=== PATIENT | female | born 1935 | race Caucasian/White ===

== ENCOUNTER 2025-01-17 19:38 | Inpatient (IN) | payer MEDICARE, OTHER ==
[~2025-01-17] VITALS: Ht 165.1 cm; Wt 69.3 kg
--- NOTE | 2025-01-17 20:04 | ERN ---
ED Note History of Present Illness Stated Complaint: C/O ABD PAIN WITH N X V Chief Complaint: Abdominal Pain Time Seen by MD: 19:45 Dictation: 89-year-old female was brought to the ER due to abdominal pain, stated that the pain started earlier this morning and has been getting worse, patient was unable to tolerate a diet today due to abdominal pain. He denies nausea or vomiting. Patient reports history of constipation, stated that she had a bowel movement this ED but was very little stool came out. Allergies: Coded Allergies: No Known Allergies (Unverified Allergy, Unknown, 01/17/25) Past Medical History Past Medical History: Unknown Surgical History: Unknown Review of System Dictation NEGATIVE EXCEPT PER HPI Constitutional: Negative for fever,chills, and weight loss Eyes: Negative for injury, pain,redness, and discharge ENT: Negative for injury,pain or swelling Cardiovascular: denies chest pain, palpitations, and edema Respiratory: Negative for shortness of breath, cough, and wheezing, Abdomen/GI: Abdominal pain, constipation. Back: Negative for injury and pain : Negative for injury, bleeding and discharge MS/Extremity: Negative for injury and deformity Skin: Negative for rash, and discoloration Neuro: Negative for headache, weakness, numbness, tingling, and seizure Psych: Negative for suicide ideation, homicidal ideation, and hallucinations Initial Vital Sign VS Vital Signs Date Time Temp Pulse Resp B/P (MAP) Pulse Ox O2 Delivery O2 Flow Rate FiO2 01/17/25 19:46 98.2 106 20 203/68 94 Room Air 01/17/25 20:10 2 28 Physical Exam Dictation General: awake, alert, NAD Head/Face: Normocephalic, atraumatic Eyes: PERRL, EOMI, vision at baseline ENT: oral cavity clear, TMs clear, no signs of infection Neck: Trachea midline, supple, no nuchal rigidity Cardiovascular: RRR, normal S1/S2, No MRGs, no JVD Respiratory: CTAB, no respiratory distress, No rales or wheezes Abdomen: Tympanic, diffusely tender Skin: Warm, dry, normal turgor, no rash MS/Extremity: Pulses equal, no cyanosis, neurovascular intact, FROM Neuro: COAx4, GCS 15, strength 5/5, CN 2-12 intact, normal cerebellar exam, normal gait, Psych: Normal behavior, mood, and affect normal Results (Laboratory/Radiology) Laboratory/Radiology Laboratory Tests Test 01/17/25 20:22 White Blood Count 12.6 K/uL (4.8-10.8) H Red Blood Count 4.32 MIL/uL (4.00-5.50) Hemoglobin 13.2 g/dL (12.0-16.0) Hematocrit 40.3 % (36-48) Mean Corpuscular Volume 93.3 fL (79-99) Mean Corpuscular Hemoglobin 30.6 pg (27.0-33.0) Mean Corpuscular Hemoglobin Concent 32.8 g/dL (32.0-36.0) Red Cell Distribution Width 12.4 % (11.0-15.5) Platelet Count 383 K/uL (130-400) Mean Platelet Volume 8.6 fL (7.5-10.5) Immature Granulocyte % (Auto) 0.2 % (0-1) Neutrophils (%) (Auto) 94.6 % (40.0-77.0) H Lymphocytes (%) (Auto) 4.5 % (21.0-51.0) L Monocytes (%) (Auto) 0.4 % (3.0-13.0) L Eosinophils (%) (Auto) 0.1 % (0.0-8.0) Basophils (%) (Auto) 0.2 % (0.0-5.0) Neutrophils # (Auto) 11.9 K/uL (1.8-7.7) H Lymphocytes # (Auto) 0.6 K/uL (1.0-4.8) L Monocytes # (Auto) 0.1 K/uL (0.1-1.0) Eosinophils # (Auto) 0.01 K/uL (0.00-0.70) Basophils # (Auto) 0.03 K/uL (0.00-0.20) Absolute Immature Granulocyte (auto 0.03 K/uL (0-1) Nucleated Red Blood Cells 0.0 % (0.0-0.19) White Cell Morphology Comment See comments Sodium Level 142 mmol/L (136-145) Potassium Level 3.4 mmol/L (3.5-5.1) L Chloride Level 100 mmol/L (101-111) L Carbon Dioxide Level 29 mmol/L (21-32) Blood Urea Nitrogen 23 mg/dL (7-18) H Creatinine 1.7 mg/dL (0.5-1.0) H Glomerular Filtration Rate Calc 29 mL/min (>90) Random Glucose 147 mg/dL (70-105) H Total Calcium 9.2 mg/dL (8.5-10.1) Lipase 8 U/L (16-77) L EKG Comment: Sinus tachycardia, IA 174, QT 362 ED Course ED Course Orders Procedure Category Date Status Time Vital Signs Per CPOE 01/17/25 Transmitted Routine 19:56 Saline Lock Iv CPOE 01/17/25 Transmitted 19:56 Cbc With Differential LAB 01/17/25 Complete 19:56 Lipase LAB 01/17/25 Complete 19:56 Urinalysis Profile LAB 01/17/25 Logged 19:56 Basic Metabolic Panel LAB 01/17/25 Complete 19:56 12 Lead Ekg Tracing- EKG 01/17/25 Logged Technical 19:56 Ct Abdomen/Pelvis W/O CT 01/17/25 Resulted Contrast 19:57 Simethicone (Mylicon) PHA 01/17/25 Complete 20:00 Ondansetron 4mg Inj PHA 01/17/25 Complete (Zofran 4mg Inj) 20:00 Ondansetron 4mg Inj PHA 01/17/25 Complete (Zofran 4mg Inj) 20:00 12 Lead Ekg Tracing- EKG 01/17/25 Logged Technical 20:04 Dicyclomine Hcl PHA 01/17/25 Complete (Bentyl 20mg Inj) 20:30 0.9%Nacl 1000ml (Ns PHA 01/17/25 In Process 1000ml) 22:00 Tamsulosin Hcl PHA 01/17/25 In Process (Flomax) 22:00 Current Medications Medications (Trade) Dose Ordered Sig/Nirmala Route PRN Reason Start Time Stop Time Status Last Admin Dose Admin Dicyclomine HCl (Bentyl 20mg Inj) 20 mg ONCE ONCE IM 01/17/25 20:30 01/17/25 20:31 DC 01/17/25 20:40 Ondansetron HCl (zoFRAN 4MG INJ) 4 mg ONCE ONCE IVP 01/17/25 20:00 01/17/25 20:01 DC 01/17/25 20:27 Ondansetron HCl (zoFRAN 4MG INJ) 4 mg ONCE ONCE IVP 01/17/25 20:00 01/17/25 20:01 DC Simethicone (Mylicon) 160 mg ONCE ONCE PO 01/17/25 20:00 01/17/25 20:01 DC 01/17/25 20:39 Sodium Chloride 1,000 ml @ 75 mls/hr [id number] IV 01/17/25 22:00 02/16/25 21:59 Tamsulosin HCl (FloMAX) 0.4 mg ONCE ONCE PO 01/17/25 22:00 01/17/25 22:01 Vital Signs Date Time Temp Pulse Resp B/P (MAP) Pulse Ox O2 Delivery O2 Flow Rate FiO2 01/17/25 20:10 98.2 108 28 142/78 96 Nasal Cannula* 2 28 01/17/25 19:46 98.2 106 20 203/68 94 Room Air Medical Decision Making MDM Abdominal pain Constipation Ordered GI laboratory workup Ordered CT abdomen without contrast Ordered EKG DX & DISP Disposition: Inpatient Decision to Admit Date: Jan 17, 2025 Departure Impression: Primary Impression: Hydronephrosis Additional Impressions: Stones, urinary tract, Hypokalemia, LEON (acute kidney injury) Condition: Stable Patient will be admitted to to urinary tract stones, hydronephrosis, acute kidney injury. JULIO CÉSAR JEONG MD Jan 17, 2025 20:04
[2025-01-17 20:28] LABS: IMMATURE GRANULOCYTE ABSOLUTE 0.03 K/uL (0-1); NUCLEATED RED BLOOD CELLS 0.0 % (0.0-0.19); PLATELET COUNT (AUTO) 383 K/uL (130-400); RED BLOOD CELL COUNT(AUTO) 4.32 MIL/uL (4.00-5.50); RED CELL DISTRIBUTION WIDTH 12.4 % (11.0-15.5); WHITE BLOOD COUNT (AUTO) 12.6 K/uL (4.8-10.8)
[2025-01-17] MEDS: SIMETHICONE 80 MG TAB.CHEW PO ONE (20:39)
[2025-01-17 20:40] LABS: CREATININE 1.7 mg/dL (0.5-1.0); GLOMERULAR FILTR. RATE CALC 29.0 mL/min (>90); GLUCOSE,RANDOM 147.0 mg/dL (70-105); SODIUM SERUM 142.0 mmol/L (136-145); UREA NITROGEN, BLOOD 23.0 mg/dL (7-18)
[2025-01-17] MEDS: DICYCLOMINE 20MG (10MG/ML) AMP IM ONE (20:40)
--- NOTE | 2025-01-17 21:22 | HMCIMG ---
EXAM: CT Abdomen and Pelvis Without IV contrast CLINICAL HISTORY: abdomina; pain diffuse TECHNIQUE: Axial computed tomography images of the abdomen and pelvis without intravenous contrast. CONTRAST: No IV contrast. COMPARISON: None provided. FINDINGS: LUNG BASES: The lung bases appear clear. No pleural effusions are seen. LIVER: Unremarkable. GALLBLADDER AND BILE DUCTS: Absent. PANCREAS: Unremarkable. SPLEEN: Unremarkable. ADRENAL GLANDS: Unremarkable. KIDNEYS, URETERS, AND BLADDER: Moderate right sided hydronephrosis and hydroureter. There is a stone 6 mm in the distal right ureter. Extensive bilateral calculi are seen. STOMACH AND BOWEL: Sigmoid diverticulosis is noted. No bowel obstruction. No evidence of bowel obstruction. No evidence suggesting enteritis or colitis. Not visualized PERITONEUM: No free fluid. No free air. LYMPH NODES: No lymphadenopathy is evident. REPRODUCTIVE: Unremarkable as visualized. VASCULATURE: No evidence of abdominal aortic aneurysm. BONES: No aggressive appearing osseous lesion. No acute osseous pathology evident. IMPRESSION: 1. Obstructing calculus within the right ureter distally associated with moderate proximal obstructive uropathy. 2. Extensive sigmoid diverticulosis. /Margy
--- NOTE | 2025-01-17 22:01 | HP ---
History of Present Illness Reason for Visit: abdominal pain History of Present Illness Ms. Chatman is an 89-year-old female that was seen and examined today on 01/17/2025 patient is currently alert and oriented x1. Patient states that it is December 2010. Patient states she does not know what city she is currently N but states that she is currently living with the daughter. Patient states that she has from [facility]. Discussed with primary nurse, Tona who states patient was previously alert and oriented x3 however after a dose of Dilaudid patient became less able to answer questions appropriately. The following was obtained from emergency room physician report. There was no previous medical records available for me to review. According to emergency room physician: 89-year-old female was brought to the ER due to abdominal pain, stated that the pain started earlier this morning and has been getting worse, patient was unable to tolerate a diet today due to abdominal pain. He denies nausea or vomiting. Patient reports history of constipation, stated that she had a bowel movement this ED but was very little stool came out. Today in the emergency department WBCs 12.6, left shift neutrophils 94%, potassium 3.4, no urinalysis has been collected or sent to lab, CT of abdomen and pelvis shows obstructive uropathy, right hydronephrosis, right hydro ureteral, 6 mm calculus. Emergency room physician recommended that patient be admitted so she could be evaluated by urology service. Urology service is being paste from the emergency department. Also creatinine was elevated at 1.7. There was no known baseline creatinine level. Nephrology service was also consulted from the emergency department. Past Medical History ADDITIONAL PAST MEDICAL HISTORY: [Unable to obtain] SOCIAL HISTORY: [Negative for smoking, alcohol use, drug use. Patient is currently living with her daughter.] SURGICAL HISTORY: [Unable to obtain] Review of Systems General: No Fever, No Chills, No Night Sweats, No Fatigue, No Malaise, No Appetite, No Other HEENT: No Head Aches, No Visual Changes, No Eye Pain, No Ear Pain, No Dysphasia, No Sinus Congestion, No Post Nasal Drip, No Sore Throat, No Other Pulmonary: No Dyspnea, No Cough, No Pleuritic Chest Pain, No Other Cardiovascular: No: Chest Pain, Palpitations, Orthopnea, Paroxysmal Noc. Dyspnea, Edema, Lt Headedness, Other Gastrointestinal: Abdominal Pain; No: Nausea, Vomiting, Diarrhea, Constipation, Melena, Hematochezia, Other Genitourinary: No Dysuria, No Frequency, No Incontinence, No Hematuria, No Retention, No Other Musculoskeletal: No: other, neck pain, shoulder pain, arm pain, back pain, hand pain, leg pain, foot pain Skin: No Urticaria, No Rash, No Other Neurological: No: Weakness, Numbness, Incoordination, Change in speech, Confusion, Seizures, Other Allergies: Coded Allergies: No Known Allergies (Unverified Allergy, Unknown, 01/17/25) Exam Vital Signs Vital Signs Date Time Temp Pulse Resp B/P (MAP) Pulse Ox O2 Delivery O2 Flow Rate FiO2 01/17/25 20:10 98.2 108 28 142/78 96 Nasal Cannula* 2 28 General Appearance: Alert (X1), No acute distress HEENT: Atraumatic, EOMI Respiratory: Clear to auscultation, Normal air movement, NL respiratory effort Cardiovascular: Regular rate, Regular rhythm, Normal S1, Normal S2 Abdominal: Normal bowel sounds, Soft, No tenderness Extremities: Other (Positive weakness to bilateral lower extremities) Skin: Other (Details per nursing assessment no assistance to turn patient at this time) Neuro: Normal speech, Strength at 5/5 X4 ext, Cranial nerves 3-12 NL Psych/Mental Status: Other (Patient able to answer very simple questions only) Assessment/Plan ASSESSMENT: [ Right hydronephrosis, POA Right hydroureter, POA Obstructive uropathy, POA Right ureterolithiasis, POA, 6 mm calculus Leukocytosis, POA Hypokalemia, POA Diverticulosis, POA Acute kidney injury versus CKD, POA] PLAN: [ Admit patient to medical floor as inpatient status. Patient will be followed by urology service. Keep patient NPO. As needed analgesia with Dilaudid. Check preprocedure labs, CBC, BMP, magnesium, phosphorus, PTT, UA, type and s creen, EKG, CXR IV fluid maintenance therapy lactated Ringer's at 75 mL/HR Tamsulosin 0.4 mg by mouth once daily Check blood culture, follow up with the results Check lactic acid, follow up with the results Check procalcitonin, follow up with the results Ordered urinalysis which was not been collected or sent to lab Replace potassium conservatively given decreased renal function, potassium chloride 10 mEq IV times 1 Calculate FENA Check urine sodium, creatinine, osmolality Avoid nephrotoxic agents when possible Renally dose all medications when possible Patient will be followed by Nephrology Service who was consulted from the emergency department Monitor patient's labs. Weight patient daily. Monitor intake and output. GI prophylaxis, Protonix DVT prophylaxis, Isaac's and SCDs avoid anticoagulation at this time due to impending urology evaluation ADVANCED CARE PLANNING 1. Which of the following were discussed? Hospice Care - Yes Therapeutic options - yes Advance Directives - Yes - patient states she does not have any advance directives in place at this time, however her daughter can make decisions for her if she becomes unable Other discussions - patient wishes to remain a full code at this time 2. Discussed with who? Patient 3. Voluntary nature of this service was explained to the patient? Yes 4. Amount of time spent - ___16 minutes____ 5. Reviewed by Physician? (if this service was performed by NPP) Yes This document was generated in part using voice recognition software, occasional wrong word or sound alike substitutions may have occurred due to the inherent limitations of voice recognition software. Read the chart carefully and recognize using context, where the substitutions have occurred. Although every effort was made to edit the content, physical therapist assistant and typing errors may occur ATTESTATION BY PHYSICIAN I have seen and examined the patient. I reviewed the documentation, medical decision making, and treatment plan as noted by the mid-level provider above. I agree with the findings and plan of care. ] ZAKIYA MOCTEZUMA [facility] Jan 17, 2025 22:01
[2025-01-17 22:18] LABS: APPEARANCE,URINE CLOUDY (CLEAR); GLUCOSE, URINE (UA) NEGATIVE (NEGATIVE); LEUKOCYTE ESTERASE ,URINE 500 Leu/uL (NEGATIVE); NITRATE,URINE NEGATIVE (NEGATIVE); OCCULT BLOOD,URINE LARGE (NEGATIVE)
[2025-01-17 22:21] LABS: ADD UA MICROSCOPIC YES; CREATININE,URINE RANDOM 22.87 mg/dL (30-135)
[2025-01-17 22:24] LABS: UNCLASSIFIED CRYSTAL 10 /HPF (None Seen); WBC CLUMP FEW /HPF (0-1)
[2025-01-17] MEDS: 0.9%NACL 1000ML 1,000 ML IV SCH (22:32)
--- NOTE | 2025-01-17 22:41 | NUR ---
Dr. CANALES, UROLOGIST, AT BEDSIDE AT THIS TIME
--- NOTE | 2025-01-17 23:08 | CONS ---
CONSULTATION NOTE Date of Service: Jan 17, 2025 Reason for Consultation: 6 mm right distal ureteral calculus causing obstruction Requesting Physician: George Lira MD HISTORY OF PRESENT ILLNESS: 89-year-old female with a history of nephrolithiasis presents to the emergency department complaining of diffuse abdominal pain. She was managed earlier by her daughter with suppositories thinking she needed to have a bowel movement. Pain was unrelenting. It is a stabbing ache diffuse in the abdomen but mostly lateralizing to the right lower quadrant occasionally will radiate into the groin area. Severity at the time of presentation was eight on a scale of 1-10. No other associated symptoms. Today in the emergency department WBCs 12.6, left shift neutrophils 94%, potassium 3.4, no urinalysis has been collected or sent to lab, CT of abdomen and pelvis shows obstructive uropathy, right hydronephrosis, right hydro ureteral, 6 mm calculus. Emergency room physician recommended that patient be admitted so she could be evaluated by urology service. Urology service is being paste from the emergency department. Also cr eatinine was elevated at 1.7. There was no known baseline creatinine level. REVIEW OF SYSTEMS CONSTITUTIONAL: Denies fever, chills, or fatigue. HEAD/FACE: No signs of trauma. EENT: Denies eye pain, blurred vision, double vision, or light sensitivity. RESPIRATORY: Denies shortness of breath, cough, wheezing CARDIOVASCULAR: Denies chest pain, palpitation, syncope GASTROINTESTINAL/ABDOMINAL: Denies abdominal pain, constipation, diarrhea, nausea or vomiting GENITOURINARY: Denies dysuria or hematuria. MUSCULOSKELETAL: Denies joint pain, tenderness, or trauma. INTEGUMENTARY: Denies rash or itchiness NEUROLOGICAL/PSYCH: Denies anxiety, depression, heat or cold intolerance. PAST MEDICAL HISTORY: Nephrolithiasis, on home oxygen PAST SURGICAL HISTORY: No previous surgeries endorsed PAST SOCIAL HISTORY: Denies ethanol, smoking and recreational drug FAMILY HISTORY: Family history noncontributory to presenting complaint Coded Allergies: No Known Allergies (Unverified Allergy, Unknown, 01/17/25) PHYSICAL EXAM EYES: Anicteric. Pupils equal and reactive. HENT: No oral thrush seen, moist Oral mucosa NECK: Supple, no JVD or thyromegaly. LUNGS: Good air entry. No rales, no rhonchi. CARDIOVASCULAR: S1, S2 regular. No murmur heard. ABDOMEN: Soft, non tender, bowel sounds present, no organomegaly CENTRAL NERVOUS SYSTEM: Awake, alert, oriented x 3. No focal deficits. SKIN: No rashes, no swelling. LYMPHATICS: No peripheral lymphadenopathy MUSCULOSKELETAL: No joint swelling, erythema or tenderness. EXTREMITIES: No cyanosis or clubbing BACK: No deformity, no pressure ulcer. GENITOURINARY: Genitalia is normal Vital Sign (Last 24 Hours) 01/17/25 22:58 Temp 97.5 Pulse 113 Resp 28 B/P (MAP) 166/91 Pulse Ox 96 O2 Delivery Nasal Cannula* O2 Flow Rate 2 FiO2 28 LABS: Laboratory: Test 01/17/25 22:28 01/17/25 22:09 01/17/25 20:22 Range/Units Lactic Acid Level 2.4 0.8-2.5 mmol/L Urine Color LIGHT-YELLOW YELLOW Urine Appearance CLOUDY H CLEAR Urine pH 7.5 5.0-8.0 Urine Specific [place] 1.008 1.001-1.031 Urine Protein 30 H NEGATIVE mg/dL Urine Glucose (UA) NEGATIVE NEGATIVE mg/dL Urine Ketones NEGATIVE NEGATIVE mg/dL Urine Occult Blood LARGE H NEGATIVE Urine Nitrate NEGATIVE NEGATIVE Urine Bilirubin NEGATIVE NEGATIVE mg/dL Urine Urobilinogen 0.2 0.2-1.0 mg/dL Urine Leukocyte Esterase 500 H NEGATIVE Tim/uL Urine RBC 51-100 H 0-1 /HPF Urine WBC TNTC H 0-1 /HPF Urine WBC Clumps (Auto) FEW 0-1 /HPF Urine Other Crystals (Auto) 10 None Seen /HPF Urine Bacteria RARE None Seen /HPF Urine Random Creatinine 22.87 L 30-135 mg/dL Urine Random Sodium 101 40-220 mmol/l White Blood Count 12.6 H 4.8-10.8 K/uL Red Blood Count 4.32 4.00-5.50 MIL/uL Hemoglobin 13.2 12.0-16.0 g/dL Hematocrit 40.3 36-48 % Mean Corpuscular Volume 93.3 79-99 fL Mean Corpuscular Hemoglobin 30.6 27.0-33.0 pg Mean Corpuscular Hemoglobin Concent 32.8 32.0-36.0 g/dL Red Cell Distribution Width 12.4 11.0-15.5 % Platelet Count 383 130-400 K/uL Mean Platelet Volume 8.6 7.5-10.5 fL Immature Granulocyte % (Auto) 0.2 0-1 % Neutrophils (%) (Auto) 94.6 H 40.0-77.0 % Lymphocytes (%) (Auto) 4.5 L 21.0-51.0 % Monocytes (%) (Auto) 0.4 L 3.0-13.0 % Eosinophils (%) (Auto) 0.1 0.0-8.0 % Basophils (%) (Auto) 0.2 0.0-5.0 % Neutrophils # (Auto) 11.9 H 1.8-7.7 K/uL Lymphocytes # (Auto) 0.6 L 1.0-4.8 K/uL Monocytes # (Auto) 0.1 0.1-1.0 K/uL Eosinophils # (Auto) 0.01 0.00-0.70 K/uL Basophils # (Auto) 0.03 0.00-0.20 K/uL Absolute Immature Granulocyte (auto 0.03 0-1 K/uL Nucleated Red Blood Cells 0.0 0.0-0.19 % White Cell Morphology Comment See comments Sodium Level 142 136-145 mmol/L Potassium Level 3.4 L 3.5-5.1 mmol/L Chloride Level 100 L 101-111 mmol/L Carbon Dioxide Level 29 21-32 mmol/L Blood Urea Nitrogen 23 H 7-18 mg/dL Creatinine 1.7 H 0.5-1.0 mg/dL Glomerular Filtration Rate Calc 29 >90 mL/min Random Glucose 147 H 70-105 mg/dL Total Calcium 9.2 8.5-10.1 mg/dL Lipase 8 L 16-77 U/L DIAGNOSTICS / RADIOLOGY: CT stone protocol obtained in the emergency department tonight did show multiple nonobstructing stones bilaterally. Stone burden is actually impressive. There is a 6 mm stone that is making his way down the right ureter with hydroureteronephrosis. ASSESSMENT: 89-year-old female presents to the hospital with a an obstructing right ureteral calculus. PLAN: 1. We are mindful of patient's comorbidities. I am going to strongly recommend the admitting team to obtain a cardiac evaluation. 2. Patient's daughter was expressing interest in shockwave lithotripsy however that service or surgical intervention is not available in this facility 3. We talked about the possibility of extracting the right distal ureteral calculus via ureteroscopy with laser lithotripsy and then addressing the rest of the nonobstructing stones through shockwave lithotripsy electively. 4. We will continue to modify our plan in consultation with the family. We spent 60 minutes complete this consult, more than half of the time was spent in counseling and coordination of care and addressing questions posed by patient and her daughter present at bedside. We spent some time discussing with members of her care team. We spent a great deal of time reviewing her chart including past admissions, the current admission reviewing laboratory data and imaging studies even prior to meeting with patient. FLORIDALMA CANALES MD Jan 17, 2025 23:08
[2025-01-18] VITALS (19 sets, daily range): BP systolic 98–140; BP diastolic 42–101; PULSE 80–142; RESP 16–38; TEMP 98.2–99.5; O2SAT 97
[2025-01-18] MEDS: LACTATED RINGERS 1000ML 1,000 ML IV SCH (01:02)
--- NOTE | 2025-01-18 01:42 | NUR ---
REPORT GIVEN TO NURSE REY
--- NOTE | 2025-01-18 03:04 | EKG ---
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
[2025-01-18 06:02] LABS: IMMATURE GRANULOCYTE ABSOLUTE 0.14 K/uL (0-1); NUCLEATED RED BLOOD CELLS 0.0 % (0.0-0.19); PLATELET COUNT (AUTO) 325 K/uL (130-400); RED BLOOD CELL COUNT(AUTO) 4.04 MIL/uL (4.00-5.50); RED CELL DISTRIBUTION WIDTH 12.5 % (11.0-15.5); WHITE BLOOD COUNT (AUTO) 23.4 K/uL (4.8-10.8)
[2025-01-18 06:13] LABS: INR 1.06 (0.85-1.15)
[2025-01-18 06:17] LABS: CREATININE 2.0 mg/dL (0.5-1.0); GLOMERULAR FILTR. RATE CALC 24.0 mL/min (>90); GLUCOSE,RANDOM 134.0 mg/dL (70-105); PHOSPHORUS 3.1 mg/dL (2.5-4.9); SODIUM SERUM 139.0 mmol/L (136-145); UREA NITROGEN, BLOOD 24.0 mg/dL (7-18)
--- NOTE | 2025-01-18 08:54 | NUR ---
DCP; HOME pt states she and daughter Jayleen Solis live in an apt. All utilities in home working, no food stamp assistance. Pt states she remains able to complete ADLS on her own, daughter helps with home management and meal prep as needed. Pt has a walker with seat, shower chair, bsc, O2 concentrator, states she mainly uses O2 at [facility], and prn during the day. No provider, or HD services. Pt stated she was "crystal clear" that she as going home at ca. Addendum: 01/18/25 at 0858 by RODOLFO PUTNAM Amended: Links added.
--- NOTE | 2025-01-18 10:41 | EKG ---
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[employer]: REGINA : 1935 Requested By: ZAKIYA MOCTEZUMA Order Number: [id number] Reading MD: Georges Ribeiro Measurements Intervals [place] Rate: 116 P: 35 AR: 162 QRS: -32 QRSD: 110 T: 65 QT: 338 QTc: 469 Interpretive Statements Sinus tachycardia Possible Left atrial enlargement Left axis deviation Left ventricular hypertrophy Inferior infarct , age undetermined Compared to ECG 01/17/2025 20:05:54 Left-axis deviation now present Myocardial infarct finding now present Early repolarization no longer present Electronically Signed On 01-18-2025 16:12:37 CDT by Georges Riberio Please click the below link to view image of tracing.
[2025-01-18] MEDS: ZOSYN 3.375GM +NS 50ML IV SCH (13:34)
--- NOTE | 2025-01-18 14:28 | NUR ---
INITIATED TRANSFER TO [facility] PER TRANSFER CENTER UNDER THE ORDER OF DR PENDLETON
--- NOTE | 2025-01-18 15:57 | HMCSR ---
APPROVED REPORT EXAM: Two-dimensional and M-mode echocardiogram with Doppler and color Doppler. Study Details: No past imaging INDICATION ICD: Octogenarian, assess LV function 2D Dimensions RVDd3.7 cmLVEF(%)73.3 (>50%)LVED Vol(simp.)51.0 mL IVSd1.2 (0.7-1.1cm)FS(%)42 %LVES Vol(simp.)22.0 mL LVDd3.7 (3.8-5.6cm)LA (2D)4.6 (1.6-4.0cm)LVEF(%, simp.)57 % PWd1.1 (0.7-1.1cm)Ao Root(2D)2.9 (2.0-3.7cm)LA ESV INDEX (BP)25.58 mL/m2 IVSs1.3 cmLVOT diam2.0 (1.8-2.4cm) LVDs2.4 (2.5-4.0cm) PWs1.5 cm Deformation Strain Apical 4-17.8 % Apical 2-15.7 % Apical 3-17.8 % Global Strain-17.1 % M-Mode Dimensions EPSS0.5 cm LA (MM)4.3 (1.6-4.0cm) Ao Root(MM)2.7 (2.0-3.7cm) Aortic Valve AoV Vmax1.5 m/Bertha Peak GR8.8 mmHgLVOT Vmax1.2 m/s AoV VTI0.2 mAo Mean GR5.6 mmHgLVOT VTI0.21 m HOWIE (VMAX)2.55 cm2AVA (VTI) 2.9 cm2 Mitral Valve MV E Vmax92.8 cm/sDECEL Nnod562 ms MV A Xsob585.8 cm/sP 1/2 T28 ms E/A ratio0.5MVA (PHT)7.9 cm2 TDI E/E' Medial8.9E/E' Yabshlk74.2 Medial E' Peak V10.39 cm/sLateral E' Peak V5.09 cm/s Pulmonary Valve PV Vmax2.0 m/sPV VTI0.30 mPV Mean GR9.8 mmHg PV Peak GR16.0 mmHg Tricuspid Valve TR Vmax2.5 m/sRAP (EST) 3 izNbDDYS41.2 mmHg TR Peak GR24.2 mmHg Left Ventricle The left ventricle is normal size. GLS -17.0% There is normal LV segmental wall motion. Mild concentr ic left ventricular hypertrophy. The LVEF is > 55%. Indeterminate diastolic dysfunction. Right Ventricle The right ventricle is normal size. The right ventricular systolic function is normal. Atria The left atrium size is normal. The right atrium size is normal. Aortic Valve The aortic valve is normal in structure. Trace aortic regurgitation is present. Possible Non coronary cusp leaflet vegetation vs calcified nodule noted on aortic valve. There is no aortic valvular steno sis. Mitral Valve Posterior annular calcification noted. The mitral valve is mildly thickened. There is mild mitral bala ve regurgitation noted. There is no mitral valve stenosis. Tricuspid Valve The tricuspid valve is normal in structure. There is trace of tricuspid valve regurgitation noted. Pulmonic Valve Pulmonic valve is not well visualized. There is no pulmonic valvular regurgitation. Great Vessels The aortic root is normal in size. The IVC is normal in size and collapses >50% with inspiration. Pericardium There is no pericardial effusion. Other Information Quality : Adequate Conclusion The left ventricle is normal size.The LVEF is > 55% with normal LV segmental wall motion. Mild concentric left ventricular hypertrophy. Indeterminate diastolic dysfunction. The right ventricular systolic function is normal. Both atria are normal in size. Aortic valve is trileaflet, thickend with a possible vegetation vs calcified nodule on the noncoronar y cusp. No hemodynamically significant valvular abnormalities. There is no pericardial effusion. Consider JERALD if clinically indicated to further assess AV
--- NOTE | 2025-01-18 16:00 | CONS ---
NEPHROLOGY CONSULTATION NOTE Date/Time Patient Seen: Jan 18, 2025 1430 Reason for Consultation: Renal failure HISTORY OF PRESENT ILLNESS: This is an 89-year-old female presents to the emergency room with complaints of abdominal pain CT of abdomen and pelvis shows obstructive uropathy, right hydronephrosis, right hydro ureteral, 6 mm calculus. She continues to be followed by Urology. Pending possible transfer She was noted with elevated BUN/creatinine We are consulted for renal failure Renal function remains elevated Electrolytes are stable. She was seen in the medical floor, in no acute distress REVIEW OF SYSTEMS: GENERAL: Positive for abdominal pain NEUROLOGIC: Negative for any blurry vision, blind spots, double vision, facial asymmetry, dysphagia, dysarthria, hemiparesis, hemisensory deficits, vertigo, ataxia. HEENT: Negative for any head trauma, neck trauma, neck stiffness, photophobia, phonophobia, sinusitis, rhinitis. CARDIAC: Negative for any chest pain, dyspnea on exertion, paroxysmal nocturnal dyspnea, peripheral edema. PULMONARY: Negative for any shortness of breath, wheezing, COPD, or TB exposure. GASTROINTESTINAL: Negative for any abdominal pain, nausea, vomiting, bright red blood per rectum, melena. GENITOURINARY: Negative for any dysuria, hematuria, incontinence. INTEGUMENTARY: Negative for any rashes, cuts, insect bites. RHEUMATOLOGIC: Negative for any joint pains, photosensitive rashes, history of vasculitis or kidney problems. HEMATOLOGIC: Negative for any abnormal bruising, frequent infections or bleeding. PAST MEDICAL HISTORY: [ ] PAST SURGICAL HISTORY: None PAST SOCIAL HISTORY: Denies use of alcohol, tobacco or illicit drugs FAMILY HISTORY: [Noncontributory PHYSICAL EXAM: GENERAL: Alert and oriented x 3. No acute distress. Well-nourished. EYES: EOMI. Anicteric. HENT: Moist mucous membranes. No scleral icterus. No cervical lymphadenopathy. LUNGS: Clear to auscultation bilaterally. No accessory muscle use. CARDIOVASCULAR: Regular rate and rhythm. No murmur. No JVD. ABDOMEN: Soft, non-tender and non-distended. No palpable masses. EXTREMITIES: No edema. Non-tender. SKIN: No rashes or lesions. Warm. NEUROLOGIC: No focal neurological deficits. CN II-XII grossly intact, but not individually tested. PSYCHIATRIC: Cooperative. Appropriate mood and affect. MEDICATIONS: [ ] Current Medications Medications (Trade) Dose Ordered Sig/Nirmala Route PRN Reason Start Time Stop Time Status Last Admin Dose Admin Acetaminophen (TYLenol 325MG TAB) 650 mg Q4HPRN PRN PO TEMPERATURE GREATER THAN 101.5 01/18/25 13:30 02/16/25 22:29 01/18/25 13:34 650 MG Acetaminophen (TYLenol 325MG TAB) 650 mg Q6H PRN PO TEMPERATURE GREATER THAN 101.5 01/17/25 22:30 01/18/25 13:29 DC 01/18/25 08:35 650 MG Ceftriaxone Sodium (ROCEphine 1G INJ) 1 gm Q24H IVPB 01/18/25 02:00 01/18/25 13:18 DC 01/18/25 02:53 1 GM Hydromorphone HCl (DiLAUDid 0.5MG INJ) 0.25 mg Q4H PRN IVP SEVERE PAIN (7-10) 01/17/25 22:30 01/22/25 22:29 01/18/25 11:42 0.25 MG Lactated Ringer's 1,000 ml @ 75 mls/hr [id number] IV 01/17/25 22:30 02/16/25 22:29 01/18/25 02:53 75 MLS/HR Lactulose (Constulose 20gm/ 30ml Udcup) 20 gm BID PRN PO CONSTIPATION 01/17/25 22:30 02/16/25 22:29 Magnesium Sulfate 50 ml @ 0 mls/hr PROTOCOL PRN IV As needed 01/18/25 09:30 02/17/25 09:29 Ondansetron HCl (zoFRAN 4MG INJ) 4 mg Q6H PRN IV NAUSEA/VOMITING 01/17/25 22:30 02/16/25 22:29 Pantoprazole Sodium (PROTonix 40MG INJ) 40 mg DAILY IV 01/18/25 09:00 02/17/25 08:59 01/18/25 08:28 40 MG Piperacillin Sod/ Tazobactam Sod (Zosyn 3.375gm+NS 50ml) 3.375 gm Q8H IV 01/18/25 13:30 01/28/25 13:29 01/18/25 13:34 3.375 GM Sodium Chloride 1,000 ml @ 75 mls/hr [id number] IV 01/17/25 22:00 01/18/25 12:28 DC 01/17/25 22:32 75 MLS/HR Tamsulosin HCl (FloMAX) 0.4 mg DAILY PO 01/18/25 09:00 02/17/25 08:59 01/18/25 08:28 0.4 MG Vital Signs (last 8hr) Date Time Temp Pulse Resp B/P (MAP) Pulse Ox O2 Delivery O2 Flow Rate FiO2 01/18/25 13:34 99.5 01/18/25 12:50 99.5 130 24 119/42 92 Nasal Cannula 2.0 01/18/25 12:17 Nasal Cannula* 2 28 01/18/25 08:46 98.2 122 24 121/60 91 Nasal Cannula 2.0 01/18/25 08:40 98.2 80 140/90 94 Nasal Cannula 2.0 DIAGNOSTICS / RADIOLOGY: [place] [address] IMAGING REPORT Signed PATIENT: EUGENE BLACKBURN MR#: [id number] : 1935 SEX: F AGE: 89 LOCATION: [facility] ORDER 57 STATUS: REG REPORT#: [id number] SERVICE 56 REASON: abdomina; pain diffuse ORDERING PHYSICIAN: JULIO CÉSAR JEONG MD PROCEDURE: ABD PEL WO - CT ABDOMEN/PELVIS W/O CONTRAST EXAM: CT Abdomen and Pelvis Without IV contrast CLINICAL HISTORY: abdomina; pain diffuse TECHNIQUE: Axial computed tomography images of the abdomen and pelvis without intravenous contrast. CONTRAST: No IV contrast. COMPARISON: None provided. FINDINGS: LUNG BASES: The lung bases appear clear. No pleural effusions are seen. LIVER: Unremarkable. GALLBLADDER AND BILE DUCTS: Absent. PANCREAS: Unremarkable. SPLEEN: Unremarkable. ADRENAL GLANDS: Unremarkable. KIDNEYS, URETERS, AND BLADDER: Moderate right sided hydronephrosis and hydroureter. There is a stone 6 mm in the distal right ureter. Extensive bilateral calculi are seen. STOMACH AND BOWEL: Sigmoid diverticulosis is noted. No bowel obstruction. No evidence of bowel obstruction. No evidence suggesting enteritis or colitis. Not visualized PERITONEUM: No free fluid. No free air. LYMPH NODES: No lymphadenopathy is evident. REPRODUCTIVE: Unremarkable as visualized. VASCULATURE: No evidence of abdominal aortic aneurysm. BONES: No aggressive appearing osseous lesion. No acute osseous pathology evident. IMPRESSION: 1. Obstructing calculus within the right ureter distally associated with moderate proximal obstructive uropathy. 2. Extensive sigmoid diverticulosis. /[place] DICTATED BY: SHANTA MCKINNEY MD DATE: 01/17/252221 ELECTRONICALLY SIGNED BY: SHANTA MCKINNEY MD DATE: 01/17/252221 LABORATORY: [ ] Hematology Labs: Test 01/18/25 05:45 01/17/25 20:22 Range/Units White Blood Count 23.4 #H 4.8-10.8 K/uL Red Blood Count 4.04 4.00-5.50 MIL/uL Hemoglobin 12.3 12.0-16.0 g/dL Hematocrit 37.7 36-48 % Mean Corpuscular Volume 93.3 79-99 fL Mean Corpuscular Hemoglobin 30.4 27.0-33.0 pg Mean Corpuscular Hemoglobin Concent 32.6 32.0-36.0 g/dL Red Cell Distribution Width 12.5 11.0-15.5 % Platelet Count 325 130-400 K/uL Mean Platelet Volume 8.7 7.5-10.5 fL Immature Granulocyte % (Auto) 0.6 0-1 % Neutrophils (%) (Auto) 94.6 H 40.0-77.0 % Lymphocytes (%) (Auto) 1.8 L 21.0-51.0 % Monocytes (%) (Auto) 2.7 L 3.0-13.0 % Eosinophils (%) (Auto) 0.0 0.0-8.0 % Basophils (%) (Auto) 0.3 0.0-5.0 % Neutrophils # (Auto) 22.1 H 1.8-7.7 K/uL Lymphocytes # (Auto) 0.4 L 1.0-4.8 K/uL Monocytes # (Auto) 0.6 0.1-1.0 K/uL Eosinophils # (Auto) 0.00 0.00-0.70 K/uL Basophils # (Auto) 0.06 0.00-0.20 K/uL Absolute Immature Granulocyte (auto 0.14 0-1 K/uL Nucleated Red Blood Cells 0.0 0.0-0.19 % White Cell Morphology Comment See comments Chemistry Labs: Test 01/18/25 05:45 01/17/25 22:28 01/17/25 20:22 Range/Units Sodium Level 139 136-145 mmol/L Potassium Level 3.5 3.5-5.1 mmol/L Chloride Level 103 101-111 mmol/L Carbon Dioxide Level 27 21-32 mmol/L Blood Urea Nitrogen 24 H 7-18 mg/dL Creatinine 2.0 H 0.5-1.0 mg/dL Glomerular Filtration Rate Calc 24 >90 mL/min Random Glucose 134 H 70-105 mg/dL Lactic Acid Level 2.1 0.8-2.5 mmol/L Total Calcium 8.5 8.5-10.1 mg/dL Phosphorus Level 3.1 2.5-4.9 mg/dL Magnesium Level 1.40 L 1.80-2.40 mg/dL Procalcitonin 2.28 H 0.05-0.5 ng/mL Lipase 8 L 16-77 U/L Coagulation Labs: Test 01/18/25 05:45 Range/Units Prothrombin Time 11.2 9.6-11.6 SEC Prothromb Time International Ratio 1.06 0.85-1.15 Activated Partial Thromboplast Time 31.7 26.3-35.5 SEC ASSESSMENT: Patient has acute renal failure with ureterolithiasis and hydronephrosis with electrolyte problems including hypokalemia Right hydronephrosis, POA Right hydroureter, POA Obstructive uropathy, POA Right ureterolithiasis, POA, 6 mm calculus Leukocytosis, POA Hypokalemia, POA Diverticulosis, POA Acute kidney injury versus CKD, PLAN: Labs, diagnostic, radiologic exams reviewed and interpreted by myself and supervising physician. We have reviewed external records in detail Start Flomax 0.5 mg p.o. daily, 1st dose now Strain all urine, since stone for analysis Require close monitoring of renal function and electrolytes Order CBC, CMP, uric acid, TSH and electrolytes in am Continue with antibiotics BiPAP as necessary, for respiratory distress Monitor blood pressure adjust medication doses as needed Avoid hypotensive episodes May use Dilaudid 0.5 mg IV every 6 hours as needed for severe pain Monitor blood sugars Strict intake, output, and daily weight should be monitored Please renally adjust medications Avoid nephrotoxic and nonsteroidal drugs Avoid contrast if possible Will continue to monitor renal function, anemia, electrolytes Treatment plan discussed with patient Questions were answered We have discussed with the other team physicians in detail about the care plan We will continue to monitor the patient closely Thank you for allowing us to participate in the care of this patient ATTESTATION BY PHYSICIAN I have seen and examined the patient. I reviewed the documentation, medical decision making, and treatment plan as noted by the mid-level provider above. I agree with the findings and plan of care. KODY BARBOZA MD, ELIZABETH FNP Jan 18, 2025 16:00 KODY BARBOZA MD Jan 18, 2025 20:00
--- NOTE | 2025-01-18 16:09 | HMCIMG ---
CHEST 1VW REASON: preprocedural COMPARISON: None. FINDINGS: Single view of the chest was obtained. Lungs are clear with mild prominence of interstitium suggesting of underlying interstitial lung disease.. Heart size is normal. There is no pulmonary vascular congestion. Mediastinum and bony thorax appear unremarkable. 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 IMPRESSION: 1. No evidence of airspace consolidation or pulmonary venous congestion 2. Prominence of interstitium suggesting of interstitial lung disease.
[2025-01-18] MEDS: LACTATED RINGERS IV ONE (16:30)
--- NOTE | 2025-01-18 16:38 | CONS ---
[facility] CARDIOLOGY CONSULTATION NOTE Date Patient Seen: Jan 18, 2025 Time of Visit: 16:30 Requesting Physician: [ ] Reason for Consultation: [ ] History of Present Illness: [89-year-old female with a history of nephrolithiasis presents to the emergency department complaining of diffuse abdominal pain.CT of abdomen and pelvis shows obstructive uropathy, right hydronephrosis, right hydro ureteral, 6 mm calculus. The patient was admitted for ureteroscopy with laser lithotripsy, on interrogation the patient denies any prior history of Myocardial infarction/CAD/stroke, presenting ECG sinus rhythm with no ST-T wave abnor malities, nonischemic , currently denying any chest pain, palpitations, dyspnea or any other anginal equivalents, the patient underwent 2D echocardiogram 01/18/2025, LVEF 55%, mild LVH, aortic valve trileaflet, thickened with a possible vegetation, but upon further review it appears to be a nodule, no hemodynamically significant valvular abnormalities. Cardiology was consulted for preop evaluation ] Past Medical History: [ Refer to chart] Past Surgical History: [Refer to HPI ] Family History: [Refer to HPI ] Social History: [ Refer to HPI] Habits: [Never] smoker. [Denies] alcohol consumption. [Denies] illicit drug use Review of Systems: A review of12 point system was negative set per HPI Physical Examination: GENERAL: [No acute distress.] HEAD: [Normal with no signs of head trauma.] EYES: [PERRLA, EOMI, conjunctiva and sclera normal.] ENT: [Hearing grossly intact, normal oropharynx.] NECK: [Supple without JVD. There is no tenderness, lymphadenopathy, or masses. No thyromegaly. Normal carotid upstrokes without bruits.] LUNGS: [Clear breath sounds bilaterally. No wheezes, or rhonchi.] HEART: [Normal rate and rhythm. Normal S1 and S2 without mumurs, gallop or rub.] VASC: [Peripheral pulses +2 bilaterally.] ABD: [Bowel sounds normal, soft, nontender, no masses, no organomegaly. No audible bruits.] : [Not examined] LYMPH: [No lymphadenopathy noted.] EXT: [No clubbing, cyanosis or edema.] SKIN: [No rashes or lesions noted.] NEURO: [Awake, alert, and oriented x3. No focal sensory or strength deficits noted.] Vital Signs (last 8hr) Date Time Temp Pulse Resp B/P (MAP) Pulse Ox O2 Delivery O2 Flow Rate FiO2 01/18/25 13:34 99.5 01/18/25 12:50 99.5 130 24 119/42 92 Nasal Cannula 2.0 01/18/25 12:17 Nasal Cannula* 2 28 01/18/25 08:46 98.2 122 24 121/60 91 Nasal Cannula 2.0 01/18/25 08:40 98.2 80 140/90 94 Nasal Cannula 2.0 Laboratory: [ ] Hematology Labs: Test 01/18/25 05:45 01/17/25 20:22 Range/Units White Blood Count 23.4 #H 4.8-10.8 K/uL Red Blood Count 4.04 4.00-5.50 MIL/uL Hemoglobin 12.3 12.0-16.0 g/dL Hematocrit 37.7 36-48 % Mean Corpuscular Volume 93.3 79-99 fL Mean Corpuscular Hemoglobin 30.4 27.0-33.0 pg Mean Corpuscular Hemoglobin Concent 32.6 32.0-36.0 g/dL Red Cell Distribution Width 12.5 11.0-15.5 % Platelet Count 325 130-400 K/uL Mean Platelet Volume 8.7 7.5-10.5 fL Immature Granulocyte % (Auto) 0.6 0-1 % Neutrophils (%) (Auto) 94.6 H 40.0-77.0 % Lymphocytes (%) (Auto) 1.8 L 21.0-51.0 % Monocytes (%) (Auto) 2.7 L 3.0-13.0 % Eosinophils (%) (Auto) 0.0 0.0-8.0 % Basophils (%) (Auto) 0.3 0.0-5.0 % Neutrophils # (Auto) 22.1 H 1.8-7.7 K/uL Lymphocytes # (Auto) 0.4 L 1.0-4.8 K/uL Monocytes # (Auto) 0.6 0.1-1.0 K/uL Eosinophils # (Auto) 0.00 0.00-0.70 K/uL Basophils # (Auto) 0.06 0.00-0.20 K/uL Absolute Immature Granulocyte (auto 0.14 0-1 K/uL Nucleated Red Blood Cells 0.0 0.0-0.19 % White Cell Morphology Comment See comments Chemistry Labs: Test 01/18/25 05:45 01/17/25 22:28 01/17/25 20:22 Range/Units Sodium Level 139 136-145 mmol/L Potassium Level 3.5 3.5-5.1 mmol/L Chloride Level 103 101-111 mmol/L Carbon Dioxide Level 27 21-32 mmol/L Blood Urea Nitrogen 24 H 7-18 mg/dL Creatinine 2.0 H 0.5-1.0 mg/dL Glomerular Filtration Rate Calc 24 >90 mL/min Random Glucose 134 H 70-105 mg/dL Lactic Acid Level 2.1 0.8-2.5 mmol/L Total Calcium 8.5 8.5-10.1 mg/dL Phosphorus Level 3.1 2.5-4.9 mg/dL Magnesium Level 1.40 L 1.80-2.40 mg/dL Procalcitonin 2.28 H 0.05-0.5 ng/mL Lipase 8 L 16-77 U/L Coagulation Labs: Test 01/18/25 05:45 Range/Units Prothrombin Time 11.2 9.6-11.6 SEC Prothromb Time International Ratio 1.06 0.85-1.15 Activated Partial Thromboplast Time 31.7 26.3-35.5 SEC Diagnostics / Radiology: [Copy/Paste Echos/Imaging Report here] Assessment: [Nephrolithiasis ] Plan: [#Pre - operative cardiovascular assessment The patient is considered to be at high risk for a low risk non cardiac surgery. Denies history of CAD/ [place]/ stroke or family history of premature CAD The patient denies chest pain , palpitations , dyspnea on exertion or any other anginal equivalents. ECG : Sinus rhythm , non ischemic with no ST-T wave abnormalities. Given the above mentioned findings, patient is to proceed with intervention as the current benefits outweigh the risk from the cardiovascular standpoint. ] Thank you for this consult cardiology will sign off at this time Georges godoy MD ATTESTATION BY PHYSICIAN I have seen and examined the patient, reviewed the above documentation, participated in medical decision making, made necessary modifications, and agree with the treatment plan as documented by my mid-level provider above. MD MICHELLE Irwin JAMES R MD Jan 18, 2025 16:38
--- NOTE | 2025-01-18 16:40 | NUR ---
COMMUNICATION DR. PENDLETON NOTIFIED OF CLEARANCE FROM [employer] SUPERINTENDENT FOR PT. TO UNDERGO STENT PLACEMENT ON KIDNEY.
[2025-01-18 17:59] LABS: RAPID GROUP A STREP negative (NEGATIVE)
[2025-01-18] MEDS ORDERED: NOREPINEPHRIN 4MG/NS 250ML 250 ML IV SCH (18:00)
[2025-01-18 18:07] LABS: COVID19 (SARS ANTIGEN RAPID) PRESUMPTIVE NEGATIVE (NEGATIVE); INFLUENZA TYPE A Negative For Type A (NEGATIVE); INFLUENZA TYPE B Negative For Type B (NEGATIVE)
--- NOTE | 2025-01-18 18:47 | NUR ---
TRANSFER DR. PENDLETON PLACED ORDER TO [facility]INN MORENO TO A HIGH LEVEL OF CARE. REPORT GIVEN TO NURSE STRONG IN ICU.
--- NOTE | 2025-01-18 18:53 | NUR ---
[facility] CALLED AT 1657 TO INFORM OF NOT A HIGHER LEVEL OF CARE, AND ASKED FOR MORE INFORMATION FROM CARE TEAM, . RETURNED CALL TO TRANSFER CENTER AND INFORMED THEM THAT THE NECESSITY IS BASED ON IR AVAILABILITY FOR NEPHROSTOMY TUBE AND DR PENDLETON WOULD LIKE TO KEEP TRANSFER CASE OPEN.
--- NOTE | 2025-01-18 19:00 | PN ---
[facility] PROGRESS NOTE Date of Service: Jan 18, 2025 Time of Service: 18:41 History of Present Illness Ms. Blackburn is an 89-year-old female that was seen and examined today on 01/17/2025 patient is currently alert and oriented x1. Patient states that it is December 2010. Patient states she does not know what city she is currently N but states that she is currently living with the daughter. Patient states that she has from [facility]. Discussed with primary nurse, Tona who states patient was previously alert and oriented x3 however after a dose of Dilaudid patient became less able to answer questions appropriately. The following was obtained from emergency room physician report. There was no previous medical records available for me to review. According to emergency room physician: 89-year-old female was brought to the ER due to abdominal pain, stated that the pain started earlier this morning and has been getting worse, patient was unable to tolerate a diet today due to abdominal pain. He denies nausea or vomiting. Patient reports history of constipation, stated that she had a bowel movement this ED but was very little stool came out. Today in the emergency department WBCs 12.6, left shift neutrophils 94%, potassium 3.4, no urinalysis has been collected or sent to lab, CT of abdomen and pelvis shows obstructive uropathy, right hydronephrosis, right hydro ureteral, 6 mm calculus. Emergency room physician recommended that patient be admitted so she could be evaluated by urology service. Urology service is being paste from the emergency department. Also creatinine was elevated at 1.7. There was no known baseline creatinine level. Nephrology service was also consulted from the emergency department. SUBJECTIVE: [ ] 01/18/2025: Patient was seen this morning in 420. Alert oriented to time place and person, denied fevers, chills hemodynamically stable. The patient reported discomfort in her abdomen and right flank. Culture showed 10-50 K colony-formin g units and her WBCs on presentation were [address] while in the ED that spiked to 23.4 K this morning. He lactic acid was 2.1 and Procal was 2.8. We added Zosyn on top of ceftriaxone for extended coverage. We spoke to Dr. Jimenez for management of hydronephrosis with 6 mm stone in the right ureter and he recommended placing a nephrostomy tube and obtaining cardiac clearance before doing so. Dr. Ribeiro was consulted and patient is considered to be at high risk for a low risk non cardiac surgery. He cleared her to proceed with intervention as the current benefits outweigh the risk from the cardiovascular standpoint. Pending transfer to any facility for placing nephrostomy tube as IR not available today. Patient remains NPO since this morning. 17:30: In the interim patient became more septic and decompensated. Her blood pressure dropped to 89/44, MAP 59 and IV bolus Ringer's lactate was started. Critical care team was consulted and a transfer to ICU order was placed. Critical Care team placed the order for Levophed however was waiting for the patient to be transferred to the ICU. 7:00 p.m.: After IV bolus patient's map is at 61. Patient is being transferred to ICU and will be started on Levophed. We agree with the plan from [facility] and we will continue their recommendations. REVIEW OF SYSTEMS CONSTITUTIONAL: Denies fevers, chills, or night sweats. No unintentional weight loss reported. NEUROLOGICAL: Denies headache, amaurosis fugax, motor weakness, sensory deficit, vertigo/spinning sensation, gait abnormalities, or tremors. ENT: No hearing loss, otalgia, otorrhea, rhinitis, rhinorrhea, hoarseness, or sore throat. CARDIOVASCULAR: Denies any exertional angina, dyspnea on exertion, orthopnea, paroxysmal nocturnal dyspnea, palpitations, life-threatening arrhythmias, claudication. PULMONARY: Denies any shortness of breath, cough, phlegm/sputum, hemoptysis, pleuritic chest pain. SLEEP: Denies morning headaches, daytime somnolence or napping. Denies difficulty falling asleep, staying asleep, waking from sleep. Denies knowledge of snoring. GASTROINTESTINAL: Denies any type of dysphagia to either liquids or solids. Denies nausea, vomiting, pyrosis, early satiety, abdominal pain, diarrhea, constipation, or changes in stool consistency or caliber. Denies coffee-ground emesis, hematemesis, hematochezia, or melanotic stools. GENITOURINARY: Right sided flank pain. Denies frequency, urgency, nocturia, hematuria or incontinence PHYSICAL EXAM GENERAL APPEARANCE: The patient is awake, alert, and oriented, in no acute cardiopulmonary distress. NEUROLOGICAL: Cranial nerves II-XII grossly intact. Motor is 5/5 in bilateral upper and lower extremities proximal to distal. No sensory deficits. HEENT: Face is symmetric. Pupils are equal and reactive. Extraocular movements are intact. NECK: Supple. No JVD. No thyromegaly. No submental, submandibular, pre- /postauricular, occipital or supraclavicular lymphadenopathy. CHEST: Normal chest expansion. No Telemetry. LUNGS: Absence of any rales, rhonchi or any wheezing. CARDIOVASCULAR: Regular. S1 and S2 normal. No appreciable rubs, murmurs or gallops. ABDOMEN: Soft, nontender, and nondistended. There is no rebound, voluntary guarding, or rigidity. : Deferred. No [place]. EXTREMITIES: Non-edematous and not cyanotic. No clubbing. Good capillary refill. SKIN: No skin breakdown. Vital Signs (last 8hr) Date Time Temp Pulse Resp B/P (MAP) Pulse Ox O2 Delivery O2 Flow Rate FiO2 01/18/25 13:34 99.5 01/18/25 12:50 99.5 130 24 119/42 92 Nasal Cannula 2.0 01/18/25 12:17 Nasal Cannula* 2 28 LABS: Laboratory: Test 01/18/25 17:45 01/18/25 05:45 01/17/25 22:28 01/17/25 22:09 Range/Units Influenza Type A Antigen Negative For Type A NEGATIVE Influenza Type B Antigen Negative For Type B NEGATIVE SARS-CoV-2 Antigen (Rapid) PRESUMPTIVE NEGATIVE NEGATIVE Group A Streptococcus Rapid negative NEGATIVE White Blood Count 23.4 #H 4.8-10.8 K/uL Red Blood Count 4.04 4.00-5.50 MIL/uL Hemoglobin 12.3 12.0-16.0 g/dL Hematocrit 37.7 36-48 % Mean Corpuscular Volume 93.3 79-99 fL Mean Corpuscular Hemoglobin 30.4 27.0-33.0 pg Mean Corpuscular Hemoglobin Concent 32.6 32.0-36.0 g/dL Red Cell Distribution Width 12.5 11.0-15.5 % Platelet Count 325 130-400 K/uL Mean Platelet Volume 8.7 7.5-10.5 fL Immature Granulocyte % (Auto) 0.6 0-1 % Neutrophils (%) (Auto) 94.6 H 40.0-77.0 % Lymphocytes (%) (Auto) 1.8 L 21.0-51.0 % Monocytes (%) (Auto) 2.7 L 3.0-13.0 % Eosinophils (%) (Auto) 0.0 0.0-8.0 % Basophils (%) (Auto) 0.3 0.0-5.0 % Neutrophils # (Auto) 22.1 H 1.8-7.7 K/uL Lymphocytes # (Auto) 0.4 L 1.0-4.8 K/uL Monocytes # (Auto) 0.6 0.1-1.0 K/uL Eosinophils # (Auto) 0.00 0.00-0.70 K/uL Basophils # (Auto) 0.06 0.00-0.20 K/uL Absolute Immature Granulocyte (auto 0.14 0-1 K/uL Nucleated Red Blood Cells 0.0 0.0-0.19 % Prothrombin Time 11.2 9.6-11.6 SEC Prothromb Time International Ratio 1.06 0.85-1.15 Activated Partial Thromboplast Time 31.7 26.3-35.5 SEC Sodium Level 139 136-145 mmol/L Potassium Level 3.5 3.5-5.1 mmol/L Chloride Level 103 101-111 mmol/L Carbon Dioxide Level 27 21-32 mmol/L Blood Urea Nitrogen 24 H 7-18 mg/dL Creatinine 2.0 H 0.5-1.0 mg/dL Glomerular Filtration Rate Calc 24 >90 mL/min Random Glucose 134 H 70-105 mg/dL Lactic Acid Level 2.1 0.8-2.5 mmol/L Total Calcium 8.5 8.5-10.1 mg/dL Phosphorus Level 3.1 2.5-4.9 mg/dL Magnesium Level 1.40 L 1.80-2.40 mg/dL Procalcitonin 2.28 H 0.05-0.5 ng/mL Urine Color LIGHT-YELLOW YELLOW Urine Appearance CLOUDY H CLEAR Urine pH 7.5 5.0-8.0 Urine Specific [place]zier 1.008 1.001-1.031 Urine Protein 30 H NEGATIVE mg/dL Urine Glucose (UA) NEGATIVE NEGATIVE mg/dL Urine Ketones NEGATIVE NEGATIVE mg/dL Urine Occult Blood LARGE H NEGATIVE Urine Nitrate NEGATIVE NEGATIVE Urine Bilirubin NEGATIVE NEGATIVE mg/dL Urine Urobilinogen 0.2 0.2-1.0 mg/dL Urine Leukocyte Esterase 500 H NEGATIVE Tim/uL Urine RBC 51-100 H 0-1 /HPF Urine WBC TNTC H 0-1 /HPF Urine WBC Clumps (Auto) FEW 0-1 /HPF Urine Other Crystals (Auto) 10 None Seen /HPF Urine Bacteria RARE None Seen /HPF Urine Osmolality 340 50-1200 mOsm/kg Urine Random Creatinine 22.87 L 30-135 mg/dL Urine Random Sodium 101 40-220 mmol/l Test 01/17/25 20:22 Range/Units White Cell Morphology Comment See comments Lipase 8 L 16-77 U/L Current Medications Medications (Trade) Dose Ordered Sig/Nirmala Route PRN Reason Start Time Stop Time Status Last Admin Dose Admin Acetaminophen (TYLenol 325MG TAB) 650 mg Q4HPRN PRN PO TEMPERATURE GREATER THAN 101.5 01/18/25 13:30 02/16/25 22:29 01/18/25 13:34 650 MG Acetaminophen (TYLenol 325MG TAB) 650 mg Q6H PRN PO TEMPERATURE GREATER THAN 101.5 01/17/25 22:30 01/18/25 13:29 DC 01/18/25 08:35 650 MG Ceftriaxone Sodium (ROCEphine 1G INJ) 1 gm Q24H IVPB 01/18/25 02:00 01/18/25 13:18 DC 01/18/25 02:53 1 GM Hydromorphone HCl (DiLAUDid 0.5MG INJ) 0.25 mg Q4H PRN IVP SEVERE PAIN (7-10) 01/17/25 22:30 01/22/25 22:29 01/18/25 11:42 0.25 MG Lactated Ringer's 1,000 ml @ 75 mls/hr [id number] IV 01/17/25 22:30 02/16/25 22:29 01/18/25 02:53 75 MLS/HR Lactulose (Constulose 20gm/ 30ml Udcup) 20 gm BID PRN PO CONSTIPATION 01/17/25 22:30 02/16/25 22:29 Magnesium Sulfate 50 ml @ 0 mls/hr PROTOCOL PRN IV As needed 01/18/25 09:30 02/17/25 09:29 Norepinephrine 250 ml @ 0 mls/hr PROTOCOL IV 01/18/25 18:00 02/17/25 17:59 Ondansetron HCl (zoFRAN 4MG INJ) 4 mg Q6H PRN IV NAUSEA/VOMITING 01/17/25 22:30 02/16/25 22:29 Pantoprazole Sodium (PROTonix 40MG INJ) 40 mg DAILY IV 01/18/25 09:00 02/17/25 08:59 01/18/25 08:28 40 MG Piperacillin Sod/ Tazobactam Sod (Zosyn 3.375gm+NS 50ml) 3.375 gm Q8H IV 01/18/25 13:30 01/28/25 13:29 01/18/25 13:34 3.375 GM Sodium Chloride 1,000 ml @ 75 mls/hr [id number] IV 01/17/25 22:00 01/18/25 12:28 DC 01/17/25 22:32 75 MLS/HR Tamsulosin HCl (FloMAX) 0.4 mg DAILY PO 01/18/25 09:00 02/17/25 08:59 01/18/25 08:28 0.4 MG DIAGNOSTICS / RADIOLOGY: [ ] PATIENT: EUGENE BLACKBURN MR#: [id number] : 1935 SEX: F AGE: 89 LOCATION: [facility] ORDER 57 STATUS: REG ER REPORT#: [id number] SERVICE 56 REASON: abdomina; pain diffuse ORDERING PHYSICIAN: JULIO CÉSAR JEONG MD PROCEDURE: ABD PEL WO - CT ABDOMEN/PELVIS W/O CONTRAST EXAM: CT Abdomen and Pelvis Without IV contrast CLINICAL HISTORY: abdomina; pain diffuse TECHNIQUE: Axial computed tomography images of the abdomen and pelvis without intravenous contrast. CONTRAST: No IV contrast. COMPARISON: None provided. FINDINGS: LUNG BASES: The lung bases appear clear. No pleural effusions are seen. LIVER: Unremarkable. GALLBLADDER AND BILE DUCTS: Absent. PANCREAS: Unremarkable. SPLEEN: Unremarkable. ADRENAL GLANDS: Unremarkable. KIDNEYS, URETERS, AND BLADDER: Moderate right sided hydronephrosis and hydroureter. There is a stone 6 mm in the distal right ureter. Extensive bilateral calculi are seen. STOMACH AND BOWEL: Sigmoid diverticulosis is noted. No bowel obstruction. No evidence of bowel obstruction. No evidence suggesting enteritis or colitis. Not visualized PERITONEUM: No free fluid. No free air. LYMPH NODES: No lymphadenopathy is evident. REPRODUCTIVE: Unremarkable as visualized. VASCULATURE: No evidence of abdominal aortic aneurysm. BONES: No aggressive appearing osseous lesion. No acute osseous pathology evident. IMPRESSION: 1. Obstructing calculus within the right ureter distally associated with moderate proximal obstructive uropathy. 2. Extensive sigmoid diverticulosis. /[place] DICTATED BY: SHANTA MCKINNEY MD DATE: 01/17/252221 ELECTRONICALLY SIGNED BY: SHANTA MCKINNEY MD DATE: 01/17/252221 PATIENT: EUGENE BLACKBURN MR#: [id number] : 1935 SEX: F AGE: 89 LOCATION: [facility] ORDER 07 STATUS: ADM IN REPORT#: [id number] SERVICE 01 REASON: preprocedural ORDERING PHYSICIAN: ZAKIYA MOCTEZUMA HR PAYROLL COORDINATOR PROCEDURE: CXR1VW - CHEST 1VW CHEST 1VW REASON: preprocedural COMPARISON: None. FINDINGS: Single view of the chest was obtained. Lungs are clear with mild prominence of interstitium suggesting of underlying interstitial lung disease.. Heart size is normal. There is no pulmonary vascular congestion. Mediastinum and bony thorax appear unremarkable. 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 IMPRESSION: 1. No evidence of airspace consolidation or pulmonary venous congestion 2. Prominence of interstitium suggesting of interstitial lung disease. DICTATED BY: ELLIOTT PEREZ MD DATE: 01/18/251606 ELECTRONICALLY SIGNED BY: ELLIOTT PEREZ MD DATE: 01/18/251608 PATIENT: EUGENE BLACKBURN MR#: [id number] : 1935 SEX: F AGE: 89 LOCATION: [facility] ORDER STATUS: ADM IN REPORT#: [id number] SERVICE 0 REASON: No past imaging, octogenarian, assess LV function ORDERING PHYSICIAN: AREN SIERRA MD PROCEDURE: ECHO [facility] - ECHO 2-D COMPLETE APPROVED REPORT EXAM: Two-dimensional and M-mode echocardiogram with Doppler and color Doppler. Study Details: No past imaging INDICATION ICD: Octogenarian, assess LV function 2D Dimensions RVDd 3.7 cm LVEF(%) 73.3 (>50%) LVED Vol(simp.) 51.0 mL IVSd 1.2 (0.7-1.1cm) FS(%) 42 % LVES Vol(simp.) 22.0 mL LVDd 3.7 (3.8-5.6cm) LA (2D) 4.6 (1.6-4.0cm) LVEF(%, simp.) 57 % PWd 1.1 (0.7-1.1cm) Ao Root(2D) 2.9 (2.0-3.7cm) LA ESV INDEX (BP) 25.58 mL/m2 IVSs 1.3 cm LVOT diam 2.0 (1.8-2.4cm) LVDs 2.4 (2.5-4.0cm) PWs 1.5 cm Deformation Strain Apical 4 -17.8 % Apical 2 -15.7 % Apical 3 -17.8 % Global Strain -17.1 % M-Mode Dimensions EPSS 0.5 cm LA (MM) 4.3 (1.6-4.0cm) Ao Root(MM) 2.7 (2.0-3.7cm) Aortic Valve AoV Vmax 1.5 m/s Ao Peak GR 8.8 mmHg LVOT Vmax 1.2 m/s AoV VTI 0.2 m Ao Mean GR 5.6 mmHg LVOT VTI 0.21 m HOWIE (VMAX) 2.55 cm2 HOWIE (VTI) 2.9 cm2 Mitral Valve MV E Vmax 92.8 cm/s DECEL Time 105 ms MV A Vmax 180.8 cm/s P 1/2 T 28 ms E/A ratio 0.5 MVA (PHT) 7.9 cm2 TDI E/E' Medial 8.9 E/E' Lateral 18.2 Medial E' Peak V 10.39 cm/s Lateral E' Peak V 5.09 cm/s Pulmonary Valve PV Vmax 2.0 m/s PV VTI 0.30 m PV Mean GR 9.8 mmHg PV Peak GR 16.0 mmHg Tricuspid Valve TR Vmax 2.5 m/s RAP (EST) 3 mmHg RVSP 27.2 mmHg TR Peak GR 24.2 mmHg Left Ventricle The left ventricle is normal size. GLS -17.0% There is normal LV segmental wall motion. Mild concentric left ventricular hypertrophy. The LVEF is > 55%. Indeterminate diastolic dysfunction. Right Ventricle The right ventricle is normal size. The right ventricular systolic function is normal. Atria The left atrium size is normal. The right atrium size is normal. Aortic Valve The aortic valve is normal in structure. Trace aortic regurgitation is present. Possible Non coronary cusp leaflet vegetation vs calcified nodule noted on aortic valve. There is no aortic valvular stenosis. Mitral Valve Posterior annular calcification noted. The mitral valve is mildly thickened. There is mild mitral valve regurgitation noted. There is no mitral valve stenosis. Tricuspid Valve The tricuspid valve is normal in structure. There is trace of tricuspid valve regurgitation noted. Pulmonic Valve Pulmonic valve is not well visualized. There is no pulmonic valvular regurgitation. Great Vessels The aortic root is normal in size. The IVC is normal in size and collapses >50% with inspiration. Pericardium There is no pericardial effusion. Other Information Quality : Adequate Conclusion The left ventricle is normal size.The LVEF is > 55% with normal LV segmental wall motion. Mild concentric left ventricular hypertrophy. Indeterminate diastolic dysfunction. The right ventricular systolic function is normal. Both atria are normal in size. Aortic valve is trileaflet, thickend with a possible vegetation vs calcified nodule on the noncoronary cusp. No hemodynamically significant valvular abnormalities. There is no pericardial effusion. Consider JERALD if clinically indicated to further assess AV DICTATED BY: WHITNEY RIBEIRO MD DATE: 01/18/25 1011 ELECTRONICALLY SIGNED BY: WHITNEY RIBEIRO MD DATE: 01/18/25 5631 ASSESSMENT: Septic shock, suspected pyelonephritis Right hydronephrosis, POA Right hydroureter, POA Obstructive uropathy, POA Right ureterolithiasis, POA, 6 mm calculus Leukocytosis, POA Hypokalemia, POA Diverticulosis, POA Acute kidney injury versus CKD, POA] PLAN: -Patient will be transferred to ICU -Patient will be kept NPO -Place PICC line -Urology consult was obtained and they recommended placing a nephrostomy tube, pending transfer to any facility that can perform nephrostomy or placement here. -Continue Tamsulosin 0.4 mg -Maintain MAP over 65 -continue IV fluids after a bolus -continue Zosyn and start meropenem 1 g q.12 -ID consult was obtained Critical care time 35 minutes, time excludes any procedures performed, any at time spent with education ATTESTATION BY PHYSICIAN I have seen and examined the patient. I reviewed the documentation, medical decision making, and treatment plan as noted by the resident provider above. I agree with the findings and plan of care. Sae Young IV, MD, HARSHAVARDHA MD Jan 18, 2025 19:00
[2025-01-18] MEDS ORDERED: PHARMACY COMMUNICATION MISC SCH (19:30)
--- NOTE | 2025-01-18 20:10 | CONS ---
[facility] CONSULTATION NOTE Date Patient Seen: Jan 18, 2025 Time of Visit: 19:59 Supervising Physician: DR. CAMRYN LEGER Reason for Consultation: [ ] Primary Care Physician: [ ] Outpatient Specialists: [ ] Inpatient Consults: DR. CANALES PROBLEM LIST: 1. OBSTRUCTING RIGHT URETEROLITHIASIS , POA 2. ACUTE COMPLICATED CYSTITIS, POA 3. SEPSIS SECONDARY TO ACUTE COMPLICATED CYSTITIS, POA 4. Acute on chronic kidney injury, POA 5. MORBID OBESITY, POA CHIEF COMPLAINT: abdominal pain HPI: Patient is a 89-year-old female with no known past medical history, no surgical history of cholecystectomy, admitted at this facility yesterday on the medical floor after being diagnosed with obstructing right ureterolithiasis. Patient reports that for the past two days, she has been having diffuse abdominal pain associated with nausea. Today, patient was seen in the emergency department and admitted in the medical floor. The review of the patient's chart shows WBC of 12.6, BUN of , creatinine of 2, GFR of 24, procalcitonin level of 2.28. Urologist has been consulted and product demonstrator has been consulted for cardiac clearance. [facility] team has been consulted for critical care management. After talking to the urologist, patient will be taken to the OR for stent placement tonight. In addition, patient will be started on Merrem1 g IV every 12 hours. PAST MEDICAL HX: see above PAST SURGICAL HX: noncontributory SOCIAL HISTORY: No tobacco, ETOH, or illicit drug use Coded Allergies: No Known Allergies (Unverified Allergy, Unknown, 01/17/25) REVIEW OF SYSTEMS: 12 point ROS reviewed with patient. Pertinent positives mentioned above. Otherwise negative. PHYSICAL EXAM: GENERAL: alert, weak, awake oriented x 3 HEENT: EOMI, Sclera non icteric, moist mucosa NECK: Supple, no JVD, trachea midline LUNGS: Clear breath sounds bilaterally. No wheezes HEART: Regular rate and rhythm. Normal S1 and S2, without murmurs ABD: Abdomen soft, nontender. Bowel sounds present EXT: No clubbing cyanosis or edema NEURO: Alert and oriented to person, follows commands Vital Signs (last 8hr) Date Time Temp Pulse Resp B/P (MAP) Pulse Ox O2 Delivery O2 Flow Rate FiO2 01/18/25 13:34 99.5 01/18/25 12:50 99.5 130 24 119/42 92 Nasal Cannula 2.0 01/18/25 12:17 Nasal Cannula* 2 28 LABS: Hematology Labs: Test 01/18/25 05:45 01/17/25 20:22 Range/Units White Blood Count 23.4 #H 4.8-10.8 K/uL Red Blood Count 4.04 4.00-5.50 MIL/uL Hemoglobin 12.3 12.0-16.0 g/dL Hematocrit 37.7 36-48 % Mean Corpuscular Volume 93.3 79-99 fL Mean Corpuscular Hemoglobin 30.4 27.0-33.0 pg Mean Corpuscular Hemoglobin Concent 32.6 32.0-36.0 g/dL Red Cell Distribution Width 12.5 11.0-15.5 % Platelet Count 325 130-400 K/uL Mean Platelet Volume 8.7 7.5-10.5 fL Immature Granulocyte % (Auto) 0.6 0-1 % Neutrophils (%) (Auto) 94.6 H 40.0-77.0 % Lymphocytes (%) (Auto) 1.8 L 21.0-51.0 % Monocytes (%) (Auto) 2.7 L 3.0-13.0 % Eosinophils (%) (Auto) 0.0 0.0-8.0 % Basophils (%) (Auto) 0.3 0.0-5.0 % Neutrophils # (Auto) 22.1 H 1.8-7.7 K/uL Lymphocytes # (Auto) 0.4 L 1.0-4.8 K/uL Monocytes # (Auto) 0.6 0.1-1.0 K/uL Eosinophils # (Auto) 0.00 0.00-0.70 K/uL Basophils # (Auto) 0.06 0.00-0.20 K/uL Absolute Immature Granulocyte (auto 0.14 0-1 K/uL Nucleated Red Blood Cells 0.0 0.0-0.19 % White Cell Morphology Comment See comments Chemistry Labs: Test 01/18/25 05:45 01/17/25 22:28 01/17/25 20:22 Range/Units Sodium Level 139 136-145 mmol/L Potassium Level 3.5 3.5-5.1 mmol/L Chloride Level 103 101-111 mmol/L Carbon Dioxide Level 27 21-32 mmol/L Blood Urea Nitrogen 24 H 7-18 mg/dL Creatinine 2.0 H 0.5-1.0 mg/dL Glomerular Filtration Rate Calc 24 >90 mL/min Random Glucose 134 H 70-105 mg/dL Lactic Acid Level 2.1 0.8-2.5 mmol/L Total Calcium 8.5 8.5-10.1 mg/dL Phosphorus Level 3.1 2.5-4.9 mg/dL Magnesium Level 1.40 L 1.80-2.40 mg/dL Procalcitonin 2.28 H 0.05-0.5 ng/mL Lipase 8 L 16-77 U/L Coagulation Labs: Test 01/18/25 05:45 Range/Units Prothrombin Time 11.2 9.6-11.6 SEC Prothromb Time International Ratio 1.06 0.85-1.15 Activated Partial Thromboplast Time 31.7 26.3-35.5 SEC DIAGNOSTICS / RADIOLOGY RESULTS: [ ] PLAN: Keep patient in ICU Patient NPO Start LR at 125 mL/hour Hydromorphone 0.25 mg IV q.4 hours p.r.n. for severe abdominal pain Merrem1 g IV every 12 hours All nephrotoxic drugs Monitor creatinine level very closely Follow urology recommendations Dietary consult Obtain urine culture Obtain PT, PTT, type and screen Tamsulosin 0.4 mg p.o. daily NEURO: Minimize central acting medications as possible. Fall Precautions. Well lighted room through the day and minimize interruptions through the night to prevent acute delirium. PULMONARY: Supplemental 02 as needed Titrate Fio2 to keep Spo2 > or = 90% DuoNebs and CPT as needed IS hourly while awake for pulmonary hygiene Out of bed to chair as tolerated VAP Bundle Vent/BIPAP Settings: [ ] Driving pressure: [ ] P Plat: [ ] Static C: [ ] Static R: [ ] P/F Ratio: [ ] CARDIOVASCULAR: Follow hemodynamics. Titrate vasopressor to keep MAP >65 or systolic blood pressure >95mmHg DIPS: [ ] LINES: [ ] GI & NUTRITION: Continue nutritional support Aspirations precautions Prokinetic agents and laxatives as needed KIDNEYS & ELECTROLYTES: Strict monitoring of intake and output Daily weights Avoid nephrotoxic agents Monitor electrolytes and replace as needed Goal urine output of 30mL/hr or 0.5mL/kg/hr Urine output: [ ] Fluid Balance: [ ] ENDOCRINE: Maintain blood glucose between 100-180 at all times. Insulin sliding scale for blood glucose management INFECTIOUS DISEASE: Trend temperature. Urst-culture if febrile. Micro: [ ] Antibiotics: Merrem1 g IV every 12 hours HEMATOLOGY & COAGULATION: Monitor H&H. Keep Hgb > 7 Transfuse 1 unit of PRBC for Hgb < 7 Transfuse 1 pack of platelets of platelets < 20, 000 Watch for any signs and symptoms of bleeding SKIN: Pressure ulcer prevention per facility protocol Rehab: PT/OT Prophylaxis: GI: Pantoprazole DVT: SCDs Code Status: Full Resuscitation Disposition: Keep in ICU Other: Total patient care time exceeds 35 minutes excluding all procedures. Case was discussed and seen with my supervising physician leeann Taylor . The above plan was formulated and agreed upon. ROSA MARIA RUIZ Jan 18, 2025 20:10
[2025-01-18] MEDS: MEROPENEM 1GM 1 GM VIAL IVPB SCH (20:38)
--- NOTE | 2025-01-18 21:09 | NUR ---
patient taken to OR at this time via bed with oxygen and bedside monitor
[2025-01-18] MEDS ORDERED: LIDOCAINE HCL MPF 1% 5ML VIAL ONE (21:16)
[2025-01-18] MEDS ORDERED: GLYCOPYRROLATE 0.2 MG/ML 5 ML VIAL ONE (21:17)
[2025-01-18] MEDS ORDERED: SUCCINYLCHOLINE CHLORIDE 20 MG/ML 10 ML VIAL ONE (21:17)
[2025-01-18] MEDS ORDERED: MIDAZOLAM HCL 1 MG/ML 2ML VIAL ONE (21:17)
[2025-01-18] MEDS ORDERED: NEOSTIGMINE METHYLSULFATE 1MG/ML IV ONE (21:17)
[2025-01-18] MEDS ORDERED: IOHEXOL-350 50ML VIAL IV ONE (21:17)
[2025-01-18] MEDS ORDERED: ALBUMIN (HUMAN) 5% 250 ML IV ONE (21:49)
--- NOTE | 2025-01-18 22:20 | OP ---
Operative Note: DATE OF PROCEDURE: 01/18/25 SURGEON: FLORIDALMA CANALES MD SOLUTION LEAD: Operating room staff ANESTHESIA: General anesthesia ANESTHESIOLOGIST/CASE THERAPIST: Anesthesia staff PREOPERATIVE DIAGNOSIS: 1. Systemic inflammatory response syndrome/sepsis 2. Acute obstruction by 6 mm calculus in the right distal ureter 3. Nonobstructing stones bilaterally. POSTOPERATIVE DIAGNOSIS: 1. Systemic inflammatory response syndrome/sepsis 2. Acute obstruction by 6 mm calculus in the right distal ureter 3. Nonobstructing stones bilaterally. 4. Right Pyonephrosis SYNOPSIS: Successful manipulation of the stone the right ureter with stent placement. PROCEDURE: 1. 78952 Cystourethroscopy with manipulation without removal of a right ureteral calculus 2. 29897 Cystourethroscopy with insertion of a right ureteral stent 3. 12979 Right retrograde pyelogram with interpretation 4. Munguia catheterizations, simple ESTIMATED BLOOD LOSS: Minimal INDICATIONS: 89-year-old female presented to this facility yesterday with right flank pain. CT imaging confirmed a 6 mm stone obstructing in the right mid to distal ureter with hydroureteronephrosis. Patient has nonobstructing stones bilaterally. Patient was admitted in-house for supportive care. Today she was upgraded to intensive care unit because of worsening leukocytosis and hemodynamic instability. Cardiology saw patient and cleared her. The initial plan was to place a nephrostomy tube however there was no Interventional Radiology coverage in this facility today. We made a decision this evening to bring patient to the operating room for stent placement. DESCRIPTION OF PROCEDURE: She was identified, consent verified. She was already prophylactic was scheduled antibiotics. She was brought into the operating suite and placed in the supine position. After induction she underwent general anesthesia. Next she was placed in low lithotomy, her genitalia was prepped she was draped in a time-out was performed. We introduced a rigid22 Yakut cystoscope through meatus which was patent. Rust cystourethroscopy was performed. A lot of clots urine identified in the bladder. It was flushed out multiple times to improve visualization. The right ureteral orifice was identified and cannulated with the open-ended ureteral catheter. We obtain a retrograde pyelogram on the low pressure. This was followed by advancing a wire into the right renal pelvis. With the wire in place we pushed the open-ended ureteral catheter to manipulate and push the stone backwards to a more dilated part of the ureter. Once this was performed the open-ended ureteral catheter was removed and there was effluxing of purulent drainage from the right collecting system. At this time a seven Yakut by 22 cm double-J stent was deployed with appropriate proximal and distal coils. Her bladder was empty. We made a decision to place a Munguia catheter for the next 24-48 hours to promote antegrade drainage. There were no complications. FLORIDALMA CANALES MD Jan 18, 2025 22:20
[2025-01-18] MEDS ORDERED: VANCOMYCIN PROTOCOL PER PHARMACY IV SCH (23:00)
[2025-01-18] MEDS: VANCOMYCIN 2GM/500 ML BAG 500 ML IV ONE (23:35)
[2025-01-18] MEDS: SUGAMMADEX SODIUM 200 MG/2 ML VIAL IV ONE (23:39)
[2025-01-19] VITALS (43 sets, daily range): BP systolic 62–155; BP diastolic 24–97; PULSE 85–120; RESP 15–32; TEMP 97–98.3; O2SAT 92–100
[2025-01-19 02:39] LABS: ABG BASE EXCESS -2.4 mmol/L (-2.0-3.0); ABG HCO3 24.0 mmol/L (21.0-28.0); ABG OXYGEN SATURATION 99.2 % (94.0-98.0); ABG PCO2 47 mmHg (32-45); ABG PH 7.326 (7.350-7.450); DEVICE COMMENT MARISA RN, RB; PO2, ARTERIAL BG 189.4 mmHg (83.0-108.0); TEMPERATURE, CELSIUS BG 37.0 CELSIUS (35.5-37.0); VENT MODE, BG NRB (ROOM AIR)
[2025-01-19] MEDS: ALBUMIN HUMAN 25% 200 ML IV ONE (03:03)
[2025-01-19] MEDS: ALBUMIN HUMAN 25% 100 ML IV ONE ×2 (03:31→04:52)
[2025-01-19 04:47] LABS: IMMATURE GRANULOCYTE ABSOLUTE 0.20 K/uL (0-1); NUCLEATED RED BLOOD CELLS 0.0 % (0.0-0.19); PLATELET COUNT (AUTO) 225 K/uL (130-400); RED BLOOD CELL COUNT(AUTO) 3.41 MIL/uL (4.00-5.50); RED CELL DISTRIBUTION WIDTH 13.1 % (11.0-15.5); WHITE BLOOD COUNT (AUTO) 29.3 K/uL (4.8-10.8)
[2025-01-19 05:09] LABS: ASPARTATE AMINOTRANSFERASE 27.0 U/L (10-37); CREATININE 2.4 mg/dL (0.5-1.0); GLOMERULAR FILTR. RATE CALC 19.0 mL/min (>90); GLUCOSE,RANDOM 148.0 mg/dL (70-105); PHOSPHORUS 4.4 mg/dL (2.5-4.9); SODIUM SERUM 140.0 mmol/L (136-145); TOTAL PROTEIN, SERUM 6.8 g/dL (6.0-8.3); UREA NITROGEN, BLOOD 31.0 mg/dL (7-18)
[2025-01-19] MEDS: MAGNESIUM 2GM PREMIX 50ML 50 ML IV PRN (05:59)
[2025-01-19] MEDS: MEROPENEM 1GM 1 GM VIAL IVPB SCH (08:13)
--- NOTE | 2025-01-19 09:15 | PN ---
[facility] PROGRESS NOTE Date Patient Seen: Jan 19, 2025 Time of Visit: 09:14 Supervising Physician: Hai Parks MD Primary Care Physician: [ ] Outpatient Specialists: [ ] Inpatient Consults: DR. CANALES PROBLEM LIST: OBSTRUCTING RIGHT URETEROLITHIASIS , POA S/P RT URETERAL STENT BY DR CANALES ON 01/19/25 ACUTE COMPLICATED CYSTITIS, POA SEVERE SEPSIS 2/2 TO GRAM NEGATIVE BACTEREMIA R/O ENDOCARDITIS LEON ON CKD MORBID OBESITY BMI 43. INTERVAL HISTORY: Pt is awake alert and oriented x 3. She is currently on 3 L via NC. mild resp distress. 1 x dose of Lasix ordered at this time. Chest XR with increased vascular congestions. Blood cultures growing gram neg rods, 2D echo sowing possible vegetation to aortic valve.per Dr Sheehan JERALD recommended, communicated with Dr Hoff, plan for JERALD tomorrow. NPO after midnight. lactic acid 2.4, BUN 31, white count 29.3 , no further fevers. Pt stable to downgrade to M/S with tele. REVIEW OF SYSTEMS: 12 point ROS reviewed with patient. Pertinent positives mentioned above. Otherw ise negative. PHYSICAL EXAM: GENERAL: alert, weak, awake oriented x 3 HEENT: EOMI, Sclera non icteric, moist mucosa NECK: Supple, no JVD, trachea midline LUNGS: Clear breath sounds bilaterally. No wheezes HEART: Regular rate and rhythm. Normal S1 and S2, without murmurs ABD: Abdomen soft, nontender. Bowel sounds present EXT: No clubbing cyanosis or edema NEURO: Alert and oriented to person, follows commands Vital Signs (last 8hr) Date Time Temp Pulse Resp B/P (MAP) Pulse Ox O2 Delivery O2 Flow Rate FiO2 01/19/25 07:29 88 18 Venti Mask 12.0 40 01/19/25 07:22 97.5 01/19/25 07:00 87 26 130/81 96 Venti Mask 40 01/19/25 06:30 85 20 128/77 95 01/19/25 06:15 87 26 128/84 98 01/19/25 06:00 88 24 155/68 96 01/19/25 05:45 86 23 131/79 98 01/19/25 05:30 120 32 134/79 96 01/19/25 05:15 89 23 124/78 96 01/19/25 05:00 92 20 119/74 97 10/24/25 04:45 99 20 118/85 96 01/19/25 04:30 91 27 115/70 95 01/19/25 04:15 96 17 107/61 77 01/19/25 04:00 98.2 94 19 124/61 93 Venti Mask 40 01/19/25 04:00 92 Venti Mask+ 40 01/19/25 03:45 93 16 115/77 95 01/19/25 03:30 94 16 120/64 93 Venti Mask 40 01/19/25 03:15 94 18 122/58 94 01/19/25 03:00 96 22 115/68 94 Venti Mask 40 01/19/25 02:49 101 18 Venti Mask 12.0 40 01/19/25 02:45 98 27 62/24 94 01/19/25 02:30 96 20 118/65 96 Venti Mask 40 01/19/25 02:15 96 27 115/66 99 01/19/25 02:00 97 21 136/68 100 Nonrebreathing Mask 15.0 01/19/25 01:45 95 26 129/66 100 01/19/25 01:30 94 15 129/66 99 01/19/25 01:15 94 15 126/64 100 LABS: Hematology Labs: Test 01/19/25 03:58 01/17/25 20:22 Range/Units White Blood Count 29.3 #H 4.8-10.8 K/uL Red Blood Count 3.41 L 4.00-5.50 MIL/uL Hemoglobin 10.4 L 12.0-16.0 g/dL Hematocrit 32.0 L 36-48 % Mean Corpuscular Volume 93.8 79-99 fL Mean Corpuscular Hemoglobin 30.5 27.0-33.0 pg Mean Corpuscular Hemoglobin Concent 32.5 32.0-36.0 g/dL Red Cell Distribution Width 13.1 11.0-15.5 % Platelet Count 225 # 130-400 K/uL Mean Platelet Volume 9.4 7.5-10.5 fL Immature Granulocyte % (Auto) 0.7 0-1 % Neutrophils (%) (Auto) 95.0 H 40.0-77.0 % Lymphocytes (%) (Auto) 3.2 L 21.0-51.0 % Monocytes (%) (Auto) 0.7 L 3.0-13.0 % Eosinophils (%) (Auto) 0.2 0.0-8.0 % Basophils (%) (Auto) 0.2 0.0-5.0 % Neutrophils # (Auto) 27.8 H 1.8-7.7 K/uL Lymphocytes # (Auto) 1.0 1.0-4.8 K/uL Monocytes # (Auto) 0.2 0.1-1.0 K/uL Eosinophils # (Auto) 0.06 0.00-0.70 K/uL Basophils # (Auto) 0.06 0.00-0.20 K/uL Absolute Immature Granulocyte (auto 0.20 0-1 K/uL Nucleated Red Blood Cells 0.0 0.0-0.19 % White Cell Morphology Comment See comments Chemistry Labs: Test 01/19/25 03:58 01/18/25 05:45 01/17/25 22:28 01/17/25 20:22 Range/Units Sodium Level 140 136-145 mmol/L Potassium Level 4.2 3.5-5.1 mmol/L Chloride Level 104 101-111 mmol/L Carbon Dioxide Level 25 21-32 mmol/L Blood Urea Nitrogen 31 H 7-18 mg/dL Creatinine 2.4 H 0.5-1.0 mg/dL Glomerular Filtration Rate Calc 19 >90 mL/min Random Glucose 148 H 70-105 mg/dL Total Calcium 7.6 L 8.5-10.1 mg/dL Phosphorus Level 4.4 2.5-4.9 mg/dL Magnesium Level 1.50 L 1.80-2.40 mg/dL Total Bilirubin 0.3 0.2-1.0 mg/dL Aspartate Amino Transf (AST/SGOT) 27 10-37 U/L Alanine Aminotransferase (ALT/SGPT) 16 12-78 U/L Alkaline Phosphatase 85 50-136 U/L Total Protein 6.8 6.0-8.3 g/dL Albumin 2.5 L 3.5-5.0 g/dL Lactic Acid Level 2.1 0.8-2.5 mmol/L Procalcitonin 2.28 H 0.05-0.5 ng/mL Lipase 8 L 16-77 U/L Coagulation Labs: Test 01/18/25 05:45 Range/Units Prothrombin Time 11.2 9.6-11.6 SEC Prothromb Time International Ratio 1.06 0.85-1.15 Activated Partial Thromboplast Time 31.7 26.3-35.5 SEC DIAGNOSTICS / RADIOLOGY RESULTS: [[facility] [address] [place] [address] IMAGING REPORT Signed PATIENT: EUGENE BLACKBURN MR#: [id number] : 1935 SEX: F AGE: 89 LOCATION: 2CV ORDER 53 STATUS: ADM IN REPORT#: [id number] SERVICE 53 REASON: POSSIBLE ASPIRATION ORDERING PHYSICIAN: ALFREDO ROWELL PROCEDURE: CXR1VW - CHEST 1VW CHEST 1VW REASON: POSSIBLE ASPIRATION COMPARISON: None. FINDINGS: Single view of the chest was obtained. Lungs are clear. Heart size is normal. There is no pulmonary vascular congestion. There is prominent azygous lobe with a prominent azygous vein.. Mediastinum and bony thorax appear unremarkable. There is a right-sided PIC catheter with tip in superior vena cava. IMPRESSION: 1. Mild prominence upper jejunum suggesting of interstitial lung disease. There may be underlying pulmonary edema.. DICTATED BY: ELLIOTT PEREZ MD DATE: 01/19/251401 ELECTRONICALLY SIGNED BY: ELLIOTT PEREZ MD DATE: 01/19/251405 ] PLAN: maydowngrade to m/stele, Patient NPO after midnight Start LR at 125 mL/hour multimodal pain management Merrem1 g IV every 12 hours avoid nephrotoxic drugs Monitor creatinine level very closely Follow urology recommendations Follow ID recs Follow cardiology recs JERALD for tomorrow. Dietary consult Follow cultures morning labs NEURO: Minimize central acting medications as possible. Fall Precautions. Well lighted room through the day and minimize interruptions through the night to prevent acute delirium. PULMONARY: Supplemental 02 as needed Titrate Fio2 to keep Spo2 > or = 90% DuoNebs and CPT as needed IS hourly while awake for pulmonary hygiene Out of bed to chair as tolerated CARDIOVASCULAR: Follow hemodynamics. Titrate vasopressor to keep MAP >65 or systolic blood pressure >95mmHg DIPS: none LINES: PIV GI & NUTRITION: Continue nutritional support Aspirations precautions Prokinetic agents and laxatives as needed KIDNEYS & ELECTROLYTES: Strict monitoring of intake and output Daily weights Avoid nephrotoxic agents Monitor electrolytes and replace as needed Goal urine output of 30mL/hr or 0.5mL/kg/hr Urine output: [ ] Fluid Balance: [ ] ENDOCRINE: Maintain blood glucose between 100-180 at all times. Insulin sliding scale for blood glucose management INFECTIOUS DISEASE: Trend temperature. Rust-culture if febrile. Micro: [ ] Antibiotics: Merrem1 g IV every 12 hours HEMATOLOGY & COAGULATION: Monitor H&H. Keep Hgb > 7 Transfuse 1 unit of PRBC for Hgb < 7 Transfuse 1 pack of platelets of platelets < 20, 000 Watch for any signs and symptoms of bleeding SKIN: Pressure ulcer prevention per facility protocol Rehab: PT/OT Prophylaxis: GI: Pantoprazole DVT: SCDs Code Status: Full Resuscitation Disposition: M/S tele Other: Total patient care time exceeds 35 minutes excluding all procedures. ATTESTATION BY PHYSICIAN The patient has been seen and evaluated, the case has been discussed with the UNIFIED COMMUNICATIONS ENGINEER, I agree with the clinical findings and plan of care. Hai Parks MD, [facility] Jan 19, 2025 09:14
--- NOTE | 2025-01-19 11:22 | HMCIMG ---
CHEST 1VW REASON: picc line COMPARISON: Prior chest radiograph from 01/17/2025 is available. FINDINGS: Single view of the chest was obtained. There is mild cardiomegaly. There is patchy airspace disease seen throughout both lungs most pronounced in the left lower lung. There is a right-sided PIC catheter with tip in severe vena cava.. Mediastinum and bony thorax appear unremarkable. IMPRESSION: 1. Mild cardiomegaly 2. Patchy airspace disease most pronounced in the left mid and left lower lung which appears to be worsening as compared to prior radiograph 3. Right-sided PICC catheter with tip in superior vena cava.
--- NOTE | 2025-01-19 11:25 | PN ---
NEPHROLOGY PROGRESS NOTE Date/Time Patient Seen: Jan 19, 2025 SUBJECTIVE: This is an 89-year-old female presents to the emergency room with complaints of abdominal pain CT of abdomen and pelvis shows obstructive uropathy, right hydronephrosis, right hydro ureteral, 6 mm calculus. She continues to be followed by Urology. S/P Cystourethroscopy with manipulation without removal of a right ureteral calculus, insertion of a right ureteral stent, Right retrograde pyelogram with interpretation and M[place] catheterizations, simple by Dr. Jimenez on 01/18 She was noted with elevated BUN/creatinine We are consulted for renal failure Renal function remains elevated Electrolytes are stable. Continues on antibiotics She was seen in the ICU, in no acute distress REVIEW OF SYSTEMS: GENERAL: Positive for abdominal pain NEUROLOGIC: Negative for any blurry vision, blind spots, double vision, facial asymmetry, dysphagia, dysarthria, hemiparesis, hemisensory deficits, vertigo, ataxia. HEENT: Negative for any head trauma, neck trauma, neck stiffness, photophobia, phonophobia, sinusitis, rhinitis. CARDIAC: Negative for any chest pain, dyspnea on exertion, paroxysmal nocturnal dyspnea, peripheral edema. PULMONARY: Negative for any shortness of breath, wheezing, COPD, or TB exposure. GASTROINTESTINAL: Negative for any abdominal pain, nausea, vomiting, bright red blood per rectum, melena. GENITOURINARY: Negative for any dysuria, hematuria, incontinence. INTEGUMENTARY: Negative for any rashes, cuts, insect bites. RHEUMATOLOGIC: Negative for any joint pains, photosensitive rashes, history of vasculitis or kidney problems. HEMATOLOGIC: Negative for any abnormal bruising, frequent infections or bleeding. Vital Signs (last 8hr) Date Time Temp Pulse Resp B/P (MAP) Pulse Ox O2 Delivery O2 Flow Rate FiO2 01/19/25 09:00 97 18 120/67 96 Nasal Cannula 3.0 36 01/19/25 08:00 101 22 152/97 96 Nasal Cannula 3.0 36 01/19/25 07:30 93 Venti Mask+ 40 01/19/25 07:29 88 18 Venti Mask 12.0 40 01/19/25 07:22 97.5 01/19/25 07:00 87 26 130/81 96 Venti Mask 40 01/19/25 06:30 85 20 128/77 95 01/19/25 06:15 87 26 128/84 98 01/19/25 06:00 88 24 155/68 96 01/19/25 05:45 86 23 131/79 98 01/19/25 05:30 120 32 134/79 96 01/19/25 05:15 89 23 124/78 96 01/19/25 05:00 92 20 119/74 97 01/19/25 04:45 99 20 118/85 96 01/19/25 04:30 91 27 115/70 95 01/19/25 04:15 96 17 107/61 77 01/19/25 04:00 98.2 94 19 124/61 93 Venti Mask 40 01/19/25 04:00 92 Venti Mask+ 40 01/19/25 03:45 93 16 115/77 95 01/19/25 03:30 94 16 120/64 93 Venti Mask 40 PHYSICAL EXAM: GENERAL: Alert and oriented x 3. No acute distress. Well-nourished. EYES: EOMI. Anicteric. HENT: Moist mucous membranes. No scleral icterus. No cervical lymphadenopathy. LUNGS: Clear to auscultation bilaterally. No accessory muscle use. CARDIOVASCULAR: Regular rate and rhythm. No murmur. No JVD. ABDOMEN: Soft, non-tender and non-distended. No palpable masses. EXTREMITIES: No edema. Non-tender. SKIN: No rashes or lesions. Warm. NEUROLOGIC: No focal neurological deficits. CN II-XII grossly intact, but not individually tested. PSYCHIATRIC: Cooperative. Appropriate mood and affect. Current Medications Medications (Trade) Dose Ordered Sig/[facility] Route Start Time Stop Time Status Last Admin Dose Admin Ceftriaxone Sodium (ROCEphine 1G INJ) 1 gm Q24H IVPB 01/18/25 02:00 01/18/25 13:18 DC 01/18/25 02:53 1 GM Lactated Ringer's 1,000 ml @ 125 mls/hr Q8H IV 01/17/25 22:30 01/19/25 05:53 DC 01/18/25 23:40 125 MLS/HR Meropenem (Merrem 1gm) 1 gm Q12H IVPB 01/18/25 19:30 01/19/25 05:56 DC 01/18/25 20:38 1 GM Meropenem (Merrem 1gm) 1 gm Q12H IVPB 01/19/25 09:00 01/19/25 19:30 01/19/25 08:13 1 GM Norepinephrine 250 ml @ 0 mls/hr PROTOCOL IV 01/18/25 18:00 02/17/25 17:59 Pantoprazole Sodium (PROTonix 40MG INJ) 40 mg DAILY IV 01/18/25 09:00 02/17/25 08:59 01/19/25 08:13 40 MG Pharmacy Profile Note (Pharmacy Communication) 1 each ONCE MISC 01/18/25 19:30 01/18/25 19:22 DC Piperacillin Sod/ Tazobactam Sod (Zosyn 3.375gm+NS 50ml) 3.375 gm Q8H IV 01/18/25 13:30 01/18/25 22:40 DC 01/18/25 20:41 3.375 GM Sodium Chloride 1,000 ml @ 75 mls/hr [id number] IV 01/17/25 22:00 01/18/25 12:28 DC 01/17/25 22:32 75 MLS/HR Tamsulosin HCl (FloMAX) 0.4 mg DAILY PO 01/18/25 09:00 02/17/25 08:59 01/19/25 08:13 0.4 MG Vancomycin HCl (Vancomycin 750mg) 750 mg Q24H IVPB 01/19/25 23:00 01/29/25 22:59 Vancomycin HCl (Vancomycin Protocol) 1 each AD IV 01/18/25 23:00 02/01/25 22:59 LABORATORY: [ ] Hematology Labs: Test 01/19/25 03:58 01/17/25 20:22 Range/Units White Blood Count 29.3 #H 4.8-10.8 K/uL Red Blood Count 3.41 L 4.00-5.50 MIL/uL Hemoglobin 10.4 L 12.0-16.0 g/dL Hematocrit 32.0 L 36-48 % Mean Corpuscular Volume 93.8 79-99 fL Mean Corpuscular Hemoglobin 30.5 27.0-33.0 pg Mean Corpuscular Hemoglobin Concent 32.5 32.0-36.0 g/dL Red Cell Distribution Width 13.1 11.0-15.5 % Platelet Count 225 # 130-400 K/uL Mean Platelet Volume 9.4 7.5-10.5 fL Immature Granulocyte % (Auto) 0.7 0-1 % Neutrophils (%) (Auto) 95.0 H 40.0-77.0 % Lymphocytes (%) (Auto) 3.2 L 21.0-51.0 % Monocytes (%) (Auto) 0.7 L 3.0-13.0 % Eosinophils (%) (Auto) 0.2 0.0-8.0 % Basophils (%) (Auto) 0.2 0.0-5.0 % Neutrophils # (Auto) 27.8 H 1.8-7.7 K/uL Lymphocytes # (Auto) 1.0 1.0-4.8 K/uL Monocytes # (Auto) 0.2 0.1-1.0 K/uL Eosinophils # (Auto) 0.06 0.00-0.70 K/uL Basophils # (Auto) 0.06 0.00-0.20 K/uL Absolute Immature Granulocyte (auto 0.20 0-1 K/uL Nucleated Red Blood Cells 0.0 0.0-0.19 % White Cell Morphology Comment See comments Chemistry Labs: Test 01/19/25 03:58 01/18/25 05:45 01/17/25 22:28 01/17/25 20:22 Range/Units Sodium Level 140 136-145 mmol/L Potassium Level 4.2 3.5-5.1 mmol/L Chloride Level 104 101-111 mmol/L Carbon Dioxide Level 25 21-32 mmol/L Blood Urea Nitrogen 31 H 7-18 mg/dL Creatinine 2.4 H 0.5-1.0 mg/dL Glomerular Filtration Rate Calc 19 >90 mL/min Random Glucose 148 H 70-105 mg/dL Total Calcium 7.6 L 8.5-10.1 mg/dL Phosphorus Level 4.4 2.5-4.9 mg/dL Magnesium Level 1.50 L 1.80-2.40 mg/dL Total Bilirubin 0.3 0.2-1.0 mg/dL Aspartate Amino Transf (AST/SGOT) 27 10-37 U/L Alanine Aminotransferase (ALT/SGPT) 16 12-78 U/L Alkaline Phosphatase 85 50-136 U/L Total Protein 6.8 6.0-8.3 g/dL Albumin 2.5 L 3.5-5.0 g/dL Lactic Acid Level 2.1 0.8-2.5 mmol/L Procalcitonin 2.28 H 0.05-0.5 ng/mL Lipase 8 L 16-77 U/L Coagulation Labs: Test 01/18/25 05:45 Range/Units Prothrombin Time 11.2 9.6-11.6 SEC Prothromb Time International Ratio 1.06 0.85-1.15 Activated Partial Thromboplast Time 31.7 26.3-35.5 SEC DIAGNOSTICS / RADIOLOGY: [place] [id number] [address] IMAGING REPORT Signed PATIENT: EUGENE BLACKBURN MR#: [id number] : 1935 SEX: F AGE: 89 LOCATION: [facility] ORDER 6 STATUS: ADM IN REPORT#: [id number] SERVICE 0 REASON: No past imaging, octogenarian, assess LV function ORDERING PHYSICIAN: AREN SIERRA MD PROCEDURE: ECHO CMP - ECHO 2-D COMPLETE APPROVED REPORT EXAM: Two-dimensional and M-mode echocardiogram with Doppler and color Doppler. Study Details: No past imaging INDICATION ICD: Octogenarian, assess LV function 2D Dimensions RVDd 3.7 cm LVEF(%) 73.3 (>50%) LVED Vol(simp.) 51.0 mL IVSd 1.2 (0.7-1.1cm) FS(%) 42 % LVES Vol(simp.) 22.0 mL LVDd 3.7 (3.8-5.6cm) LA (2D) 4.6 (1.6-4.0cm) LVEF(%, simp.) 57 % PWd 1.1 (0.7-1.1cm) Ao Root(2D) 2.9 (2.0-3.7cm) LA ESV INDEX (BP) 25.58 mL/m2 IVSs 1.3 cm LVOT diam 2.0 (1.8-2.4cm) LVDs 2.4 (2.5-4.0cm) PWs 1.5 cm Deformation Strain Apical 4 -17.8 % Apical 2 -15.7 % Apical 3 -17.8 % Global Strain -17.1 % M-Mode Dimensions EPSS 0.5 cm LA (MM) 4.3 (1.6-4.0cm) Ao Root(MM) 2.7 (2.0-3.7cm) Aortic Valve AoV Vmax 1.5 m/s Ao Peak GR 8.8 mmHg LVOT Vmax 1.2 m/s AoV VTI 0.2 m Ao Mean GR 5.6 mmHg LVOT VTI 0.21 m HOWIE (VMAX) 2.55 cm2 HOWIE (VTI) 2.9 cm2 Mitral Valve MV E Vmax 92.8 cm/s DECEL Time 105 ms MV A Vmax 180.8 cm/s P 1/2 T 28 ms E/A ratio 0.5 MVA (PHT) 7.9 cm2 TDI E/E' Medial 8.9 E/E' Lateral 18.2 Medial E' Peak V 10.39 cm/s Lateral E' Peak V 5.09 cm/s Pulmonary Valve PV Vmax 2.0 m/s PV VTI 0.30 m PV Mean GR 9.8 mmHg PV Peak GR 16.0 mmHg Tricuspid Valve TR Vmax 2.5 m/s RAP (EST) 3 mmHg RVSP 27.2 mmHg TR Peak GR 24.2 mmHg Left Ventricle The left ventricle is normal size. GLS -17.0% There is normal LV segmental wall motion. Mild concentric left ventricular hypertrophy. The LVEF is > 55%. Indeterminate diastolic dysfunction. Right Ventricle The right ventricle is normal size. The right ventricular systolic function is normal. Atria The left atrium size is normal. The right atrium size is normal. Aortic Valve The aortic valve is normal in structure. Trace aortic regurgitation is present. Possible Non coronary cusp leaflet vegetation vs calcified nodule noted on aortic valve. There is no aortic valvular stenosis. Mitral Valve Posterior annular calcification noted. The mitral valve is mildly thickened. There is mild mitral valve regurgitation noted. There is no mitral valve stenosis. Tricuspid Valve The tricuspid valve is normal in structure. There is trace of tricuspid valve regurgitation noted. Pulmonic Valve Pulmonic valve is not well visualized. There is no pulmonic valvular regurgitation. Great Vessels The aortic root is normal in size. The IVC is normal in size and collapses >50% with inspiration. Pericardium There is no pericardial effusion. Other Information Quality : Adequate Conclusion The left ventricle is normal size.The LVEF is > 55% with normal LV segmental wall motion. Mild concentric left ventricular hypertrophy. Indeterminate diastolic dysfunction. The right ventricular systolic function is normal. Both atria are normal in size. Aortic valve is trileaflet, thickend with a possible vegetation vs calcified nodule on the noncoronary cusp. No hemodynamically significant valvular abnormalities. There is no pericardial effusion. Consider JERALD if clinically indicated to further assess AV DICTATED BY: WHITNEY MARTINEZ MD DATE: 01/18/25 1011 ELECTRONICALLY SIGNED BY: WHITNEY MARTINEZ MD DATE: 01/18/251556 PATIENT: EUGENE BLACKBURN MR#: [id number] : 1935 SEX: F AGE: 89 LOCATION: H ORDER 07 STATUS: ADM IN REPORT#: [id number] SERVICE 01 REASON: preprocedural ORDERING PHYSICIAN: ZAKIYA MOCTEZUMA PROCEDURE: CXR1VW - CHEST 1VW CHEST 1VW REASON: preprocedural COMPARISON: None. FINDINGS: Single view of the chest was obtained. Lungs are clear with mild prominence of interstitium suggesting of underlying interstitial lung disease.. Heart size is normal. There is no pulmonary vascular congestion. Mediastinum and bony thorax appear unremarkable. 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 IMPRESSION: 1. No evidence of airspace consolidation or pulmonary venous congestion 2. Prominence of interstitium suggesting of interstitial lung disease. DICTATED BY: ELLIOTT PEREZ MD DATE: 01/18/251606 ELECTRONICALLY SIGNED BY: ELLIOTT PEREZ MD DATE: 01/18/251608 PATIENT: EUGENE BLACKBURN MR#: [id number] : 1935 SEX: F AGE: 89 LOCATION: [facility] ORDER 57 STATUS: REG ER REPORT#: [id number] SERVICE 56 REASON: abdomina; pain diffuse ORDERING PHYSICIAN: JULIO CÉSAR JEONG MD PROCEDURE: ABD PEL WO - CT ABDOMEN/PELVIS W/O CONTRAST EXAM: CT Abdomen and Pelvis Without IV contrast CLINICAL HISTORY: abdomina; pain diffuse TECHNIQUE: Axial computed tomography images of the abdomen and pelvis without intravenous contrast. CONTRAST: No IV contrast. COMPARISON: None provided. FINDINGS: LUNG BASES: The lung bases appear clear. No pleural effusions are seen. LIVER: Unremarkable. GALLBLADDER AND BILE DUCTS: Absent. PANCREAS: Unremarkable. SPLEEN: Unremarkable. ADRENAL GLANDS: Unremarkable. KIDNEYS, URETERS, AND BLADDER: Moderate right sided hydronephrosis and hydroureter. There is a stone 6 mm in the distal right ureter. Extensive bilateral calculi are seen. STOMACH AND BOWEL: Sigmoid diverticulosis is noted. No bowel obstruction. No evidence of bowel obstruction. No evidence suggesting enteritis or colitis. Not visualized PERITONEUM: No free fluid. No free air. LYMPH NODES: No lymphadenopathy is evident. REPRODUCTIVE: Unremarkable as visualized. VASCULATURE: No evidence of abdominal aortic aneurysm. BONES: No aggressive appearing osseous lesion. No acute osseous pathology evident. IMPRESSION: 1. Obstructing calculus within the right ureter distally associated with moderate proximal obstructive uropathy. 2. Extensive sigmoid diverticulosis. /[place] DICTATED BY: SHANTA MCKINNEY MD DATE: 01/17/252221 ELECTRONICALLY SIGNED BY: SHANTA MCKINNEY MD DATE: 01/17/252221 ASSESSMENT: Patient has acute renal failure with ureterolithiasis and hydronephrosis with electrolyte problems including hypokalemia Right hydronephrosis, POA Right hydroureter, POA Obstructive uropathy, POA Right ureterolithiasis, POA, 6 mm calculus Leukocytosis, POA Hypokalemia, POA Diverticulosis, POA Acute kidney injury versus CKD, PLAN: Labs, diagnostic, radiologic exams reviewed and interpreted by myself and supervising physician. We have reviewed external records in detail Discontinue Vancomycin due to worsening renal function, use alternative antibiotic. Require close monitoring of renal function and electrolytes Order CBC, CMP, and electrolytes in am Continue with antibiotics BiPAP as necessary, for respiratory distress IV pressors, as needed Monitor blood pressure adjust medication doses as needed Avoid hypotensive episodes May use Dilaudid 0.5 mg IV every 6 hours as needed for severe pain Monitor blood sugars Strict intake, output, and daily weight should be monitored Please renally adjust medications Avoid nephrotoxic and nonsteroidal drugs Avoid contrast if possible Will continue to monitor renal function, anemia, electrolytes Treatment plan discussed with patient Questions were answered We have discussed with the other team physicians in detail about the care plan We will continue to monitor the patient closely Total critical care time spent with patient, nursing staff, critical care team over 35 minutes ATTESTATION BY PHYSICIAN I have seen and examined the patient. I reviewed the documentation, medical decision making, and treatment plan as noted by the mid-level provider above. I agree with the findings and plan of care. KODY BARBOZA MD, [facility] Jan 19, 2025 11:25
--- NOTE | 2025-01-19 13:43 | PN ---
[facility] PROGRESS NOTE Date of Service: Jan 19, 2025 Time of Service: 13:42 History of Present Illness Ms. Blackburn is an 89-year-old female that was seen and examined today on 01/17/2025 patient is currently alert and oriented x1. Patient states that it is December 2010. Patient states she does not know what city she is currently N but states that she is currently living with the daughter. Patient states that she has from [facility]. Discussed with primary nurse, Tona who states patient was previously alert and oriented x3 however after a dose of Dilaudid patient became less able to answer questions appropriately. The following was obtained from emergency room physician report. There was no previous medical records available for me to review. According to emergency room physician: 89-year-old female was brought to the ER due to abdominal pain, stated that the pain started earlier this morning and has been getting worse, patient was unable to tolerate a diet today due to abdominal pain. He denies nausea or vomiting. Patient reports history of constipation, stated that she had a bowel movement this ED but was very little stool came out. Today in the emergency department WBCs 12.6, left shift neutrophils 94%, potassium 3.4, no urinalysis has been collected or sent to lab, CT of abdomen and pelvis shows obstructive uropathy, right hydronephrosis, right hydro ureteral, 6 mm calculus. Emergency room physician recommended that patient be admitted so she could be evaluated by urology service. Urology service is being paste from the emergency department. Also creatinine was elevated at 1.7. There was no known baseline creatinine level. Nephrology service was also consulted from the emergency department. SUBJECTIVE: [ ] 01/18/2025: Patient was seen this morning in 420. Alert oriented to time place and person, denied fevers, chills hemodynamically stable. The patient reported discomfort in her abdomen and right flank. Culture showed 10-50 K colony-formin g units and her WBCs on presentation were [id number] while in the ED that spiked to 23.4 K this morning. He lactic acid was 2.1 and Procal was 2.8. We added Zosyn on top of ceftriaxone for extended coverage. We spoke to Dr. Jimenez for management of hydronephrosis with 6 mm stone in the right ureter and he recommended placing a nephrostomy tube and obtaining cardiac clearance before doing so. Dr. Ribeiro was consulted and patient is considered to be at high risk for a low risk non cardiac surgery. He cleared her to proceed with intervention as the current benefits outweigh the risk from the cardiovascular standpoint. Pending transfer to any facility for placing nephrostomy tube as IR not available today. Patient remains NPO since this morning. 17:30: In the interim patient became more septic and decompensated. Her blood pressure dropped to 89/44, MAP 59 and IV bolus Ringer's lactate was started. Critical care team was consulted and a transfer to ICU order was placed. Critical Care team placed the order for Levophed however was waiting for the patient to be transferred to the ICU. 7:00 p.m.: After IV bolus patient's map is at 61. Patient is being transferred to ICU and will be started on Levophed. We agree with the plan from [facility] and we will continue their recommendations. 01/19/2025: Patient was seen in ICU in room 214. After being transferred to ICU patient was seen by Dr. Jimenez, performed a cystourethroscopy without removal of right ureteral calculus with stent placement and a retrograde pyelogram. Patient was noted to have purulent drainage after placing the ureteral stent and a Munguia's catheter was recommended to be placed for next 24-48 hours for anterograde drainage. Patient was started on meropenem and vancomycin and an ID consult has been obtained. Preliminary blood culture showed growth of Gram- negative rods, final identification pending. We will follow recommendations from urology, nephrology, ID, and critical care team. REVIEW OF SYSTEMS CONSTITUTIONAL: Denies fevers, chills, or night sweats. No unintentional weight loss reported. NEUROLOGICAL: Denies headache, amaurosis fugax, motor weakness, sensory deficit, vertigo/spinning sensation, gait abnormalities, or tremors. ENT: No hearing loss, otalgia, otorrhea, rhinitis, rhinorrhea, hoarseness, or sore throat. CARDIOVASCULAR: Denies any exertional angina, dyspnea on exertion, orthopnea, paroxysmal nocturnal dyspnea, palpitations, life-threatening arrhythmias, claudication. PULMONARY: Denies any shortness of breath, cough, phlegm/sputum, hemoptysis, pleuritic chest pain. SLEEP: Denies morning headaches, daytime somnolence or napping. Denies difficulty falling asleep, staying asleep, waking from sleep. Denies knowledge of snoring. GASTROINTESTINAL: Denies any type of dysphagia to either liquids or solids. Denies nausea, vomiting, pyrosis, early satiety, abdominal pain, diarrhea, constipation, or changes in stool consistency or caliber. Denies coffee-ground emesis, hematemesis, hematochezia, or melanotic stools. GENITOURINARY: Right sided flank pain, improved. Denies frequency, urgency, nocturia, hematuria or incontinence PHYSICAL EXAM GENERAL APPEARANCE: The patient is awake, alert, and oriented, in no acute cardiopulmonary distress. NEUROLOGICAL: Cranial nerves II-XII grossly intact. Motor is 5/5 in bilateral upper and lower extremities proximal to distal. No sensory deficits. HEENT: Face is symmetric. Pupils are equal and reactive. Extraocular movements are intact. NECK: Supple. No JVD. No thyromegaly. No submental, submandibular, pre-/ postauricular, occipital or supraclavicular lymphadenopathy. CHEST: Normal chest expansion. No Telemetry. LUNGS: Absence of any rales, rhonchi or any wheezing. CARDIOVASCULAR: Regular. S1 and S2 normal. No appreciable rubs, murmurs or gallops. ABDOMEN: Soft, nontender, and nondistended. There is no rebound, voluntary guarding, or rigidity. : Deferred. No Munguia. EXTREMITIES: Non-edematous and not cyanotic. No clubbing. Good capillary refill. SKIN: No skin breakdown. Vital Signs (last 8hr) Date Time Temp Pulse Resp B/P (MAP) Pulse Ox O2 Delivery O2 Flow Rate FiO2 01/19/25 11:22 98.2 90 20 95 Nasal Cannula 3.0 36 01/19/25 11:00 93 32 131/84 96 Nasal Cannula 3.0 36 01/19/25 09:00 97 18 120/67 96 Nasal Cannula 3.0 36 01/19/25 08:00 101 22 152/97 96 Nasal Cannula 3.0 36 01/19/25 07:30 93 Venti Mask+ 40 01/19/25 07:29 88 18 Venti Mask 12.0 40 01/19/25 07:22 97.5 01/19/25 07:00 87 26 130/81 96 Venti Mask 40 01/19/25 06:30 85 20 128/77 95 01/19/25 06:15 87 26 128/84 98 01/19/25 06:00 88 24 155/68 96 01/19/25 05:45 86 23 131/79 98 LABS: Laboratory: Test 01/19/25 11:20 01/19/25 03:58 01/19/25 02:38 01/18/25 17:45 Range/Units Magnesium Level 2.00 1.80-2.40 mg/dL White Blood Count 29.3 #H 4.8-10.8 K/uL Red Blood Count 3.41 L 4.00-5.50 MIL/uL Hemoglobin 10.4 L 12.0-16.0 g/dL Hematocrit 32.0 L 36-48 % Mean Corpuscular Volume 93.8 79-99 fL Mean Corpuscular Hemoglobin 30.5 27.0-33.0 pg Mean Corpuscular Hemoglobin Concent 32.5 32.0-36.0 g/dL Red Cell Distribution Width 13.1 11.0-15.5 % Platelet Count 225 # 130-400 K/uL Mean Platelet Volume 9.4 7.5-10.5 fL Immature Granulocyte % (Auto) 0.7 0-1 % Neutrophils (%) (Auto) 95.0 H 40.0-77.0 % Lymphocytes (%) (Auto) 3.2 L 21.0-51.0 % Monocytes (%) (Auto) 0.7 L 3.0-13.0 % Eosinophils (%) (Auto) 0.2 0.0-8.0 % Basophils (%) (Auto) 0.2 0.0-5.0 % Neutrophils # (Auto) 27.8 H 1.8-7.7 K/uL Lymphocytes # (Auto) 1.0 1.0-4.8 K/uL Monocytes # (Auto) 0.2 0.1-1.0 K/uL Eosinophils # (Auto) 0.06 0.00-0.70 K/uL Basophils # (Auto) 0.06 0.00-0.20 K/uL Absolute Immature Granulocyte (auto 0.20 0-1 K/uL Nucleated Red Blood Cells 0.0 0.0-0.19 % Sodium Level 140 136-145 mmol/L Potassium Level 4.2 3.5-5.1 mmol/L Chloride Level 104 101-111 mmol/L Carbon Dioxide Level 25 21-32 mmol/L Blood Urea Nitrogen 31 H 7-18 mg/dL Creatinine 2.4 H 0.5-1.0 mg/dL Glomerular Filtration Rate Calc 19 >90 mL/min Random Glucose 148 H 70-105 mg/dL Total Calcium 7.6 L 8.5-10.1 mg/dL Phosphorus Level 4.4 2.5-4.9 mg/dL Total Bilirubin 0.3 0.2-1.0 mg/dL Aspartate Amino Transf (AST/SGOT) 27 10-37 U/L Alanine Aminotransferase (ALT/SGPT) 16 12-78 U/L Alkaline Phosphatase 85 50-136 U/L Total Protein 6.8 6.0-8.3 g/dL Albumin 2.5 L 3.5-5.0 g/dL Blood Gas Specimen Type Arterial Arterial Blood pH 7.326 L 7.350-7.450 Arterial Blood Partial Pressure CO2 47 H 32-45 mmHg Arterial Blood Partial Pressure O2 189.4 H 83.0-108.0 mmHg Arterial Blood HCO3 24.0 21.0-28.0 mmol/L Arterial Blood Oxygen Saturation 99.2 H 94.0-98.0 % Arterial Blood Base Excess -2.4 L -2.0-3.0 mmol/L Blood Gas Temperature 37.0 35.5-37.0 CELSIUS Blood Gas Flow-by 15.00 0.00-15.00 L/min Blood Gas Vent Mode NRB ROOM AIR FiO2 100.0 % Blood Gas Specimen Comment FORREST RN, RB Influenza Type A Antigen Negative For Type A NEGATIVE Influenza Type B Antigen Negative For Type B NEGATIVE SARS-CoV-2 Antigen (Rapid) PRESUMPTIVE NEGATIVE NEGATIVE Group A Streptococcus Rapid negative NEGATIVE Test 01/18/25 05:45 01/17/25 22:28 01/17/25 22:09 01/17/25 20:22 Range/Units Prothrombin Time 11.2 9.6-11.6 SEC Prothromb Time International Ratio 1.06 0.85-1.15 Activated Partial Thromboplast Time 31.7 26.3-35.5 SEC Lactic Acid Level 2.1 0.8-2.5 mmol/L Procalcitonin 2.28 H 0.05-0.5 ng/mL Urine Color LIGHT-YELLOW YELLOW Urine Appearance CLOUDY H CLEAR Urine pH 7.5 5.0-8.0 Urine Specific [place] 1.008 1.001-1.031 Urine Protein 30 H NEGATIVE mg/dL Urine Glucose (UA) NEGATIVE NEGATIVE mg/dL Urine Ketones NEGATIVE NEGATIVE mg/dL Urine Occult Blood LARGE H NEGATIVE Urine Nitrate NEGATIVE NEGATIVE Urine Bilirubin NEGATIVE NEGATIVE mg/dL Urine Urobilinogen 0.2 0.2-1.0 mg/dL Urine Leukocyte Esterase 500 H NEGATIVE Tim/uL Urine RBC 51-100 H 0-1 /HPF Urine WBC TNTC H 0-1 /HPF Urine WBC Clumps (Auto) FEW 0-1 /HPF Urine Other Crystals (Auto) 10 None Seen /HPF Urine Bacteria RARE None Seen /HPF Urine Osmolality 340 50-1200 mOsm/kg Urine Random Creatinine 22.87 L 30-135 mg/dL Urine Random Sodium 101 40-220 mmol/l White Cell Morphology Comment See comments Lipase 8 L 16-77 U/L Current Medications Medications (Trade) Dose Ordered Sig/Nirmala Route PRN Reason Start Time Stop Time Status Last Admin Dose Admin Acetaminophen (TYLenol 325MG TAB) 650 mg Q4HPRN PRN PO TEMPERATURE GREATER THAN 101.5 01/18/25 13:30 02/16/25 22:29 01/18/25 13:34 650 MG Acetaminophen (TYLenol 325MG TAB) 650 mg Q6H PRN PO TEMPERATURE GREATER THAN 101.5 01/17/25 22:30 01/18/25 13:29 DC 01/18/25 08:35 650 MG Ceftriaxone Sodium (ROCEphine 1G INJ) 1 gm Q24H IVPB 01/18/25 02:00 01/18/25 13:18 DC 01/18/25 02:53 1 GM Hydromorphone HCl (DiLAUDid 0.5MG INJ) 0.25 mg Q4H PRN IVP SEVERE PAIN (7-10) 01/17/25 22:30 01/22/25 22:29 01/18/25 20:49 0.25 MG Lactated Ringer's 1,000 ml @ 125 mls/hr Q8H IV 01/17/25 22:30 01/19/25 05:53 DC 01/18/25 23:40 125 MLS/HR Lactulose (Constulose 20gm/ 30ml Udcup) 20 gm BID PRN PO CONSTIPATION 01/17/25 22:30 02/16/25 22:29 Magnesium Sulfate 50 ml @ 0 mls/hr PROTOCOL PRN IV As needed 01/18/25 09:30 02/17/25 09:29 01/19/25 05:59 25 MLS/HR Meropenem (Merrem 1gm) 1 gm Q12H IVPB 01/18/25 19:30 01/19/25 05:56 DC 01/18/25 20:38 1 GM Meropenem (Merrem 1gm) 1 gm Q12H IVPB 01/19/25 09:00 01/19/25 19:30 01/19/25 08:13 1 GM Norepinephrine 250 ml @ 0 mls/hr PROTOCOL IV 01/18/25 18:00 02/17/25 17:59 Ondansetron HCl (zoFRAN 4MG INJ) 4 mg Q6H PRN IV NAUSEA/VOMITING 01/17/25 22:30 02/16/25 22:29 Pantoprazole Sodium (PROTonix 40MG INJ) 40 mg DAILY IV 01/18/25 09:00 02/17/25 08:59 01/19/25 08:13 40 MG Pharmacy Profile Note (Pharmacy Communication) 1 each ONCE MISC 01/18/25 19:30 01/18/25 19:22 DC Piperacillin Sod/ Tazobactam Sod (Zosyn 3.375gm+NS 50ml) 3.375 gm Q8H IV 01/18/25 13:30 01/18/25 22:40 DC 01/18/25 20:41 3.375 GM Sodium Chloride 1,000 ml @ 75 mls/hr [id number] IV 01/17/25 22:00 01/18/25 12:28 DC 01/17/25 22:32 75 MLS/HR Tamsulosin HCl (FloMAX) 0.4 mg DAILY PO 01/18/25 09:00 02/17/25 08:59 01/19/25 08:13 0.4 MG Vancomycin HCl (Vancomycin 750mg) 750 mg Q24H IVPB 01/19/25 23:00 01/29/25 22:59 Vancomycin HCl (Vancomycin Protocol) 1 each AD IV 01/18/25 23:00 02/01/25 22:59 DIAGNOSTICS / RADIOLOGY: [ ] PATIENT: EUGENE BLACKBURN MR#: [id number] : 1935 SEX: F AGE: 89 LOCATION: 2CV ORDER 2330 STATUS: ADM IN REPORT#: [id number] SERVICE REASON: picc line ORDERING PHYSICIAN: MARIEL GOLD AGACNYany PROCEDURE: CXR1VW - CHEST 1VW CHEST 1VW REASON: picc line COMPARISON: Prior chest radiograph from 01/17/2025 is available. FINDINGS: Single view of the chest was obtained. There is mild cardiomegaly. There is patchy airspace disease seen throughout both lungs most pronounced in the left lower lung. There is a right-sided PIC catheter with tip in severe vena cava.. Mediastinum and bony thorax appear unremarkable. IMPRESSION: 1. Mild cardiomegaly 2. Patchy airspace disease most pronounced in the left mid and left lower lung which appears to be worsening as compared to prior radiograph 3. Right-sided PICC catheter with tip in superior vena cava. DICTATED BY: ELLIOTT PEREZ MD DATE: 01/19/25 1118 ELECTRONICALLY SIGNED BY: ELLIOTT PEREZ MD DATE: 01/19/25 1122 ASSESSMENT: Sepsis due to acute complicated cystitis Obstructing Right hydroureter with right hydronephrosis,S/P placement of rt ureteral stent on 01/19/25 POA Acute hypoxemic respiratory failure Acute on chronic kidney disease Leukocytosis, POA Hypokalemia, resolved Diverticulosis, POA Morbid obesity PLAN: Sepsis due to acute complicated cystitis * Patient had elevated white cell count 12.6 on admission which increased to 29.3 * Procalcitonin was 2.28 on admission, patient was tachycardic 108, tachypneic 24. meeting SIRS criteria for sepsis * Initial urinalysis was positive leukocyte esterase and too numerous RBC and WBC subsequent cultures showed [id number] colony-forming units * Preliminary blood cultures show growth of Gram-negative rods * Patient was started on meropenem and vancomycin by critical care team and we will continue * ID consult has been placed and we will appreciate their recommendations Obstructing Right hydroureter with right hydronephrosis,S/P placement of rt ureteral stent on 01/19/25 POA * Patient underwent cystourethroscopy with out removal of right ureteral calculus and ureteral stent placement * As per the family present at the bedside, urologist recommended to remove the renal calculi with lithotripsy * Continue Munguia's catheter for 24-48 hours promote anterograde drainage of the purulent pus from the a upper renal tract * Continue IV meropenem1 g q.12 and vancomycin * Continue p.r.n. Dilaudid 0.5 mg for pain Acute hypoxic respiratory failure, sepsis * Patient developed shortness of breath since last night needing Ventimask with a flow rate of 12 L of oxygen at night and3 L of oxygen via nasal cannula during daytime * Chest x-ray showed patchy airspace disease more pronounced in the left mid and left lower lung and appears to be worsening * Protect airway and maintain aspiration precautions * Keep patient NPO * Obtain speech therapy evaluation before starting regular diet * Maintain saturation over 92 % Acute on chronic kidney disease, due to obstructive uropathy * Patient's creatinine on presentation was 1.7 and 2.4 now. Patient baseline creatinine unknown * Patient had obstructive uropathy for which a ureteral stent has been placed without removing the renal stone * Continue meropenem and vancomycin * Monitor electrolytes and BUN creatinine tomorrow * Avoid nephrotoxic agents and renally dose medications * We will follow Nephrology recommendations GI prophylaxis with pantoprazole and DVT prophylaxis with SCDs Further course of hospitalization dependent upon patient's response to obstructive uropathy and sepsis. ATTESTATION BY PHYSICIAN I have seen and examined the patient. I reviewed the documentation, medical decision making, and treatment plan as noted by the resident provider above. I agree with the findings and plan of care. Gene Vides MD, HARSHAVARDHA MD Jan 19, 2025 13:43
--- NOTE | 2025-01-19 13:46 | NUR ---
TRANSFER TELEPHONE REPORT GIVEN TO JORGE Wren RN.
--- NOTE | 2025-01-19 14:00 | NUR ---
arrived from 2nd floor patient stable, alert and oriented, family at bedside, denies current complaints/pain/nausea at this time, on 3L oxygen
--- NOTE | 2025-01-19 14:06 | HMCIMG ---
CHEST 1VW REASON: POSSIBLE ASPIRATION COMPARISON: None. FINDINGS: Single view of the chest was obtained. Lungs are clear. Heart size is normal. There is no pulmonary vascular congestion. There is prominent azygous lobe with a prominent azygous vein.. Mediastinum and bony thorax appear unremarkable. There is a right-sided PIC catheter with tip in superior vena cava. IMPRESSION: 1. Mild prominence upper jejunum suggesting of interstitial lung disease. There may be underlying pulmonary edema..
--- NOTE | 2025-01-19 14:45 | NUR ---
BEDSIDE SWALLOW EVAL COMPLETED. No s/s of aspiration. RECOMMENDATIONS: minced and moist solids, thin liquids and pills whole 1 per swallow as tolerated. COMPENSATORY STRATEGIES: 1. sit upright during oral intake 2. small bites/sips 3. slow oral intake CORPORATE EXECUTIVE reviewed results and recommendations with patient/family (daughter) and nurse Jie/Shannan. CORPORATE EXECUTIVE educated patient on risks and consequences of aspiration. Speech therapy not warranted at this time. All questions answered. Addendum: 01/19/[address] PEPITO PAUL Amended: Links added.
--- NOTE | 2025-01-19 20:47 | CONS ---
INFECTIOUS DISEASE CONSULTATION DATE OF SERVICE: 01/20/2024 REQUESTING PHYSICIAN: Dr Box REASON FOR CONSULTATION: Gram-negative sepsis. HISTORY OF PRESENT ILLNESS: This is an 89-year-old female with shock on UTI and nephrolithiasis and morbid obesity. Presented to the hospital with altered mental status, weakness and flank pain. was under 0.4. The patient was with sepsis, admitted to ICU. CT of the abdomen shows hydronephrosis. The right stent was placed. The patient has no cough, no hemoptysis or pleuritic pain. The patient's procalcitonin was positive. She has been started on antibiotics. Blood culture positive for gram-negative felix. PAST MEDICAL HISTORY: * Obesity. * Nephrolithiasis. * UTI. PAST SURGICAL HISTORY: Cholecystectomy. ALLERGIES: No known drug allergies. CURRENT MEDICATIONS: * ____. * Vancomycin. * ____. * Flomax. * ____. * DuoNeb. SOCIAL HISTORY: Lives with daughter. No alcohol, tobacco or illicit drug use. FAMILY HISTORY: Noncontributory. REVIEW OF SYSTEMS: Greater than 10 systems were reviewed from medical record, negative other than documented above. PHYSICAL EXAMINATION: GENERAL: An elderly female, awake. VITAL SIGNS: Temperature 98.2, pulse 90, respirations 20, BP 131/85. EYES: No icterus. Pupils equal and reactive. HENT: No oral thrush seen. Moist oral mucosa. NECK: Supple. No JVD or thyromegaly. LUNGS: Good air entry. No rales, no rhonchi. CARDIOVASCULAR: S1 and S2. Regular. No murmur heard. ABDOMEN: Obese, soft, nontender. Bowel sound is present. CENTRAL NERVOUS SYSTEM: Awake, alert, oriented x 3. No focal deficits. SKIN: No rashes, no itchiness. LYMPHATIC: No peripheral lymphadenopathy. BACK: No deformity. No pressure ulcer. MUSCULOSKELETAL: No joint swelling. No erythema. No tenderness. LABORATORY DATA: Last procalcitonin 2.28, sodium 140, potassium 4.2, BUN 31, creatinine 2.4, WBC count 9.7, hemoglobin 10.4, platelets 145, blood culture growing gram negative rods. Urine culture pending. RADIOLOGY: CT of the abdomen shows right sided hydronephrosis. 2D echocardiogram reveals possible small ____ versus calcified nodules. ASSESSMENT: An 89-year-old female. * Gram-negative bacteremia,sepsis. * Urinary tract infection. * Right-sided hydronephrosis. * Renal failure. * Possible agitation. PLAN: * Continue critical care support. * Continue pain management. * Continue antibiotics. * Monitor electrolytes. * Continue DVT prophylaxis.. * Continue physical therapy. * Continue Flomax. * Continue oxygen. * The patient will be followed up closely. Thank you for allowing me to participate in the care of this patient. TID: [id number] RECEIPT: [id number] MTDD
[2025-01-19] MEDS: VANCOMYCIN 750MG VIAL IVPB SCH (23:03)
[2025-01-19] MEDS ORDERED: MEROPENEM 1GM 1 GM VIAL IVPB SCH (23:30)
[2025-01-19] MEDS ORDERED: PHARMACY COMMUNICATION MISC SCH (23:30)
[2025-01-20] VITALS (18 sets, daily range): BP systolic 82–144; BP diastolic 49–100; PULSE 91–112; RESP 18–20; TEMP 97.6–98.5; O2SAT 96–99
[2025-01-20] MEDS: MEROPENEM 1GM 1 GM VIAL IVPB SCH (02:04)
[2025-01-20 05:04] LABS: NUCLEATED RED BLOOD CELLS 0.0 % (0.0-0.19); PLATELET COUNT (AUTO) 205.0 K/uL (130-400); RED BLOOD CELL COUNT(AUTO) 3.52 MIL/uL (4.00-5.50); RED CELL DISTRIBUTION WIDTH 13.0 % (11.0-15.5); WHITE BLOOD COUNT (AUTO) 17.1 K/uL (4.8-10.8)
[2025-01-20 05:21] LABS: ASPARTATE AMINOTRANSFERASE 22.0 U/L (10-37); CREATININE 2.2 mg/dL (0.5-1.0); GLOMERULAR FILTR. RATE CALC 21.0 mL/min (>90); GLUCOSE,RANDOM 117.0 mg/dL (70-105); PHOSPHORUS 2.9 mg/dL (2.5-4.9); SODIUM SERUM 141.0 mmol/L (136-145); TOTAL PROTEIN, SERUM 6.7 g/dL (6.0-8.3); UREA NITROGEN, BLOOD 35.0 mg/dL (7-18)
[2025-01-20] MEDS ORDERED: SUCCINYLCHOLINE CHLORIDE 20 MG/ML 10 ML VIAL ONE (07:41)
[2025-01-20] MEDS: LIDOCAINE HCL 2% VISCOUS 15 ML UDCUP ONE (08:09)
--- NOTE | 2025-01-20 09:59 | HMCIMG ---
OR RETROGRADE PYELOGRAM INDICATION: Right ureteral stent placement COMPARISON: None. FINDINGS: A total of 7 fluoroscopic spot images were obtained for placement of a right ureteral stent. No hydronephrosis or hydroureter is detected. The internal right ureteral catheter with the proximal loop in the right renal pelvis and distal loop in the urinary bladder. There is a right-sided hydronephrosis. Fluoroscopy time 0.7 minutes IMPRESSION: Details of the finding in the procedural normal.
[2025-01-20] MEDS: LACTULOSE 20 GM/30 ML UDCUP PO ONE (12:14)
--- NOTE | 2025-01-20 12:46 | HMCSR ---
APPROVED REPORT EXAM: Transesophageal echocardiogram with color flow Doppler. INDICATION ICD: Rule out endocarditis PROCEDURE After obtaining informed consent, patient underwent transesophageal echo in the 306 15 mL 2% Viscous Lidocaine was given as a topical anesthetic prior to the administration of the consc ious sedation. Type of Sedation: General Anesthesia Sedation was administered by Please refer to medication administration record. . Sedation was achieved with Please refer to medication administration record. intravenously. Transesophageal probe was inserted and advanced into esophagus without difficulty by Mae Hoff MD . JERALD was performed and images were obtained, probe was removed without complications. Throughout the procedure, the blood pressure, pulse oximetry, cardiac rhythm, and rate were monitored . Left Ventricle Left ventricular cavity size is normal. No regional wall motion abnormalities noted. Mild concentric left ventricular hypertrophy. Sigmoid septum is present. LVEF is >55%. No left ventricle thrombus not ed on this study. The left ventricular diastolic function is Indeterminate Right Ventricle The right ventricle is normal size. The right ventricular systolic function is normal. Atria The left atrium size is dilated. Spontaneous contrast noted in left atrium The right atrium size is n ormal. Aortic Valve Aortic valve is trileaflet, thickened with nodular calcification. Aortic valve opens well. Nodular ca lcification most prominent on the non coronary cusp leaflet Trivial aortic regurgitation is present. There is no aortic valvular vegetation. There is no aortic valvular stenosis. Mitral Valve The mitral valve displays mild posterior mitral annular calcification. Mitral valve leaflets open wel l. There is at least mild mitral valve regurgitation noted by color Doppler. No mitral valve vegetati on. There is no mitral valve stenosis. Tricuspid Valve The tricuspid valve is normal in structure and function. There is mild tricuspid valve regurgitation noted. No tricuspid valve vegetation. Pulmonic Valve The pulmonary valve is not well visualized. There is no pulmonic valvular regurgitation. Great Vessels The aortic root appears normal in size. Pericardium No pericardial effusion. Conclusion This was an abbreviated and focused transesophageal echocardiogram due to the patient's tenuous respi ratory status and transient apnea. The area of concern from transthoracic echocardiogram was the aortic valve and this was interrogated fully. The aortic valve is trileaflet, displaying nodular calcification on all three cusps, with adequate ex cursion and trivial aortic regurgitation. No valvular vegetation.
--- NOTE | 2025-01-20 13:07 | PN ---
[facility] PROGRESS NOTE Date of Service: Jan 20, 2025 Time of Service: 13:02 History of Present Illness Ms. Blackburn is an 89-year-old female that was seen and examined today on 01/17/2025 patient is currently alert and oriented x1. Patient states that it is December 2010. Patient states she does not know what city she is currently N but states that she is currently living with the daughter. Patient states that she has from [facility]. Discussed with primary nurse, Tona who states patient was previously alert and oriented x3 however after a dose of Dilaudid patient became less able to answer questions appropriately. The following was obtained from emergency room physician report. There was no previous medical records available for me to review. According to emergency room physician: 89-year-old female was brought to the ER due to abdominal pain, stated that the pain started earlier this morning and has been getting worse, patient was unable to tolerate a diet today due to abdominal pain. He denies nausea or vomiting. Patient reports history of constipation, stated that she had a bowel movement this ED but was very little stool came out. Today in the emergency department WBCs 12.6, left shift neutrophils 94%, potassium 3.4, no urinalysis has been collected or sent to lab, CT of abdomen and pelvis shows obstructive uropathy, right hydronephrosis, right hydro ureteral, 6 mm calculus. Emergency room physician recommended that patient be admitted so she could be evaluated by urology service. Urology service is being paste from the emergency department. Also creatinine was elevated at 1.7. There was no known baseline creatinine level. Nephrology service was also consulted from the emergency department. SUBJECTIVE: [ ] 01/18/2025: Patient was seen this morning in 420. Alert oriented to time place and person, denied fevers, chills hemodynamically stable. The patient reported discomfort in her abdomen and right flank. Culture showed 10-50 K colony-formin g units and her WBCs on presentation were [id number] while in the ED that spiked to 23.4 K this morning. He lactic acid was 2.1 and Procal was 2.8. We added Zosyn on top of ceftriaxone for extended coverage. We spoke to Dr. Jimenez for management of hydronephrosis with 6 mm stone in the right ureter and he recommended placing a nephrostomy tube and obtaining cardiac clearance before doing so. Dr. Ribeiro was consulted and patient is considered to be at high risk for a low risk non cardiac surgery. He cleared her to proceed with intervention as the current benefits outweigh the risk from the cardiovascular standpoint. Pending transfer to any facility for placing nephrostomy tube as IR not available today. Patient remains NPO since this morning. 17:30: In the interim patient became more septic and decompensated. Her blood pressure dropped to 89/44, MAP 59 and IV bolus Ringer's lactate was started. Critical care team was consulted and a transfer to ICU order was placed. Critical Care team placed the order for Levophed however was waiting for the patient to be transferred to the ICU. 7:00 p.m.: After IV bolus patient's map is at 61. Patient is being transferred to ICU and will be started on Levophed. We agree with the plan from [facility] and we will continue their recommendations. 01/19/2025: Patient was seen in ICU in room 214. After being transferred to ICU patient was seen by Dr. Jimenez, performed a cystourethroscopy without removal of right ureteral calculus with stent placement and a retrograde pyelogram. Patient was noted to have purulent drainage after placing the ureteral stent and a Munguia's catheter was recommended to be placed for next 24-48 hours for anterograde drainage. Patient was started on meropenem and vancomycin and an ID consult has been obtained. Preliminary blood culture showed growth of Gram- negative rods, final identification pending. We will follow recommendations from urology, nephrology, ID, and critical care team. 01/20/2025 The patient was seen and examined in room 306. The patient was downgraded yesterday from ICU to the floor. The patient was lying comfortably on the bed with no complaints of shortness of breath, abdominal pain or chest pain. The patient had JERALD done today that showed no vegetations. Patient's blood culture came back positive for Proteus mirabilis and she is continued on antibiotic meropenem and vancomycin. The patient is maintaining 100% oxygen at 3 L. the patient was complaining of constipation therefore she was given 1 dose of lactulose. REVIEW OF SYSTEMS CONSTITUTIONAL: Denies fevers, chills, or night sweats. No unintentional weight loss reported. NEUROLOGICAL: Denies headache, amaurosis fugax, motor weakness, sensory deficit, vertigo/spinning sensation, gait abnormalities, or tremors. ENT: No hearing loss, otalgia, otorrhea, rhinitis, rhinorrhea, hoarseness, or sore throat. CARDIOVASCULAR: Denies any exertional angina, dyspnea on exertion, orthopnea, p aroxysmal nocturnal dyspnea, palpitations, life-threatening arrhythmias, claudication. PULMONARY: Denies any shortness of breath, cough, phlegm/sputum, hemoptysis, pleuritic chest pain. SLEEP: Denies morning headaches, daytime somnolence or napping. Denies difficulty falling asleep, staying asleep, waking from sleep. Denies knowledge of snoring. GASTROINTESTINAL: Denies any type of dysphagia to either liquids or solids. Denies nausea, vomiting, pyrosis, early satiety, abdominal pain, diarrhea, constipation, or changes in stool consistency or caliber. Denies coffee-ground emesis, hematemesis, hematochezia, or melanotic stools. GENITOURINARY: Right sided flank pain, improved. Denies frequency, urgency, nocturia, hematuria or incontinence PHYSICAL EXAM GENERAL APPEARANCE: The patient is awake, alert, and oriented, in no acute cardiopulmonary distress. NEUROLOGICAL: Cranial nerves II-XII grossly intact. Motor is 5/5 in bilateral upper and lower extremities proximal to distal. No sensory deficits. HEENT: Face is symmetric. Pupils are equal and reactive. Extraocular movements are intact. NECK: Supple. No JVD. No thyromegaly. No submental, submandibular, pre- /postauricular, occipital or supraclavicular lymphadenopathy. CHEST: Normal chest expansion. No Telemetry. LUNGS: Absence of any rales, rhonchi or any wheezing. CARDIOVASCULAR: Regular. S1 and S2 normal. No appreciable rubs, murmurs or gallops. ABDOMEN: Soft, nontender, and nondistended. There is no rebound, voluntary guarding, or rigidity. : Deferred. No Munguia. EXTREMITIES: Non-edematous and not cyanotic. No clubbing. Good capillary refill. SKIN: No skin breakdown. Vital Signs (last 8hr) Date Time Temp Pulse Resp B/P (MAP) Pulse Ox O2 Delivery O2 Flow Rate FiO2 01/20/25 08:05 102 20 N/Cannula Low lpm 3.0 32 01/20/25 08:00 96 Nasal Cannula* 3 32 01/20/25 08:00 97.5 93 19 123/58 96 Nasal Cannula 3.0 LABS: Laboratory: Test 01/20/25 04:49 01/19/25 03:58 01/19/25 02:38 01/18/25 17:45 Range/Units White Blood Count 17.1 H 4.8-10.8 K/uL Red Blood Count 3.52 L 4.00-5.50 MIL/uL Hemoglobin 10.6 L 12.0-16.0 g/dL Hematocrit 32.3 L 36-48 % Mean Corpuscular Volume 91.8 79-99 fL Mean Corpuscular Hemoglobin 30.1 27.0-33.0 pg Mean Corpuscular Hemoglobin Concent 32.8 32.0-36.0 g/dL Red Cell Distribution Width 13.0 11.0-15.5 % Platelet Count 205 130-400 K/uL Mean Platelet Volume 9.6 7.5-10.5 fL Nucleated Red Blood Cells 0.0 0.0-0.19 % Sodium Level 141 136-145 mmol/L Potassium Level 3.2 L 3.5-5.1 mmol/L Chloride Level 102 101-111 mmol/L Carbon Dioxide Level 30 21-32 mmol/L Blood Urea Nitrogen 35 H 7-18 mg/dL Creatinine 2.2 H 0.5-1.0 mg/dL Glomerular Filtration Rate Calc 21 >90 mL/min Random Glucose 117 H 70-105 mg/dL Total Calcium 7.7 L 8.5-10.1 mg/dL Phosphorus Level 2.9 2.5-4.9 mg/dL Magnesium Level 1.80 1.80-2.40 mg/dL Total Bilirubin 0.3 0.2-1.0 mg/dL Aspartate Amino Transf (AST/SGOT) 22 10-37 U/L Alanine Aminotransferase (ALT/SGPT) 12 12-78 U/L Alkaline Phosphatase 87 50-136 U/L Total Protein 6.7 6.0-8.3 g/dL Albumin 2.6 L 3.5-5.0 g/dL Immature Granulocyte % (Auto) 0.7 0-1 % Neutrophils (%) (Auto) 95.0 H 40.0-77.0 % Lymphocytes (%) (Auto) 3.2 L 21.0-51.0 % Monocytes (%) (Auto) 0.7 L 3.0-13.0 % Eosinophils (%) (Auto) 0.2 0.0-8.0 % Basophils (%) (Auto) 0.2 0.0-5.0 % Neutrophils # (Auto) 27.8 H 1.8-7.7 K/uL Lymphocytes # (Auto) 1.0 1.0-4.8 K/uL Monocytes # (Auto) 0.2 0.1-1.0 K/uL Eosinophils # (Auto) 0.06 0.00-0.70 K/uL Basophils # (Auto) 0.06 0.00-0.20 K/uL Absolute Immature Granulocyte (auto 0.20 0-1 K/uL Blood Gas Specimen Type Arterial Arterial Blood pH 7.326 L 7.350-7.450 Arterial Blood Partial Pressure CO2 47 H 32-45 mmHg Arterial Blood Partial Pressure O2 189.4 H 83.0-108.0 mmHg Arterial Blood HCO3 24.0 21.0-28.0 mmol/L Arterial Blood Oxygen Saturation 99.2 H 94.0-98.0 % Arterial Blood Base Excess -2.4 L -2.0-3.0 mmol/L Blood Gas Temperature 37.0 35.5-37.0 CELSIUS Blood Gas Flow-by 15.00 0.00-15.00 L/min Blood Gas Vent Mode NRB ROOM AIR FiO2 100.0 % Blood Gas Specimen Comment FORREST RN, RB Influenza Type A Antigen Negative For Type A NEGATIVE Influenza Type B Antigen Negative For Type B NEGATIVE SARS-CoV-2 Antigen (Rapid) PRESUMPTIVE NEGATIVE NEGATIVE Group A Streptococcus Rapid negative NEGATIVE Current Medications Medications (Trade) Dose Ordered Sig/Nirmala Route PRN Reason Start Time Stop Time Status Last Admin Dose Admin Acetaminophen (TYLenol 325MG TAB) 650 mg Q4HPRN PRN PO TEMP ABOVE 101.5/MILD PAIN 1-3 01/18/25 13:30 02/16/25 22:29 01/19/25 17:31 650 MG Acetaminophen (TYLenol 325MG TAB) 650 mg Q6H PRN PO TEMPERATURE GREATER THAN 101.5 01/17/25 22:30 01/18/25 13:29 DC 01/18/25 08:35 650 MG Ceftriaxone Sodium (ROCEphine 1G INJ) 1 gm Q24H IVPB 01/18/25 02:00 01/18/25 13:18 DC 01/18/25 02:53 1 GM Furosemide (LASix 20MG VIAL) 20 mg DAILY IV 01/20/25 09:00 01/20/25 09:01 DC 01/20/25 09:17 20 MG Hydromorphone HCl (DiLAUDid 0.5MG INJ) 0.25 mg Q4H PRN IVP SEVERE PAIN (7-10) 01/17/25 22:30 01/22/25 22:29 01/18/25 20:49 0.25 MG Lactated Ringer's 1,000 ml @ 125 mls/hr Q8H IV 01/17/25 22:30 01/19/25 05:53 DC 01/18/25 23:40 125 MLS/HR Lactulose (Constulose 20gm/ 30ml Udcup) 20 gm BID PRN PO CONSTIPATION 01/17/25 22:30 02/16/25 22:29 Magnesium Sulfate 50 ml @ 0 mls/hr PROTOCOL PRN IV As needed 01/18/25 09:30 02/17/25 09:29 01/20/25 05:34 25 MLS/HR Meropenem (Merrem 1gm) 1 gm Q12H IVPB 01/18/25 19:30 01/19/25 05:56 DC 01/18/25 20:38 1 GM Meropenem (Merrem 1gm) 1 gm Q12H IVPB 01/19/25 09:00 01/19/25 19:30 DC 01/19/25 08:13 1 GM Meropenem (Merrem 1gm) 1 gm Q12H IVPB 01/19/25 23:30 01/19/25 23:28 DC Meropenem (Merrem 1gm) 1 gm Q12H IVPB 01/20/25 02:30 01/30/25 02:29 01/20/25 02:04 1 GM Norepinephrine 250 ml @ 0 mls/hr PROTOCOL IV 01/18/25 18:00 01/19/25 23:15 DC Ondansetron HCl (zoFRAN 4MG INJ) 4 mg Q6H PRN IV NAUSEA/VOMITING 01/17/25 22:30 02/16/25 22:29 Pantoprazole Sodium (PROTonix 40MG INJ) 40 mg DAILY IV 01/18/25 09:00 02/17/25 08:59 01/20/25 09:17 40 MG Pharmacy Profile Note (Pharmacy Communication) 1 each ONCE MISC 01/18/25 19:30 01/18/25 19:22 DC Pharmacy Profile Note (Pharmacy Communication) 1 each ONCE MISC 01/19/25 23:30 01/19/25 23:18 DC Piperacillin Sod/ Tazobactam Sod (Zosyn 3.375gm+NS 50ml) 3.375 gm Q8H IV 01/18/25 13:30 01/18/25 22:40 DC 01/18/25 20:41 3.375 GM Sodium Chloride 1,000 ml @ 75 mls/hr [id number] IV 01/17/25 22:00 01/18/25 12:28 DC 01/17/25 22:32 75 MLS/HR Tamsulosin HCl (FloMAX) 0.4 mg DAILY PO 01/18/25 09:00 02/17/25 08:59 01/19/25 08:13 0.4 MG Vancomycin HCl (Vancomycin 750mg) 750 mg Q24H IVPB 01/19/25 23:00 01/29/25 22:59 01/19/25 23:03 750 MG Vancomycin HCl (Vancomycin Protocol) 1 each AD IV 01/18/25 23:00 02/01/25 22:59 DIAGNOSTICS / RADIOLOGY: PATIENT: EUGENE BLACKBURN MR#: [id number] : 1935 SEX: F AGE: 89 LOCATION: 3BH ORDER 3 STATUS: ADM IN REPORT#: [id number] SERVICE 3 REASON: rule out endocarditis. ORDERING PHYSICIAN: ALFREDO ROWELL PROCEDURE: ECHO JERALD - ECHO JERALD--TRANSESOPHAGEAL APPROVED REPORT EXAM: Transesophageal echocardiogram with color flow Doppler. INDICATION ICD: Rule out endocarditis PROCEDURE After obtaining informed consent, patient underwent transesophageal echo in the 306 15 mL 2% Viscous Lidocaine was given as a topical anesthetic prior to the administration of the conscious sedation. Type of Sedation: General Anesthesia Sedation was administered by Please refer to medication administration record. . Sedation was achieved with Please refer to medication administration record. intravenously. Transesophageal probe was inserted and advanced into esophagus without diffi culty by Mae Hoff MD . JERALD was performed and images were obtained, probe was removed without complications. Throughout the procedure, the blood pressure, pulse oximetry, cardiac rhythm, and rate were monitored. Left Ventricle Left ventricular cavity size is normal. No regional wall motion abnormalities noted. Mild concentric left ventricular hypertrophy. Sigmoid septum is present. LVEF is >55%. No left ventricle thrombus noted on this study. The left ventricular diastolic function is Indeterminate Right Ventricle The right ventricle is normal size. The right ventricular systolic function is normal. Atria The left atrium size is dilated. Spontaneous contrast noted in left atrium The right atrium size is normal. Aortic Valve Aortic valve is trileaflet, thickened with nodular calcification. Aortic valve opens well. Nodular calcification most prominent on the non coronary cusp leaflet Trivial aortic regurgitation is present. There is no aortic valvular vegetation. There is no aortic valvular stenosis. Mitral Valve The mitral valve displays mild posterior mitral annular calcification. Mitral valve leaflets open well. There is at least mild mitral valve regurgitation noted by color Doppler. No mitral valve vegetation. There is no mitral valve stenosis. Tricuspid Valve The tricuspid valve is normal in structure and function. There is mild tricuspid valve regurgitation noted. No tricuspid valve vegetation. Pulmonic Valve The pulmonary valve is not well visualized. There is no pulmonic valvular regurgitation. Great Vessels The aortic root appears normal in size. Pericardium No pericardial effusion. Conclusion This was an abbreviated and focused transesophageal echocardiogram due to the patient's tenuous respiratory status and transient apnea. The area of concern from transthoracic echocardiogram was the aortic valve and this was interrogated fully. The aortic valve is trileaflet, displaying nodular calcification on all three cusps, with adequate excursion and trivial aortic regurgitation. No valvular vegetation. DICTATED BY: KEV HOFF DO DATE: 01/20/25 0743 ELECTRONICALLY SIGNED BY: KEV HOFF DO DATE: 01/20/25 2956 ASSESSMENT: Sepsis due to acute complicated cystitis Obstructing Right hydroureter with right hydronephrosis,S/P placement of rt ureteral stent on 01/19/25 POA Acute hypoxemic respiratory failure Acute on chronic kidney disease Leukocytosis, POA Hypokalemia, resolved Diverticulosis, POA Morbid obesity PLAN: Sepsis due to acute complicated cystitis * Patient had elevated white cell count 12.6 on admission which increased to 29.3 and today is decreased to 17.1. * Procalcitonin was 2.28 on admission, patient was tachycardic 108, tachypneic 24. meeting SIRS criteria for sepsis * Initial urinalysis was positive leukocyte esterase and too numerous RBC and WBC subsequent cultures showed [id number] colony-forming units * Preliminary blood cultures show growth of Gram-negative rods and today came was positive Proteus mirabilis. * Patient was started on meropenem and vancomycin by critical care team and we will continue * ID consult has been placed and we will appreciate their recommendations * JERALD showed aortic valve is trileaflet, displaying nodular calcification on all three cusps, with adequate excursion and trivial aortic regurgitation. No valvular vegetation. Obstructing Right hydroureter with right hydronephrosis,S/P placement of rt ureteral stent on 01/19/25 POA * Patient underwent cystourethroscopy with out removal of right ureteral calculus and ureteral stent placement * As per the family present at the bedside, urologist recommended to remove the renal calculi with lithotripsy * Continue Munguia's catheter for 24-48 hours promote anterograde drainage of the purulent pus from the a upper renal tract * Continue IV meropenem1 g q.12 and vancomycin * Continue p.r.n. Dilaudid 0.5 mg for pain Acute hypoxic respiratory failure, sepsis * Patient developed shortness of breath since last night needing Ventimask with a flow rate of 12 L of oxygen at night and3 L of oxygen via nasal cannula during daytime * Chest x-ray showed patchy airspace disease more pronounced in the left mid and left lower lung and appears to be worsening * Protect airway and maintain aspiration precautions * Keep patient NPO * Obtain speech therapy evaluation before starting regular diet * Maintain saturation over 92 % Acute on chronic kidney disease, due to obstructive uropathy * Patient's creatinine on presentation was 1.7 and 2.4 now. Patient baseline creatinine unknown * Patient had obstructive uropathy for which a ureteral stent has been placed without removing the renal stone * Continue meropenem and vancomycin * Monitor electrolytes and BUN creatinine tomorrow * Avoid nephrotoxic agents and renally dose medications * We will follow Nephrology recommendations GI prophylaxis with pantoprazole and DVT prophylaxis with SCDs Further course of hospitalization dependent upon patient's response to obstructive uropathy and sepsis. ATTESTATION BY PHYSICIAN I have seen and examined the patient. I reviewed the documentation, medical decision making, and treatment plan as noted by the resident physician above. I agree with the findings and plan of care. Elie Vides MD, SYED M MD Jan 20, 2025 13:07
--- NOTE | 2025-01-20 13:14 | PN ---
FOLLOWUP PROGRESS NOTE SUBJECTIVE: An 89-year-old female who initially presented with obstructive uropathy. The patient was found to have nephrolithiasis. The patient was seen by Urology, status post stent placement. She has had acute on chronic renal failure in the hospital. Creatinine has actually stabilized. The patient's urine output has improved. The patient with bacteremia and continues with the antibiotics and she is being seen for all of the above. I did discuss the case in detail with the patient's family. REVIEW OF SYSTEMS: GENERAL: She is feeling improved. HEENT: No change in vision. No change in hearing. CARDIOVASCULAR: There are no current chest pains or palpitations. PULMONARY: There is no shortness of breath. GASTROINTESTINAL: The patient is tolerating a diet. MUSCULOSKELETAL: Complains of weakness. PHYSICAL EXAMINATION: VITAL SIGNS: Blood pressure is 123/58, pulse in the 90s, and afebrile. GENERAL: She is a chronically old female, elderly, lying in bed on the medical floor. HEENT: Head is atraumatic. Pupils are equal, round, and reactive to light. Oropharynx is without exudate. Nares are clear. NECK: There is no JVP. No thyromegaly. CARDIOVASCULAR: Regular. There is no S3 or S4 gallop. LUNGS: Coarse with equal thoracic movement. ABDOMEN: Soft, nondistended, nontender. EXTREMITIES: Reveal no clubbing, no cyanosis. NEUROLOGICAL: She is awake. She is alert. LABORATORY DATA: Sodium 141, potassium 3.2, BUN 35, creatinine 2.2. Hemoglobin 10, hematocrit 32. IMPRESSION: * Acute on chronic renal failure. * Sepsis bacteremia. * Obstructive uropathy. * Electrolyte abnormalities. PLAN: The patient's creatinine continues to remain fairly stable. The patient remains on the IV antibiotics. The patient is being seen by Urology, status post stent placement. Electrolytes have all been aggressively repleted. The patient is encouraged with her therapy and will continue to follow closely. The patient's family at the bedside. Multiple questions were all answered. TID: [id number] RECEIPT: [id number]
--- NOTE | 2025-01-20 14:25 | PN ---
[facility] PROGRESS NOTE Date Patient Seen: Jan 20, 2025 Time of Visit: 14:24 Supervising Physician: Dr. Whitmore Primary Care Physician: [ ] Outpatient Specialists: [ ] Inpatient Consults: DR. CANALES PROBLEM LIST: OBSTRUCTING RIGHT URETEROLITHIASIS , POA S/P RT URETERAL STENT BY DR CANALES ON 01/19/25 ACUTE COMPLICATED CYSTITIS, POA SEVERE SEPSIS 2/2 TO GRAM NEGATIVE BACTEREMIA R/O ENDOCARDITIS LEON ON CKD MORBID OBESITY BMI 43. INTERVAL HISTORY: Patient evaluated at bedside today, she is currently on non-rebreather mask at 10 L following postop vitals. Patient received JERALD this morning, currently pending cardio recommendations and final report. Patient on 2 L nasal cannula at home, discussion held with the patient regarding smoking cessation, states that she discontinued smoking cigarettes approximately 20 years ago, now endorses smoking vapes. White count today is currently 17.1, she continues on Lasix 20 mg as well as Solu-Medrol 40 b.i.d.. Meropenem and vancomycin antibiotic therapy. 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 Pertinent positives mentioned above. Otherwise negative. PHYSICAL EXAM: GENERAL: alert, weak, awake oriented x 3 HEENT: EOMI, Sclera non icteric, moist mucosa NECK: Supple, no JVD, trachea midline LUNGS: Clear breath sounds bilaterally. No wheezes HEART: Regular rate and rhythm. Normal S1 and S2, without murmurs ABD: Abdomen soft, nontender. Bowel sounds present EXT: No clubbing cyanosis or edema NEURO: Alert and oriented to person, follows commands Vital Signs (last 8hr) Date Time Temp Pulse Resp B/P (MAP) Pulse Ox O2 Delivery O2 Flow Rate FiO2 01/20/25 11:55 112 19 109/100 94 Nasal Cannula 2.0 01/20/25 10:55 102 19 137/73 94 Nasal Cannula 2.0 01/20/25 10:25 95 20 144/80 99 Nasal Cannula 2.0 01/20/25 10:09 95 20 82/61 99 Nasal Cannula 2.0 01/20/25 09:55 101 20 117/67 98 Nasal Cannula 2.0 01/20/25 09:39 98 20 105/64 98 Nasal Cannula 2.0 01/20/25 09:24 96 20 109/62 98 Nasal Cannula 2.0 01/20/25 09:09 99 20 122/62 98 Nasal Cannula 2.0 01/20/25 08:05 102 20 N/Cannula Low lpm 3.0 32 01/20/25 08:00 96 Nasal Cannula* 3 32 01/20/25 08:00 97.5 93 19 123/58 96 Nasal Cannula 3.0 LABS: Hematology Labs: Test 01/20/25 04:49 01/19/25 03:58 Range/Units White Blood Count 17.1 H 4.8-10.8 K/uL Red Blood Count 3.52 L 4.00-5.50 MIL/uL Hemoglobin 10.6 L 12.0-16.0 g/dL Hematocrit 32.3 L 36-48 % Mean Corpuscular Volume 91.8 79-99 fL Mean Corpuscular Hemoglobin 30.1 27.0-33.0 pg Mean Corpuscular Hemoglobin Concent 32.8 32.0-36.0 g/dL Red Cell Distribution Width 13.0 11.0-15.5 % Platelet Count 205 130-400 K/uL Mean Platelet Volume 9.6 7.5-10.5 fL Nucleated Red Blood Cells 0.0 0.0-0.19 % Immature Granulocyte % (Auto) 0.7 0-1 % Neutrophils (%) (Auto) 95.0 H 40.0-77.0 % Lymphocytes (%) (Auto) 3.2 L 21.0-51.0 % Monocytes (%) (Auto) 0.7 L 3.0-13.0 % Eosinophils (%) (Auto) 0.2 0.0-8.0 % Basophils (%) (Auto) 0.2 0.0-5.0 % Neutrophils # (Auto) 27.8 H 1.8-7.7 K/uL Lymphocytes # (Auto) 1.0 1.0-4.8 K/uL Monocytes # (Auto) 0.2 0.1-1.0 K/uL Eosinophils # (Auto) 0.06 0.00-0.70 K/uL Basophils # (Auto) 0.06 0.00-0.20 K/uL Absolute Immature Granulocyte (auto 0.20 0-1 K/uL Chemistry Labs: Test 01/20/25 04:49 Range/Units Sodium Level 141 136-145 mmol/L Potassium Level 3.2 L 3.5-5.1 mmol/L Chloride Level 102 101-111 mmol/L Carbon Dioxide Level 30 21-32 mmol/L Blood Urea Nitrogen 35 H 7-18 mg/dL Creatinine 2.2 H 0.5-1.0 mg/dL Glomerular Filtration Rate Calc 21 >90 mL/min Random Glucose 117 H 70-105 mg/dL Total Calcium 7.7 L 8.5-10.1 mg/dL Phosphorus Level 2.9 2.5-4.9 mg/dL Magnesium Level 1.80 1.80-2.40 mg/dL Total Bilirubin 0.3 0.2-1.0 mg/dL Aspartate Amino Transf (AST/SGOT) 22 10-37 U/L Alanine Aminotransferase (ALT/SGPT) 12 12-78 U/L Alkaline Phosphatase 87 50-136 U/L Total Protein 6.7 6.0-8.3 g/dL Albumin 2.6 L 3.5-5.0 g/dL DIAGNOSTICS / RADIOLOGY RESULTS: [ ] PLAN NEURO: Minimize central acting medications as possible. Maintain fall precautions, adequate lighting during the day PULMONARY: Supplemental 02 as needed. Maintain aspiration precautions at all times CARDIOVASCULAR: Follow hemodynamics. Vital signs per facility protocol GI & NUTRITION: Continue with nutritional support. Continue stool softeners and laxatives as needed. KIDNEYS & ELECTROLYTES: Strict monitoring of intake, output and overall fluid balance. Avoid nephrotoxic medications to the extent possible. Medications to be dosed according to renal function. Monitor electrolytes and replace as needed ENDOCRINE: Maintain blood glucose between 100-180 at all times. Hypoglycemia protocol in place INFECTIOUS DISEASE: Trend temperature, WBC and procalcitonin level Follow cultures, deescalate antibiotics as soon as possible. Panculture if new onset fever ONCOLOGY/HEMATOLOGY/COAGULATION: Monitor for s/s of bleeding Monitor hemoglobin, coagulation studies as needed SKIN: Pressure ulcer prevention per facility protocol Specialty mattress ORTHO/REHAB: Continue PT/OT Prophylaxis: Continue GI and DVT prophylaxis Code Status: Full Resuscitation Disposition: TBD Other: Total patient care time exceeds 35 minutes excluding all procedures. SHANTA SHOOK PAC Jan 20, 2025 14:24
--- NOTE | 2025-01-20 17:16 | PN ---
INFECTIOUS DISEASE PROGRESS NOTE Date of Service: Jan 20, 2025 SUBJECTIVE: This is an 89-year-old female patient with positive blood cultures with Proteus mirabilis and the preliminary urine culture results growing Gram-negative rods. Patient is status post JERALD this morning with negative findings for vegetation. The WBC has trended down to 17.1 today from 29.3 yesterday. No fever this morning, temperature 97.5. Patient will continue on Meropenem and vancomycin and we will follow up on the final culture results. PHYSICAL EXAM EYES: Anicteric. Pupils equal and reactive. HENT: No oral thrush seen, moist Oral mucosa NECK: Supple, no JVD or thyromegaly. LUNGS: Good air entry. No rales, no rhonchi. CARDIOVASCULAR: S1, S2 regular. No murmur heard. ABDOMEN: Soft, non tender, bowel sounds present, no organomegaly CENTRAL NERVOUS SYSTEM: Awake, alert, oriented x 3. No focal deficits. SKIN: No rashes, no swelling. LYMPHATICS: No peripheral lymphadenopathy MUSCULOSKELETAL: No joint swelling, erythema or tenderness. EXTREMITIES: No cyanosis or clubbing BACK: No deformity, no pressure ulcer. GENITOURINARY: No dysuria or hematuria Vital Sign (Last 12 Hours) 01/20/25 01/20/25 01/20/25 01/20/25 08:00 08:00 08:05 09:09 Temp 97.5 Pulse 93 102 99 Resp 19 20 20 B/P (MAP) 123/58 122/62 Pulse Ox 96 96 98 O2 Delivery Nasal Cannula Nasal Cannula* N/Cannula Low lpm Nasal Cannula O2 Flow Rate 3.0 3 3.0 2.0 FiO2 32 32 01/20/25 01/20/25 01/20/25 01/20/25 09:24 09:39 09:55 10:09 Pulse 96 98 101 95 Resp 20 20 20 20 B/P (MAP) 109/62 105/64 117/67 82/61 Pulse Ox 98 98 98 99 O2 Delivery Nasal Cannula Nasal Cannula Nasal Cannula Nasal Cannula O2 Flow Rate 2.0 2.0 2.0 2.0 01/20/25 01/20/25 01/20/25 01/20/25 10:25 10:55 11:55 16:00 Temp 98.4 Pulse 95 102 112 98 Resp 20 19 19 19 B/P (MAP) 144/80 137/73 109/100 107/49 Pulse Ox 99 94 94 96 O2 Delivery Nasal Cannula Nasal Cannula Nasal Cannula Nasal Cannula O2 Flow Rate 2.0 2.0 2.0 2.0 Intake & Output (last 24hrs) 01/19/25 01/19/25 01/20/25 15:00 23:00 07:00 Intake Total 100.0 ml 350.0 ml Output Total 1700 ml 1100 ml 1200 ml Balance -1600.0 ml -1100 ml -850.0 ml LABS: Laboratory: Test 01/20/25 04:49 01/19/25 03:58 01/19/25 02:38 01/18/25 17:45 Range/Units White Blood Count 17.1 H 4.8-10.8 K/uL Red Blood Count 3.52 L 4.00-5.50 MIL/uL Hemoglobin 10.6 L 12.0-16.0 g/dL Hematocrit 32.3 L 36-48 % Mean Corpuscular Volume 91.8 79-99 fL Mean Corpuscular Hemoglobin 30.1 27.0-33.0 pg Mean Corpuscular Hemoglobin Concent 32.8 32.0-36.0 g/dL Red Cell Distribution Width 13.0 11.0-15.5 % Platelet Count 205 130-400 K/uL Mean Platelet Volume 9.6 7.5-10.5 fL Nucleated Red Blood Cells 0.0 0.0-0.19 % Sodium Level 141 136-145 mmol/L Potassium Level 3.2 L 3.5-5.1 mmol/L Chloride Level 102 101-111 mmol/L Carbon Dioxide Level 30 21-32 mmol/L Blood Urea Nitrogen 35 H 7-18 mg/dL Creatinine 2.2 H 0.5-1.0 mg/dL Glomerular Filtration Rate Calc 21 >90 mL/min Random Glucose 117 H 70-105 mg/dL Total Calcium 7.7 L 8.5-10.1 mg/dL Phosphorus Level 2.9 2.5-4.9 mg/dL Magnesium Level 1.80 1.80-2.40 mg/dL Total Bilirubin 0.3 0.2-1.0 mg/dL Aspartate Amino Transf (AST/SGOT) 22 10-37 U/L Alanine Aminotransferase (ALT/SGPT) 12 12-78 U/L Alkaline Phosphatase 87 50-136 U/L Total Protein 6.7 6.0-8.3 g/dL Albumin 2.6 L 3.5-5.0 g/dL Immature Granulocyte % (Auto) 0.7 0-1 % Neutrophils (%) (Auto) 95.0 H 40.0-77.0 % Lymphocytes (%) (Auto) 3.2 L 21.0-51.0 % Monocytes (%) (Auto) 0.7 L 3.0-13.0 % Eosinophils (%) (Auto) 0.2 0.0-8.0 % Basophils (%) (Auto) 0.2 0.0-5.0 % Neutrophils # (Auto) 27.8 H 1.8-7.7 K/uL Lymphocytes # (Auto) 1.0 1.0-4.8 K/uL Monocytes # (Auto) 0.2 0.1-1.0 K/uL Eosinophils # (Auto) 0.06 0.00-0.70 K/uL Basophils # (Auto) 0.06 0.00-0.20 K/uL Absolute Immature Granulocyte (auto 0.20 0-1 K/uL Blood Gas Specimen Type Arterial Arterial Blood pH 7.326 L 7.350-7.450 Arterial Blood Partial Pressure CO2 47 H 32-45 mmHg Arterial Blood Partial Pressure O2 189.4 H 83.0-108.0 mmHg Arterial Blood HCO3 24.0 21.0-28.0 mmol/L Arterial Blood Oxygen Saturation 99.2 H 94.0-98.0 % Arterial Blood Base Excess -2.4 L -2.0-3.0 mmol/L Blood Gas Temperature 37.0 35.5-37.0 CELSIUS Blood Gas Flow-by 15.00 0.00-15.00 L/min Blood Gas Vent Mode NRB ROOM AIR FiO2 100.0 % Blood Gas Specimen Comment FORREST RN, RB Influenza Type A Antigen Negative For Type A NEGATIVE Influenza Type B Antigen Negative For Type B NEGATIVE SARS-CoV-2 Antigen (Rapid) PRESUMPTIVE NEGATIVE NEGATIVE Group A Streptococcus Rapid negative NEGATIVE DIAGNOSTICS / RADIOLOGY: PATIENT: EUGENE BLACKBURN ACCT: [id number] LOC: [facility] U: [id number] AGE/SX: 89/F ROOM: [facility] RE01/17/[address]: NELLIE NICE MD : 1935 BED: 1 DIS: STATUS: ADM IN TLOC: SPEC: [id number] EWA: 01/17/25 STATUS: COMP REQ: [id number] RECD: 01/19/25 [facility] DR: ZAKIYA MOCTEZUMA [facility] SOURCE: BLOOD ENTR: 01/19/[address] [facility] [address]: KODY BARBOZA MD [facility]: BLOOD FLORIDALMA CANALES MD SELF,REFERRAL JULIOC ÉSAR JEONG MD ORDERED: AERO ID & SENS Procedure Result Dolly Date-Time AEROBIC ID & SENSITIVITIES Final 01/20/2580 [facility] COLONY DESCRIPTION: DAY 1: GRAM NEGATIVE RODS IDENTIFICATION AND SENSITIVITY TO FOLLOW PEDIATRIC BOTTLE PROTEUS MIRABILIS PMIRABILIS M.I.C. RX --------- ---- AMPICILLIN <=8 S AZTREONAM <=4 S CEFAZOLIN <=2 S CEFTAZIDIME/AVIBACTAM <=8 S GENTAMICIN <=2 S LEVOFLOXACIN <=0.5 S MEROPENEM <=1 S PIPERACILLIN/TAZOBACTAM <=8 S TRIMETHOPRIM/SUFLAMETHOXAZOLE <=2/38 S PATIENT: EUGENE BLACKBURN ACCT: [id number] LOC: 3B U: [id number] AGE/SX: 89/F ROOM: [facility] RE01/17/[address]: NELLIE NICE MD : 1935 BED: 1 DIS: STATUS: ADM IN TLOC: SPEC: [id number] EWA: 01/17/25 STATUS: RES REQ: [id number] RECD: 01/19/25 [facility] DR: ZAKIYA MOCTEZUMA [facility] SOURCE: [facility] ENTR: 01/19/[address]: KODY BARBOZA MD SPDESC: CLEAN CAT NELLIE NICE MD, KENNETH A MD SELF,REFERRAL ORDERED: AERO ID & SENS Procedure Result Dolly Date-Time AEROBIC ID & SENSITIVITIES Preliminary 10/25/25-1206 [facility] COLONY DESCRIPTION: DAY 1: COLONY COUNT: 10,000 - 20,000 CFU/ML GRAM NEGATIVE RODS IDENTIFICATION AND SENSITIVITY TO FOLLOW ASSESSMENT: Gram-negative bacteremia. Endocarditis ruled out, status post JERALD. Urinary tract infection. Leukocytosis Obstructing calculus in the right distal ureter, s/p successful manipulation and right ureteral stent placement on 01/18/2025. Bilateral nephrolithiasis. Acute renal failure. PLAN: Continue Meropenem. Continue vancomycin. Continue GI prophylaxis. Oxygen support as needed. We will follow up on the renal function. We will follow up on the final culture results. This case was reviewed and discussed with my supervising physician Dr. Waldron and the above assessment and plan was formulated and agreed upon. ATTESTATION BY PHYSICIAN I have seen and examined the patient. I reviewed the documentation, medical decision making, and treatment plan as noted by the mid-level provider above. I agree with the findings and plan of care. MILAD WALDRON MD, MIRTA L [facility] Jan 20, 2025 17:16
[2025-01-20] MEDS: Solu-medROL 40MG VIAL IVP SCH (17:44)
--- NOTE | 2025-01-20 18:06 | PN ---
PROGRESS NOTE Date of Service: Jan 20, 2025 Time of Service: 18:04 SUBJECTIVE: Patient has been transferred to outside of the intensive care unit. She is doing much better. Vitals normalized. Hemodynamics normal. No need for pressors. Munguia catheter continues to drain clear urine. REVIEW OF SYSTEMS CONSTITUTIONAL: Denies fever, chills, or fatigue. HEAD/FACE: No signs of trauma. EENT: Denies eye pain, blurred vision, double vision, or light sensitivity. RESPIRATORY: Denies shortness of breath, cough, wheezing CARDIOVASCULAR: Denies chest pain, palpitation, syncope GASTROINTESTINAL/ABDOMINAL: Denies abdominal pain, constipation, diarrhea, nausea or vomiting GENITOURINARY: Denies dysuria or hematuria. MUSCULOSKELETAL: Denies joint pain, tenderness, or trauma. INTEGUMENTARY: Denies rash or itchiness NEUROLOGICAL/PSYCH: Denies anxiety, depression, heat or cold intolerance. PHYSICAL EXAM EYES: Anicteric. Pupils equal and reactive. HENT: No oral thrush seen, moist Oral mucosa NECK: Supple, no JVD or thyromegaly. LUNGS: Good air entry. No rales, no rhonchi. CARDIOVASCULAR: S1, S2 regular. No murmur heard. ABDOMEN: Soft, non tender, bowel sounds present, no organomegaly CENTRAL NERVOUS SYSTEM: Awake, alert, oriented x 3. No focal deficits. SKIN: No rashes, no swelling. LYMPHATICS: No peripheral lymphadenopathy MUSCULOSKELETAL: No joint swelling, erythema or tenderness. EXTREMITIES: No cyanosis or clubbing BACK: No deformity, no pressure ulcer. GENITOURINARY: Genitalia is normal Vital Signs (last 8hr) Date Time Temp Pulse Resp B/P (MAP) Pulse Ox O2 Delivery O2 Flow Rate FiO2 01/20/25 16:00 98.4 98 19 107/49 96 Nasal Cannula 2.0 01/20/25 11:55 112 19 109/100 94 Nasal Cannula 2.0 01/20/25 10:55 102 19 137/73 94 Nasal Cannula 2.0 01/20/25 10:25 95 20 144/80 99 Nasal Cannula 2.0 01/20/25 10:09 95 20 82/61 99 Nasal Cannula 2.0 LABS: Laboratory: Test 01/20/25 04:49 01/19/25 03:58 01/19/25 02:38 Range/Units White Blood Count 17.1 H 4.8-10.8 K/uL Red Blood Count 3.52 L 4.00-5.50 MIL/uL Hemoglobin 10.6 L 12.0-16.0 g/dL Hematocrit 32.3 L 36-48 % Mean Corpuscular Volume 91.8 79-99 fL Mean Corpuscular Hemoglobin 30.1 27.0-33.0 pg Mean Corpuscular Hemoglobin Concent 32.8 32.0-36.0 g/dL Red Cell Distribution Width 13.0 11.0-15.5 % Platelet Count 205 130-400 K/uL Mean Platelet Volume 9.6 7.5-10.5 fL Nucleated Red Blood Cells 0.0 0.0-0.19 % Sodium Level 141 136-145 mmol/L Potassium Level 3.2 L 3.5-5.1 mmol/L Chloride Level 102 101-111 mmol/L Carbon Dioxide Level 30 21-32 mmol/L Blood Urea Nitrogen 35 H 7-18 mg/dL Creatinine 2.2 H 0.5-1.0 mg/dL Glomerular Filtration Rate Calc 21 >90 mL/min Random Glucose 117 H 70-105 mg/dL Total Calcium 7.7 L 8.5-10.1 mg/dL Phosphorus Level 2.9 2.5-4.9 mg/dL Magnesium Level 1.80 1.80-2.40 mg/dL Total Bilirubin 0.3 0.2-1.0 mg/dL Aspartate Amino Transf (AST/SGOT) 22 10-37 U/L Alanine Aminotransferase (ALT/SGPT) 12 12-78 U/L Alkaline Phosphatase 87 50-136 U/L Total Protein 6.7 6.0-8.3 g/dL Albumin 2.6 L 3.5-5.0 g/dL Immature Granulocyte % (Auto) 0.7 0-1 % Neutrophils (%) (Auto) 95.0 H 40.0-77.0 % Lymphocytes (%) (Auto) 3.2 L 21.0-51.0 % Monocytes (%) (Auto) 0.7 L 3.0-13.0 % Eosinophils (%) (Auto) 0.2 0.0-8.0 % Basophils (%) (Auto) 0.2 0.0-5.0 % Neutrophils # (Auto) 27.8 H 1.8-7.7 K/uL Lymphocytes # (Auto) 1.0 1.0-4.8 K/uL Monocytes # (Auto) 0.2 0.1-1.0 K/uL Eosinophils # (Auto) 0.06 0.00-0.70 K/uL Basophils # (Auto) 0.06 0.00-0.20 K/uL Absolute Immature Granulocyte (auto 0.20 0-1 K/uL Blood Gas Specimen Type Arterial Arterial Blood pH 7.326 L 7.350-7.450 Arterial Blood Partial Pressure CO2 47 H 32-45 mmHg Arterial Blood Partial Pressure O2 189.4 H 83.0-108.0 mmHg Arterial Blood HCO3 24.0 21.0-28.0 mmol/L Arterial Blood Oxygen Saturation 99.2 H 94.0-98.0 % Arterial Blood Base Excess -2.4 L -2.0-3.0 mmol/L Blood Gas Temperature 37.0 35.5-37.0 CELSIUS Blood Gas Flow-by 15.00 0.00-15.00 L/min Blood Gas Vent Mode NRB ROOM AIR FiO2 100.0 % Blood Gas Specimen Comment FORREST MANCUSO, RB DIAGNOSTICS / RADIOLOGY: CT stone protocol obtained in the emergency department tonight did show multiple nonobstructing stones bilaterally. Stone burden is actually impressive. There is a 6 mm stone that is making his way down the right ureter with hydroureteronephrosis. ASSESSMENT: 89-year-old female presents to the hospital with a an obstructing right ureteral calculus. PLAN: 1. Patient is now postop day two status post stone manipulation with stent placement. She is doing much better. 2. We will place an order for Munguia catheter to be removed tomorrow morning 01/21/2025. 3. Patient should follow up with us in the office in [place] in about 2-3 weeks we start planning definitive stone treatment. 30 minutes spent for this consult more than half of the time spent in counseling and coordination of care and addressing questions posed by patient as well as family members present at bedside, some time was spent discussing with members of her care team, the rest of the time was spent reviewing medical records. FLORIDALMA CANALES MD Jan 20, 2025 18:05
[2025-01-20] MEDS: MELATONIN 5 MG TABLET PO SCH (21:01)
[2025-01-21] VITALS (10 sets, daily range): BP systolic 123–151; BP diastolic 65–95; PULSE 87–102; RESP 18–22; TEMP 97.3–98.2; O2SAT 96–97
[2025-01-21 05:31] LABS: NUCLEATED RED BLOOD CELLS 0.0 % (0.0-0.19); PLATELET COUNT (AUTO) 218.0 K/uL (130-400); RED BLOOD CELL COUNT(AUTO) 3.53 MIL/uL (4.00-5.50); RED CELL DISTRIBUTION WIDTH 13.1 % (11.0-15.5); WHITE BLOOD COUNT (AUTO) 5.0 K/uL (4.8-10.8)
[2025-01-21 05:34] LABS: CREATININE 1.5 mg/dL (0.5-1.0); GLOMERULAR FILTR. RATE CALC 33.0 mL/min (>90); GLUCOSE,RANDOM 174.0 mg/dL (70-105); UREA NITROGEN, BLOOD 31.0 mg/dL (7-18)
--- NOTE | 2025-01-21 05:34 | HMCIMG ---
EXAM: CR Chest, single view. CLINICAL HISTORY: PICC line placement. COMPARISON: None. FINDINGS: Right-sided PICC catheter is identified with the tip in the superior vena cava. Mild cardiomegaly with bilateral pulmonary congestion and probable subsegmental atelectasis in the left lower lobe. No evidence of pleural effusion or pneumothorax. No acute osseous abnormality. IMPRESSION: Right-sided PICC catheter is identified with the tip in the superior vena cava. Mild cardiomegaly with bilateral pulmonary congestion and probable subsegmental atelectasis in the left lower lobe. No evidence of pleural effusion or pneumothorax. Compared to the prior study, there is an interval progression of the pulmonary congestion. /[place]
[2025-01-21 05:45] LABS: SODIUM SERUM 141.0 mmol/L (136-145)
--- NOTE | 2025-01-21 13:55 | PN ---
[facility] PROGRESS NOTE Date Patient Seen: Jan 21, 2025 Time of Visit: 13:53 Supervising Physician: Dr. Whitmore Primary Care Physician: [ ] Outpatient Specialists: [ ] Inpatient Consults: DR. CANALES PROBLEM LIST: OBSTRUCTING RIGHT URETEROLITHIASIS , POA S/P RT URETERAL STENT BY DR CANALES ON 01/19/25 ACUTE COMPLICATED CYSTITIS, POA SEVERE SEPSIS 2/2 TO GRAM NEGATIVE BACTEREMIA R/O ENDOCARDITIS LEON ON CKD MORBID OBESITY BMI 43. INTERVAL HISTORY: Patient evaluated at bedside with multiple family members present. Patient today is back at her baseline 2 L nasal cannula. She continues on Solu-Medrol 40 b.i.d. IV push at this time as well as Lasix 40 mg b.i.d. and meropenem. Recommendations today are to continue with the current medical management per primary and specialty teams. We will discontinue the patient's IV Solu-Medrol and initiate prednisone 40 p.o. for the next five days to be in the patient's steroid taper. Patient's JERALD results show no sign of endocarditis, indication of trileaflet aortic valve Plan Continue supplemental O2, 2 L home O2 baseline Continue meropenem and vancomycin Continue Lasix Discontinue Solu-Medrol IV, initiate prednisone 40 mg daily for five days to initiate taper Pending JERALD report REVIEW OF SYSTEMS: 12 point ROS reviewed with patient. Pertinent positives mentioned above. Otherwise negative. PHYSICAL EXAM: GENERAL: alert, weak, awake oriented x 3 HEENT: EOMI, Sclera non icteric, moist mucosa NECK: Supple, no JVD, trachea midline LUNGS: Clear breath sounds bilaterally. No wheezes HEART: Regular rate and rhythm. Normal S1 and S2, without murmurs ABD: Abdomen soft, nontender. Bowel sounds present EXT: No clubbing cyanosis or edema NEURO: Alert and oriented to person, follows commands Vital Signs (last 8hr) Date Time Temp Pulse Resp B/P (MAP) Pulse Ox O2 Delivery O2 Flow Rate FiO2 01/21/25 11:28 97.3 97 20 139/65 99 Nasal Cannula 2.0 01/21/25 11:26 91 20 01/21/25 11:26 20 N/Cannula Low lpm 3.0 32 01/21/25 08:00 97 Nasal Cannula* 3 32 01/21/25 08:00 97.9 90 22 141/66 98 Nasal Cannula 2.0 01/21/25 07:10 96 20 N/Cannula Low lpm 3.0 32 01/21/25 07:10 87 20 LABS: Hematology Labs: Test 01/21/25 04:58 Range/Units White Blood Count 5.0 4.8-10.8 K/uL Red Blood Count 3.53 L 4.00-5.50 MIL/uL Hemoglobin 10.6 L 12.0-16.0 g/dL Hematocrit 32.8 L 36-48 % Mean Corpuscular Volume 92.9 79-99 fL Mean Corpuscular Hemoglobin 30.0 27.0-33.0 pg Mean Corpuscular Hemoglobin Concent 32.3 32.0-36.0 g/dL Red Cell Distribution Width 13.1 11.0-15.5 % Platelet Count 218 130-400 K/uL Mean Platelet Volume 9.9 7.5-10.5 fL Nucleated Red Blood Cells 0.0 0.0-0.19 % Chemistry Labs: Test 01/21/25 04:58 01/20/25 04:49 Range/Units Sodium Level 141 136-145 mmol/L Potassium Level 3.7 3.5-5.1 mmol/L Chloride Level 104 101-111 mmol/L Carbon Dioxide Level 31 21-32 mmol/L Blood Urea Nitrogen 31 H 7-18 mg/dL Creatinine 1.5 H 0.5-1.0 mg/dL Glomerular Filtration Rate Calc 33 >90 mL/min Random Glucose 174 H 70-105 mg/dL Total Calcium 7.6 L 8.5-10.1 mg/dL Phosphorus Level 2.9 2.5-4.9 mg/dL Magnesium Level 1.80 1.80-2.40 mg/dL Total Bilirubin 0.3 0.2-1.0 mg/dL Aspartate Amino Transf (AST/SGOT) 22 10-37 U/L Alanine Aminotransferase (ALT/SGPT) 12 12-78 U/L Alkaline Phosphatase 87 50-136 U/L Total Protein 6.7 6.0-8.3 g/dL Albumin 2.6 L 3.5-5.0 g/dL DIAGNOSTICS / RADIOLOGY RESULTS: [ ] PLAN NEURO: Minimize central acting medications as possible. Maintain fall precautions, adequate lighting during the day PULMONARY: Supplemental 02 as needed. Maintain aspiration precautions at all times CARDIOVASCULAR: Follow hemodynamics. Vital signs per facility protocol GI & NUTRITION: Continue with nutritional support. Continue stool softeners and laxatives as needed. KIDNEYS & ELECTROLYTES: Strict monitoring of intake, output and overall fluid balance. Avoid nephrotoxic medications to the extent possible. Medications to be dosed according to renal function. Monitor electrolytes and replace as needed ENDOCRINE: Maintain blood glucose between 100-180 at all times. Hypoglycemia protocol in place INFECTIOUS DISEASE: Trend temperature, WBC and procalcitonin level Follow cultures, deescalate antibiotics as soon as possible. Panculture if new onset fever ONCOLOGY/HEMATOLOGY/COAGULATION: Monitor for s/s of bleeding Monitor hemoglobin, coagulation studies as needed SKIN: Pressure ulcer prevention per facility protocol Specialty mattress ORTHO/REHAB: Continue PT/OT Prophylaxis: Continue GI and DVT prophylaxis Code Status: Full Resuscitation Disposition: TBD Other: Total patient care time exceeds 35 minutes excluding all procedures. SHANTA SHOOK PAC Jan 21, 2025 13:55
--- NOTE | 2025-01-21 14:36 | PN ---
[facility] PROGRESS NOTE Date of Service: Jan 21, 2025 Time of Service: 14:36 History of Present Illness Ms. Blackburn is an 89-year-old female that was seen and examined today on 01/17/2025 patient is currently alert and oriented x1. Patient states that it is December 2010. Patient states she does not know what city she is currently N but states that she is currently living with the daughter. Patient states that she has from [facility]. Discussed with primary nurse, Tona who states patient was previously alert and oriented x3 however after a dose of Dilaudid patient became less able to answer questions appropriately. The following was obtained from emergency room physician report. There was no previous medical records available for me to review. According to emergency room physician: 89-year-old female was brought to the ER due to abdominal pain, stated that the pain started earlier this morning and has been getting worse, patient was unable to tolerate a diet today due to abdominal pain. He denies nausea or vomiting. Patient reports history of constipation, stated that she had a bowel movement this ED but was very little stool came out. Today in the emergency department WBCs 12.6, left shift neutrophils 94%, potassium 3.4, no urinalysis has been collected or sent to lab, CT of abdomen and pelvis shows obstructive uropathy, right hydronephrosis, right hydro ureteral, 6 mm calculus. Emergency room physician recommended that patient be admitted so she could be evaluated by urology service. Urology service is being paste from the emergency department. Also creatinine was elevated at 1.7. There was no known baseline creatinine level. Nephrology service was also consulted from the emergency department. SUBJECTIVE: [ ] 01/18/2025: Patient was seen this morning in 420. Alert oriented to time place and person, denied fevers, chills hemodynamically stable. The patient reported discomfort in her abdomen and right flank. Culture showed 10-50 K colony-formin g units and her [place]BCs on presentation were [id number] while in the ED that spiked to 23.4 K this morning. He lactic acid was 2.1 and Procal was 2.8. We added Zosyn on top of ceftriaxone for extended coverage. We spoke to Dr. Jimenez for management of hydronephrosis with 6 mm stone in the right ureter and he recommended placing a nephrostomy tube and obtaining cardiac clearance before doing so. Dr. Ribeiro was consulted and patient is considered to be at high risk for a low risk non cardiac surgery. He cleared her to proceed with intervention as the current benefits outweigh the risk from the cardiovascular standpoint. Pending transfer to any facility for placing nephrostomy tube as IR not available today. Patient remains NPO since this morning. 17:30: In the interim patient became more septic and decompensated. Her blood pressure dropped to 89/44, MAP 59 and IV bolus Ringer's lactate was started. Critical care team was consulted and a transfer to ICU order was placed. Critical Care team placed the order for Levophed however was waiting for the patient to be transferred to the ICU. 7:00 p.m.: After IV bolus patient's map is at 61. Patient is being transferred to ICU and will be started on Levophed. We agree with the plan from [facility] and we will continue their recommendations. 01/19/2025: Patient was seen in ICU in room 214. After being transferred to ICU patient was seen by Dr. Jimenez, performed a cystourethroscopy without removal of right ureteral calculus with stent placement and a retrograde pyelogram. Patient was noted to have purulent drainage after placing the ureteral stent and a Munguia's catheter was recommended to be placed for next 24-48 hours for anterograde drainage. Patient was started on meropenem and vancomycin and an ID consult has been obtained. Preliminary blood culture showed growth of Gram- negative rods, final identification pending. We will follow recommendations from urology, nephrology, ID, and critical care team. 01/20/2025 The patient was seen and examined in room 306. The patient was downgraded yesterday from ICU to the floor. The patient was lying comfortably on the bed with no complaints of shortness of breath, abdominal pain or chest pain. The patient had JERALD done today that showed no vegetations. Patient's blood culture came back positive for Proteus mirabilis and she is continued on antibiotic meropenem and vancomycin. The patient is maintaining 100% oxygen at 3 L. the patient was complaining of constipation therefore she was given 1 dose of lactulose. 01/21/2025: Patient was seen and examined in room 306. Patient was lying comfortably in her bed with her daughter at the bedside. Patient had Munguia catheter connected which showed blood tinged urine. Patient denied any flank pain or abdominal pain. Urologist advised to discontinue the Munguia's this morning and will follow up with the patient in clinic for definitive treatment of right ureteral calculi. Patient white count have come to 5000 and remains afebrile. Patient's urine and blood culture showed growth of Proteus mirabilis which is sensitive to meropenem and ID recommended to continue. We will get recommendations from ID and assess for possible discharge tomorrow. Critical care team we will discontinue IV Solu-Medrol and initiate p.o. prednisone 40 mg to be tapered in next 5 days. We also sent a referral for outpatient sleep study and case management evaluation for help finding a PCP. REVIEW OF SYSTEMS CONSTITUTIONAL: Denies fevers, chills, or night sweats. No unintentional weight loss reported. NEUROLOGICAL: Denies headache, amaurosis fugax, motor weakness, sensory deficit, vertigo/spinning sensation, gait abnormalities, or tremors. ENT: No hearing loss, otalgia, otorrhea, rhinitis, rhinorrhea, hoarseness, or sore throat. CARDIOVASCULAR: Denies any exertional angina, dyspnea on exertion, orthopnea, paroxysmal nocturnal dyspnea, palpitations, life-threatening arrhythmias, claudication. PULMONARY: Denies any shortness of breath, cough, phlegm/sputum, hemoptysis, pleuritic chest pain. SLEEP: Denies morning headaches, daytime somnolence or napping. Denies diffi culty falling asleep, staying asleep, waking from sleep. Denies knowledge of snoring. GASTROINTESTINAL: Denies any type of dysphagia to either liquids or solids. Denies nausea, vomiting, pyrosis, early satiety, abdominal pain, diarrhea, constipation, or changes in stool consistency or caliber. Denies coffee-ground emesis, hematemesis, hematochezia, or melanotic stools. GENITOURINARY: Right sided flank pain, improved. Denies frequency, urgency, nocturia, hematuria or incontinence PHYSICAL EXAM GENERAL APPEARANCE: The patient is awake, alert, and oriented, in no acute cardiopulmonary distress. NEUROLOGICAL: Cranial nerves II-XII grossly intact. Motor is 5/5 in bilateral upper and lower extremities proximal to distal. No sensory deficits. HEENT: Face is symmetric. Pupils are equal and reactive. Extraocular movements are intact. NECK: Supple. No JVD. No thyromegaly. No submental, submandibular, pre-/postauricular, occipital or supraclavicular lymphadenopathy. CHEST: Normal chest expansion. No Telemetry. LUNGS: Absence of any rales, rhonchi or any wheezing. CARDIOVASCULAR: Regular. S1 and S2 normal. No appreciable rubs, murmurs or gallops. ABDOMEN: Soft, nontender, and nondistended. There is no rebound, voluntary guarding, or rigidity. : Deferred. Munguia in place EXTREMITIES: Non-edematous and not cyanotic. No clubbing. Good capillary refill. SKIN: No skin breakdown. Vital Signs (last 8hr) Date Time Temp Pulse Resp B/P (MAP) Pulse Ox O2 Delivery O2 Flow Rate FiO2 01/21/25 11:28 97.3 97 20 139/65 99 Nasal Cannula 2.0 01/21/25 11:26 91 20 01/21/25 11:26 20 N/Cannula Low lpm 3.0 32 01/21/25 08:00 97 Nasal Cannula* 3 32 01/21/25 08:00 97.9 90 22 141/66 98 Nasal Cannula 2.0 01/21/25 07:10 96 20 N/Cannula Low lpm 3.0 32 01/21/25 07:10 87 20 LABS: Laboratory: Test 01/21/25 04:58 01/20/25 22:06 01/20/25 04:49 Range/Units White Blood Count 5.0 4.8-10.8 K/uL Red Blood Count 3.53 L 4.00-5.50 MIL/uL Hemoglobin 10.6 L 12.0-16.0 g/dL Hematocrit 32.8 L 36-48 % Mean Corpuscular Volume 92.9 79-99 fL Mean Corpuscular Hemoglobin 30.0 27.0-33.0 pg Mean Corpuscular Hemoglobin Concent 32.3 32.0-36.0 g/dL Red Cell Distribution Width 13.1 11.0-15.5 % Platelet Count 218 130-400 K/uL Mean Platelet Volume 9.9 7.5-10.5 fL Nucleated Red Blood Cells 0.0 0.0-0.19 % Sodium Level 141 136-145 mmol/L Potassium Level 3.7 3.5-5.1 mmol/L Chloride Level 104 101-111 mmol/L Carbon Dioxide Level 31 21-32 mmol/L Blood Urea Nitrogen 31 H 7-18 mg/dL Creatinine 1.5 H 0.5-1.0 mg/dL Glomerular Filtration Rate Calc 33 >90 mL/min Random Glucose 174 H 70-105 mg/dL Total Calcium 7.6 L 8.5-10.1 mg/dL Vancomycin Level Trough 15.9 10.0-20.0 UG/ML Phosphorus Level 2.9 2.5-4.9 mg/dL Magnesium Level 1.80 1.80-2.40 mg/dL Total Bilirubin 0.3 0.2-1.0 mg/dL Aspartate Amino Transf (AST/SGOT) 22 10-37 U/L Alanine Aminotransferase (ALT/SGPT) 12 12-78 U/L Alkaline Phosphatase 87 50-136 U/L Total Protein 6.7 6.0-8.3 g/dL Albumin 2.6 L 3.5-5.0 g/dL Current Medications Medications (Trade) Dose Ordered Sig/Nirmala Route PRN Reason Start Time Stop Time Status Last Admin Dose Admin Acetaminophen (TYLenol 325MG TAB) 650 mg Q4HPRN PRN PO TEMP ABOVE 101.5/MILD PAIN 1-3 01/18/25 13:30 02/16/25 22:29 01/19/25 17:31 650 MG Acetaminophen (TYLenol 325MG TAB) 650 mg Q6H PRN PO TEMPERATURE GREATER THAN 101.5 01/17/25 22:30 01/18/25 13:29 DC 01/18/25 08:35 650 MG Acetaminophen (TYLenol 325MG TAB) 650 mg Q6H PRN PO MILD PAIN (1-3) 01/20/25 17:00 02/19/25 16:59 Albuterol (DUOneb) 1 UDVIAL Q6H IH 01/20/25 17:30 02/19/25 17:29 01/21/25 11:24 1 UDVIAL Ceftriaxone Sodium (ROCEphine 1G INJ) 1 gm Q24H IVPB 01/18/25 02:00 01/18/25 13:18 DC 01/18/25 02:53 1 GM Furosemide (LASix 20MG VIAL) 20 mg DAILY IV 01/20/25 09:00 01/20/25 09:01 DC 01/20/25 09:17 20 MG Furosemide (LASix 40MG VIAL) 40 mg Q12H IV 01/21/25 10:00 02/20/25 09:59 01/21/25 10:14 40 MG Hydralazine HCl (APRESOLine 20MG INJ) 10 mg Q6H PRN IV For:SBP above 160;DBP above 90 01/21/25 10:00 02/20/25 09:59 Hydromorphone HCl (DiLAUDid 0.5MG INJ) 0.25 mg Q4H PRN IVP SEVERE PAIN (7-10) 01/17/25 22:30 01/22/25 22:29 01/18/25 20:49 0.25 MG Lactated Ringer's 1,000 ml @ 125 mls/hr Q8H IV 01/17/25 22:30 01/19/25 05:53 DC 01/18/25 23:40 125 MLS/HR Lactulose (Constulose 20gm/ 30ml Udcup) 20 gm BID PRN PO CONSTIPATION 01/17/25 22:30 02/16/25 22:29 Magnesium Sulfate 50 ml @ 0 mls/hr PROTOCOL PRN IV As needed 01/18/25 09:30 02/17/25 09:29 01/20/25 05:34 25 MLS/HR Melatonin (Melatonin) 5 mg HS PO 01/20/25 21:00 02/19/25 20:59 01/20/25 21:01 5 MG Meropenem (Merrem 1gm) 1 gm Q12H IVPB 01/18/25 19:30 01/19/25 05:56 DC 01/18/25 20:38 1 GM Meropenem (Merrem 1gm) 1 gm Q12H IVPB 01/19/25 09:00 01/19/25 19:30 DC 01/19/25 08:13 1 GM Meropenem (Merrem 1gm) 1 gm Q12H IVPB 01/19/25 23:30 01/19/25 23:28 DC Meropenem (Merrem 1gm) 1 gm Q12H IVPB 01/20/25 02:30 01/30/25 02:29 01/21/25 02:57 1 GM Methylprednisolone Sodium Succinate (Solu-medROL 40MG) 40 mg BID IVP 01/20/25 17:30 02/19/25 17:29 01/21/25 08:25 40 MG Norepinephrine 250 ml @ 0 mls/hr PROTOCOL IV 01/18/25 18:00 01/19/25 23:15 DC Ondansetron HCl (zoFRAN 4MG INJ) 4 mg Q6H PRN IV NAUSEA/VOMITING 01/17/25 22:30 02/16/25 22:29 Pantoprazole Sodium (PROTonix 40MG INJ) 40 mg DAILY IV 01/18/25 09:00 02/17/25 08:59 01/21/25 08:26 40 MG Pharmacy Profile Note (Pharmacy Communication) 1 each ONCE MISC 01/18/25 19:30 01/18/25 19:22 DC Pharmacy Profile Note (Pharmacy Communication) 1 each ONCE MISC 01/19/25 23:30 01/19/25 23:18 DC Piperacillin Sod/ Tazobactam Sod (Zosyn 3.375gm+NS 50ml) 3.375 gm Q8H IV 01/18/25 13:30 01/18/25 22:40 DC 01/18/25 20:41 3.375 GM Sodium Chloride 1,000 ml @ 75 mls/hr [id number] IV 01/17/25 22:00 01/18/25 12:28 DC 01/17/25 22:32 75 MLS/HR Tamsulosin HCl (FloMAX) 0.4 mg DAILY PO 01/18/25 09:00 02/17/25 08:59 01/21/25 08:25 0.4 MG Vancomycin HCl (Vancomycin 750mg) 750 mg Q24H IVPB 01/19/25 23:00 01/21/25 01:22 DC 01/21/25 00:37 750 MG Vancomycin HCl (Vancomycin Protocol) 1 each AD IV 01/18/25 23:00 01/21/25 01:22 DC DIAGNOSTICS / RADIOLOGY: [ ] PATIENT: EUGENE BLACKBURN MR#: [id number] : 1935 SEX: F AGE: 89 LOCATION: 3BH ORDER 7 STATUS: ADM IN REPORT#: [id number] SERVICE 6 REASON: PICC LINE PLACEMENT VERIFICATION ORDERING PHYSICIAN: ELAINE URIBE MD PROCEDURE: CXR1VW - CHEST 1VW EXAM: CR Chest, single view. CLINICAL HISTORY: PICC line placement. COMPARISON: None. FINDINGS: Right-sided PICC catheter is identified with the tip in the superior vena cava. Mild cardiomegaly with bilateral pulmonary congestion and probable subsegmental atelectasis in the left lower lobe. No evidence of pleural effusion or pneumothorax. No acute osseous abnormality. IMPRESSION: Right-sided PICC catheter is identified with the tip in the superior vena cava. Mild cardiomegaly with bilateral pulmonary congestion and probable subsegmental atelectasis in the left lower lobe. No evidence of pleural effusion or pneumothorax. Compared to the prior study, there is an interval progression of the pulmonary congestion. /[place] DICTATED BY: DEA COLLINS Jr., MD DATE: 01/21/25632 ELECTRONICALLY SIGNED BY: DEA COLLINS Jr., MD DATE: 01/21/25632 ASSESSMENT: Sepsis due to acute complicated cystitis Obstructing Right hydroureter with right hydronephrosis,S/P placement of rt ureteral stent on 01/19/25 POA Acute hypoxemic respiratory failure Acute on chronic kidney disease Leukocytosis, POA Hypokalemia, resolved Diverticulosis, POA Morbid obesity PLAN: Sepsis due to acute complicated cystitis * Patient had elevated white cell count 12.6 on admission which increased to 29.3 and today is decreased to 5K. * Procalcitonin was 2.28 on admission, patient was tachycardic 108, tachypneic 24. meeting SIRS criteria for sepsis * Urine culture and blood culture showed growth of Proteus mirabilis * Continue meropenem 1 g q.12 * We will obtain further recommendations from ID * JERALD showed aortic valve is trileaflet, displaying nodular calcification on all three cusps, with adequate excursion and trivial aortic regurgitation. No valvular vegetation. Obstructing Right hydroureter with right hydronephrosis,S/P placement of rt ureteral stent on 01/19/25 POA * Patient underwent cystourethroscopy with out removal of right ureteral calculus and ureteral stent placement * As per the family present at the bedside, urologist recommended to remove the renal calculi with lithotripsy * Discontinue Munguia's catheter as per Urology recommendation * Continue IV meropenem1 g q.12 * Continue p.r.n. Dilaudid 0.5 mg for pain Acute hypoxic respiratory failure, sepsis * Patient is saturating well at 2 L of oxygen via nasal cannula, which is her baseline requiring 2 L oxygen at home * Chest x-ray showed patchy airspace disease more pronounced in the left mid and left lower lung * Continue IV Lasix 40 mg q.12 * Critical care team started IV Solu-Medrol which is discontinued today * Taper steroids with 40 mg p.o. prednisone over the next 5 days * Protect airway and maintain aspiration precautions * Maintain saturation over 92 % Acute on chronic kidney disease, due to obstructive uropathy, resolved * Patient's creatinine on presentation was 1.7 and 1.5 now. Patient baseline creatinine unknown * Patient had obstructive uropathy for which a ureteral stent has been placed without removing the renal stone * Continue meropenem * Monitor electrolytes and BUN creatinine tomorrow * Avoid nephrotoxic agents and renally dose medications * We will follow Nephrology recommendations GI prophylaxis with pantoprazole and DVT prophylaxis with SCDs We will obtain recommendations from ID regarding antibiotics and possible discharge tomorrow and follow up with the urologist on outpatient basis. ATTESTATION BY PHYSICIAN I have seen and examined the patient. I reviewed the documentation, medical decision making, and treatment plan as noted by the resident provider above. I agree with the findings and plan of care. Gene Vides MD, HARSHAVARDHA MD Jan 21, 2025 14:36
--- NOTE | 2025-01-21 19:19 | PN ---
INFECTIOUS DISEASE PROGRESS NOTE Date of Service: Jan 21, 2025 SUBJECTIVE: This is an 89-year-old female patient who was seen and examined at bedside in room 306. Patient is awake and alert. No wheezing present during rounding today, patient however continues on oxygen via nasal cannula at 2 L/min. The final urine culture results came back positive for Proteus mirabilis. Patient is status post JERALD day # 1 with negative findings for vegetation. The WBC continues to trend down and is 5.0 today. We discontinued vancomycin due to declining renal function which has improved today. The creatinine is 1.5 which is down from 2.2 yesterday. We will continue on Meropenem. PHYSICAL EXAM EYES: Anicteric. Pupils equal and reactive. HENT: No oral thrush seen, moist Oral mucosa NECK: Supple, no JVD or thyromegaly. LUNGS: Good air entry. No rales, no rhonchi. CARDIOVASCULAR: S1, S2 regular. No murmur heard. ABDOMEN: Soft, non tender, bowel sounds present, no organomegaly CENTRAL NERVOUS SYSTEM: Awake, alert, oriented x 3. No focal deficits. SKIN: No rashes, no swelling. LYMPHATICS: No peripheral lymphadenopathy MUSCULOSKELETAL: No joint swelling, erythema or tenderness. EXTREMITIES: No cyanosis or clubbing BACK: No deformity, no pressure ulcer. GENITOURINARY: No dysuria or hematuria Vital Sign (Last 12 Hours) 01/21/25 01/21/25 01/21/25 01/21/25 08:00 08:00 11:26 11:26 Temp 97.9 Pulse 90 91 Resp 22 20 20 B/P (MAP) 141/66 Pulse Ox 98 97 O2 Delivery Nasal Cannula Nasal Cannula* N/Cannula Low lpm O2 Flow Rate 2.0 3 3.0 FiO2 32 32 01/21/25 01/21/25 01/21/25 11:28 15:49 18:20 Temp 97.3 97.3 Pulse 97 99 101 Resp 20 22 20 B/P (MAP) 139/65 138/78 Pulse Ox 99 94 O2 Delivery Nasal Cannula Nasal Cannula O2 Flow Rate 2.0 2.0 Intake & Output (last 24hrs) 01/20/25 01/20/25 01/21/25 15:00 23:00 07:00 Intake Total 720 ml Output Total 2760 ml Balance -2040 ml LABS: Laboratory: Test 01/21/25 04:58 01/20/25 22:06 01/20/25 04:49 Range/Units White Blood Count 5.0 4.8-10.8 K/uL Red Blood Count 3.53 L 4.00-5.50 MIL/uL Hemoglobin 10.6 L 12.0-16.0 g/dL Hematocrit 32.8 L 36-48 % Mean Corpuscular Volume 92.9 79-99 fL Mean Corpuscular Hemoglobin 30.0 27.0-33.0 pg Mean Corpuscular Hemoglobin Concent 32.3 32.0-36.0 g/dL Red Cell Distribution Width 13.1 11.0-15.5 % Platelet Count 218 130-400 K/uL Mean Platelet Volume 9.9 7.5-10.5 fL Nucleated Red Blood Cells 0.0 0.0-0.19 % Sodium Level 141 136-145 mmol/L Potassium Level 3.7 3.5-5.1 mmol/L Chloride Level 104 101-111 mmol/L Carbon Dioxide Level 31 21-32 mmol/L Blood Urea Nitrogen 31 H 7-18 mg/dL Creatinine 1.5 H 0.5-1.0 mg/dL Glomerular Filtration Rate Calc 33 >90 mL/min Random Glucose 174 H 70-105 mg/dL Total Calcium 7.6 L 8.5-10.1 mg/dL Vancomycin Level Trough 15.9 10.0-20.0 UG/ML Phosphorus Level 2.9 2.5-4.9 mg/dL Magnesium Level 1.80 1.80-2.40 mg/dL Total Bilirubin 0.3 0.2-1.0 mg/dL Aspartate Amino Transf (AST/SGOT) 22 10-37 U/L Alanine Aminotransferase (ALT/SGPT) 12 12-78 U/L Alkaline Phosphatase 87 50-136 U/L Total Protein 6.7 6.0-8.3 g/dL Albumin 2.6 L 3.5-5.0 g/dL DIAGNOSTICS / RADIOLOGY: PATIENT: EUGENE BLACKBURN ACCT: [id number] LOC: [facility] U: [id number] AGE/SX: 89/F ROOM: [facility] RE01/17/[address]: NELLIE NICE MD : 1935 BED: 1 DIS: STATUS: ADM IN TLOC: SPEC: [id number] EWA: 01/17/25 STATUS: COMP REQ: [id number] RECD: 01/19/[address] [facility] [address]: ZAKIYA MOCTEZUMA SUPERVISOR [employer]UEPRINTING AND PHOTOCOPY SOURCE: [facility] 01/19/[address] [facility] [address]: KODY BARBOZA MD [facility]: CLEAN CAT NELLIE NICE MD,FLORIDALMA Wren MD SELF,REFERRAL ORDERED: AERO ID & SENS Procedure Result Dolly Date-Time AEROBIC ID & SENSITIVITIES Final 01/21/25-08 MRL COLONY DESCRIPTION: DAY 1: COLONY COUNT: 10,000 - 20,000 CFU/ML GRAM NEGATIVE RODS IDENTIFICATION AND SENSITIVITY TO FOLLOW PROTEUS MIRABILIS PMIRABILIS M.I.C. RX --------- ---- AMPICILLIN <=8 S AZTREONAM >16 R CEFAZOLIN <=2 S CEFTAZIDIME/AVIBACTAM <=8 S GENTAMICIN <=2 S LEVOFLOXACIN <=0.5 S MEROPENEM <=1 S PIPERACILLIN/TAZOBACTAM <=8 S TRIMETHOPRIM/SUFLAMETHOXAZOLE <=2/38 S PATIENT: EUGENE BLACKBURN ACCT: [id number] LOC: [facility] U: [id number] AGE/SX: 89/F ROOM: 306 RE01/17/[address]: NELLIE NIEC MD : 1935 BED: 1 DIS: STATUS: ADM IN TLOC: ---- -------- SPEC: [id number] EWA: 01/17/25 STATUS: COMP REQ: [id number] RECD: 01/19/[address] [facility] [address]: ZAKIYA MOCTEZUMA SOURCE: BLOOD ENTR: 01/19/[address] [facility] [address]: KODY BARBOZA MD SPDC: BLOOD FLORIDALMA CANALES MD SELF,REFERRAL JULIO CÉSAR JEONG MD ORDERED: AERO ID & SENS Procedure Result Dolly Date-Time AEROBIC ID & SENSITIVITIES Final 01/20/25-628 MRL COLONY DESCRIPTION: DAY 1: GRAM NEGATIVE RODS IDENTIFICATION AND SENSITIVITY TO FOLLOW PEDIATRIC BOTTLE PROTEUS MIRABILIS PMIRABILIS M.I.C. RX --------- ---- AMPICILLIN <=8 S AZTREONAM <=4 S CEFAZOLIN <=2 S CEFTAZIDIME/AVIBACTAM <=8 S GENTAMICIN <=2 S LEVOFLOXACIN <=0.5 S MEROPENEM <=1 S PIPERACILLIN/TAZOBACTAM <=8 S TRIMETHOPRIM/SUFLAMETHOXAZOLE <=2/38 S PATIENT: EUGENE BLACKBURN ACCT: [id number] LOC: [facility] U: [id number] AGE/SX: 89/F ROOM: [facility] RE01/17/[address]: NELLIE NICE MD : 1935 BED: 1 DIS: STATUS: ADM IN TLOC: ASSESSMENT: Gram-negative bacteremia. Urinary tract infection with Proteus mirabilis. Leukocytosis, resolving. Endocarditis ruled out, status post JERALD. Obstructing calculus in the right distal ureter, s/p successful manipulation and right ureteral stent placement on 01/18/2025. Bilateral nephrolithiasis. Acute renal failure. PLAN: Continue Meropenem. Discontinue vancomycin. Continue GI prophylaxis. Oxygen support as needed. We will follow up on the renal function. This case was reviewed and discussed with my supervising physician Dr. Waldron and the above assessment and plan was formulated and agreed upon. ATTESTATION BY PHYSICIAN I have seen and examined the patient. I reviewed the documentation, medical decision making, and treatment plan as noted by the mid-level provider above. I agree with the findings and plan of care. MILAD WALDRON MD, MIRTA L [facility] Jan 21, 2025 19:19
--- NOTE | 2025-01-21 20:07 | PN ---
FOLLOWUP PROGRESS NOTE SUBJECTIVE: An 89-year-old female who presented with acute renal failure. Patient with obstructive uropathy status post stent placement. Patient with bacteremia, remains on the antibiotics. The patient has had acute renal failure in the hospital. Creatinine is actually much improved. She is being seen as a followup visit for all the above. The patient has been seen by Urology. REVIEW OF SYSTEMS: CONSTITUTIONAL: She is feeling improved. HEENT: No change in vision. No change in hearing. CARDIOVASCULAR: There is no current chest pain or palpitations. PULMONARY: No shortness of breath. GASTROINTESTINAL: The patient is tolerating a diet. MUSCULOSKELETAL: Complains of weakness. PHYSICAL EXAMINATION: VITAL SIGNS: Blood pressure 139/65. Pulse is in the 90s. GENERAL: Chronically ill female, elderly, lying in bed on the medical floor. HEENT: Head is atraumatic. Pupils are equal, round and reactive to light. Oropharynx is without exudate. Nares clear. NECK: There is no JVP. There is no thyromegaly, no mass. CARDIOVASCULAR: Regular. There is no S3 or S4 gallop. LUNGS: Coarse with equal thoracic movement. ABDOMEN: Soft, nondistended, nontender. EXTREMITIES: Reveal no clubbing, no cyanosis. NEUROLOGICAL: She is awake. She is alert. LABORATORY DATA: Hemoglobin 10, hematocrit 32. Sodium 141, BUN 31, creatinine 1.5. IMPRESSION: Acute renal failure. Gram-negative sepsis. Obstructive uropathy, status post stent. Debilitation. PLAN: The patient's creatinine continues to slowly improve. The patient's leukocytosis has resolved. She remains on the antibiotics. The patient has been seen by Urology status post stent placement. We will continue to follow closely. Once the patient is discharged, she can follow up in the [facility]. TID: [id number] RECEIPT: [id number]
[2025-01-21] MEDS: LACTULOSE 20 GM/30 ML UDCUP PO PRN (22:06)
[2025-01-22] VITALS (13 sets, daily range): BP systolic 129–156; BP diastolic 61–86; PULSE 91–110; RESP 18–21; TEMP 97.4–98.7; O2SAT 95–98
[2025-01-22 07:34] LABS: IMMATURE GRANULOCYTE ABSOLUTE 0.09 K/uL (0-1); NUCLEATED RED BLOOD CELLS 0.0 % (0.0-0.19); PLATELET COUNT (AUTO) 220 K/uL (130-400); RED BLOOD CELL COUNT(AUTO) 3.87 MIL/uL (4.00-5.50); RED CELL DISTRIBUTION WIDTH 12.9 % (11.0-15.5); WHITE BLOOD COUNT (AUTO) 8.9 K/uL (4.8-10.8)
[2025-01-22 07:43] LABS: CREATININE 1.3 mg/dL (0.5-1.0); GLOMERULAR FILTR. RATE CALC 40.0 mL/min (>90); GLUCOSE,RANDOM 144.0 mg/dL (70-105); SODIUM SERUM 143.0 mmol/L (136-145); UREA NITROGEN, BLOOD 36.0 mg/dL (7-18)
--- NOTE | 2025-01-22 15:07 | NUR ---
SPEECH NOTE: CELL PHONE REPAIR TECHNICIAN coordinated with nurse Owen. As per nurse, patient tolerating diet recommendations of minced and moist solids, thin liquids with no overt s/s of aspiration. Please re-consult speech therapy services if any s/s of aspiration arise. All questions answered. Addendum: 01/22/[address] [facility] PA[facility] Amended: Links added.
--- NOTE | 2025-01-22 16:32 | PN ---
[facility] PROGRESS NOTE Date of Service: Jan 22, 2025 Time of Service: 8:45 History of Present Illness Ms. Blackburn is an 89-year-old female that was seen and examined today on 01/17/2025 patient is currently alert and oriented x1. Patient states that it is December 2010. Patient states she does not know what city she is currently N but states that she is currently living with the daughter. Patient states that she has from [facility]. Discussed with primary nurse, Tona who states patient was previously alert and oriented x3 however after a dose of Dilaudid patient became less able to answer questions appropriately. The following was obtained from emergency room physician report. There was no previous medical records available for me to review. According to emergency room physician: 89-year-old female was brought to the ER due to abdominal pain, stated that the pain started earlier this morning and has been getting worse, patient was unable to tolerate a diet today due to abdominal pain. He denies nausea or vomiting. Patient reports history of constipation, stated that she had a bowel movement this ED but was very little stool came out. Today in the emergency department WBCs 12.6, left shift neutrophils 94%, potassium 3.4, no urinalysis has been collected or sent to lab, CT of abdomen and pelvis shows obstructive uropathy, right hydronephrosis, right hydro ureteral, 6 mm calculus. Emergency room physician recommended that patient be admitted so she could be evaluated by urology service. Urology service is being paste from the emergency department. Also creatinine was elevated at 1.7. There was no known baseline creatinine level. Nephrology service was also consulted from the emergency department. SUBJECTIVE: [ ] 01/18/2025: Patient was seen this morning in 420. Alert oriented to time place and person, denied fevers, chills hemodynamically stable. The patient reported discomfort in her abdomen and right flank. Culture showed 10-50 K colony-forming units and her WBCs on presentation were [address]227 while in the ED that spiked to 23.4 K this morning. He lactic acid was 2.1 and Procal was 2.8. We added Zosyn on top of ceftriaxone for extended coverage. We spoke to Dr. Jimenez for management of hydronephrosis with 6 mm stone in the right ureter and he recommended placing a nephrostomy tube and obtaining cardiac clearance before doing so. Dr. Ribeiro was consulted and patient is considered to be at high risk for a low risk non cardiac surgery. He cleared her to proceed with intervention as the current benefits outweigh the risk from the cardiovascular standpoint. Pending transfer to any facility for placing nephrostomy tube as IR not available today. Patient remains NPO since this morning. 17:30: In the interim patient became more septic and decompensated. Her blood pressure dropped to 89/44, MAP 59 and IV bolus Ringer's lactate was started. Critical care team was consulted and a transfer to ICU order was placed. Critical Care team placed the order for Levophed however was waiting for the patient to be transferred to the ICU. 7:00 p.m.: After IV bolus patient's map is at 61. Patient is being transferred to ICU and will be started on Levophed. We agree with the plan from [facility] and we will continue their recommendations. 01/19/2025: Patient was seen in ICU in room 214. After being transferred to ICU patient was seen by Dr. Jimenez, performed a cystourethroscopy without removal of right ureteral calculus with stent placement and a retrograde pyelogram. Patient was noted to have purulent drainage after placing the ureteral stent and a Munguia's catheter was recommended to be placed for next 24-48 hours for anterograde drainage. Patient was started on meropenem and vancomycin and an ID consult has been obtained. Preliminary blood culture showed growth of Gram- negative rods, final identification pending. We will follow recommendations from urology, nephrology, ID, and critical care team. 01/20/2025 The patient was seen and examined in room 306. The patient was downgraded yesterday from ICU to the floor. The patient was lying comfortably on the bed with no complaints of shortness of breath, abdominal pain or chest pain. The patient had JERALD done today that showed no vegetations. Patient's blood culture came back positive for Proteus mirabilis and she is continued on antibiotic meropenem and vancomycin. The patient is maintaining 100% oxygen at 3 L. the patient was complaining of constipation therefore she was given 1 dose of lactulose. 01/21/2025: Patient was seen and examined in room 306. Patient was lying comfortably in her bed with her daughter at the bedside. Patient had Munguia catheter connected which showed blood tinged urine. Patient denied any flank pain or abdominal pain. Urologist advised to discontinue the Munguia's this morning and will follow up with the patient in clinic for definitive treatment of right ureteral calculi. Patient white count have come to 5000 and remains afebrile. Patient's urine and blood culture showed growth of Proteus mirabilis which is sensitive to meropenem and ID recommended to continue. We will get recommendations from ID and assess for possible discharge tomorrow. Critical care team we will discontinue IV Solu-Medrol and initiate p.o. prednisone 40 mg to be tapered in next 5 days. We also sent a referral for outpatient sleep study and case management evaluation for help finding a PCP. 01/22/2025: Patient was seen and examined at bedside. Munguia catheter has been discontinued. Patient is currently on Merrem as per blood culture and urine culture results. We have ordered a repeat blood culture and urine culture and we will follow up with the Infectious Disease recommendations for discharge. Patient is currently on 40 mg q.12h Lasix. Her urine output has been 3900 as compared to 200 input. Her WBCs have trended down to 5 K. REVIEW OF SYSTEMS CONSTITUTIONAL: Denies fevers, chills, or night sweats. No unintentional weight loss reported. NEUROLOGICAL: Denies headache, amaurosis fugax, motor weakness, sensory defi cit, vertigo/spinning sensation, gait abnormalities, or tremors. ENT: No hearing loss, otalgia, otorrhea, rhinitis, rhinorrhea, hoarseness, or sore throat. CARDIOVASCULAR: Denies any exertional angina, dyspnea on exertion, orthopnea, paroxysmal nocturnal dyspnea, palpitations, life-threatening arrhythmias, claudication. PULMONARY: Denies any shortness of breath, cough, phlegm/sputum, hemoptysis, pleuritic chest pain. SLEEP: Denies morning headaches, daytime somnolence or napping. Denies difficulty falling asleep, staying asleep, waking from sleep. Denies knowledge of snoring. GASTROINTESTINAL: Denies any type of dysphagia to either liquids or solids. Denies nausea, vomiting, pyrosis, early satiety, abdominal pain, diarrhea, constipation, or changes in stool consistency or caliber. Denies coffee-ground emesis, hematemesis, hematochezia, or melanotic stools. GENITOURINARY: Right sided flank pain, improved. Denies frequency, urgency, nocturia, hematuria or incontinence PHYSICAL EXAM GENERAL APPEARANCE: The patient is awake, alert, and oriented, in no acute cardiopulmonary distress. NEUROLOGICAL: Cranial nerves II-XII grossly intact. Motor is 5/5 in bilateral upper and lower extremities proximal to distal. No sensory deficits. HEENT: Face is symmetric. Pupils are equal and reactive. Extraocular movements are intact. NECK: Supple. No JVD. No thyromegaly. No submental, submandibular, pre- /postauricular, occipital or supraclavicular lymphadenopathy. CHEST: Normal chest expansion. No Telemetry. LUNGS: Absence of any rales, rhonchi or any wheezing. CARDIOVASCULAR: Regular. S1 and S2 normal. No appreciable rubs, murmurs or gallops. ABDOMEN: Soft, nontender, and nondistended. There is no rebound, voluntary guarding, or rigidity. : Deferred. Munguia in place EXTREMITIES: Non-edematous and not cyanotic. No clubbing. Good capillary refill. SKIN: No skin breakdown. Vital Signs (last 8hr) Date Time Temp Pulse Resp B/P (MAP) Pulse Ox O2 Delivery O2 Flow Rate FiO2 01/22/25 13:05 96 19 01/22/25 12:00 97.9 104 20 129/72 95 Nasal Cannula 3.0 LABS: Laboratory: Test 01/22/25 13:15 01/22/25 07:26 01/20/25 22:06 Range/Units B-Type Natriuretic Peptide 301 H 0-100 pg/mL White Blood Count 8.9 4.8-10.8 K/uL Red Blood Count 3.87 L 4.00-5.50 MIL/uL Hemoglobin 11.7 L 12.0-16.0 g/dL Hematocrit 36.2 36-48 % Mean Corpuscular Volume 93.5 79-99 fL Mean Corpuscular Hemoglobin 30.2 27.0-33.0 pg Mean Corpuscular Hemoglobin Concent 32.3 32.0-36.0 g/dL Red Cell Distribution Width 12.9 11.0-15.5 % Platelet Count 220 130-400 K/uL Mean Platelet Volume 9.5 7.5-10.5 fL Immature Granulocyte % (Auto) 1.0 0-1 % Neutrophils (%) (Auto) 80.7 H 40.0-77.0 % Lymphocytes (%) (Auto) 15.6 L 21.0-51.0 % Monocytes (%) (Auto) 2.5 L 3.0-13.0 % Eosinophils (%) (Auto) 0.0 0.0-8.0 % Basophils (%) (Auto) 0.2 0.0-5.0 % Neutrophils # (Auto) 7.2 1.8-7.7 K/uL Lymphocytes # (Auto) 1.4 1.0-4.8 K/uL Monocytes # (Auto) 0.2 0.1-1.0 K/uL Eosinophils # (Auto) 0.00 0.00-0.70 K/uL Basophils # (Auto) 0.02 0.00-0.20 K/uL Absolute Immature Granulocyte (auto 0.09 0-1 K/uL Nucleated Red Blood Cells 0.0 0.0-0.19 % Sodium Level 143 136-145 mmol/L Potassium Level 3.9 3.5-5.1 mmol/L Chloride Level 100 L 101-111 mmol/L Carbon Dioxide Level 38 H 21-32 mmol/L Blood Urea Nitrogen 36 H 7-18 mg/dL Creatinine 1.3 H 0.5-1.0 mg/dL Glomerular Filtration Rate Calc 40 >90 mL/min Random Glucose 144 H 70-105 mg/dL Total Calcium 8.1 L 8.5-10.1 mg/dL Vancomycin Level Trough 15.9 10.0-20.0 UG/ML Current Medications Medications (Trade) Dose Ordered Sig/Nirmala Route PRN Reason Start Time Stop Time Status Last Admin Dose Admin Acetaminophen (TYLenol 325MG TAB) 650 mg Q4HPRN PRN PO TEMP ABOVE 101.5/MILD PAIN 1-3 01/18/25 13:30 02/16/25 22:29 01/19/25 17:31 650 MG Acetaminophen (TYLenol 325MG TAB) 650 mg Q6H PRN PO TEMPERATURE GREATER THAN 101.5 01/17/25 22:30 01/18/25 13:29 DC 01/18/25 08:35 650 MG Acetaminophen (TYLenol 325MG TAB) 650 mg Q6H PRN PO MILD PAIN (1-3) 01/20/25 17:00 02/19/25 16:59 Albuterol (DUOneb) 1 UDVIAL Q6H IH 01/20/25 17:30 02/19/25 17:29 01/22/25 13:04 1 UDVIAL Ceftriaxone Sodium (ROCEphine 1G INJ) 1 gm Q24H IVPB 01/18/25 02:00 01/18/25 13:18 DC 01/18/25 02:53 1 GM Furosemide (LASix 20MG VIAL) 20 mg DAILY IV 01/20/25 09:00 01/20/25 09:01 DC 01/20/25 09:17 20 MG Furosemide (LASix 40MG VIAL) 40 mg Q12H IV 01/21/25 10:00 02/20/25 09:59 01/22/25 09:48 40 MG Hydralazine HCl (APRESOLine 20MG INJ) 10 mg Q6H PRN IV For:SBP above 160;DBP above 90 01/21/25 10:00 02/20/25 09:59 Hydromorphone HCl (DiLAUDid 0.5MG INJ) 0.25 mg Q4H PRN IVP SEVERE PAIN (7-10) 01/17/25 22:30 01/22/25 22:29 01/18/25 20:49 0.25 MG Lactated Ringer's 1,000 ml @ 125 mls/hr Q8H IV 01/17/25 22:30 01/19/25 05:53 DC 01/18/25 23:40 125 MLS/HR Lactulose (Constulose 20gm/ 30ml Udcup) 20 gm BID PRN PO CONSTIPATION 01/17/25 22:30 02/16/25 22:29 01/21/25 22:06 20 GM Magnesium Sulfate 50 ml @ 0 mls/hr PROTOCOL PRN IV As needed 01/18/25 09:30 02/17/25 09:29 01/20/25 05:34 25 MLS/HR Melatonin (Melatonin) 5 mg HS PO 01/20/25 21:00 02/19/25 20:59 01/21/25 22:01 5 MG Meropenem (Merrem 1gm) 1 gm Q12H IVPB 01/18/25 19:30 01/19/25 05:56 DC 01/18/25 20:38 1 GM Meropenem (Merrem 1gm) 1 gm Q12H IVPB 01/19/25 09:00 01/19/25 19:30 DC 01/19/25 08:13 1 GM Meropenem (Merrem 1gm) 1 gm Q12H IVPB 01/19/25 23:30 01/19/25 23:28 DC Meropenem (Merrem 1gm) 1 gm Q12H IVPB 01/20/25 02:30 01/30/25 02:29 01/22/25 02:29 1 GM Methylprednisolone Sodium Succinate (Solu-medROL 40MG) 40 mg BID IVP 01/20/25 17:30 02/19/25 17:29 01/22/25 09:47 40 MG Norepinephrine 250 ml @ 0 mls/hr PROTOCOL IV 01/18/25 18:00 01/19/25 23:15 DC Ondansetron HCl (zoFRAN 4MG INJ) 4 mg Q6H PRN IV NAUSEA/VOMITING 01/17/25 22:30 02/16/25 22:29 Pantoprazole Sodium (PROTonix 40MG INJ) 40 mg DAILY IV 01/18/25 09:00 02/17/25 08:59 01/22/25 09:48 40 MG Pharmacy Profile Note (Pharmacy Communication) 1 each ONCE MISC 01/18/25 19:30 01/18/25 19:22 DC Pharmacy Profile Note (Pharmacy Communication) 1 each ONCE MISC 01/19/25 23:30 01/19/25 23:18 DC Piperacillin Sod/ Tazobactam Sod (Zosyn 3.375gm+NS 50ml) 3.375 gm Q8H IV 01/18/25 13:30 01/18/25 22:40 DC 01/18/25 20:41 3.375 GM Sodium Chloride 1,000 ml @ 75 mls/hr [id number] IV 01/17/25 22:00 01/18/25 12:28 DC 01/17/25 22:32 75 MLS/HR Tamsulosin HCl (FloMAX) 0.4 mg DAILY PO 01/18/25 09:00 02/17/25 08:59 01/22/25 09:48 0.4 MG Vancomycin HCl (Vancomycin 750mg) 750 mg Q24H IVPB 01/19/25 23:00 01/21/25 01:22 DC 01/21/25 00:37 750 MG Vancomycin HCl (Vancomycin Protocol) 1 each AD IV 01/18/25 23:00 01/21/25 01:22 DC DIAGNOSTICS / RADIOLOGY: PATIENT: EUGENE BLACKBURN MR#: [id number] : 1935 SEX: F AGE: 89 LOCATION: 3BH ORDER 7 STATUS: ADM IN REPORT#: [id number] SERVICE 6 REASON: PICC LINE PLACEMENT VERIFICATION ORDERING PHYSICIAN: ELAINE URIBE MD PROCEDURE: CXR1VW - CHEST 1VW EXAM: CR Chest, single view. CLINICAL HISTORY: PICC line placement. COMPARISON: None. FINDINGS: Right-sided PICC catheter is identified with the tip in the superior vena cava. Mild cardiomegaly with bilateral pulmonary congestion and probable subsegmental atelectasis in the left lower lobe. No evidence of pleural effusion or pneumothorax. No acute osseous abnormality. IMPRESSION: Right-sided PICC catheter is identified with the tip in the superior vena cava. Mild cardiomegaly with bilateral pulmonary congestion and probable subsegmental atelectasis in the left lower lobe. No evidence of pleural effusion or pneumothorax. Compared to the prior study, there is an interval progression of the pulmonary congestion. /Jacob DICTATED BY: DEA COLLINS Jr., MD DATE: 01/21/25632 ELECTRONICALLY SIGNED BY: DEA COLILNS Jr., MD DATE: 01/21/25632 ASSESSMENT: Sepsis due to acute complicated cystitis Obstructing Right hydroureter with right hydronephrosis,S/P placement of rt ureteral stent on 01/19/25 POA Acute hypoxemic respiratory failure Acute on chronic kidney disease Leukocytosis, POA Hypokalemia, resolved Diverticulosis, POA Elevated BNP, indeterminate diastolic dysfunction as per echo, pulmonary vascular congestion as per chest x-ray Morbid obesity PLAN: Sepsis due to acute complicated cystitis * Patient had elevated white cell count 12.6 on admission which increased to 29.3 and today is decreased to 5K. * Procalcitonin was 2.28 on admission, patient was tachycardic 108, tachypneic 24. meeting SIRS criteria for sepsis * Urine culture and blood culture showed growth of Proteus mirabilis * Continue meropenem 1 g q.12 * We will obtain further recommendations from ID * Repeat urine and blood cultures have been ordered. Follow up with them. * JERALD showed aortic valve is trileaflet, displaying nodular calcification on all three cusps, with adequate excursion and trivial aortic regurgitation. No valvular vegetation. Obstructing Right hydroureter with right hydronephrosis,S/P placement of rt ureteral stent on 01/19/25 POA * Patient underwent cystourethroscopy with out removal of right ureteral calculus and ureteral stent placement * As per the family present at the bedside, urologist recommended to remove the renal calculi with lithotripsy * Discontinue Munguia's catheter as per Urology recommendation * Continue IV meropenem1 g q.12 * Continue p.r.n. Dilaudid 0.5 mg for pain Acute hypoxic respiratory failure, sepsis * Patient is saturating well at 2 L of oxygen via nasal cannula, which is her baseline requiring 2 L oxygen at home * Chest x-ray showed patchy airspace disease more pronounced in the left mid and left lower lung * Continue IV Lasix 40 mg q.12 * Critical care team started IV Solu-Medrol * Taper steroids with 40 mg p.o. prednisone over the next 5 days * Protect airway and maintain aspiration precautions * Maintain saturation over 92 % Acute on chronic kidney disease, due to obstructive uropathy, resolved * Patient's creatinine on presentation was 1.7 and 1.5 now. Patient baseline creatinine unknown * Patient had obstructive uropathy for which a ureteral stent has been placed without removing the renal stone * Continue meropenem * Monitor electrolytes and BUN creatinine tomorrow * Avoid nephrotoxic agents and renally dose medications * We will follow Nephrology recommendations GI prophylaxis with pantoprazole and DVT prophylaxis with SCDs We will obtain recommendations from ID regarding antibiotics and possible discharge tomorrow and follow up with the urologist on outpatient basis. ATTESTATION BY PHYSICIAN I have seen and examined the patient. I reviewed the documentation, medical decision making, and treatment plan as noted by the resident physician above. I agree with the findings and plan of care. JULIA ALEJANDRA MD, MUHAMMAD H MD Jan 22, 2025 16:32
--- NOTE | 2025-01-22 20:44 | PN ---
INFECTIOUS DISEASE PROGRESS NOTE Date of Service: Jan 22, 2025 SUBJECTIVE: This is an 89-year-old female patient who was seen and examined at bedside in room 306. Patient is awake and alert. Patient is able to ambulate to the restroom using the walker and with standby assistance. Continues on oxygen via nasal cannula at 2 L/min. Patient stated that she uses oxygen as needed at home as well. The renal function continues to improve. Blood cultures were repeated earlier today. We will continue on Meropenem. PHYSICAL EXAM EYES: Anicteric. Pupils equal and reactive. HENT: No oral thrush seen, moist Oral mucosa NECK: Supple, no JVD or thyromegaly. LUNGS: Good air entry. No rales, no rhonchi. CARDIOVASCULAR: S1, S2 regular. No murmur heard. ABDOMEN: Soft, non tender, bowel sounds present, no organomegaly CENTRAL NERVOUS SYSTEM: Awake, alert, oriented x 3. SKIN: No rashes, no swelling. LYMPHATICS: No peripheral lymphadenopathy MUSCULOSKELETAL: No joint swelling, erythema or tenderness. EXTREMITIES: No cyanosis or clubbing. BACK: No deformity, no pressure ulcer. GENITOURINARY: No dysuria or hematuria. Vital Sign (Last 12 Hours) 01/22/25 01/22/25 01/22/25 01/22/25 09:48 12:00 13:05 16:00 Temp 97.9 97.5 Pulse 104 96 103 Resp 20 19 20 B/P (MAP) 129/72 134/86 Pulse Ox 95 95 92 O2 Delivery Nasal Cannula* Nasal Cannula Nasal Cannula O2 Flow Rate 3 3.0 3.0 FiO2 32 01/22/25 01/22/25 19:11 19:12 Pulse 97 97 Resp 19 20 O2 Delivery N/Cannula Low lpm O2 Flow Rate 3.0 FiO2 32 Intake & Output (last 24hrs) 01/21/25 01/21/25 01/22/25 15:00 23:00 07:00 Intake Total 200.0 ml 300.0 ml Output Total 1700 ml 2200 ml Balance -1500.0 ml -1900.0 ml LABS: Laboratory: Test 01/22/25 13:15 01/22/25 07:26 01/20/25 22:06 Range/Units B-Type Natriuretic Peptide 301 H 0-100 pg/mL White Blood Count 8.9 4.8-10.8 K/uL Red Blood Count 3.87 L 4.00-5.50 MIL/uL Hemoglobin 11.7 L 12.0-16.0 g/dL Hematocrit 36.2 36-48 % Mean Corpuscular Volume 93.5 79-99 fL Mean Corpuscular Hemoglobin 30.2 27.0-33.0 pg Mean Corpuscular Hemoglobin Concent 32.3 32.0-36.0 g/dL Red Cell Distribution Width 12.9 11.0-15.5 % Platelet Count 220 130-400 K/uL Mean Platelet Volume 9.5 7.5-10.5 fL Immature Granulocyte % (Auto) 1.0 0-1 % Neutrophils (%) (Auto) 80.7 H 40.0-77.0 % Lymphocytes (%) (Auto) 15.6 L 21.0-51.0 % Monocytes (%) (Auto) 2.5 L 3.0-13.0 % Eosinophils (%) (Auto) 0.0 0.0-8.0 % Basophils (%) (Auto) 0.2 0.0-5.0 % Neutrophils # (Auto) 7.2 1.8-7.7 K/uL Lymphocytes # (Auto) 1.4 1.0-4.8 K/uL Monocytes # (Auto) 0.2 0.1-1.0 K/uL Eosinophils # (Auto) 0.00 0.00-0.70 K/uL Basophils # (Auto) 0.02 0.00-0.20 K/uL Absolute Immature Granulocyte (auto 0.09 0-1 K/uL Nucleated Red Blood Cells 0.0 0.0-0.19 % Sodium Level 143 136-145 mmol/L Potassium Level 3.9 3.5-5.1 mmol/L Chloride Level 100 L 101-111 mmol/L Carbon Dioxide Level 38 H 21-32 mmol/L Blood Urea Nitrogen 36 H 7-18 mg/dL Creatinine 1.3 H 0.5-1.0 mg/dL Glomerular Filtration Rate Calc 40 >90 mL/min Random Glucose 144 H 70-105 mg/dL Total Calcium 8.1 L 8.5-10.1 mg/dL Vancomycin Level Trough 15.9 10.0-20.0 UG/ML DIAGNOSTICS / RADIOLOGY: PATIENT: EUGENE BLACKBURN ACCT: [id number] LOC: 3B U: [id number] AGE/SX: 89/F ROOM: 306 RE01/17/[address]: NELLIE NICE MD : 1935 BED: 1 DIS: STATUS: ADM IN TLOC: SPEC: [id number] EWA: 01/17/25 STATUS: COMP REQ: [id number] RECD: 01/19/[address] [facility] [address]: ZAKIYA MOCTEZUMA [facility] SOURCE: [facility] ENTR: 01/19/[address] [facility] [address]: KODY BARBOZA MD [facility]: CLEAN CAT NELLIE NICE MD, KENNETH A MD SELF,REFERRAL ORDERED: AERO ID & SENS Procedure Result Dolly Date-Time AEROBIC ID & SENSITIVITIES Final 01/21/25-08 [facility] COLONY DESCRIPTION: DAY 1: COLONY COUNT: 10,000 - 20,000 CFU/ML GRAM NEGATIVE RODS IDENTIFICATION AND SENSITIVITY TO FOLLOW PROTEUS MIRABILIS PMIRABILIS M.I.C. RX --------- ---- AMPICILLIN <=8 S AZTREONAM >16 R CEFAZOLIN <=2 S CEFTAZIDIME/AVIBACTAM <=8 S GENTAMICIN <=2 S LEVOFLOXACIN <=0.5 S MEROPENEM <=1 S PIPERACILLIN/TAZOBACTAM <=8 S TRIMETHOPRIM/SUFLAMETHOXAZOLE <=2/38 S PATIENT: EUGENE BLACKBURN ACCT: [id number] LOC: [facility] U: [id number] AGE/SX: 89/F ROOM: [facility] RE01/17/[address]: NELLIE NICE MD : 1935 BED: 1 DIS: STATUS: ADM IN TLOC: SPEC: [id number] EWA: 01/17/25 STATUS: COMP REQ: [id number] RECD: 01/19/[address] [facility] [address]: ZAKIYA MOCTEZUMA FILLING MACHINE SET UP MECHANIC SOURCE: BLOOD ENTR: 01/19/[address] [facility] [address]: KODY BARBOZA MD SPDC: BLOOD FLORIDALMA CANALES MD SELF,REFERRAL JULIO CÉSAR JEONG MD ORDERED: AERO ID & SENS Procedure Result Dolly Date-Time AEROBIC ID & SENSITIVITIES Final 01/20/25-628 [facility] COLONY DESCRIPTION: DAY 1: GRAM NEGATIVE RODS IDENTIFICATION AND SENSITIVITY TO FOLLOW PEDIATRIC BOTTLE PROTEUS MIRABILIS PMIRABILIS M.I.C. RX --------- ---- AMPICILLIN <=8 S AZTREONAM <=4 S CEFAZOLIN <=2 S CEFTAZIDIME/AVIBACTAM <=8 S GENTAMICIN <=2 S LEVOFLOXACIN <=0.5 S MEROPENEM <=1 S PIPERACILLIN/TAZOBACTAM <=8 S TRIMETHOPRIM/SUFLAMETHOXAZOLE <=2/38 S PATIENT: EUGENE BLACKBURN ACCT: [id number] LOC: [facility] U: [id number] AGE/SX: 89/F ROOM: [facility] RE01/17/[address]: NELLIE NICE MD : 1935 BED: 1 DIS: STATUS: ADM IN TLOC: ASSESSMENT: Gram-negative bacteremia. Urinary tract infection with Proteus mirabilis. Leukocytosis, resolving. Endocarditis ruled out, status post JERALD. Obstructing calculus in the right distal ureter, s/p successful manipulation and right ureteral stent placement on 01/18/2025. Bilateral nephrolithiasis. Acute renal failure improved. PLAN: Continue Meropenem. Continue GI prophylaxis. Oxygen support as needed. We will follow up on the renal function. Blood cultures have been repeated. This case was reviewed and discussed with my supervising physician Dr. Waldron and the above assessment and plan was formulated and agreed upon. ATTESTATION BY PHYSICIAN I have seen and examined the patient. I reviewed the documentation, medical decision making, and treatment plan as noted by the mid-level provider above. I agree with the findings and plan of care. MILAD WALDRON MD, MIRTA L [facility] Jan 22, 2025 20:44
--- NOTE | 2025-01-22 20:52 | PN ---
[facility] PROGRESS NOTE Date Patient Seen: Jan 22, 2025 Time of Visit: 20:44 Supervising Physician: Dr. Bueno Supervising Physician: Dr. Whitmore Primary Care Physician: [ ] Outpatient Specialists: [ ] Inpatient Consults: DR. CANALES PROBLEM LIST: OBSTRUCTING RIGHT URETEROLITHIASIS , POA S/P RT URETERAL STENT BY DR CANALES ON 01/19/25 ACUTE COMPLICATED CYSTITIS, POA SEVERE SEPSIS 2/2 TO GRAM NEGATIVE BACTEREMIA R/O ENDOCARDITIS LEON ON CKD MORBID OBESITY BMI 43. INTERVAL HISTORY: Patient was seen at bedside with family members present. She is currently on 3 L nasal cannula with a home O2 baseline of 2 L. she remains on prednisone 20 mg b.i.d., and is currently diuresing. She is currently on meropenem per Infectious Disease. Patient's recent WAYNE was negative for findings associated with endocarditis. Primary team currently planning for discharge in the next 24 hours, recommendation for steroid taper down to the level which primary team's necessary for the patient's adrenal insufficiency. Plan Continue supplemental O2, 2 L home O2 baseline Continue meropenem Continue Lasix Solu-Medrol discontinued, patient currently on 20 mg prednisone b.i.d. for adrenal insufficiency Wayne negative for findings associated with endocarditis Patient has pending discharge within the next 24-48 hours, dispo per primary Recommendation to follow up as outpatient at [facility] [place] REVIEW OF SYSTEMS: 12 point ROS reviewed with patient. Pertinent positives mentioned above. Otherwise negative. PHYSICAL EXAM: GENERAL: alert, weak, awake oriented x 3 HEENT: EOMI, Sclera non icteric, moist mucosa NECK: Supple, no JVD, trachea midline LUNGS: Clear breath sounds bilaterally. No wheezes HEART: Regular rate and rhythm. Normal S1 and S2, without murmurs ABD: Abdomen soft, nontender. Bowel sounds present EXT: No clubbing cyanosis or edema NEURO: Alert and oriented to person, follows commands Vital Signs (last 8hr) Date Time Temp Pulse Resp B/P (MAP) Pulse Ox O2 Delivery O2 Flow Rate FiO2 01/22/25 20:00 97.9 110 19 140/79 96 Nasal Cannula 3.0 01/22/25 19:12 97 20 N/Cannula Low lpm 3.0 32 01/22/25 19:11 97 19 01/22/25 16:00 97.5 103 20 134/86 92 Nasal Cannula 3.0 01/22/25 13:05 96 19 LABS: Hematology Labs: Test 01/22/25 07:26 Range/Units White Blood Count 8.9 4.8-10.8 K/uL Red Blood Count 3.87 L 4.00-5.50 MIL/uL Hemoglobin 11.7 L 12.0-16.0 g/dL Hematocrit 36.2 36-48 % Mean Corpuscular Volume 93.5 79-99 fL Mean Corpuscular Hemoglobin 30.2 27.0-33.0 pg Mean Corpuscular Hemoglobin Concent 32.3 32.0-36.0 g/dL Red Cell Distribution Width 12.9 11.0-15.5 % Platelet Count 220 130-400 K/uL Mean Platelet Volume 9.5 7.5-10.5 fL Immature Granulocyte % (Auto) 1.0 0-1 % Neutrophils (%) (Auto) 80.7 H 40.0-77.0 % Lymphocytes (%) (Auto) 15.6 L 21.0-51.0 % Monocytes (%) (Auto) 2.5 L 3.0-13.0 % Eosinophils (%) (Auto) 0.0 0.0-8.0 % Basophils (%) (Auto) 0.2 0.0-5.0 % Neutrophils # (Auto) 7.2 1.8-7.7 K/uL Lymphocytes # (Auto) 1.4 1.0-4.8 K/uL Monocytes # (Auto) 0.2 0.1-1.0 K/uL Eosinophils # (Auto) 0.00 0.00-0.70 K/uL Basophils # (Auto) 0.02 0.00-0.20 K/uL Absolute Immature Granulocyte (auto 0.09 0-1 K/uL Nucleated Red Blood Cells 0.0 0.0-0.19 % Chemistry Labs: Test 01/22/25 13:15 01/22/25 07:26 Range/Units B-Type Natriuretic Peptide 301 H 0-100 pg/mL Sodium Level 143 136-145 mmol/L Potassium Level 3.9 3.5-5.1 mmol/L Chloride Level 100 L 101-111 mmol/L Carbon Dioxide Level 38 H 21-32 mmol/L Blood Urea Nitrogen 36 H 7-18 mg/dL Creatinine 1.3 H 0.5-1.0 mg/dL Glomerular Filtration Rate Calc 40 >90 mL/min Random Glucose 144 H 70-105 mg/dL Total Calcium 8.1 L 8.5-10.1 mg/dL DIAGNOSTICS / RADIOLOGY RESULTS: [ ] PLAN NEURO: Minimize central acting medications as possible. Maintain fall precautions, adequate lighting during the day PULMONARY: Supplemental 02 as needed. Maintain aspiration precautions at all times CARDIOVASCULAR: Follow hemodynamics. Vital signs per facility protocol GI & NUTRITION: Continue with nutritional support. Continue stool softeners and laxatives as needed. KIDNEYS & ELECTROLYTES: Strict monitoring of intake, output and overall fluid balance. Avoid nephrotoxic medications to the extent possible. Medications to be dosed according to renal function. Monitor electrolytes and replace as needed ENDOCRINE: Maintain blood glucose between 100-180 at all times. Hypoglycemia protocol in place INFECTIOUS DISEASE: Trend temperature, WBC and procalcitonin level Follow cultures, deescalate antibiotics as soon as possible. Panculture if new onset fever ONCOLOGY/HEMATOLOGY/COAGULATION: Monitor for s/s of bleeding Monitor hemoglobin, coagulation studies as needed SKIN: Pressure ulcer prevention per facility protocol Specialty mattress ORTHO/REHAB: Continue PT/OT Prophylaxis: Continue GI and DVT prophylaxis Code Status: Full Resuscitation Disposition: TBD Other: Total patient care time exceeds 35 minutes excluding all procedures. SHANTA SHOOK PAC Jan 22, 2025 20:52
[2025-01-23] VITALS (12 sets, daily range): BP systolic 119–159; BP diastolic 63–103; PULSE 73–123; RESP 18–20; TEMP 97.3–97.8; O2SAT 93–98
--- NOTE | 2025-01-23 00:59 | PN ---
FOLLOWUP PROGRESS NOTE SUBJECTIVE: This is an 89-year-old female, initially presented to the hospital with obstructive uropathy. The patient found to have nephrolithiasis. She did undergo cystoscopy with stent placement. The patient remains on the antibiotics and she is being seen as a followup visit for all of the above. REVIEW OF SYSTEMS: CONSTITUTIONAL: The patient is feeling improved. HEENT: No change in vision. No change in hearing. CARDIOVASCULAR: There is no current chest pain or palpitations. PULMONARY: No shortness of breath. GASTROINTESTINAL: The patient is tolerating a diet. MUSCULOSKELETAL: Complaint of weakness. PHYSICAL EXAMINATION: VITAL SIGNS: Blood pressure 156/72. Pulse is 90. Afebrile. GENERAL: Chronically ill, elderly female, lying in bed on the medical floor. HEENT: Head is atraumatic. Pupils are equal, round and reactive to light. Oropharynx is without exudate. Nares clear. NECK: There is no JVP. There is no thyromegaly, no mass. CARDIOVASCULAR: Regular. There is no S3 or S4 gallop. LUNGS: Coarse with equal thoracic movement. ABDOMEN: Soft, nondistended, and nontender. EXTREMITIES: No clubbing or cyanosis. NEUROLOGICAL: She is awake, she is alert. LABORATORY DATA: Hemoglobin 11, hematocrit 36, sodium 143, potassium 3.9, BUN 36, creatinine 1.3, bicarbonate 38. IMPRESSION: Acute on chronic renal dysfunction. Obstructive uropathy, status post stent placement. Bacteremia. Debilitation. PLAN: The patient's renal function continues to stabilize. The patient is being seen by case management in regard to final disposition. Electrolytes have all been aggressively repleted. She remains on the antibiotics. Once the patient is discharged, the patient can follow up in the [facility]. The patient's family at the bedside. Multiple questions were all answered. TID: [id number] RECEIPT: [id number]
[2025-01-23 05:22] LABS: NUCLEATED RED BLOOD CELLS 0.0 % (0.0-0.19); PLATELET COUNT (AUTO) 244.0 K/uL (130-400); RED BLOOD CELL COUNT(AUTO) 4.0 MIL/uL (4.00-5.50); RED CELL DISTRIBUTION WIDTH 12.7 % (11.0-15.5); WHITE BLOOD COUNT (AUTO) 9.8 K/uL (4.8-10.8)
[2025-01-23 05:29] LABS: CREATININE 1.4 mg/dL (0.5-1.0); GLOMERULAR FILTR. RATE CALC 36.0 mL/min (>90); GLUCOSE,RANDOM 135.0 mg/dL (70-105); SODIUM SERUM 142.0 mmol/L (136-145); UREA NITROGEN, BLOOD 44.0 mg/dL (7-18)
[2025-01-23] MEDS: PoTASSium chloRIDE 20MEQ ER 20 MEQ ERTAB PO ONE (06:16)
--- NOTE | 2025-01-23 13:46 | PN ---
[facility] PROGRESS NOTE Date Patient Seen: Jan 23, 2025 Time of Visit: 13:46 Supervising Physician: Dr. Bereket Bueno PROBLEM LIST: Sepsis present on admission Obstructing Right hydroureter with right hydronephrosis S/P placement of rt ureteral stent on 01/19/25 POA Acute on chronic hypoxemic respiratory failure, home oxygen dependent Acute COPD exacerbation Acute on chronic kidney disease Leukocytosis, POA Hypokalemia, resolved Diverticulosis, POA Elevated BNP, indeterminate diastolic dysfunction as per echo, pulmonary vascular congestion as per chest x-ray Home oxygen dependent Morbid obesity, BMI 43 Daily smoker INTERVAL HISTORY: Patient was seen at bedside with daughter present. She is currently on 3 L nasal cannula with a home O2 baseline of 2 L. Audible wheezing noted to all lobes, changed oral prednisone to IV solu-medrol. Complains of more SOB. ABG and CXR ordered. She is currently on meropenem per Infectious Disease. Daughter states patient quit smoking cigarette about 4 years ago but still uses electronic cigarette. Advised patient to stop. Prognosis is guarded. Plan Change IV prednisone to IV solu-medrol ABG and CXR ordered Continue supplemental O2, 2 L home O2 baseline Continue meropenem Continue Lasix JERALD negative for findings associated with endocarditis Patient has home oxygen Recommendation to follow up as outpatient at [facility] [place] REVIEW OF SYSTEMS: 12 point ROS reviewed with patient. Pertinent positives mentioned above. Otherwise negative. PHYSICAL EXAM: GENERAL: alert, weak, awake oriented x 3 HEENT: EOMI, Sclera non icteric, moist mucosa NECK: Supple, no JVD, trachea midline LUNGS: Clear breath sounds bilaterally. No wheezes HEART: Regular rate and rhythm. Normal S1 and S2, without murmurs ABD: Abdomen soft, nontender. Bowel sounds present EXT: No clubbing cyanosis or edema NEURO: Alert and oriented to person, follows commands Vital Signs (last 8hr) Date Time Temp Pulse Resp B/P (MAP) Pulse Ox O2 Delivery O2 Flow Rate FiO2 01/23/25 11:16 96 18 01/23/25 08:00 97.9 93 20 157/94 95 Nasal Cannula 2.0 01/23/25 08:00 93 Room Air* 0 21 01/23/25 06:46 92 20 N/Cannula Low lpm 2.0 01/23/25 06:44 92 18 LABS: Hematology Labs: Test 01/23/25 04:49 01/22/25 07:26 Range/Units White Blood Count 9.8 4.8-10.8 K/uL Red Blood Count 4.00 4.00-5.50 MIL/uL Hemoglobin 12.0 12.0-16.0 g/dL Hematocrit 36.9 36-48 % Mean Corpuscular Volume 92.3 79-99 fL Mean Corpuscular Hemoglobin 30.0 27.0-33.0 pg Mean Corpuscular Hemoglobin Concent 32.5 32.0-36.0 g/dL Red Cell Distribution Width 12.7 11.0-15.5 % Platelet Count 244 130-400 K/uL Mean Platelet Volume 9.8 7.5-10.5 fL Nucleated Red Blood Cells 0.0 0.0-0.19 % Immature Granulocyte % (Auto) 1.0 0-1 % Neutrophils (%) (Auto) 80.7 H 40.0-77.0 % Lymphocytes (%) (Auto) 15.6 L 21.0-51.0 % Monocytes (%) (Auto) 2.5 L 3.0-13.0 % Eosinophils (%) (Auto) 0.0 0.0-8.0 % Basophils (%) (Auto) 0.2 0.0-5.0 % Neutrophils # (Auto) 7.2 1.8-7.7 K/uL Lymphocytes # (Auto) 1.4 1.0-4.8 K/uL Monocytes # (Auto) 0.2 0.1-1.0 K/uL Eosinophils # (Auto) 0.00 0.00-0.70 K/uL Basophils # (Auto) 0.02 0.00-0.20 K/uL Absolute Immature Granulocyte (auto 0.09 0-1 K/uL Chemistry Labs: Test 01/23/25 04:49 01/22/25 13:15 Range/Units Sodium Level 142 136-145 mmol/L Potassium Level 3.6 3.5-5.1 mmol/L Chloride Level 95 L 101-111 mmol/L Carbon Dioxide Level 38 H 21-32 mmol/L Blood Urea Nitrogen 44 H 7-18 mg/dL Creatinine 1.4 H 0.5-1.0 mg/dL Glomerular Filtration Rate Calc 36 >90 mL/min Random Glucose 135 H 70-105 mg/dL Total Calcium 7.9 L 8.5-10.1 mg/dL B-Type Natriuretic Peptide 301 H 0-100 pg/mL DIAGNOSTICS / RADIOLOGY RESULTS: NA PLAN NEURO: Minimize central acting medications as possible. Maintain fall precautions, adequate lighting during the day PULMONARY: Supplemental 02 as needed. Maintain aspiration precautions at all times CARDIOVASCULAR: Follow hemodynamics. Vital signs per facility protocol GI & NUTRITION: Continue with nutritional support. Continue stool softeners and laxatives as needed. KIDNEYS & ELECTROLYTES: Strict monitoring of intake, output and overall fluid balance. Avoid nephrotoxic medications to the extent possible. Medications to be dosed according to renal function. Monitor electrolytes and replace as needed ENDOCRINE: Maintain blood glucose between 100-180 at all times. Hypoglycemia protocol in place INFECTIOUS DISEASE: Trend temperature, WBC and procalcitonin level Follow cultures, deescalate antibiotics as soon as possible. Panculture if new onset fever ONCOLOGY/HEMATOLOGY/COAGULATION: Monitor for s/s of bleeding Monitor hemoglobin, coagulation studies as needed SKIN: Pressure ulcer prevention per facility protocol Specialty mattress ORTHO/REHAB: Continue PT/OT Prophylaxis: Continue GI and DVT prophylaxis Code Status: Full Resuscitation Disposition: TBD Other: Total patient care time 36 minutes excluding all procedures. LEANN ADAMS SENIOR ENVIRONMENTAL TECHNICIAN Jan 23, 2025 13:46
[2025-01-23] MEDS: Solu-medROL 40MG VIAL IVP SCH (14:19)
--- NOTE | 2025-01-23 15:52 | PN ---
[facility] PROGRESS NOTE Date of Service: Jan 23, 2025 Time of Service: 8:40 History of Present Illness Ms. Blackburn is an 89-year-old female that was seen and examined today on 01/17/2025 patient is currently alert and oriented x1. Patient states that it is December 2010. Patient states she does not know what city she is currently N but states that she is currently living with the daughter. Patient states that she has from [facility]. Discussed with primary nurse, Tona who states patient was previously alert and oriented x3 however after a dose of Dilaudid patient became less able to answer questions appropriately. The following was obtained from emergency room physician report. There was no previous medical records available for me to review. According to emergency room physician: 89-year-old female was brought to the ER due to abdominal pain, stated that the pain started earlier this morning and has been getting worse, patient was unable to tolerate a diet today due to abdominal pain. He denies nausea or vomiting. Patient reports history of constipation, stated that she had a bowel movement this ED but was very little stool came out. Today in the emergency department WBCs 12.6, left shift neutrophils 94%, potassium 3.4, no urinalysis has been collected or sent to lab, CT of abdomen and pelvis shows obstructive uropathy, right hydronephrosis, right hydro ureteral, 6 mm calculus. Emergency room physician recommended that patient be admitted so she could be evaluated by urology service. Urology service is being paste from the emergency department. Also creatinine was elevated at 1.7. There was no known baseline creatinine level. Nephrology service was also consulted from the emergency department. SUBJECTIVE: [ ] 01/18/2025: Patient was seen this morning in 420. Alert oriented to time place and person, denied fevers, chills hemodynamically stable. The patient reported discomfort in her abdomen and right flank. Culture showed 10-50 K colony-forming units and her WBCs on presentation were [id number] while in the ED that spiked to 23.4 K this morning. He lactic acid was 2.1 and Procal was 2.8. We added Zosyn on top of ceftriaxone for extended coverage. We spoke to Dr. Jimenez for management of hydronephrosis with 6 mm stone in the right ureter and he recommended placing a nephrostomy tube and obtaining cardiac clearance before doing so. Dr. Ribeiro was consulted and patient is considered to be at high risk for a low risk non cardiac surgery. He cleared her to proceed with intervention as the current benefits outweigh the risk from the cardiovascular standpoint. Pending transfer to any facility for placing nephrostomy tube as IR not available today. Patient remains NPO since this morning. 17:30: In the interim patient became more septic and decompensated. Her blood pressure dropped to 89/44, MAP 59 and IV bolus Ringer's lactate was started. Critical care team was consulted and a transfer to ICU order was placed. Critical Care team placed the order for Levophed however was waiting for the patient to be transferred to the ICU. 7:00 p.m.: After IV bolus patient's map is at 61. Patient is being transferred to ICU and will be started on Levophed. We agree with the plan from [facility] and we will continue their recommendations. 01/19/2025: Patient was seen in ICU in room 214. After being transferred to ICU patient was seen by Dr. Jimenez, performed a cystourethroscopy without removal of right ureteral calculus with stent placement and a retrograde pyelogram. Patient was noted to have purulent drainage after placing the ureteral stent and a Munguia's catheter was recommended to be placed for next 24-48 hours for anterograde drainage. Patient was started on meropenem and vancomycin and an ID consult has been obtained. Preliminary blood culture showed growth of Gram- negative rods, final identification pending. We will follow recommendations from urology, nephrology, ID, and critical care team. 01/20/2025 The patient was seen and examined in room 306. The patient was downgraded yesterday from ICU to the floor. The patient was lying comfortably on the bed with no complaints of shortness of breath, abdominal pain or chest pain. The patient had JERALD done today that showed no vegetations. Patient's blood culture came back positive for Proteus mirabilis and she is continued on antibiotic meropenem and vancomycin. The patient is maintaining 100% oxygen at 3 L. the patient was complaining of constipation therefore she was given 1 dose of lactulose. 01/21/2025: Patient was seen and examined in room 306. Patient was lying comfortably in her bed with her daughter at the bedside. Patient had Munguia catheter connected which showed blood tinged urine. Patient denied any flank pain or abdominal pain. Urologist advised to discontinue the Munguia's this morning and will follow up with the patient in clinic for definitive treatment of right ureteral calculi. Patient white count have come to 5000 and remains afebrile. Patient's urine and blood culture showed growth of Proteus mirabilis which is sensitive to meropenem and ID recommended to continue. We will get recommendations from ID and assess for possible discharge tomorrow. Critical care team we will discontinue IV Solu-Medrol and initiate p.o. prednisone 40 mg to be tapered in next 5 days. We also sent a referral for outpatient sleep study and case management evaluation for help finding a PCP. 01/22/2025: Patient was seen and examined at bedside. Munguia catheter has been discontinued. Patient is currently on Merrem as per blood culture and urine culture results. We have ordered a repeat blood culture and urine culture and we will follow up with the Infectious Disease recommendations for discharge. Patient is currently on 40 mg q.12h Lasix. Her urine output has been 3900 as compared to 200 input. Her WBCs have trended down to 5 K. 01/23/2025: Patient was seen and examined at bedside. She is currently on oxygen nasal cannula 3 L and states that she uses oxygen at home as well. She is receiving Merrem for bacteremia and UTI and her Lasix IV has been switched to oral. We are following with Infectious Disease recommendations for management of her antibiotic. As per critical Care consult, patient will benefit from several more doses Solu-Medrol. She will also require case management evaluation for discharge to SNF. REVIEW OF SYSTEMS CONSTITUTIONAL: Denies fevers, chills, or night sweats. No unintentional weight loss reported. NEUROLOGICAL: Denies headache, amaurosis fugax, motor weakness, sensory deficit, vertigo/spinning sensation, gait abnormalities, or tremors. ENT: No hearing loss, otalgia, otorrhea, rhinitis, rhinorrhea, hoarseness, or sore throat. CARDIOVASCULAR: Denies any exertional angina, dyspnea on exertion, orthopnea, paroxysmal nocturnal dyspnea, palpitations, life-threatening arrhythmias, claudication. PULMONARY: Denies any shortness of breath, cough, phlegm/sputum, hemoptysis, pleuritic chest pain. SLEEP: Denies morning headaches, daytime somnolence or napping. Denies difficulty falling asleep, staying asleep, waking from sleep. Denies knowledge of snoring. GASTROINTESTINAL: Denies any type of dysphagia to either liquids or solids. Denies nausea, vomiting, pyrosis, early satiety, abdominal pain, diarrhea, constipation, or changes in stool consistency or caliber. Denies coffee-ground emesis, hematemesis, hematochezia, or melanotic stools. GENITOURINARY: Right sided flank pain, improved. Denies frequency, urgency, nocturia, hematuria or incontinence PHYSICAL EXAM GENERAL APPEARANCE: The patient is awake, alert, and oriented, in no acute cardiopulmonary distress. NEUROLOGICAL: Cranial nerves II-XII grossly intact. Motor is 5/5 in bilateral upper and lower extremities proximal to distal. No sensory deficits. HEENT: Face is symmetric. Pupils are equal and reactive. Extraocular movements are intact. NECK: Supple. No JVD. No thyromegaly. No submental, submandibular, pre- /postauricular, occipital or supraclavicular lymphadenopathy. CHEST: Normal chest expansion. No Telemetry. LUNGS: Absence of any rales, rhonchi or any wheezing. CARDIOVASCULAR: Regular. S1 and S2 normal. No appreciable rubs, murmurs or gallops. ABDOMEN: Soft, nontender, and nondistended. There is no rebound, voluntary guarding, or rigidity. : Deferred. Vital Signs (last 8hr) Date Time Temp Pulse Resp B/P (MAP) Pulse Ox O2 Delivery O2 Flow Rate FiO2 01/23/25 12:00 97.5 106 20 130/77 94 Nasal Cannula 2.0 01/23/25 11:16 96 18 01/23/25 08:00 97.9 93 20 157/94 95 Nasal Cannula 2.0 01/23/25 08:00 93 Room Air* 0 21 LABS: Laboratory: Test 01/23/25 04:49 01/22/25 13:15 01/22/25 07:26 Range/Units White Blood Count 9.8 4.8-10.8 K/uL Red Blood Count 4.00 4.00-5.50 MIL/uL Hemoglobin 12.0 12.0-16.0 g/dL Hematocrit 36.9 36-48 % Mean Corpuscular Volume 92.3 79-99 fL Mean Corpuscular Hemoglobin 30.0 27.0-33.0 pg Mean Corpuscular Hemoglobin Concent 32.5 32.0-36.0 g/dL Red Cell Distribution Width 12.7 11.0-15.5 % Platelet Count 244 130-400 K/uL Mean Platelet Volume 9.8 7.5-10.5 fL Nucleated Red Blood Cells 0.0 0.0-0.19 % Sodium Level 142 136-145 mmol/L Potassium Level 3.6 3.5-5.1 mmol/L Chloride Level 95 L 101-111 mmol/L Carbon Dioxide Level 38 H 21-32 mmol/L Blood Urea Nitrogen 44 H 7-18 mg/dL Creatinine 1.4 H 0.5-1.0 mg/dL Glomerular Filtration Rate Calc 36 >90 mL/min Random Glucose 135 H 70-105 mg/dL Total Calcium 7.9 L 8.5-10.1 mg/dL B-Type Natriuretic Peptide 301 H 0-100 pg/mL Immature Granulocyte % (Auto) 1.0 0-1 % Neutrophils (%) (Auto) 80.7 H 40.0-77.0 % Lymphocytes (%) (Auto) 15.6 L 21.0-51.0 % Monocytes (%) (Auto) 2.5 L 3.0-13.0 % Eosinophils (%) (Auto) 0.0 0.0-8.0 % Basophils (%) (Auto) 0.2 0.0-5.0 % Neutrophils # (Auto) 7.2 1.8-7.7 K/uL Lymphocytes # (Auto) 1.4 1.0-4.8 K/uL Monocytes # (Auto) 0.2 0.1-1.0 K/uL Eosinophils # (Auto) 0.00 0.00-0.70 K/uL Basophils # (Auto) 0.02 0.00-0.20 K/uL Absolute Immature Granulocyte (auto 0.09 0-1 K/uL Current Medications Medications (Trade) Dose Ordered Sig/Nirmala Route PRN Reason Start Time Stop Time Status Last Admin Dose Admin Acetaminophen (TYLenol 325MG TAB) 650 mg Q4HPRN PRN PO TEMP ABOVE 101.5/MILD PAIN 1-3 01/18/25 13:30 02/16/25 22:29 01/19/25 17:31 650 MG Acetaminophen (TYLenol 325MG TAB) 650 mg Q6H PRN PO TEMPERATURE GREATER THAN 101.5 10/22/25 22:30 01/18/25 13:29 DC 01/18/25 08:35 650 MG Acetaminophen (TYLenol 325MG TAB) 650 mg Q6H PRN PO MILD PAIN (1-3) 01/20/25 17:00 02/19/25 16:59 01/22/25 23:51 650 MG Albuterol (DUOneb) 1 UDVIAL Q6H IH 01/20/25 17:30 02/19/25 17:29 01/23/25 11:16 1 UDVIAL Ceftriaxone Sodium (ROCEphine 1G INJ) 1 gm Q24H IVPB 01/18/25 02:00 01/18/25 13:18 DC 01/18/25 02:53 1 GM Furosemide (LASix 20MG VIAL) 20 mg DAILY IV 01/20/25 09:00 01/20/25 09:01 DC 01/20/25 09:17 20 MG Furosemide (LASix 40MG TAB) 40 mg Q12H PO 01/23/25 07:30 02/22/25 07:29 01/23/25 08:48 40 MG Furosemide (LASix 40MG VIAL) 40 mg Q12H IV 01/21/25 10:00 01/23/25 07:27 DC 01/22/25 20:40 40 MG Hydralazine HCl (APRESOLine 20MG INJ) 10 mg Q6H PRN IV For:SBP above 160;DBP above 90 01/21/25 10:00 02/20/25 09:59 Hydromorphone HCl (DiLAUDid 0.5MG INJ) 0.25 mg Q4H PRN IVP SEVERE PAIN (7-10) 01/17/25 22:30 01/22/25 22:29 DC 01/18/25 20:49 0.25 MG Lactated Ringer's 1,000 ml @ 125 mls/hr Q8H IV 01/17/25 22:30 01/19/25 05:53 DC 01/18/25 23:40 125 MLS/HR Lactulose (Constulose 20gm/ 30ml Udcup) 20 gm BID PRN PO CONSTIPATION 01/17/25 22:30 02/16/25 22:29 01/21/25 22:06 20 GM Magnesium Sulfate 50 ml @ 0 mls/hr PROTOCOL PRN IV As needed 01/18/25 09:30 02/17/25 09:29 01/20/25 05:34 25 MLS/HR Melatonin (Melatonin) 5 mg HS PO 01/20/25 21:00 02/19/25 20:59 01/22/25 20:39 5 MG Meropenem (Merrem 1gm) 1 gm Q12H IVPB 01/18/25 19:30 01/19/25 05:56 DC 01/18/25 20:38 1 GM Meropenem (Merrem 1gm) 1 gm Q12H IVPB 01/19/25 09:00 01/19/25 19:30 DC 01/19/25 08:13 1 GM Meropenem (Merrem 1gm) 1 gm Q12H IVPB 01/19/25 23:30 01/19/25 23:28 DC Meropenem (Merrem 1gm) 1 gm Q12H IVPB 01/20/25 02:30 01/30/25 02:29 01/23/25 14:20 1 GM Methylprednisolone Sodium Succinate (Solu-medROL 40MG) 40 mg BID IVP 01/20/25 17:30 01/22/25 16:53 DC 01/22/25 09:47 40 MG Methylprednisolone Sodium Succinate (Solu-medROL 40MG) 40 mg Q8H IVP 01/23/25 14:00 02/22/25 13:59 01/23/25 14:19 40 MG Norepinephrine 250 ml @ 0 mls/hr PROTOCOL IV 01/18/25 18:00 01/19/25 23:15 DC Ondansetron HCl (zoFRAN 4MG INJ) 4 mg Q6H PRN IV NAUSEA/VOMITING 01/17/25 22:30 02/16/25 22:29 Pantoprazole Sodium (PROTonix 40MG INJ) 40 mg DAILY IV 01/18/25 09:00 01/23/25 10:47 DC 01/23/25 08:47 40 MG Pantoprazole Sodium (PROTonix 40MG TAB) 40 mg DAILY PO 01/24/25 09:00 02/23/25 08:59 Pharmacy Profile Note (Pharmacy Communication) 1 each ONCE MISC 01/18/25 19:30 01/18/25 19:22 DC Pharmacy Profile Note (Pharmacy Communication) 1 each ONCE MISC 01/19/25 23:30 01/19/25 23:18 DC Piperacillin Sod/ Tazobactam Sod (Zosyn 3.375gm+NS 50ml) 3.375 gm Q8H IV 01/18/25 13:30 01/18/25 22:40 DC 01/18/25 20:41 3.375 GM Prednisone (deltaSONE/ oraSONE 20MG TAB) 20 mg BID PO 01/22/25 21:00 01/23/25 13:56 DC 01/23/25 08:48 20 MG Sodium Chloride 1,000 ml @ 75 mls/hr [id number] IV 01/17/25 22:00 01/18/25 12:28 DC 01/17/25 22:32 75 MLS/HR Tamsulosin HCl (FloMAX) 0.4 mg DAILY PO 01/18/25 09:00 02/17/25 08:59 01/23/25 08:48 0.4 MG Vancomycin HCl (Vancomycin 750mg) 750 mg Q24H IVPB 01/19/25 23:00 01/21/25 01:22 DC 01/21/25 00:37 750 MG Vancomycin HCl (Vancomycin Protocol) 1 each AD IV 01/18/25 23:00 01/21/25 01:22 DC DIAGNOSTICS / RADIOLOGY: PATIENT: EUGENE BLACKBURN MR#: [id number] : 1935 SEX: F AGE: 89 LOCATION: [facility] ORDER 7 STATUS: ADM IN REPORT#: [id number] SERVICE 6 REASON: PICC LINE PLACEMENT VERIFICATION ORDERING PHYSICIAN: ELAINE URIBE MD PROCEDURE: CXR1VW - CHEST 1VW EXAM: CR Chest, single view. CLINICAL HISTORY: PICC line placement. COMPARISON: None. FINDINGS: Right-sided PICC catheter is identified with the tip in the superior vena cava. Mild cardiomegaly with bilateral pulmonary congestion and probable subsegmental atelectasis in the left lower lobe. No evidence of pleural effusion or pneumothorax. No acute osseous abnormality. IMPRESSION: Right-sided PICC catheter is identified with the tip in the superior vena cava. Mild cardiomegaly with bilateral pulmonary congestion and probable subsegmental atelectasis in the left lower lobe. No evidence of pleural effusion or pneumothorax. Compared to the prior study, there is an interval progression of the pulmonary congestion. /[place] DICTATED BY: DEA COLLINS Jr., MD DATE: 01/21/25632 ELECTRONICALLY SIGNED BY: DEA COLLINS Jr., MD DATE: 01/21/25632 PATIENT: EUGENE BLACKBURN MR#: [id number] : 1935 SEX: F AGE: 89 LOCATION: [facility] ORDER 3 STATUS: ADM IN REPORT#: [id number] SERVICE 3 REASON: rule out endocarditis. ORDERING PHYSICIAN: ALFREDO ROWELL PROCEDURE: ECHO JERALD - ECHO JERALD--TRANSESOPHAGEAL APPROVED REPORT EXAM: Transesophageal echocardiogram with color flow Doppler. INDICATION ICD: Rule out endocarditis PROCEDURE After obtaining informed consent, patient underwent transesophageal echo in the 306 15 mL 2% Viscous Lidocaine was given as a topical anesthetic prior to the administration of the conscious sedation. Type of Sedation: General Anesthesia Sedation was administered by Please refer to medication administration record. . Sedation was achieved with Please refer to medication administration record. intravenously. Transesophageal probe was inserted and advanced into esophagus without difficulty by Mae Hoff MD . JERALD was performed and images were obtained, probe was removed without complications. Throughout the procedure, the blood pressure, pulse oximetry, cardiac rhythm, and rate were monitored. Left Ventricle Left ventricular cavity size is normal. No regional wall motion abnormalities noted. Mild concentric left ventricular hypertrophy. Sigmoid septum is present. LVEF is >55%. No left ventricle thrombus noted on this study. The left ventricular diastolic function is Indeterminate Right Ventricle The right ventricle is normal size. The right ventricular systolic function is normal. Atria The left atrium size is dilated. Spontaneous contrast noted in left atrium The right atrium size is normal. Aortic Valve Aortic valve is trileaflet, thickened with nodular calcification. Aortic valve opens well. Nodular calcification most prominent on the non coronary cusp leaflet Trivial aortic regurgitation is present. There is no aortic valvular vegetation. There is no aortic valvular stenosis. Mitral Valve The mitral valve displays mild posterior mitral annular calcification. Mitral valve leaflets open well. There is at least mild mitral valve regurgitation noted by color Doppler. No mitral valve vegetation. There is no mitral valve stenosis. Tricuspid Valve The tricuspid valve is normal in structure and function. There is mild tricuspid valve regurgitation noted. No tricuspid valve vegetation. Pulmonic Valve The pulmonary valve is not well visualized. There is no pulmonic valvular regu rgitation. Great Vessels The aortic root appears normal in size. Pericardium No pericardial effusion. Conclusion This was an abbreviated and focused transesophageal echocardiogram due to the patient's tenuous respiratory status and transient apnea. The area of concern from transthoracic echocardiogram was the aortic valve and this was interrogated fully. The aortic valve is trileaflet, displaying nodular calcification on all three cusps, with adequate excursion and trivial aortic regurgitation. No valvular vegetation. DICTATED BY: KEV HOFF DO DATE: 01/20/25 0748 ELECTRONICALLY SIGNED BY: KEV HOFF DO DATE: 01/20/25 1246 ASSESSMENT: Sepsis due to acute complicated cystitis Obstructing Right hydroureter with right hydronephrosis,S/P placement of rt ureteral stent on 01/19/25 POA Acute hypoxemic respiratory failure Acute on chronic kidney disease Leukocytosis, POA Hypokalemia, resolved Diverticulosis, POA Elevated BNP, indeterminate diastolic dysfunction as per echo, pulmonary vascular congestion as per chest x-ray Morbid obesity PLAN: Sepsis due to acute complicated cystitis * Patient had elevated white cell count 12.6 on admission, which increased to 29.3. They reduced to 5K on 01/23. * Procalcitonin was 2.28 on admission, patient was tachycardic 108, tachypneic 24. meeting SIRS criteria for sepsis * Urine culture and blood culture showed growth of Proteus mirabilis * JERALD showed aortic valve is trileaflet, displaying nodular calcification on all three cusps, with adequate excursion and trivial aortic regurgitation. No valvular vegetation. * Repeat urine and blood cultures have been ordered. They are negative after 24 hours. * Continue meropenem 1g q.12 * We will obtain further recommendations from ID. * We will follow up with [employer] for SNF placement evaluation Obstructing Right hydroureter with right hydronephrosis,S/P placement of rt ureteral stent on 01/19/25 POA * Patient underwent cystourethroscopy with stent placement, without removal of right ureteral calculus * As per the family present at the bedside, urologist recommended to remove the renal calculi with lithotripsy * Munguia's catheter discontinued as per Urology recommendation * Continue IV meropenem1 g q.12 * Continue p.r.n. Dilaudid 0.5 mg for pain Acute hypoxic respiratory failure, sepsis * Patient is saturating well at 3L of oxygen via nasal cannula, her baseline is 2 L oxygen at home * Chest x-ray showed patchy airspace disease more pronounced in the left mid and left lower lung * IV Lasix 40 mg q.12 has been switched to PO lasix due to elevated bicarb on consecutive days' labs * Critical care team restarted IV Solu-Medrol due to presence of wheezing in upper lobes * Protect airway and maintain aspiration precautions * Maintain saturation over 92 % Acute on chronic kidney disease, due to obstructive uropathy, resolved * Patient's creatinine on presentation was 1.7 and 1.5 now. Patient baseline creatinine unknown * Patient had obstructive uropathy for which a ureteral stent has been placed without removing the renal stone * Continue meropenem * Monitor electrolytes and BUN creatinine tomorrow * Avoid nephrotoxic agents and renally dose medications * We will follow Nephrology recommendations GI prophylaxis with pantoprazole and DVT prophylaxis with SCDs We will obtain recommendations from ID regarding antibiotics and possible discharge tomorrow and follow up with the urologist on outpatient basis. ATTESTATION BY PHYSICIAN I have seen and examined the patient. I reviewed the documentation, medical decision making, and treatment plan as noted by the resident physician above. I agree with the findings and plan of care. JULIA ALEJANDRA MD, MUHAMMAD H MD Jan 23, 2025 15:52
--- NOTE | 2025-01-23 17:01 | NUR ---
Discharge Planning: New prompt for SNF placement. Patient states to call daughter Jayleen and refer to wherever she decides. Tried calling several times. No option to leave message. Patient states she is probably sleeping. States will relay message when she calls her later.
--- NOTE | 2025-01-23 20:05 | PN ---
INFECTIOUS DISEASE PROGRESS NOTE Date of Service: Jan 23, 2025 SUBJECTIVE: This is an 89-year-old female patient who was seen and examined at bedside in room 306. Patient is awake and oriented. Patient is afebrile, temperature is 97.5. Remains on oxygen via nasal cannula at 2 L/min. We will continue on Meropenem. Case management to evaluate for SNF placement to continue IV antibiotics and rehab. Patient and her daughter present at bedside and aware of this plan. PHYSICAL EXAM EYES: Anicteric. Pupils equal and reactive. HENT: No oral thrush seen, moist Oral mucosa NECK: Supple, no JVD or thyromegaly. LUNGS: Diminished. Continue on oxygen support via nasal cannula. CARDIOVASCULAR: S1, S2 regular. No murmur heard. ABDOMEN: Soft, non tender, bowel sounds present, no organomegaly CENTRAL NERVOUS SYSTEM: Awake, alert, oriented x 3. SKIN: No rashes, no swelling. LYMPHATICS: No peripheral lymphadenopathy MUSCULOSKELETAL: No joint swelling, erythema or tenderness. EXTREMITIES: No cyanosis or clubbing. Weakness. BACK: No deformity, no pressure ulcer. GENITOURINARY: No dysuria or hematuria. Vital Sign (Last 12 Hours) 01/23/25 01/23/25 01/23/25 01/23/25 11:16 12:00 18:55 18:56 Temp 97.5 Pulse 96 106 94 94 Resp 18 20 20 20 B/P (MAP) 130/77 Pulse Ox 94 O2 Delivery Nasal Cannula N/Cannula Low lpm O2 Flow Rate 2.0 3.0 FiO2 32 Intake & Output (last 24hrs) 01/22/25 01/22/25 01/23/25 14:59 22:59 06:59 Intake Total 300.0 ml 735.0 ml 336.0 ml Balance 300.0 ml 735.0 ml 336.0 ml LABS: Laboratory: Test 01/23/25 04:49 01/22/25 13:15 01/22/25 07:26 Range/Units White Blood Count 9.8 4.8-10.8 K/uL Red Blood Count 4.00 4.00-5.50 MIL/uL Hemoglobin 12.0 12.0-16.0 g/dL Hematocrit 36.9 36-48 % Mean Corpuscular Volume 92.3 79-99 fL Mean Corpuscular Hemoglobin 30.0 27.0-33.0 pg Mean Corpuscular Hemoglobin Concent 32.5 32.0-36.0 g/dL Red Cell Distribution Width 12.7 11.0-15.5 % Platelet Count 244 130-400 K/uL Mean Platelet Volume 9.8 7.5-10.5 fL Nucleated Red Blood Cells 0.0 0.0-0.19 % Sodium Level 142 136-145 mmol/L Potassium Level 3.6 3.5-5.1 mmol/L Chloride Level 95 L 101-111 mmol/L Carbon Dioxide Level 38 H 21-32 mmol/L Blood Urea Nitrogen 44 H 7-18 mg/dL Creatinine 1.4 H 0.5-1.0 mg/dL Glomerular Filtration Rate Calc 36 >90 mL/min Random Glucose 135 H 70-105 mg/dL Total Calcium 7.9 L 8.5-10.1 mg/dL B-Type Natriuretic Peptide 301 H 0-100 pg/mL Immature Granulocyte % (Auto) 1.0 0-1 % Neutrophils (%) (Auto) 80.7 H 40.0-77.0 % Lymphocytes (%) (Auto) 15.6 L 21.0-51.0 % Monocytes (%) (Auto) 2.5 L 3.0-13.0 % Eosinophils (%) (Auto) 0.0 0.0-8.0 % Basophils (%) (Auto) 0.2 0.0-5.0 % Neutrophils # (Auto) 7.2 1.8-7.7 K/uL Lymphocytes # (Auto) 1.4 1.0-4.8 K/uL Monocytes # (Auto) 0.2 0.1-1.0 K/uL Eosinophils # (Auto) 0.00 0.00-0.70 K/uL Basophils # (Auto) 0.02 0.00-0.20 K/uL Absolute Immature Granulocyte (auto 0.09 0-1 K/uL ASSESSMENT: Gram-negative bacteremia. Urinary tract infection with Proteus mirabilis. Leukocytosis, resolving. Endocarditis ruled out, status post JERALD. Obstructing calculus in the right distal ureter, s/p successful manipulation and right ureteral stent placement on 01/18/2025. Bilateral nephrolithiasis. Acute renal failure improved. PLAN: Continue Meropenem. Continue GI prophylaxis. Oxygen support as needed. We will follow up on the renal function. We will follow up on the repeat blood cultures. Case management evaluation for SNF placement to continue IV antibiotics and rehab. This case was reviewed and discussed with my supervising physician Dr. Waldron and the above assessment and plan was formulated and agreed upon. ATTESTATION BY PHYSICIAN I have seen and examined the patient. I reviewed the documentation, medical decision making, and treatment plan as noted by the mid-level provider above. I agree with the findings and plan of care. MILAD WALDRON MD, [facility] Jan 23, 2025 20:05
--- NOTE | 2025-01-23 21:00 | PN ---
FOLLOWUP PROGRESS NOTE SUBJECTIVE: An 89-year-old female who presented with sepsis. The patient started on antibiotics. The patient has had acute renal failure in the hospital. Creatinine is much improved and the patient is being seen as a followup visit for all of the above. The patient with obstructive uropathy, status post stent placement by Urology. REVIEW OF SYSTEMS: CONSTITUTIONAL: The patient is feeling improved since admission. HEENT: No change in vision. No change in hearing. CARDIOVASCULAR: There is no current chest pain or palpitations. PULMONARY: No shortness of breath. GASTROINTESTINAL: Tolerating a diet. MUSCULOSKELETAL: Complains of weakness. PHYSICAL EXAMINATION: VITAL SIGNS: Blood pressure 157/94. Pulse in the 90s. GENERAL: Chronically ill female, elderly, lying in bed on the medical floor. HEENT: Head is atraumatic. Pupils are equal, round and reactive to light. Oropharynx is without exudate. Nares clear. NECK: There is no JVP. There is no thyromegaly. No masses. CARDIOVASCULAR: Regular. There is no S3 or S4 gallop. LUNGS: Coarse with equal thoracic movement. ABDOMEN: Soft, nondistended, and nontender. EXTREMITIES: No clubbing or cyanosis. NEUROLOGICAL: She is awake. She is alert. LABORATORY DATA: Hemoglobin 12, hematocrit 36, sodium 142, BUN 44, creatinine is 1.4. IMPRESSION: Acute on chronic renal failure. Sepsis. Hypertension. Obstructive uropathy. PLAN: The patient's creatinine is much improved. She continues with the antibiotics as prescribed. I did have a long discussion with the patient and family. Upon discharge, the patient will need followup with Urology for stent removal. We will continue to follow closely. If the patient is discharged, the patient can follow up in the [facility]. TID: [id number] RECEIPT: [id number]
--- NOTE | 2025-01-23 22:51 | HMCIMG ---
EXAM: CHEST RADIOGRAPH, 1 VIEW Technique: Single frontal view of the chest was obtained. Clinical Information: Coughing and congestion. Comparison: Chest radiograph dated January 21, 2025 at 04:13 [place] Daylight Time. Findings: Lungs and large airways: Interval resolution of the previously noted probable subsegmental atelectasis in the left lower lobe. No new focal airspace consolidation is identified. Pleura: No pleural effusion is visualized on this projection. No pneumothorax is detected. Cardiomediastinal contours: Mild cardiomegaly is present. Pulmonary vascular congestion is again noted and appears unchanged. Lines and devices: Right-sided peripherally inserted central catheter with the tip projecting over the superior vena cava, stable in position. Bones/joints: No acute osseous abnormality is identified. Upper abdomen (limited): Unremarkable within the field of view. Impression: * Mild cardiomegaly with bilateral pulmonary vascular congestion, unchanged compared with January 21, 2025 at 04:13 [place] Daylight Time. * Interval resolution of the prior left lower lobe subsegmental atelectasis. * Right PICC with tip in the superior vena cava, stable in position. * No pleural effusion or pneumothorax identified on this single frontal view. /Margy
[2025-01-24] VITALS (13 sets, daily range): BP systolic 124–152; BP diastolic 68–89; PULSE 77–96; RESP 17–24; TEMP 97.4–98.4; O2SAT 92–96
[2025-01-24 05:33] LABS: NUCLEATED RED BLOOD CELLS 0.0 % (0.0-0.19); PLATELET COUNT (AUTO) 217.0 K/uL (130-400); RED BLOOD CELL COUNT(AUTO) 4.13 MIL/uL (4.00-5.50); RED CELL DISTRIBUTION WIDTH 12.8 % (11.0-15.5); WHITE BLOOD COUNT (AUTO) 11.1 K/uL (4.8-10.8)
[2025-01-24 06:01] LABS: CREATININE 1.4 mg/dL (0.5-1.0); GLOMERULAR FILTR. RATE CALC 36.0 mL/min (>90); GLUCOSE,RANDOM 158.0 mg/dL (70-105); PHOSPHORUS 3.1 mg/dL (2.5-4.9); SODIUM SERUM 141.0 mmol/L (136-145); UREA NITROGEN, BLOOD 48.0 mg/dL (7-18)
[2025-01-24 07:07] LABS: ABG BASE EXCESS 10.2 mmol/L (-2.0-3.0); ABG HCO3 34.2 mmol/L (21.0-28.0); ABG OXYGEN SATURATION 97.7 % (94.0-98.0); ABG PCO2 43 mmHg (32-45); ABG PH 7.521 (7.350-7.450); DEVICE COMMENT RR PRICILLA; PO2, ARTERIAL BG 91.7 mmHg (83.0-108.0); TEMPERATURE, CELSIUS BG 37.0 CELSIUS (35.5-37.0); VENT MODE, BG NC (ROOM AIR)
--- NOTE | 2025-01-24 11:48 | PN ---
[facility] PROGRESS NOTE Date Patient Seen: Jan 24, 2025 Time of Visit: 11:48 Supervising Physician: Dr. Bereket Bueno PROBLEM LIST: Sepsis present on admission Obstructing Right hydroureter with right hydronephrosis S/P placement of rt ureteral stent on 01/19/25 POA Acute on chronic hypoxemic respiratory failure, home oxygen dependent Acute COPD exacerbation Acute on chronic kidney disease Leukocytosis, POA Hypokalemia, resolved Diverticulosis, POA Elevated BNP, indeterminate diastolic dysfunction as per echo, pulmonary vascular congestion as per chest x-ray Home oxygen dependent Morbid obesity, BMI 43 Daily smoker INTERVAL HISTORY: Patient was seen at bedside with daughter present. She is currently on 3 L nasal cannula with a home O2 baseline of 2 L. Wheezing has subsided today. ABG shows PO2 of 91.3. States she feels her respiratory status has improved today. Daughter at bedside. Will start weaning steroids tomorrow. Plan Wean solu-medrol IV to oral prednisone 40mg PO daily x 5 days, then 20mg PO daily x 5 days then stop Continue supplemental O2, 2 L home O2 baseline Continue meropenem Continue Lasix JERALD negative for findings associated with endocarditis Patient has home oxygen Recommendation to follow up as outpatient at [facility] REVIEW OF SYSTEMS: 12 point ROS reviewed with patient. Pertinent positives mentioned above. Otherwise negative. PHYSICAL EXAM: GENERAL: alert, weak, awake oriented x 3 HEENT: EOMI, Sclera non icteric, moist mucosa NECK: Supple, no JVD, trachea midline LUNGS: Clear breath sounds bilaterally. No wheezes HEART: Regular rate and rhythm. Normal S1 and S2, without murmurs ABD: Abdomen soft, nontender. Bowel sounds present EXT: No clubbing cyanosis or edema NEURO: Alert and oriented to person, follows commands Vital Signs (last 8hr) Date Time Temp Pulse Resp B/P (MAP) Pulse Ox O2 Delivery O2 Flow Rate FiO2 01/24/25 10:56 94 18 01/24/25 08:00 92 Nasal Cannula* 3 32 01/24/25 08:00 98.4 92 18 129/81 96 Nasal Cannula 3.0 01/24/25 06:11 92 20 N/Cannula Low lpm 3.0 32 01/24/25 06:09 92 18 01/24/25 04:00 97.3 92 24 151/71 95 Nasal Cannula 3.0 LABS: Hematology Labs: Test 01/24/25 05:02 Range/Units White Blood Count 11.1 H 4.8-10.8 K/uL Red Blood Count 4.13 4.00-5.50 MIL/uL Hemoglobin 12.3 12.0-16.0 g/dL Hematocrit 38.7 36-48 % Mean Corpuscular Volume 93.7 79-99 fL Mean Corpuscular Hemoglobin 29.8 27.0-33.0 pg Mean Corpuscular Hemoglobin Concent 31.8 L 32.0-36.0 g/dL Red Cell Distribution Width 12.8 11.0-15.5 % Platelet Count 217 130-400 K/uL Mean Platelet Volume 10.1 7.5-10.5 fL Nucleated Red Blood Cells 0.0 0.0-0.19 % Chemistry Labs: Test 01/24/25 05:02 Range/Units Sodium Level 141 136-145 mmol/L Potassium Level 3.6 3.5-5.1 mmol/L Chloride Level 99 L 101-111 mmol/L Carbon Dioxide Level 36 H 21-32 mmol/L Blood Urea Nitrogen 48 H 7-18 mg/dL Creatinine 1.4 H 0.5-1.0 mg/dL Glomerular Filtration Rate Calc 36 >90 mL/min Random Glucose 158 H 70-105 mg/dL Total Calcium 7.8 L 8.5-10.1 mg/dL Phosphorus Level 3.1 2.5-4.9 mg/dL Magnesium Level 1.70 L 1.80-2.40 mg/dL B-Type Natriuretic Peptide 148 H 0-100 pg/mL DIAGNOSTICS / RADIOLOGY RESULTS: SERVICE [id number] REASON: coughing, congestion ORDERING PHYSICIAN: LEANN ADAMS [employer] PROCEDURE: CXR1VW - CHEST 1VW EXAM: CHEST RADIOGRAPH, 1 VIEW Technique: Single frontal view of the chest was obtained. Clinical Information: Coughing and congestion. Comparison: Chest radiograph dated January 21, 2025 at 04:13 [place] Daylight Time. Findings: Lungs and large airways: Interval resolution of the previously noted probable subsegmental atelectasis in the left lower lobe. No new focal airspace consolidation is identified. Pleura: No pleural effusion is visualized on this projection. No pneumothorax is detected. Cardiomediastinal contours: Mild cardiomegaly is present. Pulmonary vascular congestion is again noted and appears unchanged. Lines and devices: Right-sided peripherally inserted central catheter with the tip projecting over the superior vena cava, stable in position. Bones/joints: No acute osseous abnormality is identified. Upper abdomen (limited): Unremarkable within the field of view. Impression: * Mild cardiomegaly with bilateral pulmonary vascular congestion, unchanged compared with January 21, 2025 at 04:13 [place] Daylight Time. * Interval resolution of the prior left lower lobe subsegmental atelectasis. * Right PICC with tip in the superior vena cava, stable in position. * No pleural effusion or pneumothorax identified on this single frontal view. /[place] PLAN NEURO: Minimize central acting medications as possible. Maintain fall precautions, adequate lighting during the day PULMONARY: Supplemental 02 as needed. Maintain aspiration precautions at all times CARDIOVASCULAR: Follow hemodynamics. Vital signs per facility protocol GI & NUTRITION: Continue with nutritional support. Continue stool softeners and laxatives as needed. KIDNEYS & ELECTROLYTES: Strict monitoring of intake, output and overall fluid balance. Avoid nephrotoxic medications to the extent possible. Medications to be dosed according to renal function. Monitor electrolytes and replace as needed ENDOCRINE: Maintain blood glucose between 100-180 at all times. Hypoglycemia protocol in place INFECTIOUS DISEASE: Trend temperature, WBC and procalcitonin level Follow cultures, deescalate antibiotics as soon as possible. Panculture if new onset fever ONCOLOGY/HEMATOLOGY/COAGULATION: Monitor for s/s of bleeding Monitor hemoglobin, coagulation studies as needed SKIN: Pressure ulcer prevention per facility protocol Specialty mattress ORTHO/REHAB: Continue PT/OT Prophylaxis: Continue GI and DVT prophylaxis Code Status: Full Resuscitation Disposition: LEANN LANDEROS [employer] Jan 24, 2025 11:48
--- NOTE | 2025-01-24 15:12 | PN ---
[facility] PROGRESS NOTE Date of Service: Jan 24, 2025 Time of Service: 9:20 History of Present Illness Ms. Blackburn is an 89-year-old female that was seen and examined today on 01/17/2025 patient is currently alert and oriented x1. Patient states that it is December 2010. Patient states she does not know what city she is currently N but states that she is currently living with the daughter. Patient states that she has from [facility]. Discussed with primary nurse, Tona who states patient was previously alert and oriented x3 however after a dose of Dilaudid patient became less able to answer questions appropriately. The following was obtained from emergency room physician report. There was no previous medical records available for me to review. According to emergency room physician: 89-year-old female was brought to the ER due to abdominal pain, stated that the pain started earlier this morning and has been getting worse, patient was unable to tolerate a diet today due to abdominal pain. He denies nausea or vomiting. Patient reports history of constipation, stated that she had a bowel movement this ED but was very little stool came out. Today in the emergency department WBCs 12.6, left shift neutrophils 94%, potassium 3.4, no urinalysis has been collected or sent to lab, CT of abdomen and pelvis shows obstructive uropathy, right hydronephrosis, right hydro ureteral, 6 mm calculus. Emergency room physician recommended that patient be admitted so she could be evaluated by urology service. Urology service is being paste from the emergency department. Also creatinine was elevated at 1.7. There was no known baseline creatinine level. Nephrology service was also consulted from the emergency department. SUBJECTIVE: [ ] 01/18/2025: Patient was seen this morning in 420. Alert oriented to time place and person, denied fevers, chills hemodynamically stable. The patient reported discomfort in her abdomen and right flank. Culture showed 10-50 K colony-forming units and her [place]BCs on presentation were [id number] while in the ED that spiked to 23.4 K this morning. He lactic acid was 2.1 and Procal was 2.8. We added Zosyn on top of ceftriaxone for extended coverage. We spoke to Dr. Jimenez for management of hydronephrosis with 6 mm stone in the right ureter and he recommended placing a nephrostomy tube and obtaining cardiac clearance before doing so. Dr. Ribeiro was consulted and patient is considered to be at high risk for a low risk non cardiac surgery. He cleared her to proceed with intervention as the current benefits outweigh the risk from the cardiovascular standpoint. Pending transfer to any facility for placing nephrostomy tube as IR not available today. Patient remains NPO since this morning. 17:30: In the interim patient became more septic and decompensated. Her blood pressure dropped to 89/44, MAP 59 and IV bolus Ringer's lactate was started. Critical care team was consulted and a transfer to ICU order was placed. Critical Care team placed the order for Levophed however was waiting for the patient to be transferred to the ICU. 7:00 p.m.: After IV bolus patient's map is at 61. Patient is being transferred to ICU and will be started on Levophed. We agree with the plan from [facility] and we will continue their recommendations. 01/19/2025: Patient was seen in ICU in room 214. After being transferred to ICU patient was seen by Dr. Jimenez, performed a cystourethroscopy without removal of right ureteral calculus with stent placement and a retrograde pyelogram. Patient was noted to have purulent drainage after placing the ureteral stent and a Munguia's catheter was recommended to be placed for next 24-48 hours for anterograde drainage. Patient was started on meropenem and vancomycin and an ID consult has been obtained. Preliminary blood culture showed growth of Gram- negative rods, final identification pending. We will follow recommendations from urology, nephrology, ID, and critical care team. 01/20/2025 The patient was seen and examined in room 306. The patient was downgraded yesterday from ICU to the floor. The patient was lying comfortably on the bed with no complaints of shortness of breath, abdominal pain or chest pain. The patient had JERALD done today that showed no vegetations. Patient's blood culture came back positive for Proteus mirabilis and she is continued on antibiotic meropenem and vancomycin. The patient is maintaining 100% oxygen at 3 L. the patient was complaining of constipation therefore she was given 1 dose of lactulose. 01/21/2025: Patient was seen and examined in room 306. Patient was lying comfortably in her bed with her daughter at the bedside. Patient had Munguia catheter connected which showed blood tinged urine. Patient denied any flank pain or abdominal pain. Urologist advised to discontinue the Munguia's this morning and will follow up with the patient in clinic for definitive treatment of right ureteral calculi. Patient white count have come to 5000 and remains afebrile. Patient's urine and blood culture showed growth of Proteus mirabilis which is sensitive to meropenem and ID recommended to continue. We will get recommendations from ID and assess for possible discharge tomorrow. Critical care team we will discontinue IV Solu-Medrol and initiate p.o. prednisone 40 mg to be tapered in next 5 days. We also sent a referral for outpatient sleep study and case management evaluation for help finding a PCP. 01/22/2025: Patient was seen and examined at bedside. Munguia catheter has been discontinued. Patient is currently on Merrem as per blood culture and urine culture results. We have ordered a repeat blood culture and urine culture and we will follow up with the Infectious Disease recommendations for discharge. Patient is currently on 40 mg q.12h Lasix. Her urine output has been 3900 as compared to 200 input. Her WBCs have trended down to 5 K. 01/23/2025: Patient was seen and examined at bedside. She is currently on oxygen nasal cannula 3 L and states that she uses oxygen at home as well. She is receiving Merrem for bacteremia and UTI and her Lasix IV has been switched to oral. We are following with Infectious Disease recommendations for management of her antibiotic. As per critical Care consult, patient will benefit from several more doses Solu-Medrol. She will also require case management evaluation for discharge to SNF. 01/24/2025: Patient was seen and examined at bedside. She is pending test case developer evaluation for possible discharge to SNF. She continues on oxygen nasal cannula. Her repeat urine and blood cultures have been negative after48 hours. She is currently on IV Solu-Medrol which may be changed to oral tomorrow. We will follow up with critical care consult recommendations. REVIEW OF SYSTEMS CONSTITUTIONAL: Denies fevers, chills, or night sweats. No unintentional weight loss reported. NEUROLOGICAL: Denies headache, amaurosis fugax, motor weakness, sensory deficit, vertigo/spinning sensation, gait abnormalities, or tremors. ENT: No hearing loss, otalgia, otorrhea, rhinitis, rhinorrhea, hoarseness, or sore throat. CARDIOVASCULAR: Denies any exertional angina, dyspnea on exertion, orthopnea, paroxysmal nocturnal dyspnea, palpitations, life-threatening arrhythmias, claudication. PULMONARY: Denies any shortness of breath, cough, phlegm/sputum, hemoptysis, pleuritic chest pain. SLEEP: Denies morning headaches, daytime somnolence or napping. Denies difficulty falling asleep, staying asleep, waking from sleep. Denies knowledge of snoring. GASTROINTESTINAL: Denies any type of dysphagia to either liquids or solids. Denies nausea, vomiting, pyrosis, early satiety, abdominal pain, diarrhea, c onstipation, or changes in stool consistency or caliber. Denies coffee-ground emesis, hematemesis, hematochezia, or melanotic stools. GENITOURINARY: Right sided flank pain, improved. Denies frequency, urgency, nocturia, hematuria or incontinence PHYSICAL EXAM GENERAL APPEARANCE: The patient is awake, alert, and oriented, in no acute cardiopulmonary distress. NEUROLOGICAL: Cranial nerves II-XII grossly intact. Motor is 5/5 in bilateral upper and lower extremities proximal to distal. No sensory deficits. HEENT: Face is symmetric. Pupils are equal and reactive. Extraocular movements are intact. NECK: Supple. No JVD. No thyromegaly. No submental, submandibular, pre- /postauricular, occipital or supraclavicular lymphadenopathy. CHEST: Normal chest expansion. No Telemetry. LUNGS: Absence of any rales, rhonchi or any wheezing. CARDIOVASCULAR: Regular. S1 and S2 normal. No appreciable rubs, murmurs or gallops. ABDOMEN: Soft, nontender, and nondistended. There is no rebound, voluntary guarding, or rigidity. : Deferred. Vital Signs (last 8hr) Date Time Temp Pulse Resp B/P (MAP) Pulse Ox O2 Delivery O2 Flow Rate FiO2 01/24/25 12:00 97.3 95 17 144/81 100 Nasal Cannula 3.0 01/24/25 10:56 94 18 01/24/25 08:00 92 Nasal Cannula* 3 32 01/24/25 08:00 98.4 92 18 129/81 96 Nasal Cannula 3.0 LABS: Laboratory: Test 01/24/25 07:06 01/24/25 05:02 Range/Units Blood Gas Specimen Type Arterial Arterial Blood pH 7.521 H 7.350-7.450 Arterial Blood Partial Pressure CO2 43 32-45 mmHg Arterial Blood Partial Pressure O2 91.7 83.0-108.0 mmHg Arterial Blood HCO3 34.2 H 21.0-28.0 mmol/L Arterial Blood Oxygen Saturation 97.7 94.0-98.0 % Arterial Blood Base Excess 10.2 H -2.0-3.0 mmol/L Blood Gas Temperature 37.0 35.5-37.0 CELSIUS Blood Gas Flow-by 3.00 0.00-15.00 L/min Blood Gas Vent Mode NC ROOM AIR FiO2 32.0 % Blood Gas Specimen Comment RR JESE White Blood Count 11.1 H 4.8-10.8 K/uL Red Blood Count 4.13 4.00-5.50 MIL/uL Hemoglobin 12.3 12.0-16.0 g/dL Hematocrit 38.7 36-48 % Mean Corpuscular Volume 93.7 79-99 fL Mean Corpuscular Hemoglobin 29.8 27.0-33.0 pg Mean Corpuscular Hemoglobin Concent 31.8 L 32.0-36.0 g/dL Red Cell Distribution Width 12.8 11.0-15.5 % Platelet Count 217 130-400 K/uL Mean Platelet Volume 10.1 7.5-10.5 fL Nucleated Red Blood Cells 0.0 0.0-0.19 % Sodium Level 141 136-145 mmol/L Potassium Level 3.6 3.5-5.1 mmol/L Chloride Level 99 L 101-111 mmol/L Carbon Dioxide Level 36 H 21-32 mmol/L Blood Urea Nitrogen 48 H 7-18 mg/dL Creatinine 1.4 H 0.5-1.0 mg/dL Glomerular Filtration Rate Calc 36 >90 mL/min Random Glucose 158 H 70-105 mg/dL Total Calcium 7.8 L 8.5-10.1 mg/dL Phosphorus Level 3.1 2.5-4.9 mg/dL Magnesium Level 1.70 L 1.80-2.40 mg/dL B-Type Natriuretic Peptide 148 H 0-100 pg/mL Current Medications Medications (Trade) Dose Ordered Sig/Nirmala Route PRN Reason Start Time Stop Time Status Last Admin Dose Admin Acetaminophen (TYLenol 325MG TAB) 650 mg Q4HPRN PRN PO TEMP ABOVE 101.5/MILD PAIN 1-3 10/23/25 13:30 02/16/25 22:29 01/19/25 17:31 650 MG Acetaminophen (TYLenol 325MG TAB) 650 mg Q6H PRN PO TEMPERATURE GREATER THAN 101.5 01/17/25 22:30 01/18/25 13:29 DC 01/18/25 08:35 650 MG Acetaminophen (TYLenol 325MG TAB) 650 mg Q6H PRN PO MILD PAIN (1-3) 01/20/25 17:00 02/19/25 16:59 01/22/25 23:51 650 MG Albuterol (DUOneb) 1 UDVIAL Q6H IH 01/20/25 17:30 02/19/25 17:29 01/24/25 10:56 1 UDVIAL Ceftriaxone Sodium (ROCEphine 1G INJ) 1 gm Q24H IVPB 01/18/25 02:00 01/18/25 13:18 DC 01/18/25 02:53 1 GM Furosemide (LASix 20MG VIAL) 20 mg DAILY IV 01/20/25 09:00 01/20/25 09:01 DC 01/20/25 09:17 20 MG Furosemide (LASix 40MG TAB) 40 mg Q12H PO 01/23/25 07:30 02/22/25 07:29 01/24/25 06:24 40 MG Furosemide (LASix 40MG VIAL) 40 mg Q12H IV 01/21/25 10:00 01/23/25 07:27 DC 01/22/25 20:40 40 MG Hydralazine HCl (APRESOLine 20MG INJ) 10 mg Q6H PRN IV For:SBP above 160;DBP above 90 01/21/25 10:00 02/20/25 09:59 Hydromorphone HCl (DiLAUDid 0.5MG INJ) 0.25 mg Q4H PRN IVP SEVERE PAIN (7-10) 01/17/25 22:30 01/22/25 22:29 DC 01/18/25 20:49 0.25 MG Lactated Ringer's 1,000 ml @ 125 mls/hr Q8H IV 01/17/25 22:30 01/19/25 05:53 DC 01/18/25 23:40 125 MLS/HR Lactulose (Constulose 20gm/ 30ml Udcup) 20 gm BID PRN PO CONSTIPATION 01/17/25 22:30 02/16/25 22:29 01/21/25 22:06 20 GM Magnesium Sulfate 50 ml @ 0 mls/hr PROTOCOL PRN IV As needed 01/18/25 09:30 02/17/25 09:29 01/24/25 06:25 25 MLS/HR Melatonin (Melatonin) 5 mg HS PO 01/20/25 21:00 02/19/25 20:59 01/23/25 21:30 5 MG Meropenem (Merrem 1gm) 1 gm Q12H IVPB 01/18/25 19:30 01/19/25 05:56 DC 01/18/25 20:38 1 GM Meropenem (Merrem 1gm) 1 gm Q12H IVPB 01/19/25 09:00 01/19/25 19:30 DC 01/19/25 08:13 1 GM Meropenem (Merrem 1gm) 1 gm Q12H IVPB 01/19/25 23:30 01/19/25 23:28 DC Meropenem (Merrem 1gm) 1 gm Q12H IVPB 01/20/25 02:30 01/30/25 02:29 01/24/25 13:08 1 GM Methylprednisolone Sodium Succinate (Solu-medROL 40MG) 40 mg BID IVP 01/20/25 17:30 01/22/25 16:53 DC 01/22/25 09:47 40 MG Methylprednisolone Sodium Succinate (Solu-medROL 40MG) 40 mg Q8H IVP 01/23/25 14:00 02/22/25 13:59 01/24/25 13:08 40 MG Norepinephrine 250 ml @ 0 mls/hr PROTOCOL IV 01/18/25 18:00 01/19/25 23:15 DC Ondansetron HCl (zoFRAN 4MG INJ) 4 mg Q6H PRN IV NAUSEA/VOMITING 01/17/25 22:30 02/16/25 22:29 Pantoprazole Sodium (PROTonix 40MG INJ) 40 mg DAILY IV 01/18/25 09:00 01/23/25 10:47 DC 01/23/25 08:47 40 MG Pantoprazole Sodium (PROTonix 40MG TAB) 40 mg DAILY PO 01/24/25 09:00 02/23/25 08:59 01/24/25 08:31 40 MG Pharmacy Profile Note (Pharmacy Communication) 1 each ONCE MISC 01/18/25 19:30 01/18/25 19:22 DC Pharmacy Profile Note (Pharmacy Communication) 1 each ONCE MISC 01/19/25 23:30 01/19/25 23:18 DC Piperacillin Sod/ Tazobactam Sod (Zosyn 3.375gm+NS 50ml) 3.375 gm Q8H IV 01/18/25 13:30 01/18/25 22:40 DC 01/18/25 20:41 3.375 GM Prednisone (deltaSONE/ oraSONE 20MG TAB) 20 mg BID PO 01/22/25 21:00 01/23/25 13:56 DC 01/23/25 08:48 20 MG Sodium Chloride 1,000 ml @ 75 mls/hr [id number] IV 01/17/25 22:00 01/18/25 12:28 DC 01/17/25 22:32 75 MLS/HR Tamsulosin HCl (FloMAX) 0.4 mg DAILY PO 01/18/25 09:00 02/17/25 08:59 01/24/25 08:31 0.4 MG Vancomycin HCl (Vancomycin 750mg) 750 mg Q24H IVPB 01/19/25 23:00 01/21/25 01:22 DC 01/21/25 00:37 750 MG Vancomycin HCl (Vancomycin Protocol) 1 each AD IV 01/18/25 23:00 01/21/25 01:22 DC DIAGNOSTICS / RADIOLOGY: PATIENT: EUGENE BLACKBURN MR#: [id number] : 1935 SEX: F AGE: 89 LOCATION: 3BH ORDER 56 STATUS: ADM IN REPORT#: [id number] SERVICE 56 REASON: coughing, congestion ORDERING PHYSICIAN: LEANN ADAMS PROCEDURE: CXR1VW - CHEST 1VW EXAM: CHEST RADIOGRAPH, 1 VIEW Technique: Single frontal view of the chest was obtained. Clinical Information: Coughing and congestion. Comparison: Chest radiograph dated January 21, 2025 at 04:13 [place] Daylight Time. Findings: Lungs and large airways: Interval resolution of the previously noted probable subsegmental atelectasis in the left lower lobe. No new focal airspace consolidation is identified. Pleura: No pleural effusion is visualized on this projection. No pneumothorax is detected. Cardiomediastinal contours: Mild cardiomegaly is present. Pulmonary vascular congestion is again noted and appears unchanged. Lines and devices: Right-sided peripherally inserted central catheter with the tip projecting over the superior vena cava, stable in position. Bones/joints: No acute osseous abnormality is identified. Upper abdomen (limited): Unremarkable within the field of view. Impression: * Mild cardiomegaly with bilateral pulmonary vascular congestion, unchanged compared with January 21, 2025 at 04:13 [place] Daylight Time. * Interval resolution of the prior left lower lobe subsegmental atelectasis. * Right PICC with tip in the superior vena cava, stable in position. * No pleural effusion or pneumothorax identified on this single frontal view. /[place] DICTATED BY: KWAN VILLEGAS MD DATE: 01/23/252349 ELECTRONICALLY SIGNED BY: KWAN VILLEGAS MD DATE: 01/23/252349 ASSESSMENT: Sepsis due to acute complicated cystitis Obstructing Right hydroureter with right hydronephrosis,S/P placement of rt ureteral stent on 01/19/25 POA Acute hypoxemic respiratory failure Acute on chronic kidney disease Leukocytosis, POA Hypokalemia, resolved Diverticulosis, POA Elevated BNP, indeterminate diastolic dysfunction as per echo, pulmonary vascular congestion as per chest x-ray Morbid obesity PLAN: Sepsis due to acute complicated cystitis * Patient had elevated white cell count 12.6 on admission, which increased to 29.3. They reduced to 5K on 01/23. * Procalcitonin was 2.28 on admission, patient was tachycardic 108, tachypneic 24. meeting SIRS criteria for sepsis * Urine culture and blood culture showed growth of Proteus mirabilis * JERALD showed aortic valve is trileaflet, displaying nodular calcification on all three cusps, with adequate excursion and trivial aortic regurgitation. No valvular vegetation. * Repeat urine and blood cultures have been ordered. They are negative after 48 hours. * Continue meropenem 1g q.12 * We will obtain further recommendations from ID. * We will follow up with [facility] for SNF placement evaluation Obstructing Right hydroureter with right hydronephrosis,S/P placement of rt ureteral stent on 01/19/25 POA * Patient underwent cystourethroscopy with stent placement, without removal of right ureteral calculus * As per the family present at the bedside, urologist recommended to remove the renal calculi with lithotripsy. Patient will require follow up after discharge * Munguia's catheter discontinued as per Urology recommendation * Continue IV meropenem1 g q.12 * Continue p.r.n. Dilaudid 0.5 mg for pain Acute hypoxic respiratory failure, sepsis * Patient is saturating well at 3L of oxygen via nasal cannula, her baseline is 2 L oxygen at home * Chest x-ray showed patchy airspace disease more pronounced in the left mid and left lower lung * IV Lasix 40 mg q.12 was switched to PO lasix due to elevated bicarb on consecutive days' labs * Critical care team restarted IV Solu-Medrol due to presence of wheezing in u pper lobes * Protect airway and maintain aspiration precautions * Maintain saturation over 92 % Acute on chronic kidney disease, due to obstructive uropathy, resolved * Patient's creatinine on presentation was 1.7 and 1.4 now. Patient baseline creatinine unknown * Patient had obstructive uropathy for which a ureteral stent has been placed without removing the renal stone * Continue meropenem * Monitor electrolytes and BUN creatinine tomorrow * Avoid nephrotoxic agents and renally dose medications * We will follow Nephrology recommendations GI prophylaxis with pantoprazole and DVT prophylaxis with SCDs We will obtain recommendations from ID regarding antibiotics and possible discharge tomorrow and follow up with the urologist on outpatient basis. ATTESTATION BY PHYSICIAN I have seen and examined the patient. I reviewed the documentation, medical decision making, and treatment plan as noted by the resident physician above. I agree with the findings and plan of care. JULIA ALEJANDRA MD, MUHAMMAD H MD Jan 24, 2025 15:12
--- NOTE | 2025-01-24 18:00 | PN ---
INFECTIOUS DISEASE PROGRESS NOTE Date of Service: Jan 24, 2025 SUBJECTIVE: This is an 89-year-old female patient who was seen and examined at bedside in room 306. Patient is awake and oriented. Patient is afebrile, temperature is 97.5. Remains on oxygen via nasal cannula at 2 L/min. We will continue on Meropenem. Case management to evaluate for SNF placement to continue IV antibiotics and rehab. Patient and her daughter present at bedside and aware of this plan. PHYSICAL EXAM EYES: Anicteric. Pupils equal and reactive. HENT: No oral thrush seen, moist Oral mucosa NECK: Supple, no JVD or thyromegaly. LUNGS: Diminished. Continue on oxygen support via nasal cannula. CARDIOVASCULAR: S1, S2 regular. No murmur heard. ABDOMEN: Soft, non tender, bowel sounds present, no organomegaly CENTRAL NERVOUS SYSTEM: Awake, alert, oriented x 3. SKIN: No rashes, no swelling. LYMPHATICS: No peripheral lymphadenopathy MUSCULOSKELETAL: No joint swelling, erythema or tenderness. EXTREMITIES: No cyanosis or clubbing. Weakness. BACK: No deformity, no pressure ulcer. GENITOURINARY: No dysuria or hematuria. Vital Sign (Last 12 Hours) 01/24/25 01/24/25 01/24/25 01/24/25 06:09 06:11 08:00 08:00 Temp 98.4 Pulse 92 92 92 Resp 18 20 18 B/P (MAP) 129/81 Pulse Ox 96 92 O2 Delivery N/Cannula Low lpm Nasal Cannula Nasal Cannula* O2 Flow Rate 3.0 3.0 3 FiO2 32 32 01/24/25 01/24/25 01/24/25 01/24/25 10:56 12:00 15:25 15:25 Temp 97.3 Pulse 94 95 Resp 18 17 B/P (MAP) 144/81 124/89 152/72 Pulse Ox 100 O2 Delivery Nasal Cannula O2 Flow Rate 3.0 01/24/25 01/24/25:25 16:00 Temp 97.7 Pulse 95 Resp 18 B/P (MAP) 131/77 152/72 Pulse Ox 94 O2 Delivery Nasal Cannula O2 Flow Rate 3.0 Intake & Output (last 24hrs) 01/23/25 01/23/25 01/24/25 15:00 23:00 07:00 Intake Total 400.0 ml 100.0 ml Output Total 500 ml 600 ml Balance -500 ml -200.0 ml 100.0 ml LABS: Laboratory: Test 01/24/25 07:06 01/24/25 05:02 Range/Units Blood Gas Specimen Type Arterial Arterial Blood pH 7.521 H 7.350-7.450 Arterial Blood Partial Pressure CO2 43 32-45 mmHg Arterial Blood Partial Pressure O2 91.7 83.0-108.0 mmHg Arterial Blood HCO3 34.2 H 21.0-28.0 mmol/L Arterial Blood Oxygen Saturation 97.7 94.0-98.0 % Arterial Blood Base Excess 10.2 H -2.0-3.0 mmol/L Blood Gas Temperature 37.0 35.5-37.0 CELSIUS Blood Gas Flow-by 3.00 0.00-15.00 L/min Blood Gas Vent Mode NC ROOM AIR FiO2 32.0 % Blood Gas Specimen Comment RR JESE White Blood Count 11.1 H 4.8-10.8 K/uL Red Blood Count 4.13 4.00-5.50 MIL/uL Hemoglobin 12.3 12.0-16.0 g/dL Hematocrit 38.7 36-48 % Mean Corpuscular Volume 93.7 79-99 fL Mean Corpuscular Hemoglobin 29.8 27.0-33.0 pg Mean Corpuscular Hemoglobin Concent 31.8 L 32.0-36.0 g/dL Red Cell Distribution Width 12.8 11.0-15.5 % Platelet Count 217 130-400 K/uL Mean Platelet Volume 10.1 7.5-10.5 fL Nucleated Red Blood Cells 0.0 0.0-0.19 % Sodium Level 141 136-145 mmol/L Potassium Level 3.6 3.5-5.1 mmol/L Chloride Level 99 L 101-111 mmol/L Carbon Dioxide Level 36 H 21-32 mmol/L Blood Urea Nitrogen 48 H 7-18 mg/dL Creatinine 1.4 H 0.5-1.0 mg/dL Glomerular Filtration Rate Calc 36 >90 mL/min Random Glucose 158 H 70-105 mg/dL Total Calcium 7.8 L 8.5-10.1 mg/dL Phosphorus Level 3.1 2.5-4.9 mg/dL Magnesium Level 1.70 L 1.80-2.40 mg/dL B-Type Natriuretic Peptide 148 H 0-100 pg/mL ASSESSMENT: Gram-negative bacteremia. Urinary tract infection with Proteus mirabilis. Leukocytosis, resolving. Endocarditis ruled out, status post JERALD. Obstructing calculus in the right distal ureter, s/p successful manipulation and right ureteral stent placement on 01/18/2025. Bilateral nephrolithiasis. Acute renal failure. PLAN: Continue Meropenem. Discontinue vancomycin. Continue GI prophylaxis. Oxygen support as needed. We will follow up on the renal function. This case was reviewed and discussed with my supervising physician Dr. Waldron and the above assessment and plan was formulated and agreed upon. ATTESTATION BY PHYSICIAN I have seen and examined the patient. I reviewed the documentation, medical decision making, and treatment plan as noted by the mid-level provider above. I agree with the findings and plan of care. MILAD WALDRON MD, MIRTA L [facility] Jan 24, 2025 18:00
--- NOTE | 2025-01-24 22:39 | PN ---
PROGRESS NOTE Date of Service: Jan 24, 2025 Time of Service: 22:37 SUBJECTIVE: Patient has been transferred to outside of the intensive care unit. She is doing much better. Vitals normalized. Hemodynamics normal. No need for pressors. Munguia catheter continues to drain clear urine. She is postop day six status post stone manipulation in the right ureter and stent placement. A Munguia catheter was removed. She has been able to void. REVIEW OF SYSTEMS CONSTITUTIONAL: Denies fever, chills, or fatigue. HEAD/FACE: No signs of trauma. EENT: Denies eye pain, blurred vision, double vision, or light sensitivity. RESPIRATORY: Denies shortness of breath, cough, wheezing CARDIOVASCULAR: Denies chest pain, palpitation, syncope GASTROINTESTINAL/ABDOMINAL: Denies abdominal pain, constipation, diarrhea, nausea or vomiting GENITOURINARY: Denies dysuria or hematuria. MUSCULOSKELETAL: Denies joint pain, tenderness, or trauma. INTEGUMENTARY: Denies rash or itchiness NEUROLOGICAL/PSYCH: Denies anxiety, depression, heat or cold intolerance. PHYSICAL EXAM EYES: Anicteric. Pupils equal and reactive. HENT: No oral thrush seen, moist Oral mucosa NECK: Supple, no JVD or thyromegaly. LUNGS: Good air entry. No rales, no rhonchi. CARDIOVASCULAR: S1, S2 regular. No murmur heard. ABDOMEN: Soft, non tender, bowel sounds present, no organomegaly CENTRAL NERVOUS SYSTEM: Awake, alert, oriented x 3. No focal deficits. SKIN: No rashes, no swelling. LYMPHATICS: No peripheral lymphadenopathy MUSCULOSKELETAL: No joint swelling, erythema or tenderness. EXTREMITIES: No cyanosis or clubbing BACK: No deformity, no pressure ulcer. GENITOURINARY: Genitalia is normal Vital Signs (last 8hr) Date Time Temp Pulse Resp B/P (MAP) Pulse Ox O2 Delivery O2 Flow Rate FiO2 01/24/25 20:00 98.2 77 18 138/68 96 Nasal Cannula 3.0 01/24/25 18:41 96 20 N/Cannula Low lpm 3.0 32 01/24/25 16:00 97.7 95 18 152/72 94 Nasal Cannula 3.0 01/24/25 15:25 131/77 01/24/25 15:25 152/72 01/24/25 15:25 124/89 LABS: Laboratory: Test 01/24/25 07:06 01/24/25 05:02 Range/Units Blood Gas Specimen Type Arterial Arterial Blood pH 7.521 H 7.350-7.450 Arterial Blood Partial Pressure CO2 43 32-45 mmHg Arterial Blood Partial Pressure O2 91.7 83.0-108.0 mmHg Arterial Blood HCO3 34.2 H 21.0-28.0 mmol/L Arterial Blood Oxygen Saturation 97.7 94.0-98.0 % Arterial Blood Base Excess 10.2 H -2.0-3.0 mmol/L Blood Gas Temperature 37.0 35.5-37.0 CELSIUS Blood Gas Flow-by 3.00 0.00-15.00 L/min Blood Gas Vent Mode NC ROOM AIR FiO2 32.0 % Blood Gas Specimen Comment RR JESE White Blood Count 11.1 H 4.8-10.8 K/uL Red Blood Count 4.13 4.00-5.50 MIL/uL Hemoglobin 12.3 12.0-16.0 g/dL Hematocrit 38.7 36-48 % Mean Corpuscular Volume 93.7 79-99 fL Mean Corpuscular Hemoglobin 29.8 27.0-33.0 pg Mean Corpuscular Hemoglobin Concent 31.8 L 32.0-36.0 g/dL Red Cell Distribution Width 12.8 11.0-15.5 % Platelet Count 217 130-400 K/uL Mean Platelet Volume 10.1 7.5-10.5 fL Nucleated Red Blood Cells 0.0 0.0-0.19 % Sodium Level 141 136-145 mmol/L Potassium Level 3.6 3.5-5.1 mmol/L Chloride Level 99 L 101-111 mmol/L Carbon Dioxide Level 36 H 21-32 mmol/L Blood Urea Nitrogen 48 H 7-18 mg/dL Creatinine 1.4 H 0.5-1.0 mg/dL Glomerular Filtration Rate Calc 36 >90 mL/min Random Glucose 158 H 70-105 mg/dL Total Calcium 7.8 L 8.5-10.1 mg/dL Phosphorus Level 3.1 2.5-4.9 mg/dL Magnesium Level 1.70 L 1.80-2.40 mg/dL B-Type Natriuretic Peptide 148 H 0-100 pg/mL DIAGNOSTICS / RADIOLOGY: CT stone protocol obtained in the emergency department tonight did show multiple nonobstructing stones bilaterally. Stone burden is actually impressive. There is a 6 mm stone that is making his way down the right ureter with hydroureteronephrosis. ASSESSMENT: 89-year-old female presents to the hospital with a an obstructing right ureteral calculus. PLAN: 1. Patient is doing well. Pending transferred to a nursing facility. 2. Munguia catheter has been removed and she is voiding 3. She has a right ureteral stent. We will be making definitive plans for stone treatment when she sees us in the office. 30 minutes spent to complete this visit more than half of the time spent in counseling and coordination of care and addressing questions posed by patient. Some time was spent discussing with members of her care team. The rest of the time was spent reviewing medical records. FLORIDALMA CANALES MD Jan 24, 2025 22:39
--- NOTE | 2025-01-24 23:36 | PN ---
FOLLOWUP PROGRESS NOTE SUBJECTIVE: An 89-year-old female who presented with obstructive uropathy. The patient is status post cystoscopy with stent placement. She has had acute on chronic renal failure in the hospital. Creatinine has been elevated. The patient with bacteremia, remains on the broad-spectrum IV antibiotics, and she is being seen as a followup visit for all of the above. REVIEW OF SYSTEMS: CONSTITUTIONAL: She is feeling improved. HEENT: No change in vision. No change in hearing. CARDIOVASCULAR: No current chest pain or palpitations. PULMONARY: No shortness of breath. GASTROINTESTINAL: She is tolerating a diet. MUSCULOSKELETAL: Complains of weakness. PHYSICAL EXAMINATION: VITAL SIGNS: Blood pressure 129/81, pulse in the 90s. GENERAL: Chronically ill, elderly female, lying in bed on the medical floor. HEENT: Head is atraumatic. Pupils are equal, round and reactive to light. Oropharynx is without exudate. Nares clear. NECK: There is no JVP. There is no thyromegaly. No mass. CARDIOVASCULAR: Regular. There is no S3 or S4 gallop. LUNGS: Coarse with equal thoracic movement. ABDOMEN: Soft, nondistended, nontender. EXTREMITIES: Reveal no clubbing, no cyanosis. NEUROLOGICAL: She is awake. She is alert. LABORATORY DATA: Sodium 141, potassium 3.6, BUN 48, creatinine 1.4, hemoglobin 12, and hematocrit 38. IMPRESSION: Acute on chronic renal failure. Bacteremia. Hypertension. Obstructive uropathy. PLAN: The patient's creatinine has greatly improved since hospitalization. She remains on the antibiotics. The patient is being seen by case management for final disposition, which will be long-term IV antibiotics. We will continue to follow closely. Once the patient is discharged, the patient will follow up in the [facility]. TID: [id number] RECEIPT: [id number]
[2025-01-25] VITALS (13 sets, daily range): BP systolic 129–149; BP diastolic 69–81; PULSE 72–102; RESP 18–24; TEMP 97.5–98.2; O2SAT 95–97
[2025-01-25 05:39] LABS: CREATININE 1.7 mg/dL (0.5-1.0); GLOMERULAR FILTR. RATE CALC 29.0 mL/min (>90); GLUCOSE,RANDOM 161.0 mg/dL (70-105); SODIUM SERUM 138.0 mmol/L (136-145); UREA NITROGEN, BLOOD 55.0 mg/dL (7-18)
[2025-01-25 06:03] LABS: NUCLEATED RED BLOOD CELLS 0.0 % (0.0-0.19); PLATELET COUNT (AUTO) 266.0 K/uL (130-400); RED BLOOD CELL COUNT(AUTO) 4.0 MIL/uL (4.00-5.50); RED CELL DISTRIBUTION WIDTH 12.8 % (11.0-15.5); WHITE BLOOD COUNT (AUTO) 12.0 K/uL (4.8-10.8)
--- NOTE | 2025-01-25 09:55 | PN ---
[facility] PROGRESS NOTE Date of Service: Jan 25, 2025 Time of Service: 09:47 History of Present Illness Ms. Chatman is an 89-year-old female that was seen and examined today on 01/17/2025 patient is currently alert and oriented x1. Patient states that it is December 2010. Patient states she does not know what city she is currently N but states that she is currently living with the daughter. Patient states that she has from [facility]. Discussed with primary nurse, Tona who states patient was previously alert and oriented x3 however after a dose of Dilaudid patient became less able to answer questions appropriately. The following was obtained from emergency room physician report. There was no previous medical records available for me to review. According to emergency room physician: 89-year-old female was brought to the ER due to abdominal pain, stated that the pain started earlier this morning and has been getting worse, patient was unable to tolerate a diet today due to abdominal pain. He denies nausea or vomiting. Patient reports history of constipation, stated that she had a bowel movement this ED but was very little stool came out. Today in the emergency department WBCs 12.6, left shift neutrophils 94%, potassium 3.4, no urinalysis has been collected or sent to lab, CT of abdomen and pelvis shows obstructive uropathy, right hydronephrosis, right hydro ureteral, 6 mm calculus. Emergency room physician recommended that patient be admitted so she could be evaluated by urology service. Urology service is being paste from the emergency department. Also creatinine was elevated at 1.7. There was no known baseline creatinine level. Nephrology service was also consulted from the emergency department. SUBJECTIVE: [ ] 01/18/2025: Patient was seen this morning in 420. Alert oriented to time place and person, denied fevers, chills hemodynamically stable. The patient reported discomfort in her abdomen and right flank. Culture showed 10-50 K colony-formin g units and her WBCs on presentation were 69375 while in the ED that spiked to 23.4 K this morning. He lactic acid was 2.1 and Procal was 2.8. We added Zosyn on top of ceftriaxone for extended coverage. We spoke to Dr. Jimenez for management of hydronephrosis with 6 mm stone in the right ureter and he recommended placing a nephrostomy tube and obtaining cardiac clearance before doing so. Dr. Ribeiro was consulted and patient is considered to be at high risk for a low risk non cardiac surgery. He cleared her to proceed with intervention as the current benefits outweigh the risk from the cardiovascular standpoint. Pending transfer to any facility for placing nephrostomy tube as IR not available today. Patient remains NPO since this morning. 17:30: In the interim patient became more septic and decompensated. Her blood pressure dropped to 89/44, MAP 59 and IV bolus Ringer's lactate was started. Critical care team was consulted and a transfer to ICU order was placed. Critical Care team placed the order for Levophed however was waiting for the patient to be transferred to the ICU. 7:00 p.m.: After IV bolus patient's map is at 61. Patient is being transferred to ICU and will be started on Levophed. We agree with the plan from [facility] and we will continue their recommendations. 01/19/2025: Patient was seen in ICU in room 214. After being transferred to ICU patient was seen by Dr. Jimenez, performed a cystourethroscopy without removal of right ureteral calculus with stent placement and a retrograde pyelogram. Patient was noted to have purulent drainage after placing the ureteral stent and a Munguia's catheter was recommended to be placed for next 24-48 hours for anterograde drainage. Patient was started on meropenem and vancomycin and an ID consult has been obtained. Preliminary blood culture showed growth of Gram- negative rods, final identification pending. We will follow recommendations from urology, nephrology, ID, and critical care team. 01/20/2025 The patient was seen and examined in room 306. The patient was downgraded yesterday from ICU to the floor. The patient was lying comfortably on the bed with no complaints of shortness of breath, abdominal pain or chest pain. The patient had JERALD done today that showed no vegetations. Patient's blood culture came back positive for Proteus mirabilis and she is continued on antibiotic meropenem and vancomycin. The patient is maintaining 100% oxygen at 3 L. the patient was complaining of constipation therefore she was given 1 dose of lactulose. 01/21/2025: Patient was seen and examined in room 306. Patient was lying comfortably in her bed with her daughter at the bedside. Patient had Munguia catheter connected which showed blood tinged urine. Patient denied any flank pain or abdominal pain. Urologist advised to discontinue the Munguia's this morning and will follow up with the patient in clinic for definitive treatment of right ureteral calculi. Patient white count have come to 5000 and remains afebrile. Patient's urine and blood culture showed growth of Proteus mirabilis which is sensitive to meropenem and ID recommended to continue. We will get recommendations from ID and assess for possible discharge tomorrow. Critical care team we will discontinue IV Solu-Medrol and initiate p.o. prednisone 40 mg to be tapered in next 5 days. We also sent a referral for outpatient sleep study and case management evaluation for help finding a PCP. 01/22/2025: Patient was seen and examined at bedside. Munguia catheter has been discontinued. Patient is currently on Merrem as per blood culture and urine culture results. We have ordered a repeat blood culture and urine culture and we will follow up with the Infectious Disease recommendations for discharge. Patient is currently on 40 mg q.12h Lasix. Her urine output has been 3900 as compared to 200 input. Her WBCs have trended down to 5 K. 01/23/2025: Patient was seen and examined at bedside. She is currently on oxygen nasal cannula 3 L and states that she uses oxygen at home as well. She is receiving Merrem for bacteremia and UTI and her Lasix IV has been switched to oral. We are following with Infectious Disease recommendations for management of her antibiotic. As per critical Care consult, patient will benefit from several more doses Solu-Medrol. She will also require case management evaluation for discharge to SNF. 01/24/2025: Patient was seen and examined at bedside. She is pending classification case manager evaluation for possible discharge to SNF. She continues on oxygen nasal cannula. Her repeat urine and blood cultures have been negative after48 hours. She is currently on IV Solu-Medrol which may be changed to oral tomorrow. We will follow up with critical care consult recommendations. 01/25/25 examination patient is lying in bed. Primary nurse reports no events overnight. Patient is awaiting for SNF placement for long-term IV antibiotics. Trend up to 1.7 decreased dosage of Lasix. LR at 75 mL for 24 hours. Patient denied chest pain or shortness for breath. REVIEW OF SYSTEMS CONSTITUTIONAL: Denies fevers, chills, or night sweats. No unintentional weight loss reported. NEUROLOGICAL: Denies headache, amaurosis fugax, motor weakness, sensory deficit, vertigo/spinning sensation, gait abnormalities, or tremors. ENT: No hearing loss, otalgia, otorrhea, rhinitis, rhinorrhea, hoarseness, or sore throat. CARDIOVASCULAR: Denies any exertional angina, dyspnea on exertion, orthopnea, paroxysmal nocturnal dyspnea, palpitations, life-threatening arrhythmias, claudication. PULMONARY: Denies any shortness of breath, cough, phlegm/sputum, hemoptysis, pleuritic chest pain. SLEEP: Denies morning headaches, daytime somnolence or napping. Denies difficulty falling asleep, staying asleep, waking from sleep. Denies knowledge of snoring. GASTROINTESTINAL: Denies any type of dysphagia to either liquids or solids. Denies nausea, vomiting, pyrosis, early satiety, abdominal pain, diarrhea, constipation, or changes in stool consistency or caliber. Denies coffee-ground emesis, hematemesis, hematochezia, or melanotic stools. GENITOURINARY: Right sided flank pain, improved. Denies frequency, urgency, nocturia, hematuria or incontinence PHYSICAL EXAM GENERAL APPEARANCE: The patient is awake, alert, and oriented, in no acute cardiopulmonary distress. NEUROLOGICAL: Cranial nerves II-XII grossly intact. Motor is 5/5 in bilateral upper and lower extremities proximal to distal. No sensory deficits. HEENT: Face is symmetric. Pupils are equal and reactive. Extraocular movements are intact. NECK: Supple. No JVD. No thyromegaly. No submental, submandibular, pre- /postauricular, occipital or supraclavicular lymphadenopathy. CHEST: Normal chest expansion. No Telemetry. LUNGS: Absence of any rales, rhonchi or any wheezing. CARDIOVASCULAR: Regular. S1 and S2 normal. No appreciable rubs, murmurs or gallops. ABDOMEN: Soft, nontender, and nondistended. There is no rebound, voluntary guarding, or rigidity. : Deferred. Vital Signs (last 8hr) Date Time Temp Pulse Resp B/P (MAP) Pulse Ox O2 Delivery O2 Flow Rate FiO2 01/25/25 08:00 97.9 87 20 147/69 97 Nasal Cannula 3.0 28 132/81 130/71 01/25/25 07:25 90 20 N/Cannula Low lpm 3.0 32 01/25/25 06:55 87 18 01/25/25 04:00 98.1 80 18 133/78 96 Nasal Cannula 3.0 LABS: Laboratory: Test 01/25/25 05:17 01/24/25 07:06 01/24/25 05:02 Range/Units White Blood Count 12.0 H 4.8-10.8 K/uL Red Blood Count 4.00 4.00-5.50 MIL/uL Hemoglobin 12.1 12.0-16.0 g/dL Hematocrit 37.2 36-48 % Mean Corpuscular Volume 93.0 79-99 fL Mean Corpuscular Hemoglobin 30.3 27.0-33.0 pg Mean Corpuscular Hemoglobin Concent 32.5 32.0-36.0 g/dL Red Cell Distribution Width 12.8 11.0-15.5 % Platelet Count 266 130-400 K/uL Mean Platelet Volume 10.0 7.5-10.5 fL Nucleated Red Blood Cells 0.0 0.0-0.19 % Sodium Level 138 136-145 mmol/L Potassium Level 4.2 3.5-5.1 mmol/L Chloride Level 98 L 101-111 mmol/L Carbon Dioxide Level 34 H 21-32 mmol/L Blood Urea Nitrogen 55 H 7-18 mg/dL Creatinine 1.7 H 0.5-1.0 mg/dL Glomerular Filtration Rate Calc 29 >90 mL/min Random Glucose 161 H 70-105 mg/dL Total Calcium 8.0 L 8.5-10.1 mg/dL Blood Gas Specimen Type Arterial Arterial Blood pH 7.521 H 7.350-7.450 Arterial Blood Partial Pressure CO2 43 32-45 mmHg Arterial Blood Partial Pressure O2 91.7 83.0-108.0 mmHg Arterial Blood HCO3 34.2 H 21.0-28.0 mmol/L Arterial Blood Oxygen Saturation 97.7 94.0-98.0 % Arterial Blood Base Excess 10.2 H -2.0-3.0 mmol/L Blood Gas Temperature 37.0 35.5-37.0 CELSIUS Blood Gas Flow-by 3.00 0.00-15.00 L/min Blood Gas Vent Mode NC ROOM AIR FiO2 32.0 % Blood Gas Specimen Comment RR JESE Phosphorus Level 3.1 2.5-4.9 mg/dL Magnesium Level 1.70 L 1.80-2.40 mg/dL B-Type Natriuretic Peptide 148 H 0-100 pg/mL Current Medications Medications (Trade) Dose Ordered Sig/Nirmala Route PRN Reason Start Time Stop Time Status Last Admin Dose Admin Acetaminophen (TYLenol 325MG TAB) 650 mg Q4HPRN PRN PO TEMP ABOVE 101.5/MILD PAIN 1-3 01/18/25 13:30 02/16/25 22:29 01/19/25 17:31 650 MG Acetaminophen (TYLenol 325MG TAB) 650 mg Q6H PRN PO TEMPERATURE GREATER THAN 101.5 01/17/25 22:30 01/18/25 13:29 DC 01/18/25 08:35 650 MG Acetaminophen (TYLenol 325MG TAB) 650 mg Q6H PRN PO MILD PAIN (1-3) 01/20/25 17:00 02/19/25 16:59 01/22/25 23:51 650 MG Albuterol (DUOneb) 1 UDVIAL Q6H IH 01/20/25 17:30 02/19/25 17:29 01/25/25 06:55 1 UDVIAL Ceftriaxone Sodium (ROCEphine 1G INJ) 1 gm Q24H IVPB 01/18/25 02:00 01/18/25 13:18 DC 01/18/25 02:53 1 GM Furosemide (LASix 20MG VIAL) 20 mg DAILY IV 01/20/25 09:00 01/20/25 09:01 DC 01/20/25 09:17 20 MG Furosemide (LASix 40MG TAB) 40 mg Q12H PO 01/23/25 07:30 02/22/25 07:29 01/25/25 07:17 40 MG Furosemide (LASix 40MG VIAL) 40 mg Q12H IV 01/21/25 10:00 01/23/25 07:27 DC 01/22/25 20:40 40 MG Hydralazine HCl (APRESOLine 20MG INJ) 10 mg Q6H PRN IV For:SBP above 160;DBP above 90 01/21/25 10:00 02/20/25 09:59 Hydromorphone HCl (DiLAUDid 0.5MG INJ) 0.25 mg Q4H PRN IVP SEVERE PAIN (7-10) 01/17/25 22:30 01/22/25 22:29 DC 01/18/25 20:49 0.25 MG Lactated Ringer's 1,000 ml @ 125 mls/hr Q8H IV 01/17/25 22:30 01/19/25 05:53 DC 01/18/25 23:40 125 MLS/HR Lactulose (Constulose 20gm/ 30ml Udcup) 20 gm BID PRN PO CONSTIPATION 01/17/25 22:30 02/16/25 22:29 01/21/25 22:06 20 GM Magnesium Sulfate 50 ml @ 0 mls/hr PROTOCOL PRN IV As needed 01/18/25 09:30 02/17/25 09:29 01/24/25 06:25 25 MLS/HR Melatonin (Melatonin) 5 mg HS PO 01/20/25 21:00 02/19/25 20:59 01/24/25 22:30 5 MG Meropenem (Merrem 1gm) 1 gm Q12H IVPB 01/18/25 19:30 01/19/25 05:56 DC 01/18/25 20:38 1 GM Meropenem (Merrem 1gm) 1 gm Q12H IVPB 01/19/25 09:00 01/19/25 19:30 DC 01/19/25 08:13 1 GM Meropenem (Merrem 1gm) 1 gm Q12H IVPB 01/19/25 23:30 01/19/25 23:28 DC Meropenem (Merrem 1gm) 1 gm Q12H IVPB 01/20/25 02:30 01/30/25 02:29 01/25/25 02:39 1 GM Methylprednisolone Sodium Succinate (Solu-medROL 40MG) 40 mg BID IVP 01/20/25 17:30 01/22/25 16:53 DC 01/22/25 09:47 40 MG Methylprednisolone Sodium Succinate (Solu-medROL 40MG) 40 mg Q8H IVP 01/23/25 14:00 02/22/25 13:59 01/25/25 07:17 40 MG Norepinephrine 250 ml @ 0 mls/hr PROTOCOL IV 01/18/25 18:00 01/19/25 23:15 DC Ondansetron HCl (zoFRAN 4MG INJ) 4 mg Q6H PRN IV NAUSEA/VOMITING 01/17/25 22:30 02/16/25 22:29 Pantoprazole Sodium (PROTonix 40MG INJ) 40 mg DAILY IV 01/18/25 09:00 01/23/25 10:47 DC 01/23/25 08:47 40 MG Pantoprazole Sodium (PROTonix 40MG TAB) 40 mg DAILY PO 01/24/25 09:00 02/23/25 08:59 01/25/25 08:02 40 MG Pharmacy Profile Note (Pharmacy Communication) 1 each ONCE MISC 01/18/25 19:30 01/18/25 19:22 DC Pharmacy Profile Note (Pharmacy Communication) 1 each ONCE MISC 01/19/25 23:30 01/19/25 23:18 DC Piperacillin Sod/ Tazobactam Sod (Zosyn 3.375gm+NS 50ml) 3.375 gm Q8H IV 01/18/25 13:30 01/18/25 22:40 DC 01/18/25 20:41 3.375 GM Prednisone (deltaSONE/ oraSONE 20MG TAB) 20 mg BID PO 01/22/25 21:00 01/23/25 13:56 DC 01/23/25 08:48 20 MG Sodium Chloride 1,000 ml @ 75 mls/hr [id number] IV 01/17/25 22:00 01/18/25 12:28 DC 01/17/25 22:32 75 MLS/HR Tamsulosin HCl (FloMAX) 0.4 mg DAILY PO 01/18/25 09:00 02/17/25 08:59 01/25/25 08:03 0.4 MG Vancomycin HCl (Vancomycin 750mg) 750 mg Q24H IVPB 01/19/25 23:00 01/21/25 01:22 DC 01/21/25 00:37 750 MG Vancomycin HCl (Vancomycin Protocol) 1 each AD IV 01/18/25 23:00 01/21/25 01:22 DC DIAGNOSTICS / RADIOLOGY: [ ] ASSESSMENT: Sepsis due to acute complicated cystitis Obstructing Right hydroureter with right hydronephrosis,S/P placement of rt ureteral stent on 01/19/25 POA Acute hypoxemic respiratory failure Acute on chronic kidney disease Leukocytosis, POA Hypokalemia, resolved Diverticulosis, POA Elevated BNP, indeterminate diastolic dysfunction as per echo, pulmonary vascular congestion as per chest x-ray Morbid obesity PLAN: Sepsis due to acute complicated cystitis * Patient had elevated white cell count 12.6 on admission, which increased to 29.3. They reduced to 5K on 01/23. * Procalcitonin was 2.28 on admission, patient was tachycardic 108, tachypneic 24. meeting SIRS criteria for sepsis * Urine culture and blood culture showed growth of Proteus mirabilis * JERALD showed aortic valve is trileaflet, displaying nodular calcification on all three cusps, with adequate excursion and trivial aortic regurgitation. No valvular vegetation. * Repeat urine and blood cultures have been ordered. They are negative after 48 hours. * Continue meropenem 1g q.12 * We will obtain further recommendations from ID. * We will follow up with [employer] [facility] for SNF placement evaluation Obstructing Right hydroureter with right hydronephrosis,S/P placement of rt ureteral stent on 01/19/25 POA * Patient underwent cystourethroscopy with stent placement, without removal of right ureteral calculus * As per the family present at the bedside, urologist recommended to remove the renal calculi with lithotripsy. Patient will require follow up after discharge * Munguia's catheter discontinued as per Urology recommendation * Continue IV meropenem1 g q.12 * Continue p.r.n. Dilaudid 0.5 mg for pain Acute hypoxic respiratory failure, sepsis * Patient is saturating well at 3L of oxygen via nasal cannula, her baseline is 2 L oxygen at home * Chest x-ray showed patchy airspace disease more pronounced in the left mid and left lower lung * IV Lasix 40 mg q.12 was switched to PO lasix due to elevated bicarb on consecutive days' labs * Critical care team restarted IV Solu-Medrol due to presence of wheezing in upper lobes * Protect airway and maintain aspiration precautions * Maintain saturation over 92 % Acute on chronic kidney disease, due to obstructive uropathy, resolved * IV fluids LR at 75 mL/hour decrease Lasix to 20 mg b.i.d. * Patient had obstructive uropathy for which a ureteral stent has been placed without removing the renal stone * Continue meropenem * Monitor electrolytes and BUN creatinine tomorrow * Avoid nephrotoxic agents and renally dose medications * We will follow Nephrology recommendations GI prophylaxis with pantoprazole and DVT prophylaxis with SCDs We will obtain recommendations from ID regarding antibiotics and possible discharge tomorrow and follow up with the urologist on outpatient basis. ATTESTATION BY PHYSICIAN I have seen and examined the patient. I reviewed the documentation, medical decision making, and treatment plan as noted by the mid-level provider above. I agree with the findings and plan of care. NELLIE NICE MD, [facility] Jan 25, 2025 09:54
[2025-01-25] MEDS: LACTATED RINGERS 1000ML 1,000 ML IV SCH (13:47)
--- NOTE | 2025-01-25 18:42 | PN ---
INFECTIOUS DISEASE PROGRESS NOTE Date of Service: Jan 25, 2025 SUBJECTIVE: This is an 89-year-old female patient who was seen and examined at bedside in room 306. Patient is awake and oriented. We will continue on Meropenem. Case management working on SNF placement. PHYSICAL EXAM EYES: Anicteric. Pupils equal and reactive. HENT: No oral thrush seen, moist Oral mucosa NECK: Supple, no JVD or thyromegaly. LUNGS: Diminished. Continue on oxygen support via nasal cannula. CARDIOVASCULAR: S1, S2 regular. No murmur heard. ABDOMEN: Soft, non tender, bowel sounds present, no organomegaly CENTRAL NERVOUS SYSTEM: Awake, alert, oriented x 3. SKIN: No rashes, no swelling. LYMPHATICS: No peripheral lymphadenopathy MUSCULOSKELETAL: No joint swelling, erythema or tenderness. EXTREMITIES: No cyanosis or clubbing. Weakness. BACK: No deformity, no pressure ulcer. GENITOURINARY: No dysuria or hematuria. Vital Sign (Last 12 Hours) 01/25/25 01/25/25 01/25/25 01/25/25 06:55 07:25 08:00 08:02 Temp 97.9 Pulse 87 90 87 Resp 18 20 20 B/P (MAP) 147/69 132/81 130/71 Pulse Ox 97 97 O2 Delivery N/Cannula Low lpm Nasal Cannula Nasal Cannula* O2 Flow Rate 3.0 3.0 3 FiO2 32 28 32 01/25/25 01/25/25 01/25/25 11:08 11:52 17:00 Temp 98.1 97.9 Pulse 97 90 97 Resp 18 21 19 B/P (MAP) 138/81 140/69 Pulse Ox 96 98 O2 Delivery Nasal Cannula Room Air O2 Flow Rate 3.0 FiO2 28 21 Intake & Output (last 24hrs) 01/24/25 01/24/25 01/25/25 15:00 23:00 07:00 Intake Total 100.0 ml Balance 100.0 ml LABS: Laboratory: Test 01/25/25 05:17 01/24/25 07:06 01/24/25 05:02 Range/Units White Blood Count 12.0 H 4.8-10.8 K/uL Red Blood Count 4.00 4.00-5.50 MIL/uL Hemoglobin 12.1 12.0-16.0 g/dL Hematocrit 37.2 36-48 % Mean Corpuscular Volume 93.0 79-99 fL Mean Corpuscular Hemoglobin 30.3 27.0-33.0 pg Mean Corpuscular Hemoglobin Concent 32.5 32.0-36.0 g/dL Red Cell Distribution Width 12.8 11.0-15.5 % Platelet Count 266 130-400 K/uL Mean Platelet Volume 10.0 7.5-10.5 fL Nucleated Red Blood Cells 0.0 0.0-0.19 % Sodium Level 138 136-145 mmol/L Potassium Level 4.2 3.5-5.1 mmol/L Chloride Level 98 L 101-111 mmol/L Carbon Dioxide Level 34 H 21-32 mmol/L Blood Urea Nitrogen 55 H 7-18 mg/dL Creatinine 1.7 H 0.5-1.0 mg/dL Glomerular Filtration Rate Calc 29 >90 mL/min Random Glucose 161 H 70-105 mg/dL Total Calcium 8.0 L 8.5-10.1 mg/dL Blood Gas Specimen Type Arterial Arterial Blood pH 7.521 H 7.350-7.450 Arterial Blood Partial Pressure CO2 43 32-45 mmHg Arterial Blood Partial Pressure O2 91.7 83.0-108.0 mmHg Arterial Blood HCO3 34.2 H 21.0-28.0 mmol/L Arterial Blood Oxygen Saturation 97.7 94.0-98.0 % Arterial Blood Base Excess 10.2 H -2.0-3.0 mmol/L Blood Gas Temperature 37.0 35.5-37.0 CELSIUS Blood Gas Flow-by 3.00 0.00-15.00 L/min Blood Gas Vent Mode NC ROOM AIR FiO2 32.0 % Blood Gas Specimen Comment RR JESE Phosphorus Level 3.1 2.5-4.9 mg/dL Magnesium Level 1.70 L 1.80-2.40 mg/dL B-Type Natriuretic Peptide 148 H 0-100 pg/mL ASSESSMENT: Gram-negative bacteremia. Urinary tract infection with Proteus mirabilis. Leukocytosis, resolving. Endocarditis ruled out, status post JERALD. Obstructing calculus in the right distal ureter, s/p successful manipulation and right ureteral stent placement on 01/18/2025. Bilateral nephrolithiasis. Acute renal failure. PLAN: Continue Meropenem. Discontinue vancomycin. Continue GI prophylaxis. Oxygen support as needed. We will follow up on the renal function. This case was reviewed and discussed with my supervising physician Dr. Waldron and the above assessment and plan was formulated and agreed upon. ATTESTATION BY PHYSICIAN I have seen and examined the patient. I reviewed the documentation, medical decision making, and treatment plan as noted by the mid-level provider above. I agree with the findings and plan of care. MILAD WALDRON MD, [facility] Jan 25, 2025 18:42
--- NOTE | 2025-01-25 22:52 | PN ---
[facility] PROGRESS NOTE Date Patient Seen: Jan 25, 2025 Time of Visit: 22:50 Supervising Physician: Dr. Jesus Winchester PROBLEM LIST: Sepsis present on admission Obstructing Right hydroureter with right hydronephrosis S/P placement of right ureteral stent on 01/19/25 POA Acute on chronic hypoxemic respiratory failure, home oxygen dependent Acute COPD exacerbation Acute on chronic kidney disease Leukocytosis, POA Hypokalemia, resolved Diverticulosis, POA Elevated BNP, indeterminate diastolic dysfunction as per echo, pulmonary vascular congestion as per chest x-ray Home oxygen dependent Morbid obesity, BMI 43 Daily smoker INTERVAL HISTORY: Patient was seen at bedside. She is currently on 3 L nasal cannula with a home O2 baseline of 2 L. No wheezing. States she feels her respiratory status is back to baseline. No family at bedside. Plan Wean solu-medrol IV to oral prednisone 40mg PO daily x 5 days, then 20mg PO daily x 5 days then stop Continue supplemental O2, 2 L home O2 baseline Continue meropenem Continue Lasix JERALD negative for findings associated with endocarditis Patient has home oxygen Recommendation to follow up as outpatient at [facility] REVIEW OF SYSTEMS: 12 point ROS reviewed with patient. Pertinent positives mentioned above. Otherwise negative. PHYSICAL EXAM: GENERAL: alert, weak, awake oriented x 3 HEENT: EOMI, Sclera non icteric, moist mucosa NECK: Supple, no JVD, trachea midline LUNGS: Clear breath sounds bilaterally. No wheezes HEART: Regular rate and rhythm. Normal S1 and S2, without murmurs ABD: Abdomen soft, nontender. Bowel sounds present EXT: No clubbing cyanosis or edema NEURO: Alert and oriented to person, follows commands Vital Signs (last 8hr) Date Time Temp Pulse Resp B/P (MAP) Pulse Ox O2 Delivery O2 Flow Rate FiO2 01/25/25 20:00 97.5 102 24 149/76 95 Nasal Cannula 3.0 01/25/25 19:04 92 18 N/Cannula Low lpm 3.0 32 01/25/25 18:45 96 20 01/25/25 17:00 97.9 97 19 140/69 98 Room Air 21 LABS: Hematology Labs: Test 01/25/25 05:17 Range/Units White Blood Count 12.0 H 4.8-10.8 K/uL Red Blood Count 4.00 4.00-5.50 MIL/uL Hemoglobin 12.1 12.0-16.0 g/dL Hematocrit 37.2 36-48 % Mean Corpuscular Volume 93.0 79-99 fL Mean Corpuscular Hemoglobin 30.3 27.0-33.0 pg Mean Corpuscular Hemoglobin Concent 32.5 32.0-36.0 g/dL Red Cell Distribution Width 12.8 11.0-15.5 % Platelet Count 266 130-400 K/uL Mean Platelet Volume 10.0 7.5-10.5 fL Nucleated Red Blood Cells 0.0 0.0-0.19 % Chemistry Labs: Test 01/25/25 05:17 01/24/25 05:02 Range/Units Sodium Level 138 136-145 mmol/L Potassium Level 4.2 3.5-5.1 mmol/L Chloride Level 98 L 101-111 mmol/L Carbon Dioxide Level 34 H 21-32 mmol/L Blood Urea Nitrogen 55 H 7-18 mg/dL Creatinine 1.7 H 0.5-1.0 mg/dL Glomerular Filtration Rate Calc 29 >90 mL/min Random Glucose 161 H 70-105 mg/dL Total Calcium 8.0 L 8.5-10.1 mg/dL Phosphorus Level 3.1 2.5-4.9 mg/dL Magnesium Level 1.70 L 1.80-2.40 mg/dL B-Type Natriuretic Peptide 148 H 0-100 pg/mL DIAGNOSTICS / RADIOLOGY RESULTS: [ ] PLAN NEURO: Minimize central acting medications as possible. Maintain fall precautions, adequate lighting during the day PULMONARY: Supplemental 02 as needed. Maintain aspiration precautions at all times CARDIOVASCULAR: Follow hemodynamics. Vital signs per facility protocol GI & NUTRITION: Continue with nutritional support. Continue stool softeners and laxatives as needed. KIDNEYS & ELECTROLYTES: Strict monitoring of intake, output and overall fluid balance. Avoid nephrotoxic medications to the extent possible. Medications to be dosed according to renal function. Monitor electrolytes and replace as needed ENDOCRINE: Maintain blood glucose between 100-180 at all times. Hypoglycemia protocol in place INFECTIOUS DISEASE: Trend temperature, WBC and procalcitonin level Follow cultures, deescalate antibiotics as soon as possible. Panculture if new onset fever ONCOLOGY/HEMATOLOGY/COAGULATION: Monitor for s/s of bleeding Monitor hemoglobin, coagulation studies as needed SKIN: Pressure ulcer prevention per facility protocol Specialty mattress ORTHO/REHAB: Continue PT/OT Prophylaxis: Continue GI and DVT prophylaxis Code Status: Full Resuscitation Disposition: TBD LEANN ADAMSP Jan 25, 2025 22:52
--- NOTE | 2025-01-25 23:17 | PN ---
FOLLOWUP PROGRESS NOTE SUBJECTIVE: An 89-year-old female who has had a prolonged hospital course. She initially presented with bacteremia. The patient with obstructive uropathy, status post stent placement. She underwent cystoscopy. The patient is being set up for long-term IV antibiotics. The patient has had acute on chronic renal failure in the hospital. Creatinine has been fairly stable and she is being seen as a followup visit for all of the above. REVIEW OF SYSTEMS: CONSTITUTIONAL: She is feeling weak and tired. HEENT: No change in vision. No change in hearing. CARDIOVASCULAR: There is no current chest pains or palpitations. PULMONARY: There is no shortness of breath. GASTROINTESTINAL: Tolerating a diet. MUSCULOSKELETAL: Complains of weakness. PHYSICAL EXAMINATION: VITAL SIGNS: Blood pressure is 132/78, pulse 80. GENERAL: She is a chronically ill female, elderly, lying in bed on the medical floor. HEENT: Head is atraumatic. Pupils are equal, round and reactive to light. Oropharynx is without exudate. Nares are clear. NECK: There is no JVP. There is no thyromegaly. No mass. CARDIOVASCULAR: Regular. There is no S3 or S4 gallop. LUNGS: Coarse with equal thoracic movement. ABDOMEN: Soft, nondistended, nontender. EXTREMITIES: Reveal no clubbing or cyanosis. NEUROLOGICAL: She is awake. She is alert. LABORATORY DATA: Sodium 138, potassium 4.2, BUN 55, creatinine 1.7, hemoglobin 12, hematocrit 37, white count 12,000. IMPRESSION: Acute on chronic renal failure. Sepsis, bacteremia. Obstructive uropathy. Hypertension. PLAN: The patient's creatinine continues to remain fairly stable. The patient remains on the IV antibiotics. The patient does have the stent in place and is encouraged to follow up with urologist as an outpatient. Electrolytes have all been aggressively repleted. The patient is being seen by case management for final disposition. Once the patient is discharged, she can follow up in the [facility]. TID: [id number] RECEIPT: [id number]
[2025-01-26] VITALS (14 sets, daily range): BP systolic 98–151; BP diastolic 59–76; PULSE 86–120; RESP 18–24; TEMP 97.4–98.6; O2SAT 96–98
[2025-01-26 05:00] LABS: IMMATURE GRANULOCYTE ABSOLUTE 0.45 K/uL (0-1); NUCLEATED RED BLOOD CELLS 0.0 % (0.0-0.19); PLATELET COUNT (AUTO) 264 K/uL (130-400); RED BLOOD CELL COUNT(AUTO) 3.83 MIL/uL (4.00-5.50); RED CELL DISTRIBUTION WIDTH 12.8 % (11.0-15.5); WHITE BLOOD COUNT (AUTO) 12.6 K/uL (4.8-10.8)
[2025-01-26 05:28] LABS: ASPARTATE AMINOTRANSFERASE 46.0 U/L (10-37); CREATININE 1.2 mg/dL (0.5-1.0); GLOMERULAR FILTR. RATE CALC 44.0 mL/min (>90); GLUCOSE,RANDOM 121.0 mg/dL (70-105); SODIUM SERUM 139.0 mmol/L (136-145); TOTAL PROTEIN, SERUM 6.5 g/dL (6.0-8.3); UREA NITROGEN, BLOOD 57.0 mg/dL (7-18)
--- NOTE | 2025-01-26 11:03 | PN ---
[facility] PROGRESS NOTE Date of Service: Jan 26, 2025 Time of Service: 8:40 History of Present Illness Ms. Blackburn is an 89-year-old female that was seen and examined today on 01/17/2025 patient is currently alert and oriented x1. Patient states that it is December 2010. Patient states she does not know what city she is currently N but states that she is currently living with the daughter. Patient states that she has from [facility]. Discussed with primary nurse, Tona who states patient was previously alert and oriented x3 however after a dose of Dilaudid patient became less able to answer questions appropriately. The following was obtained from emergency room physician report. There was no previous medical records available for me to review. According to emergency room physician: 89-year-old female was brought to the ER due to abdominal pain, stated that the pain started earlier this morning and has been getting worse, patient was unable to tolerate a diet today due to abdominal pain. He denies nausea or vomiting. Patient reports history of constipation, stated that she had a bowel movement this ED but was very little stool came out. Today in the emergency department WBCs 12.6, left shift neutrophils 94%, potassium 3.4, no urinalysis has been collected or sent to lab, CT of abdomen and pelvis shows obstructive uropathy, right hydronephrosis, right hydro ureteral, 6 mm calculus. Emergency room physician recommended that patient be admitted so she could be evaluated by urology service. Urology service is being paste from the emergency department. Also creatinine was elevated at 1.7. There was no known baseline creatinine level. Nephrology service was also consulted from the emergency department. SUBJECTIVE: [ ] 01/18/2025: Patient was seen this morning in 420. Alert oriented to time place and person, denied fevers, chills hemodynamically stable. The patient reported discomfort in her abdomen and right flank. Culture showed 10-50 K colony-forming units and her WBCs on presentation were [id number] while in the ED that spiked to 23.4 K this morning. He lactic acid was 2.1 and Procal was 2.8. We added Zosyn on top of ceftriaxone for extended coverage. We spoke to Dr. Jimenez for management of hydronephrosis with 6 mm stone in the right ureter and he recommended placing a nephrostomy tube and obtaining cardiac clearance before doing so. Dr. Ribeiro was consulted and patient is considered to be at high risk for a low risk non cardiac surgery. He cleared her to proceed with intervention as the current benefits outweigh the risk from the cardiovascular standpoint. Pending transfer to any facility for placing nephrostomy tube as IR not available today. Patient remains NPO since this morning. 17:30: In the interim patient became more septic and decompensated. Her blood pressure dropped to 89/44, MAP 59 and IV bolus Ringer's lactate was started. Critical care team was consulted and a transfer to ICU order was placed. Critical Care team placed the order for Levophed however was waiting for the patient to be transferred to the ICU. 7:00 p.m.: After IV bolus patient's map is at 61. Patient is being transferred to ICU and will be started on Levophed. We agree with the plan from [facility] and we will continue their recommendations. 01/19/2025: Patient was seen in ICU in room 214. After being transferred to ICU patient was seen by Dr. Jimenez, performed a cystourethroscopy without removal of right ureteral calculus with stent placement and a retrograde pyelogram. Patient was noted to have purulent drainage after placing the ureteral stent and a Munguia's catheter was recommended to be placed for next 24-48 hours for anterograde drainage. Patient was started on meropenem and vancomycin and an ID consult has been obtained. Preliminary blood culture showed growth of Gram- negative rods, final identification pending. We will follow recommendations from urology, nephrology, ID, and critical care team. 01/20/2025 The patient was seen and examined in room 306. The patient was downgraded yesterday from ICU to the floor. The patient was lying comfortably on the bed with no complaints of shortness of breath, abdominal pain or chest pain. The patient had JERALD done today that showed no vegetations. Patient's blood culture came back positive for Proteus mirabilis and she is continued on antibiotic meropenem and vancomycin. The patient is maintaining 100% oxygen at 3 L. the patient was complaining of constipation therefore she was given 1 dose of lactulose. 01/21/2025: Patient was seen and examined in room 306. Patient was lying comfortably in her bed with her daughter at the bedside. Patient had Munguia catheter connected which showed blood tinged urine. Patient denied any flank pain or abdominal pain. Urologist advised to discontinue the Munguia's this morning and will follow up with the patient in clinic for definitive treatment of right ureteral calculi. Patient white count have come to 5000 and remains afebrile. Patient's urine and blood culture showed growth of Proteus mirabilis which is sensitive to meropenem and ID recommended to continue. We will get recommendations from ID and assess for possible discharge tomorrow. Critical care team we will discontinue IV Solu-Medrol and initiate p.o. prednisone 40 mg to be tapered in next 5 days. We also sent a referral for outpatient sleep study and case management evaluation for help finding a PCP. 01/22/2025: Patient was seen and examined at bedside. Munguia catheter has been discontinued. Patient is currently on Merrem as per blood culture and urine culture results. We have ordered a repeat blood culture and urine culture and we will follow up with the Infectious Disease recommendations for discharge. Patient is currently on 40 mg q.12h Lasix. Her urine output has been 3900 as compared to 200 input. Her WBCs have trended down to 5 K. 01/23/2025: Patient was seen and examined at bedside. She is currently on oxygen nasal cannula 3 L and states that she uses oxygen at home as well. She is receiving Merrem for bacteremia and UTI and her Lasix IV has been switched to oral. We are following with Infectious Disease recommendations for management of her antibiotic. As per critical Care consult, patient will benefit from several more doses Solu-Medrol. She will also require case management evaluation for discharge to SNF. 01/24/2025: Patient was seen and examined at bedside. She is pending lining caser evaluation for possible discharge to SNF. She continues on oxygen nasal cannula. Her repeat urine and blood cultures have been negative after48 hours. She is currently on IV Solu-Medrol which may be changed to oral tomorrow. We will follow up with critical care consult recommendations. 01/25/25: Examination patient is lying in bed. Primary nurse reports no events overnight. Patient is awaiting for SNF placement for long-term IV antibiotics. Trend up to 1.7 decreased dosage of Lasix. LR at 75 mL for 24 hours. Patient denied chest pain or shortness for breath. 01/26/25: Patient was seen and examined at bedside. She continues on3 L nasal cannula and is doing pretty good and reports no shortness of breath or chest pain. tire care manager is working on her SNF placement. Solu-Medrol has been discontinued and prednisone 40 mg daily has been started which will be weaned off slowly as per critical Care recommendations. REVIEW OF SYSTEMS CONSTITUTIONAL: Denies fevers, chills, or night sweats. No unintentional weight loss reported. NEUROLOGICAL: Denies headache, amaurosis fugax, motor weakness, sensory deficit, vertigo/spinning sensation, gait abnormalities, or tremors. ENT: No hearing loss, otalgia, otorrhea, rhinitis, rhinorrhea, hoarseness, or sore throat. CARDIOVASCULAR: Denies any exertional angina, dyspnea on exertion, orthopnea, paroxysmal nocturnal dyspnea, palpitations, life-threatening arrhythmias, claudication. PULMONARY: Denies any shortness of breath, cough, phlegm/sputum, hemoptysis, pleuritic chest pain. SLEEP: Denies morning headaches, daytime somnolence or napping. Denies difficulty falling asleep, staying asleep, waking from sleep. Denies knowledge of snoring. GASTROINTESTINAL: Denies any type of dysphagia to either liquids or solids. Denies nausea, vomiting, pyrosis, early satiety, abdominal pain, diarrhea, constipation, or changes in stool consistency or caliber. Denies coffee-ground emesis, hematemesis, hematochezia, or melanotic stools. GENITOURINARY: Right sided flank pain, improved. Denies frequency, urgency, nocturia, hematuria or incontinence PHYSICAL EXAM GENERAL APPEARANCE: The patient is awake, alert, and oriented, in no acute cardiopulmonary distress. NEUROLOGICAL: Cranial nerves II-XII grossly intact. Motor is 5/5 in bilateral upper and lower extremities proximal to distal. No sensory deficits. HEENT: Face is symmetric. Pupils are equal and reactive. Extraocular movements are intact. NECK: Supple. No JVD. No thyromegaly. No submental, submandibular, pre- /postauricular, occipital or supraclavicular lymphadenopathy. CHEST: Normal chest expansion. No Telemetry. LUNGS: Absence of any rales, rhonchi or any wheezing. CARDIOVASCULAR: Regular. S1 and S2 normal. No appreciable rubs, murmurs or gallops. ABDOMEN: Soft, nontender, and nondistended. There is no rebound, voluntary guarding, or rigidity. : Deferred. Vital Signs (last 8hr) Date Time Temp Pulse Resp B/P (MAP) Pulse Ox O2 Delivery O2 Flow Rate FiO2 01/26/25 07:57 97.5 89 20 139/70 98 Nasal Cannula 3.0 01/26/25 07:52 90 18 N/Cannula Low lpm 3.0 32 01/26/25 06:46 86 20 01/26/25 04:00 97.3 96 20 141/67 93 Nasal Cannula 3.0 LABS: Laboratory: Test 01/26/25 04:45 Range/Units White Blood Count 12.6 H 4.8-10.8 K/uL Red Blood Count 3.83 L 4.00-5.50 MIL/uL Hemoglobin 11.4 L 12.0-16.0 g/dL Hematocrit 35.6 L 36-48 % Mean Corpuscular Volume 93.0 79-99 fL Mean Corpuscular Hemoglobin 29.8 27.0-33.0 pg Mean Corpuscular Hemoglobin Concent 32.0 32.0-36.0 g/dL Red Cell Distribution Width 12.8 11.0-15.5 % Platelet Count 264 130-400 K/uL Mean Platelet Volume 9.7 7.5-10.5 fL Immature Granulocyte % (Auto) 3.6 H 0-1 % Neutrophils (%) (Auto) 55.4 40.0-77.0 % Lymphocytes (%) (Auto) 31.1 21.0-51.0 % Monocytes (%) (Auto) 6.9 3.0-13.0 % Eosinophils (%) (Auto) 2.6 0.0-8.0 % Basophils (%) (Auto) 0.4 0.0-5.0 % Neutrophils # (Auto) 7.0 1.8-7.7 K/uL Lymphocytes # (Auto) 3.9 1.0-4.8 K/uL Monocytes # (Auto) 0.9 0.1-1.0 K/uL Eosinophils # (Auto) 0.33 0.00-0.70 K/uL Basophils # (Auto) 0.05 0.00-0.20 K/uL Absolute Immature Granulocyte (auto 0.45 0-1 K/uL Nucleated Red Blood Cells 0.0 0.0-0.19 % Sodium Level 139 136-145 mmol/L Potassium Level 4.0 3.5-5.1 mmol/L Chloride Level 99 L 101-111 mmol/L Carbon Dioxide Level 34 H 21-32 mmol/L Blood Urea Nitrogen 57 H 7-18 mg/dL Creatinine 1.2 H 0.5-1.0 mg/dL Glomerular Filtration Rate Calc 44 >90 mL/min Random Glucose 121 H 70-105 mg/dL Total Calcium 8.1 L 8.5-10.1 mg/dL Magnesium Level 2.00 1.80-2.40 mg/dL Total Bilirubin 0.2 0.2-1.0 mg/dL Aspartate Amino Transf (AST/SGOT) 46 H 10-37 U/L Alanine Aminotransferase (ALT/SGPT) 95 H 12-78 U/L Alkaline Phosphatase 131 50-136 U/L Total Protein 6.5 6.0-8.3 g/dL Albumin 2.5 L 3.5-5.0 g/dL Current Medications Medications (Trade) Dose Ordered Sig/Nirmala Route PRN Reason Start Time Stop Time Status Last Admin Dose Admin Acetaminophen (TYLenol 325MG TAB) 650 mg Q4HPRN PRN PO TEMP ABOVE 101.5/MILD PAIN 1-3 01/18/25 13:30 02/16/25 22:29 01/19/25 17:31 650 MG Acetaminophen (TYLenol 325MG TAB) 650 mg Q6H PRN PO TEMPERATURE GREATER THAN 101.5 01/17/25 22:30 01/18/25 13:29 DC 01/18/25 08:35 650 MG Acetaminophen (TYLenol 325MG TAB) 650 mg Q6H PRN PO MILD PAIN (1-3) 01/20/25 17:00 02/19/25 16:59 01/25/25 23:53 650 MG Albuterol (DUOneb) 1 UDVIAL Q6H IH 01/20/25 17:30 02/19/25 17:29 01/26/25 06:46 1 UDVIAL Ceftriaxone Sodium (ROCEphine 1G INJ) 1 gm Q24H IVPB 01/18/25 02:00 01/18/25 13:18 DC 01/18/25 02:53 1 GM Furosemide (LASix 20MG TAB) 20 mg Q12H PO 01/26/25 08:00 02/25/25 07:59 01/26/25 09:00 20 MG Furosemide (LASix 20MG VIAL) 20 mg DAILY IV 01/20/25 09:00 01/20/25 09:01 DC 01/20/25 09:17 20 MG Furosemide (LASix 40MG TAB) 40 mg Q12H PO 01/23/25 07:30 01/25/25 10:35 DC 01/25/25 07:17 40 MG Furosemide (LASix 40MG VIAL) 40 mg Q12H IV 01/21/25 10:00 01/23/25 07:27 DC 01/22/25 20:40 40 MG Hydralazine HCl (APRESOLine 20MG INJ) 5 mg Q6H PRN IV For:SBP above 160;DBP above 90 01/25/25 16:00 02/24/25 15:59 Hydralazine HCl (APRESOLine 20MG INJ) 10 mg Q6H PRN IV For:SBP above 160;DBP above 90 01/21/25 10:00 01/25/25 10:35 DC Hydromorphone HCl (DiLAUDid 0.5MG INJ) 0.25 mg Q4H PRN IVP SEVERE PAIN (7-10) 01/17/25 22:30 01/22/25 22:29 DC 01/18/25 20:49 0.25 MG Lactated Ringer's 1,000 ml @ 50 mls/hr Q20H IV 01/25/25 11:00 02/24/25 10:59 01/26/25 09:00 50 MLS/HR Lactated Ringer's 1,000 ml @ 125 mls/hr Q8H IV 01/17/25 22:30 01/19/25 05:53 DC 01/18/25 23:40 125 MLS/HR Lactulose (Constulose 20gm/ 30ml Udcup) 20 gm BID PRN PO CONSTIPATION 01/17/25 22:30 02/16/25 22:29 01/21/25 22:06 20 GM Magnesium Sulfate 50 ml @ 0 mls/hr PROTOCOL PRN IV As needed 01/18/25 09:30 02/17/25 09:29 01/24/25 06:25 25 MLS/HR Melatonin (Melatonin) 5 mg HS PO 01/20/25 21:00 02/19/25 20:59 01/25/25 20:39 5 MG Meropenem (Merrem 1gm) 1 gm Q12H IVPB 01/18/25 19:30 01/19/25 05:56 DC 01/18/25 20:38 1 GM Meropenem (Merrem 1gm) 1 gm Q12H IVPB 01/19/25 09:00 01/19/25 19:30 DC 01/19/25 08:13 1 GM Meropenem (Merrem 1gm) 1 gm Q12H IVPB 01/19/25 23:30 01/19/25 23:28 DC Meropenem (Merrem 1gm) 1 gm Q12H IVPB 01/20/25 02:30 01/30/25 02:29 01/26/25 03:28 1 GM Methylprednisolone Sodium Succinate (Solu-medROL 40MG) 40 mg BID IVP 01/20/25 17:30 01/22/25 16:53 DC 01/22/25 09:47 40 MG Methylprednisolone Sodium Succinate (Solu-medROL 40MG) 40 mg Q8H IVP 01/23/25 14:00 01/25/25 10:29 DC 01/25/25 07:17 40 MG Norepinephrine 250 ml @ 0 mls/hr PROTOCOL IV 01/18/25 18:00 01/19/25 23:15 DC Ondansetron HCl (zoFRAN 4MG INJ) 4 mg Q6H PRN IV NAUSEA/VOMITING 01/17/25 22:30 02/16/25 22:29 Pantoprazole Sodium (PROTonix 40MG INJ) 40 mg DAILY IV 01/18/25 09:00 01/23/25 10:47 DC 01/23/25 08:47 40 MG Pantoprazole Sodium (PROTonix 40MG TAB) 40 mg DAILY PO 01/24/25 09:00 02/23/25 08:59 01/26/25 09:00 40 MG Pharmacy Profile Note (Pharmacy Communication) 1 each ONCE MISC 01/18/25 19:30 01/18/25 19:22 DC Pharmacy Profile Note (Pharmacy Communication) 1 each ONCE MISC 01/19/25 23:30 01/19/25 23:18 DC Piperacillin Sod/ Tazobactam Sod (Zosyn 3.375gm+NS 50ml) 3.375 gm Q8H IV 01/18/25 13:30 01/18/25 22:40 DC 01/18/25 20:41 3.375 GM Prednisone (deltaSONE/ oraSONE 20MG TAB) 20 mg BID PO 01/22/25 21:00 01/23/25 13:56 DC 01/23/25 08:48 20 MG Prednisone (deltaSONE/ oraSONE 20MG TAB) 40 mg DAILY PO 01/26/25 09:00 01/31/25 08:59 01/26/25 09:01 40 MG Sodium Chloride 1,000 ml @ 75 mls/hr Q54Q96H IV 01/17/25 22:00 01/18/25 12:28 DC 01/17/25 22:32 75 MLS/HR Tamsulosin HCl (FloMAX) 0.4 mg DAILY PO 01/18/25 09:00 02/17/25 08:59 01/26/25 09:00 0.4 MG Vancomycin HCl (Vancomycin 750mg) 750 mg Q24H IVPB 01/19/25 23:00 01/21/25 01:22 DC 01/21/25 00:37 750 MG Vancomycin HCl (Vancomycin Protocol) 1 each AD IV 01/18/25 23:00 01/21/25 01:22 DC DIAGNOSTICS / RADIOLOGY: PATIENT: EUGENE BLACKBURN MR#: [id number] : 1935 SEX: F AGE: 89 LOCATION: 3BH ORDER 56 STATUS: ADM IN REPORT#: [id number] SERVICE 56 REASON: coughing, congestion ORDERING PHYSICIAN: LEANN ADAMS EMBROIDERY PATTERNMAKER PROCEDURE: CXR1VW - CHEST 1VW EXAM: CHEST RADIOGRAPH, 1 VIEW Technique: Single frontal view of the chest was obtained. Clinical Information: Coughing and congestion. Comparison: Chest radiograph dated January 21, 2025 at 04:13 Eastern Daylight Time. Findings: Lungs and large airways: Interval resolution of the previously noted probable subsegmental atelectasis in the left lower lobe. No new focal airspace consolidation is identified. Pleura: No pleural effusion is visualized on this projection. No pneumothorax is detected. Cardiomediastinal contours: Mild cardiomegaly is present. Pulmonary vascular congestion is again noted and appears unchanged. Lines and devices: Right-sided peripherally inserted central catheter with the tip projecting over the superior vena cava, stable in position. Bones/joints: No acute osseous abnormality is identified. Upper abdomen (limited): Unremarkable within the field of view. Impression: * Mild cardiomegaly with bilateral pulmonary vascular congestion, unchanged compared with January 21, 2025 at 04:13 Eastern Daylight Time. * Interval resolution of the prior left lower lobe subsegmental atelectasis. * Right PICC with tip in the superior vena cava, stable in position. * No pleural effusion or pneumothorax identified on this single frontal view. /[employer] DICTATED BY: KWAN VILLEGAS MD DATE: 01/23/252349 ELECTRONICALLY SIGNED BY: KWAN VILLEGAS MD DATE: 01/23/252349 ASSESSMENT: Sepsis due to acute complicated cystitis Obstructing Right hydroureter with right hydronephrosis,S/P placement of rt ureteral stent on 01/19/25 POA Acute hypoxemic respiratory failure Acute on chronic kidney disease Leukocytosis, POA Hypokalemia, resolved Diverticulosis, POA Elevated BNP, indeterminate diastolic dysfunction as per echo, pulmonary vascular congestion as per chest x-ray Morbid obesity PLAN: Sepsis due to acute complicated cystitis * Patient had elevated white cell count 12.6 on admission, which increased to 29.3. They reduced to 5K on 01/23. * Procalcitonin was 2.28 on admission, patient was tachycardic 108, tachypneic 24. meeting SIRS criteria for sepsis * Urine culture and blood culture showed growth of Proteus mirabilis * JERALD showed aortic valve is trileaflet, displaying nodular calcification on all three cusps, with adequate excursion and trivial aortic regurgitation. No valvular vegetation. * Repeat urine and blood cultures have been ordered. They are negative after 48 hours. * Continue meropenem 1g q.12 * We will obtain further recommendations from ID. * We will follow up with Switch Inspector for SNF placement evaluation Obstructing Right hydroureter with right hydronephrosis,S/P placement of rt ur eteral stent on 01/19/25 POA * Patient underwent cystourethroscopy with stent placement, without removal of right ureteral calculus * As per the family present at the bedside, urologist recommended to remove the renal calculi with lithotripsy. Patient will require follow up after discharge * Munguia's catheter discontinued as per Urology recommendation * Continue IV meropenem1 g q.12 * Continue p.r.n. Dilaudid 0.5 mg for pain Acute hypoxic respiratory failure, sepsis * Patient is saturating well at 3L of oxygen via nasal cannula, her baseline is 2 L oxygen at home * Chest x-ray showed patchy airspace disease more pronounced in the left mid and left lower lung * IV Lasix 40 mg q.12 was switched to PO lasix due to elevated bicarb on consecutive days' labs * Critical care team restarted IV Solu-Medrol due to presence of wheezing in upper lobes. * Solu-Medrol was discontinued on 01/25 and patient was started on prednisone 40 mg p.o.. It will be weaned off slowly as per critical Care recommendations. * Maintain aspiration precautions * Maintain saturation over 92 % Acute on chronic kidney disease, due to obstructive uropathy, resolved * IV fluids LR at 75 mL/hour decrease Lasix to 20 mg b.i.d. * Patient had obstructive uropathy for which a ureteral stent has been placed without removing the renal stone * Continue meropenem * Monitor electrolytes and BUN creatinine tomorrow * Avoid nephrotoxic agents and renally dose medications * We will follow Nephrology recommendations GI prophylaxis with pantoprazole and DVT prophylaxis with SCDs We will obtain recommendations from ID regarding antibiotics and possible discharge tomorrow and follow up with the urologist on outpatient basis. ATTESTATION BY PHYSICIAN I have seen and examined the patient. I reviewed the documentation, medical decision making, and treatment plan as noted by the resident physician above. I agree with the findings and plan of care. JULIA ALEJANDRA MD, MUHAMMAD H MD Jan 26, 2025 11:03
--- NOTE | 2025-01-26 12:02 | PN ---
[facility] PROGRESS NOTE Date Patient Seen: Jan 26, 2025 Time of Visit: 12:02 Supervising Physician: Dr. Greg Winchester PROBLEM LIST: Sepsis present on admission Obstructing Right hydroureter with right hydronephrosis S/P placement of right ureteral stent on 01/19/25 POA Acute on chronic hypoxemic respiratory failure, home oxygen dependent Acute COPD exacerbation Acute on chronic kidney disease Leukocytosis, POA Hypokalemia, resolved Diverticulosis, POA Elevated BNP, indeterminate diastolic dysfunction as per echo, pulmonary vascular congestion as per chest x-ray Home oxygen dependent Morbid obesity, BMI 43 Daily smoker INTERVAL HISTORY: Patient was seen at bedside. She is currently on room air, uses home O2 baseline of 2 L. No wheezing. Sitting on bedside chair. States she feels her respiratory status is back to baseline. Daughter at bedside. BIS will sign off at this time. Please re-consult if needed. Plan Wean solu-medrol IV to oral prednisone 40mg PO daily x 5 days, then 20mg PO daily x 5 days then stop Continue supplemental O2, 2 L home O2 baseline Continue meropenem Continue Lasix JERALD negative for findings associated with endocarditis Patient has home oxygen Recommendation to follow up as outpatient at [facility] REVIEW OF SYSTEMS: 12 point ROS reviewed with patient. Pertinent positives mentioned above. Otherwise negative. PHYSICAL EXAM: GENERAL: alert, weak, awake oriented x 3 HEENT: EOMI, Sclera non icteric, moist mucosa NECK: Supple, no JVD, trachea midline LUNGS: Clear breath sounds bilaterally. No wheezes HEART: Regular rate and rhythm. Normal S1 and S2, without murmurs ABD: Abdomen soft, nontender. Bowel sounds present EXT: No clubbing cyanosis or edema NEURO: Alert and oriented to person, follows commands Vital Signs (last 8hr) Date Time Temp Pulse Resp B/P (MAP) Pulse Ox O2 Delivery O2 Flow Rate FiO2 01/26/25 11:36 97.5 96 20 140/65 94 Nasal Cannula 3.0 01/26/25 11:13 90 20 01/26/25 07:57 97.5 89 20 139/70 98 Nasal Cannula 3.0 01/26/25 07:52 90 18 N/Cannula Low lpm 3.0 32 01/26/25 06:46 86 20 LABS: Hematology Labs: Test 01/26/25 04:45 Range/Units White Blood Count 12.6 H 4.8-10.8 K/uL Red Blood Count 3.83 L 4.00-5.50 MIL/uL Hemoglobin 11.4 L 12.0-16.0 g/dL Hematocrit 35.6 L 36-48 % Mean Corpuscular Volume 93.0 79-99 fL Mean Corpuscular Hemoglobin 29.8 27.0-33.0 pg Mean Corpuscular Hemoglobin Concent 32.0 32.0-36.0 g/dL Red Cell Distribution Width 12.8 11.0-15.5 % Platelet Count 264 130-400 K/uL Mean Platelet Volume 9.7 7.5-10.5 fL Immature Granulocyte % (Auto) 3.6 H 0-1 % Neutrophils (%) (Auto) 55.4 40.0-77.0 % Lymphocytes (%) (Auto) 31.1 21.0-51.0 % Monocytes (%) (Auto) 6.9 3.0-13.0 % Eosinophils (%) (Auto) 2.6 0.0-8.0 % Basophils (%) (Auto) 0.4 0.0-5.0 % Neutrophils # (Auto) 7.0 1.8-7.7 K/uL Lymphocytes # (Auto) 3.9 1.0-4.8 K/uL Monocytes # (Auto) 0.9 0.1-1.0 K/uL Eosinophils # (Auto) 0.33 0.00-0.70 K/uL Basophils # (Auto) 0.05 0.00-0.20 K/uL Absolute Immature Granulocyte (auto 0.45 0-1 K/uL Nucleated Red Blood Cells 0.0 0.0-0.19 % Chemistry Labs: Test 01/26/25 04:45 Range/Units Sodium Level 139 136-145 mmol/L Potassium Level 4.0 3.5-5.1 mmol/L Chloride Level 99 L 101-111 mmol/L Carbon Dioxide Level 34 H 21-32 mmol/L Blood Urea Nitrogen 57 H 7-18 mg/dL Creatinine 1.2 H 0.5-1.0 mg/dL Glomerular Filtration Rate Calc 44 >90 mL/min Random Glucose 121 H 70-105 mg/dL Total Calcium 8.1 L 8.5-10.1 mg/dL Magnesium Level 2.00 1.80-2.40 mg/dL Total Bilirubin 0.2 0.2-1.0 mg/dL Aspartate Amino Transf (AST/SGOT) 46 H 10-37 U/L Alanine Aminotransferase (ALT/SGPT) 95 H 12-78 U/L Alkaline Phosphatase 131 50-136 U/L Total Protein 6.5 6.0-8.3 g/dL Albumin 2.5 L 3.5-5.0 g/dL DIAGNOSTICS / RADIOLOGY RESULTS: [ ] PLAN NEURO: Minimize central acting medications as possible. Maintain fall precautions, adequate lighting during the day PULMONARY: Supplemental 02 as needed. Maintain aspiration precautions at all times CARDIOVASCULAR: Follow hemodynamics. Vital signs per facility protocol GI & NUTRITION: Continue with nutritional support. Continue stool softeners and laxatives as needed. KIDNEYS & ELECTROLYTES: Strict monitoring of intake, output and overall fluid balance. Avoid nephrotoxic medications to the extent possible. Medications to be dosed according to renal function. Monitor electrolytes and replace as needed ENDOCRINE: Maintain blood glucose between 100-180 at all times. Hypoglycemia protocol in place INFECTIOUS DISEASE: Trend temperature, WBC and procalcitonin level Follow cultures, deescalate antibiotics as soon as possible. Panculture if new onset fever ONCOLOGY/HEMATOLOGY/COAGULATION: Monitor for s/s of bleeding Monitor hemoglobin, coagulation studies as needed SKIN: Pressure ulcer prevention per facility protocol Specialty mattress ORTHO/REHAB: Continue PT/OT Prophylaxis: Continue GI and DVT prophylaxis Code Status: Full Resuscitation Disposition: LEANN LANDEROS Jan 26, 2025 12:02
--- NOTE | 2025-01-26 20:14 | PN ---
FOLLOWUP PROGRESS NOTE SUBJECTIVE: An 89-year-old female who initially presented with sepsis. The patient was found to have obstructive uropathy. The patient was seen by Urology and had a stent placed. The patient has had [id number] renal failure in the hospital. Creatinine has been elevated. The patient is being seen by case management for final disposition. The patient is being seen as a followup visit for all of the above. REVIEW OF SYSTEMS: GENERAL: She is feeling weak and tired. HEENT: No change in vision. No change in hearing. CARDIOVASCULAR: There are no current chest pains or palpitations. PULMONARY: No shortness of breath. GASTROINTESTINAL: She is tolerating a diet. MUSCULOSKELETAL: Complains of weakness. PHYSICAL EXAMINATION: VITAL SIGNS: Blood pressure 139/70, pulse in the 80s. GENERAL: Chronically ill female, lying in bed on the medical floor. HEENT: Head is atraumatic. Pupils are equal, round, and reactive to light. Oropharynx is without exudate. Nares are clear. NECK: There is no JVP. There is no thyromegaly. No masses. CARDIOVASCULAR: Regular. There is no S3 or S4 gallop. LUNGS: Coarse with equal thoracic movement. ABDOMEN: Soft, nondistended, and nontender. EXTREMITIES: Reveal no clubbing, no cyanosis. NEUROLOGICAL: She is awake. She is alert. LABORATORY DATA: Hemoglobin 11, hematocrit 35, white cell count is 12,000. Sodium 139, potassium 4, BUN 57, creatinine 1.2. IMPRESSION: * Acute renal failure. * Sepsis. * Obstructive uropathy. * Anemia. PLAN: The patient's creatinine continues to remain fairly stable. The patient remains on the IV antibiotics. The patient is being seen by case management in regard to final disposition. Electrolytes have all been aggressively repleted. Once the patient is discharged, the patient can follow up in the renal clinic. TID: [id number] RECEIPT: [id number]
--- NOTE | 2025-01-26 23:22 | PN ---
INFECTIOUS DISEASE PROGRESS NOTE Date of Service: Jan 26, 2025 SUBJECTIVE: This is an 89-year-old female patient who was seen and examined at bedside in room 306. Patient is awake and oriented. We will continue on Meropenem. Patient has been referred to [facility] and pending insurance authorization. PHYSICAL EXAM EYES: Anicteric. Pupils equal and reactive. HENT: No oral thrush seen, moist Oral mucosa NECK: Supple, no JVD or thyromegaly. LUNGS: Diminished. Continue on oxygen support via nasal cannula. CARDIOVASCULAR: S1, S2 regular. No murmur heard. ABDOMEN: Soft, non tender, bowel sounds present, no organomegaly CENTRAL NERVOUS SYSTEM: Awake, alert, oriented x 3. SKIN: No rashes, no swelling. LYMPHATICS: No peripheral lymphadenopathy MUSCULOSKELETAL: No joint swelling, erythema or tenderness. EXTREMITIES: No cyanosis or clubbing. Weakness. BACK: No deformity, no pressure ulcer. GENITOURINARY: No dysuria or hematuria. Vital Sign (Last 12 Hours) 01/26/25 01/26/25 01/26/25 01/26/25 11:36 15:40 15:41 15:58 Temp 97.5 97.7 Pulse 96 104 120 116 Resp 20 18 B/P (MAP) 140/65 125/66 98/65 137/69 Pulse Ox 94 O2 Delivery Nasal Cannula Nasal Cannula O2 Flow Rate 3.0 3.0 01/26/25 01/26/25 01/26/25 18:48 18:48 20:00 Temp 98.6 Pulse 95 95 96 Resp 20 18 18 B/P (MAP) 126/59 Pulse Ox 94 O2 Delivery N/Cannula Low lpm Nasal Cannula O2 Flow Rate 3.0 3.0 FiO2 32 Intake & Output (last 24hrs) 01/25/25 01/25/25 01/26/25 15:00 23:00 07:00 Intake Total 300.0 ml Balance 300.0 ml LABS: Laboratory: Test 01/26/25 04:45 Range/Units White Blood Count 12.6 H 4.8-10.8 K/uL Red Blood Count 3.83 L 4.00-5.50 MIL/uL Hemoglobin 11.4 L 12.0-16.0 g/dL Hematocrit 35.6 L 36-48 % Mean Corpuscular Volume 93.0 79-99 fL Mean Corpuscular Hemoglobin 29.8 27.0-33.0 pg Mean Corpuscular Hemoglobin Concent 32.0 32.0-36.0 g/dL Red Cell Distribution Width 12.8 11.0-15.5 % Platelet Count 264 130-400 K/uL Mean Platelet Volume 9.7 7.5-10.5 fL Immature Granulocyte % (Auto) 3.6 H 0-1 % Neutrophils (%) (Auto) 55.4 40.0-77.0 % Lymphocytes (%) (Auto) 31.1 21.0-51.0 % Monocytes (%) (Auto) 6.9 3.0-13.0 % Eosinophils (%) (Auto) 2.6 0.0-8.0 % Basophils (%) (Auto) 0.4 0.0-5.0 % Neutrophils # (Auto) 7.0 1.8-7.7 K/uL Lymphocytes # (Auto) 3.9 1.0-4.8 K/uL Monocytes # (Auto) 0.9 0.1-1.0 K/uL Eosinophils # (Auto) 0.33 0.00-0.70 K/uL Basophils # (Auto) 0.05 0.00-0.20 K/uL Absolute Immature Granulocyte (auto 0.45 0-1 K/uL Nucleated Red Blood Cells 0.0 0.0-0.19 % Sodium Level 139 136-145 mmol/L Potassium Level 4.0 3.5-5.1 mmol/L Chloride Level 99 L 101-111 mmol/L Carbon Dioxide Level 34 H 21-32 mmol/L Blood Urea Nitrogen 57 H 7-18 mg/dL Creatinine 1.2 H 0.5-1.0 mg/dL Glomerular Filtration Rate Calc 44 >90 mL/min Random Glucose 121 H 70-105 mg/dL Total Calcium 8.1 L 8.5-10.1 mg/dL Magnesium Level 2.00 1.80-2.40 mg/dL Total Bilirubin 0.2 0.2-1.0 mg/dL Aspartate Amino Transf (AST/SGOT) 46 H 10-37 U/L Alanine Aminotransferase (ALT/SGPT) 95 H 12-78 U/L Alkaline Phosphatase 131 50-136 U/L Total Protein 6.5 6.0-8.3 g/dL Albumin 2.5 L 3.5-5.0 g/dL ASSESSMENT: Gram-negative bacteremia. Urinary tract infection with Proteus mirabilis. Leukocytosis, resolving. Endocarditis ruled out, status post JERALD. Obstructing calculus in the right distal ureter, s/p successful manipulation and right ureteral stent placement on 01/18/2025. Bilateral nephrolithiasis. Acute renal failure. PLAN: Continue Meropenem. Discontinue vancomycin. Continue GI prophylaxis. Oxygen support as needed. We will follow up on the renal function. This case was reviewed and discussed with my supervising physician Dr. Waldron and the above assessment and plan was formulated and agreed upon. ATTESTATION BY PHYSICIAN I have seen and examined the patient. I reviewed the documentation, medical decision making, and treatment plan as noted by the mid-level provider above. I agree with the findings and plan of care. MILAD WALDRON MD, [facility] Jan 26, 2025 23:22
[2025-01-27] VITALS (13 sets, daily range): BP systolic 98–144; BP diastolic 58–76; PULSE 82–97; RESP 18–20; TEMP 97.4–98.2; O2SAT 95–98
[2025-01-27 03:43] LABS: NUCLEATED RED BLOOD CELLS 0.0 % (0.0-0.19); PLATELET COUNT (AUTO) 269.0 K/uL (130-400); RED BLOOD CELL COUNT(AUTO) 3.61 MIL/uL (4.00-5.50); RED CELL DISTRIBUTION WIDTH 13.0 % (11.0-15.5); WHITE BLOOD COUNT (AUTO) 10.3 K/uL (4.8-10.8)
[2025-01-27 04:13] LABS: ASPARTATE AMINOTRANSFERASE 58.0 U/L (10-37); CREATININE 1.2 mg/dL (0.5-1.0); GLOMERULAR FILTR. RATE CALC 44.0 mL/min (>90); GLUCOSE,RANDOM 124.0 mg/dL (70-105); SODIUM SERUM 138.0 mmol/L (136-145); TOTAL PROTEIN, SERUM 6.1 g/dL (6.0-8.3); UREA NITROGEN, BLOOD 52.0 mg/dL (7-18)
--- NOTE | 2025-01-27 17:31 | PN ---
[facility] PROGRESS NOTE Date of Service: Jan 27, 2025 Time of Service: 17:25 History of Present Illness Ms. Chatman is an 89-year-old female that was seen and examined today on 01/17/2025 patient is currently alert and oriented x1. Patient states that it is December 2010. Patient states she does not know what city she is currently N but states that she is currently living with the daughter. Patient states that she has from [facility]. Discussed with primary nurse, Tona who states patient was previously alert and oriented x3 however after a dose of Dilaudid patient became less able to answer questions appropriately. The following was obtained from emergency room physician report. There was no previous medical records available for me to review. According to emergency room physician: 89-year-old female was brought to the ER due to abdominal pain, stated that the pain started earlier this morning and has been getting worse, patient was unable to tolerate a diet today due to abdominal pain. He denies nausea or vomiting. Patient reports history of constipation, stated that she had a bowel movement this ED but was very little stool came out. Today in the emergency department WBCs 12.6, left shift neutrophils 94%, potassium 3.4, no urinalysis has been collected or sent to lab, CT of abdomen and pelvis shows obstructive uropathy, right hydronephrosis, right hydro ureteral, 6 mm calculus. Emergency room physician recommended that patient be admitted so she could be evaluated by urology service. Urology service is being paste from the emergency department. Also creatinine was elevated at 1.7. There was no known baseline creatinine level. Nephrology service was also consulted from the emergency department. SUBJECTIVE: [ ] 01/18/2025: Patient was seen this morning in 420. Alert oriented to time place and person, denied fevers, chills hemodynamically stable. The patient reported discomfort in her abdomen and right flank. Culture showed 10-50 K colony-forming units and her WBCs on presentation were [id number] while in the ED that spiked to 23.4 K this morning. He lactic acid was 2.1 and Procal was 2.8. We added Zosyn on top of ceftriaxone for extended coverage. We spoke to Dr. Jimenez for management of hydronephrosis with 6 mm stone in the right ureter and he recommended placing a nephrostomy tube and obtaining cardiac clearance before doing so. Dr. Ribeiro was consulted and patient is considered to be at high risk for a low risk non cardiac surgery. He cleared her to proceed with intervention as the current benefits outweigh the risk from the cardiovascular standpoint. Pending transfer to any facility for placing nephrostomy tube as IR not available today. Patient remains NPO since this morning. 17:30: In the interim patient became more septic and decompensated. Her blood pressure dropped to 89/44, MAP 59 and IV bolus Ringer's lactate was started. Critical care team was consulted and a transfer to ICU order was placed. Critical Care team placed the order for Levophed however was waiting for the patient to be transferred to the ICU. 7:00 p.m.: After IV bolus patient's map is at 61. Patient is being transferred to ICU and will be started on Levophed. We agree with the plan from [facility] and we will continue their recommendations. 01/19/2025: Patient was seen in ICU in room 214. After being transferred to ICU patient was seen by Dr. Jimenez, performed a cystourethroscopy without removal of right ureteral calculus with stent placement and a retrograde pyelogram. Patient was noted to have purulent drainage after placing the ureteral stent and a Munguia's catheter was recommended to be placed for next 24-48 hours for anterograde drainage. Patient was started on meropenem and vancomycin and an ID consult has been obtained. Preliminary blood culture showed growth of Gram- negative rods, final identification pending. We will follow recommendations from urology, nephrology, ID, and critical care team. 01/20/2025 The patient was seen and examined in room 306. The patient was downgraded yesterday from ICU to the floor. The patient was lying comfortably on the bed with no complaints of shortness of breath, abdominal pain or chest pain. The patient had JERALD done today that showed no vegetations. Patient's blood culture came back positive for Proteus mirabilis and she is continued on antibiotic meropenem and vancomycin. The patient is maintaining 100% oxygen at 3 L. the patient was complaining of constipation therefore she was given 1 dose of lactulose. 01/21/2025: Patient was seen and examined in room 306. Patient was lying comfortably in her bed with her daughter at the bedside. Patient had Munguia catheter connected which showed blood tinged urine. Patient denied any flank pain or abdominal pain. Urologist advised to discontinue the Munguia's this morning and will follow up with the patient in clinic for definitive treatment of right ureteral calculi. Patient white count have come to 5000 and remains afebrile. Patient's urine and blood culture showed growth of Proteus mirabilis which is sensitive to meropenem and ID recommended to continue. We will get recommendations from ID and assess for possible discharge tomorrow. Critical care team we will discontinue IV Solu-Medrol and initiate p.o. prednisone 40 mg to be tapered in next 5 days. We also sent a referral for outpatient sleep study and case management evaluation for help finding a PCP. 01/22/2025: Patient was seen and examined at bedside. Munguia catheter has been discontinued. Patient is currently on Merrem as per blood culture and urine culture results. We have ordered a repeat blood culture and urine culture and we will follow up with the Infectious Disease recommendations for discharge. Patient is currently on 40 mg q.12h Lasix. Her urine output has been 3900 as compared to 200 input. Her WBCs have trended down to 5 K. 01/23/2025: Patient was seen and examined at bedside. She is currently on oxygen nasal cannula 3 L and states that she uses oxygen at home as well. She is receiving Merrem for bacteremia and UTI and her Lasix IV has been switched to oral. We are following with Infectious Disease recommendations for management of her antibiotic. As per critical Care consult, patient will benefit from several more doses Solu-Medrol. She will also require case management evaluation for discharge to SNF. 01/24/2025: Patient was seen and examined at bedside. She is pending case work aide evaluation for possible discharge to SNF. She continues on oxygen nasal cannula. Her repeat urine and blood cultures have been negative after48 hours. She is currently on IV Solu-Medrol which may be changed to oral tomorrow. We will follow up with critical care consult recommendations. 01/25/25: Examination patient is lying in bed. Primary nurse reports no events overnight. Patient is awaiting for SNF placement for long-term IV antibiotics. Trend up to 1.7 decreased dosage of Lasix. LR at 75 mL for 24 hours. Patient denied chest pain or shortness for breath. 01/26/25: Patient was seen and examined at bedside. She continues on3 L nasal cannula and is doing pretty good and reports no shortness of breath or chest pain. clinical laboratory manager is working on her SNF placement. Solu-Medrol has been discontinued and prednisone 40 mg daily has been started which will be weaned off slowly as per critical Care recommendations. 01/27/2025: Patient was seen and evaluated bedside in room 306. She continues on3 L nasal cannula and doing pretty good and reports no shortness of breath or chest pain. Blood and urine culture showed growth of Proteus mirabilis and case management working on placement to SNF for IV antibiotics. Continue Merrem, furosemide, prednisone. REVIEW OF SYSTEMS CONSTITUTIONAL: Denies fevers, chills, or night sweats. No unintentional weight loss reported. NEUROLOGICAL: Denies headache, amaurosis fugax, motor weakness, sensory deficit, vertigo/spinning sensation, gait abnormalities, or tremors. ENT: No hearing loss, otalgia, otorrhea, rhinitis, rhinorrhea, hoarseness, or sore throat. CARDIOVASCULAR: Denies any exertional angina, dyspnea on exertion, orthopnea, paroxysmal nocturnal dyspnea, palpitations, life-threatening arrhythmias, claudication. PULMONARY: Denies any shortness of breath, cough, phlegm/sputum, hemoptysis, pleuritic chest pain. SLEEP: Denies morning headaches, daytime somnolence or napping. Denies difficulty falling asleep, staying asleep, waking from sleep. Denies knowledge of snoring. GASTROINTESTINAL: Denies any type of dysphagia to either liquids or solids. Denies nausea, vomiting, pyrosis, early satiety, abdominal pain, diarrhea, constipation, or changes in stool consistency or caliber. Denies coffee-ground emesis, hematemesis, hematochezia, or melanotic stools. GENITOURINARY: Right sided flank pain, improved. Denies frequency, urgency, nocturia, hematuria or incontinence PHYSICAL EXAM GENERAL APPEARANCE: The patient is awake, alert, and oriented, in no acute cardiopulmonary distress. NEUROLOGICAL: Cranial nerves II-XII grossly intact. Motor is 5/5 in bilateral upper and lower extremities proximal to distal. No sensory deficits. HEENT: Face is symmetric. Pupils are equal and reactive. Extraocular movements are intact. NECK: Supple. No JVD. No thyromegaly. No submental, submandibular, pre- /postauricular, occipital or supraclavicular lymphadenopathy. CHEST: Normal chest expansion. No Telemetry. LUNGS: Absence of any rales, rhonchi or any wheezing. CARDIOVASCULAR: Regular. S1 and S2 normal. No appreciable rubs, murmurs or gallops. ABDOMEN: Soft, nontender, and nondistended. There is no rebound, voluntary guarding, or rigidity. : Deferred. Vital Signs (last 8hr) Date Time Temp Pulse Resp B/P (MAP) Pulse Ox O2 Delivery O2 Flow Rate FiO2 01/27/25 15:25 98.2 92 20 127/67 99 Room Air 21 01/27/25 11:27 97.3 95 20 115/58 98 Room Air 21 01/27/25 11:11 88 20 N/Cannula Low lpm 3.0 32 01/27/25 11:10 88 20 LABS: Laboratory: Test 01/27/25 03:34 01/26/25 04:45 Range/Units White Blood Count 10.3 4.8-10.8 K/uL Red Blood Count 3.61 L 4.00-5.50 MIL/uL Hemoglobin 11.0 L 12.0-16.0 g/dL Hematocrit 34.0 L 36-48 % Mean Corpuscular Volume 94.2 79-99 fL Mean Corpuscular Hemoglobin 30.5 27.0-33.0 pg Mean Corpuscular Hemoglobin Concent 32.4 32.0-36.0 g/dL Red Cell Distribution Width 13.0 11.0-15.5 % Platelet Count 269 130-400 K/uL Mean Platelet Volume 9.8 7.5-10.5 fL Nucleated Red Blood Cells 0.0 0.0-0.19 % Sodium Level 138 136-145 mmol/L Potassium Level 4.2 3.5-5.1 mmol/L Chloride Level 100 L 101-111 mmol/L Carbon Dioxide Level 34 H 21-32 mmol/L Blood Urea Nitrogen 52 H 7-18 mg/dL Creatinine 1.2 H 0.5-1.0 mg/dL Glomerular Filtration Rate Calc 44 >90 mL/min Random Glucose 124 H 70-105 mg/dL Total Calcium 8.0 L 8.5-10.1 mg/dL Total Bilirubin 0.2 0.2-1.0 mg/dL Aspartate Amino Transf (AST/SGOT) 58 H 10-37 U/L Alanine Aminotransferase (ALT/SGPT) 118 #H 12-78 U/L Alkaline Phosphatase 120 50-136 U/L Total Protein 6.1 6.0-8.3 g/dL Albumin 2.4 L 3.5-5.0 g/dL Immature Granulocyte % (Auto) 3.6 H 0-1 % Neutrophils (%) (Auto) 55.4 40.0-77.0 % Lymphocytes (%) (Auto) 31.1 21.0-51.0 % Monocytes (%) (Auto) 6.9 3.0-13.0 % Eosinophils (%) (Auto) 2.6 0.0-8.0 % Basophils (%) (Auto) 0.4 0.0-5.0 % Neutrophils # (Auto) 7.0 1.8-7.7 K/uL Lymphocytes # (Auto) 3.9 1.0-4.8 K/uL Monocytes # (Auto) 0.9 0.1-1.0 K/uL Eosinophils # (Auto) 0.33 0.00-0.70 K/uL Basophils # (Auto) 0.05 0.00-0.20 K/uL Absolute Immature Granulocyte (auto 0.45 0-1 K/uL Magnesium Level 2.00 1.80-2.40 mg/dL Current Medications Medications (Trade) Dose Ordered Sig/Nirmala Route PRN Reason Start Time Stop Time Status Last Admin Dose Admin Acetaminophen (TYLenol 325MG TAB) 650 mg Q4HPRN PRN PO TEMP ABOVE 101.5/MILD PAIN 1-3 01/18/25 13:30 02/16/25 22:29 01/19/25 17:31 650 MG Acetaminophen (TYLenol 325MG TAB) 650 mg Q6H PRN PO TEMPERATURE GREATER THAN 101.5 01/17/25 22:30 01/18/25 13:29 DC 01/18/25 08:35 650 MG Acetaminophen (TYLenol 325MG TAB) 650 mg Q6H PRN PO MILD PAIN (1-3) 01/20/25 17:00 02/19/25 16:59 01/25/25 23:53 650 MG Albuterol (DUOneb) 1 UDVIAL Q6H IH 01/20/25 17:30 02/19/25 17:29 01/27/25 11:09 1 UDVIAL Ceftriaxone Sodium (ROCEphine 1G INJ) 1 gm Q24H IVPB 01/18/25 02:00 01/18/25 13:18 DC 01/18/25 02:53 1 GM Furosemide (LASix 20MG TAB) 20 mg Q12H PO 01/26/25 08:00 02/25/25 07:59 01/27/25 09:19 20 MG Furosemide (LASix 20MG VIAL) 20 mg DAILY IV 01/20/25 09:00 01/20/25 09:01 DC 01/20/25 09:17 20 MG Furosemide (LASix 40MG TAB) 40 mg Q12H PO 01/23/25 07:30 01/25/25 10:35 DC 01/25/25 07:17 40 MG Furosemide (LASix 40MG VIAL) 40 mg Q12H IV 01/21/25 10:00 01/23/25 07:27 DC 01/22/25 20:40 40 MG Hydralazine HCl (APRESOLine 20MG INJ) 5 mg Q6H PRN IV For:SBP above 160;DBP above 90 01/25/25 16:00 02/24/25 15:59 Hydralazine HCl (APRESOLine 20MG INJ) 10 mg Q6H PRN IV For:SBP above 160;DBP above 90 01/21/25 10:00 01/25/25 10:35 DC Hydromorphone HCl (DiLAUDid 0.5MG INJ) 0.25 mg Q4H PRN IVP SEVERE PAIN (7-10) 01/17/25 22:30 01/22/25 22:29 DC 01/18/25 20:49 0.25 MG Lactated Ringer's 1,000 ml @ 50 mls/hr Q20H IV 01/25/25 11:00 02/24/25 10:59 01/27/25 09:21 50 MLS/HR Lactated Ringer's 1,000 ml @ 125 mls/hr Q8H IV 01/17/25 22:30 01/19/25 05:53 DC 01/18/25 23:40 125 MLS/HR Lactulose (Constulose 20gm/ 30ml Udcup) 20 gm BID PRN PO CONSTIPATION 01/17/25 22:30 02/16/25 22:29 01/21/25 22:06 20 GM Magnesium Sulfate 50 ml @ 0 mls/hr PROTOCOL PRN IV As needed 01/18/25 09:30 02/17/25 09:29 01/24/25 06:25 25 MLS/HR Melatonin (Melatonin) 5 mg HS PO 01/20/25 21:00 02/19/25 20:59 01/26/25 20:54 5 MG Meropenem (Merrem 1gm) 1 gm Q12H IVPB 01/18/25 19:30 01/19/25 05:56 DC 01/18/25 20:38 1 GM Meropenem (Merrem 1gm) 1 gm Q12H IVPB 01/19/25 09:00 01/19/25 19:30 DC 01/19/25 08:13 1 GM Meropenem (Merrem 1gm) 1 gm Q12H IVPB 01/19/25 23:30 01/19/25 23:28 DC Meropenem (Merrem 1gm) 1 gm Q12H IVPB 01/20/25 02:30 01/30/25 02:29 01/27/25 15:14 1 GM Methylprednisolone Sodium Succinate (Solu-medROL 40MG) 40 mg BID IVP 01/20/25 17:30 01/22/25 16:53 DC 01/22/25 09:47 40 MG Methylprednisolone Sodium Succinate (Solu-medROL 40MG) 40 mg Q8H IVP 01/23/25 14:00 01/25/25 10:29 DC 01/25/25 07:17 40 MG Norepinephrine 250 ml @ 0 mls/hr PROTOCOL IV 01/18/25 18:00 01/19/25 23:15 DC Ondansetron HCl (zoFRAN 4MG INJ) 4 mg Q6H PRN IV NAUSEA/VOMITING 01/17/25 22:30 02/16/25 22:29 Pantoprazole Sodium (PROTonix 40MG INJ) 40 mg DAILY IV 01/18/25 09:00 01/23/25 10:47 DC 01/23/25 08:47 40 MG Pantoprazole Sodium (PROTonix 40MG TAB) 40 mg DAILY PO 01/24/25 09:00 02/23/25 08:59 01/27/25 09:19 40 MG Pharmacy Profile Note (Pharmacy Communication) 1 each ONCE MISC 01/18/25 19:30 01/18/25 19:22 DC Pharmacy Profile Note (Pharmacy Communication) 1 each ONCE MISC 01/19/25 23:30 01/19/25 23:18 DC Piperacillin Sod/ Tazobactam Sod (Zosyn 3.375gm+NS 50ml) 3.375 gm Q8H IV 01/18/25 13:30 01/18/25 22:40 DC 01/18/25 20:41 3.375 GM Prednisone (deltaSONE/ oraSONE 20MG TAB) 20 mg BID PO 01/22/25 21:00 01/23/25 13:56 DC 01/23/25 08:48 20 MG Prednisone (deltaSONE/ oraSONE 20MG TAB) 40 mg DAILY PO 01/26/25 09:00 01/31/25 08:59 01/27/25 09:20 40 MG Sodium Chloride 1,000 ml @ 75 mls/hr [id number] IV 01/17/25 22:00 01/18/25 12:28 DC 01/17/25 22:32 75 MLS/HR Tamsulosin HCl (FloMAX) 0.4 mg DAILY PO 01/18/25 09:00 02/17/25 08:59 01/27/25 09:19 0.4 MG Vancomycin HCl (Vancomycin 750mg) 750 mg Q24H IVPB 01/19/25 23:00 01/21/25 01:22 DC 01/21/25 00:37 750 MG Vancomycin HCl (Vancomycin Protocol) 1 each AD IV 01/18/25 23:00 01/21/25 01:22 DC DIAGNOSTICS / RADIOLOGY: [ ] ASSESSMENT: Sepsis due to acute complicated cystitis Obstructing Right hydroureter with right hydronephrosis,S/P placement of rt ureteral stent on 01/19/25 POA Acute hypoxemic respiratory failure Acute on chronic kidney disease Leukocytosis, POA Hypokalemia, resolved Diverticulosis, POA Elevated BNP, indeterminate diastolic dysfunction as per echo, pulmonary vascular congestion as per chest x-ray Morbid obesity PLAN: Sepsis due to acute complicated cystitis * Patient had elevated white cell count 12.6 on admission, which increased to 29.3. They reduced to 5K on 01/23. * Procalcitonin was 2.28 on admission, patient was tachycardic 108, tachypneic 24. meeting SIRS criteria for sepsis * Urine culture and blood culture showed growth of Proteus mirabilis * JERALD showed aortic valve is trileaflet, displaying nodular calcification on all three cusps, with adequate excursion and trivial aortic regurgitation. No valvular vegetation. * Repeat urine and blood cultures have been ordered. They are negative after 48 hours. * Continue meropenem 1g q.12 * We will obtain further recommendations from ID. * We will follow up with [facility] [employer] for SNF placement evaluation Obstructing Right hydroureter with right hydronephrosis,S/P placement of rt ureteral stent on 01/19/25 POA * Patient underwent cystourethroscopy with stent placement, without removal of right ureteral calculus * As per the family present at the bedside, urologist recommended to remove the renal calculi with lithotripsy. Patient will require follow up after discharge * Munguia's catheter discontinued as per Urology recommendation * Continue IV meropenem1 g q.12 * Continue p.r.n. Dilaudid 0.5 mg for pain Acute hypoxic respiratory failure, sepsis * Patient is saturating well at 3L of oxygen via nasal cannula, her baseline is 2 L oxygen at home * Chest x-ray showed patchy airspace disease more pronounced in the left mid and left lower lung * IV Lasix 40 mg q.12 was switched to PO lasix due to elevated bicarb on consecutive days' labs * Critical care team restarted IV Solu-Medrol due to presence of wheezing in upper lobes. * Solu-Medrol was discontinued on 01/25 and patient was started on prednisone 40 mg p.o.. It will be weaned off slowly as per critical Care recommendations. * Maintain aspiration precautions * Maintain saturation over 92 % Acute on chronic kidney disease, due to obstructive uropathy, resolved * IV fluids LR at 75 mL/hour decrease Lasix to 20 mg b.i.d. * Patient had obstructive uropathy for which a ureteral stent has been placed without removing the renal stone * Continue meropenem * Monitor electrolytes and BUN creatinine tomorrow * Avoid nephrotoxic agents and renally dose medications * We will follow Nephrology recommendations GI prophylaxis with pantoprazole and DVT prophylaxis with SCDs We will obtain recommendations from ID regarding antibiotics and possible discharge tomorrow and follow up with the urologist on outpatient basis. ATTESTATION BY PHYSICIAN I have seen and examined the patient. I reviewed the documentation, medical decision making, and treatment plan as noted by the resident above. I agree with the findings and plan of care. Sae Young IV, MD, ADIL SHAH QUADRI MD Jan 27, 2025 17:31
[2025-01-28] VITALS (13 sets, daily range): BP systolic 122–137; BP diastolic 55–74; PULSE 62–107; RESP 18–20; TEMP 97.5–98; O2SAT 94–98
[2025-01-28 05:10] LABS: NUCLEATED RED BLOOD CELLS 0.0 % (0.0-0.19); PLATELET COUNT (AUTO) 257.0 K/uL (130-400); RED BLOOD CELL COUNT(AUTO) 3.72 MIL/uL (4.00-5.50); RED CELL DISTRIBUTION WIDTH 13.1 % (11.0-15.5); WHITE BLOOD COUNT (AUTO) 10.4 K/uL (4.8-10.8)
[2025-01-28 05:23] LABS: CREATININE 1.2 mg/dL (0.5-1.0); GLOMERULAR FILTR. RATE CALC 44.0 mL/min (>90); GLUCOSE,RANDOM 115.0 mg/dL (70-105); SODIUM SERUM 137.0 mmol/L (136-145); UREA NITROGEN, BLOOD 46.0 mg/dL (7-18)
--- NOTE | 2025-01-28 11:03 | PN ---
[facility] PROGRESS NOTE Date of Service: Jan 28, 2025 Time of Service: 9:40 History of Present Illness Ms. Chatman is an 89-year-old female that was seen and examined today on 01/17/2025 patient is currently alert and oriented x1. Patient states that it is December 2010. Patient states she does not know what city she is currently N but states that she is currently living with the daughter. Patient states that she has from [facility]. Discussed with primary nurse, Tona who states patient was previously alert and oriented x3 however after a dose of Dilaudid patient became less able to answer questions appropriately. The following was obtained from emergency room physician report. There was no previous medical records available for me to review. According to emergency room physician: 89-year-old female was brought to the ER due to abdominal pain, stated that the pain started earlier this morning and has been getting worse, patient was unable to tolerate a diet today due to abdominal pain. He denies nausea or vomiting. Patient reports history of constipation, stated that she had a bowel movement this ED but was very little stool came out. Today in the emergency department WBCs 12.6, left shift neutrophils 94%, potassium 3.4, no urinalysis has been collected or sent to lab, CT of abdomen and pelvis shows obstructive uropathy, right hydronephrosis, right hydro ureteral, 6 mm calculus. Emergency room physician recommended that patient be admitted so she could be evaluated by urology service. Urology service is being paste from the emergency department. Also creatinine was elevated at 1.7. There was no known baseline creatinine level. Nephrology service was also consulted from the emergency department. SUBJECTIVE: [ ] 01/18/2025: Patient was seen this morning in 420. Alert oriented to time place and person, denied fevers, chills hemodynamically stable. The patient reported discomfort in her abdomen and right flank. Culture showed 10-50 K colony- forming units and her WBCs on presentation were [id number] while in the ED that spiked to 23.4 K this morning. He lactic acid was 2.1 and Procal was 2.8. We added Zosyn on top of ceftriaxone for extended coverage. We spoke to Dr. Jimenez for management of hydronephrosis with 6 mm stone in the right ureter and he recommended placing a nephrostomy tube and obtaining cardiac clearance before doing so. Dr. Ribeiro was consulted and patient is considered to be at high risk for a low risk non cardiac surgery. He cleared her to proceed with intervention as the current benefits outweigh the risk from the cardiovascular standpoint. Pending transfer to any facility for placing nephrostomy tube as IR not available today. Patient remains NPO since this morning. 17:30: In the interim patient became more septic and decompensated. Her blood pressure dropped to 89/44, MAP 59 and IV bolus Ringer's lactate was started. Critical care team was consulted and a transfer to ICU order was placed. Critical Care team placed the order for Levophed however was waiting for the patient to be transferred to the ICU. 7:00 p.m.: After IV bolus patient's map is at 61. Patient is being transferred to ICU and will be started on Levophed. We agree with the plan from [facility] and we will continue their recommendations. 01/19/2025: Patient was seen in ICU in room 214. After being transferred to ICU patient was seen by Dr. Jimenez, performed a cystourethroscopy without removal of right ureteral calculus with stent placement and a retrograde pyelogram. Patient was noted to have purulent drainage after placing the ureteral stent and a Munguia's catheter was recommended to be placed for next 24-48 hours for anterograde drainage. Patient was started on meropenem and vancomycin and an ID consult has been obtained. Preliminary blood culture showed growth of Gram- negative rods, final identification pending. We will follow recommendations from urology, nephrology, ID, and critical care team. 01/20/2025 The patient was seen and examined in room 306. The patient was downgraded yesterday from ICU to the floor. The patient was lying comfortably on the bed with no complaints of shortness of breath, abdominal pain or chest pain. The patient had JERALD done today that showed no vegetations. Patient's blood culture came back positive for Proteus mirabilis and she is continued on antibiotic meropenem and vancomycin. The patient is maintaining 100% oxygen at 3 L. the patient was complaining of constipation therefore she was given 1 dose of lactulose. 01/21/2025: Patient was seen and examined in room 306. Patient was lying comfortably in her bed with her daughter at the bedside. Patient had Munguia catheter connected which showed blood tinged urine. Patient denied any flank pain or abdominal pain. Urologist advised to discontinue the Munguia's this morning and will follow up with the patient in clinic for definitive treatment of right ureteral calculi. Patient white count have come to 5000 and remains afebrile. Patient's urine and blood culture showed growth of Proteus mirabilis which is sensitive to meropenem and ID recommended to continue. We will get recommendations from ID and assess for possible discharge tomorrow. Critical care team we will discontinue IV Solu-Medrol and initiate p.o. prednisone 40 mg to be tapered in next 5 days. We also sent a referral for outpatient sleep study and case management evaluation for help finding a PCP. 01/22/2025: Patient was seen and examined at bedside. Munguia catheter has been discontinued. Patient is currently on Merrem as per blood culture and urine culture results. We have ordered a repeat blood culture and urine culture and we will follow up with the Infectious Disease recommendations for discharge. Patient is currently on 40 mg q.12h Lasix. Her urine output has been 3900 as compared to 200 input. Her WBCs have trended down to 5 K. 01/23/2025: Patient was seen and examined at bedside. She is currently on oxygen nasal cannula 3 L and states that she uses oxygen at home as well. She is receiving Merrem for bacteremia and UTI and her Lasix IV has been switched to oral. We are following with Infectious Disease recommendations for management of her antibiotic. As per critical Care consult, patient will benefit from several more doses Solu-Medrol. She will also require case management evaluation for discharge to SNF. 01/24/2025: Patient was seen and examined at bedside. She is pending high risk case manager evaluation for possible discharge to SNF. She continues on oxygen nasal cannula. Her repeat urine and blood cultures have been negative after48 hours. She is currently on IV Solu-Medrol which may be changed to oral tomorrow. We will follow up with critical care consult recommendations. 01/25/25: Examination patient is lying in bed. Primary nurse reports no events overnight. Patient is awaiting for SNF placement for long-term IV antibiotics. Trend up to 1.7 decreased dosage of Lasix. LR at 75 mL for 24 hours. Patient denied chest pain or shortness for breath. 01/26/25: Patient was seen and examined at bedside. She continues on3 L nasal cannula and is doing pretty good and reports no shortness of breath or chest pain. export sales manager is working on her SNF placement. Solu-Medrol has been discontinued and prednisone 40 mg daily has been started which will be weaned off slowly as per critical Care recommendations. 01/27/2025: Patient was seen and evaluated bedside in room 306. She continues on3 L nasal cannula and doing pretty good and reports no shortness of breath or chest pain. Blood and urine culture showed growth of Proteus mirabilis and case management working on placement to SNF for IV antibiotics. Continue Merrem, furosemide, prednisone. 01/28/2025: Patient was seen and evaluated at bedside in room 306. She continues on 3 L nasal cannula and reports no shortness of breath or chest pain. We have advised nurse to wean down oxygen as tolerated as patient's baseline at home is 2 L. Case management is still working on placement to SNF for IV antibiotics. We will follow up with Physical Therapy today. REVIEW OF SYSTEMS CONSTITUTIONAL: Denies fevers, chills, or night sweats. No unintentional weight loss reported. NEUROLOGICAL: Denies headache, amaurosis fugax, motor weakness, sensory deficit, vertigo/spinning sensation, gait abnormalities, or tremors. ENT: No hearing loss, otalgia, otorrhea, rhinitis, rhinorrhea, hoarseness, or sore throat. CARDIOVASCULAR: Denies any exertional angina, dyspnea on exertion, orthopnea, paroxysmal nocturnal dyspnea, palpitations, life-threatening arrhythmias, claudication. PULMONARY: Denies any shortness of breath, cough, phlegm/sputum, hemoptysis, pleuritic chest pain. SLEEP: Denies morning headaches, daytime somnolence or napping. Denies difficulty falling asleep, staying asleep, waking from sleep. Denies knowledge of snoring. GASTROINTESTINAL: Denies any type of dysphagia to either liquids or solids. Denies nausea, vomiting, pyrosis, early satiety, abdominal pain, diarrhea, constipation, or changes in stool consistency or caliber. Denies coffee-ground e mesis, hematemesis, hematochezia, or melanotic stools. GENITOURINARY: Right sided flank pain, improved. Denies frequency, urgency, nocturia, hematuria or incontinence PHYSICAL EXAM GENERAL APPEARANCE: The patient is awake, alert, and oriented, in no acute cardiopulmonary distress. NEUROLOGICAL: Cranial nerves II-XII grossly intact. Motor is 5/5 in bilateral upper and lower extremities proximal to distal. No sensory deficits. HEENT: Face is symmetric. Pupils are equal and reactive. Extraocular movements are intact. NECK: Supple. No JVD. No thyromegaly. No submental, submandibular, pre- /postauricular, occipital or supraclavicular lymphadenopathy. CHEST: Normal chest expansion. No Telemetry. LUNGS: Absence of any rales, rhonchi or any wheezing. CARDIOVASCULAR: Regular. S1 and S2 normal. No appreciable rubs, murmurs or gallops. ABDOMEN: Soft, nontender, and nondistended. There is no rebound, voluntary guarding, or rigidity. : Deferred. Vital Signs (last 8hr) Date Time Temp Pulse Resp B/P (MAP) Pulse Ox O2 Delivery O2 Flow Rate FiO2 01/28/25 07:46 97.5 84 20 137/62 98 Nasal Cannula 3.0 01/28/25 06:22 82 18 N/Cannula Low lpm 3.0 32 01/28/25 06:20 82 18 01/28/25 04:00 97.5 62 18 122/74 93 Nasal Cannula 3.0 LABS: Laboratory: Test 01/28/25 04:49 01/27/25 03:34 Range/Units White Blood Count 10.4 4.8-10.8 K/uL Red Blood Count 3.72 L 4.00-5.50 MIL/uL Hemoglobin 11.1 L 12.0-16.0 g/dL Hematocrit 34.6 L 36-48 % Mean Corpuscular Volume 93.0 79-99 fL Mean Corpuscular Hemoglobin 29.8 27.0-33.0 pg Mean Corpuscular Hemoglobin Concent 32.1 32.0-36.0 g/dL Red Cell Distribution Width 13.1 11.0-15.5 % Platelet Count 257 130-400 K/uL Mean Platelet Volume 9.6 7.5-10.5 fL Nucleated Red Blood Cells 0.0 0.0-0.19 % Sodium Level 137 136-145 mmol/L Potassium Level 3.9 3.5-5.1 mmol/L Chloride Level 98 L 101-111 mmol/L Carbon Dioxide Level 34 H 21-32 mmol/L Blood Urea Nitrogen 46 H 7-18 mg/dL Creatinine 1.2 H 0.5-1.0 mg/dL Glomerular Filtration Rate Calc 44 >90 mL/min Random Glucose 115 H 70-105 mg/dL Total Calcium 8.2 L 8.5-10.1 mg/dL Total Bilirubin 0.2 0.2-1.0 mg/dL Aspartate Amino Transf (AST/SGOT) 58 H 10-37 U/L Alanine Aminotransferase (ALT/SGPT) 118 #H 12-78 U/L Alkaline Phosphatase 120 50-136 U/L Total Protein 6.1 6.0-8.3 g/dL Albumin 2.4 L 3.5-5.0 g/dL Current Medications Medications (Trade) Dose Ordered Sig/Nirmala Route PRN Reason Start Time Stop Time Status Last Admin Dose Admin Acetaminophen (TYLenol 325MG TAB) 650 mg Q4HPRN PRN PO TEMP ABOVE 101.5/MILD PAIN 1-3 01/18/25 13:30 02/16/25 22:29 01/19/25 17:31 650 MG Acetaminophen (TYLenol 325MG TAB) 650 mg Q6H PRN PO TEMPERATURE GREATER THAN 101.5 01/17/25 22:30 01/18/25 13:29 DC 01/18/25 08:35 650 MG Acetaminophen (TYLenol 325MG TAB) 650 mg Q6H PRN PO MILD PAIN (1-3) 01/20/25 17:00 02/19/25 16:59 01/25/25 23:53 650 MG Albuterol (DUOneb) 1 UDVIAL Q6H IH 01/20/25 17:30 02/19/25 17:29 01/28/25 06:20 1 UDVIAL Ceftriaxone Sodium (ROCEphine 1G INJ) 1 gm Q24H IVPB 01/18/25 02:00 01/18/25 13:18 DC 01/18/25 02:53 1 GM Furosemide (LASix 20MG TAB) 20 mg Q12H PO 01/26/25 08:00 02/25/25 07:59 01/28/25 10:04 20 MG Furosemide (LASix 20MG VIAL) 20 mg DAILY IV 01/20/25 09:00 01/20/25 09:01 DC 01/20/25 09:17 20 MG Furosemide (LASix 40MG TAB) 40 mg Q12H PO 01/23/25 07:30 01/25/25 10:35 DC 01/25/25 07:17 40 MG Furosemide (LASix 40MG VIAL) 40 mg Q12H IV 01/21/25 10:00 01/23/25 07:27 DC 01/22/25 20:40 40 MG Hydralazine HCl (APRESOLine 20MG INJ) 5 mg Q6H PRN IV For:SBP above 160;DBP above 90 01/25/25 16:00 02/24/25 15:59 Hydralazine HCl (APRESOLine 20MG INJ) 10 mg Q6H PRN IV For:SBP above 160;DBP above 90 01/21/25 10:00 01/25/25 10:35 DC Hydromorphone HCl (DiLAUDid 0.5MG INJ) 0.25 mg Q4H PRN IVP SEVERE PAIN (7-10) 01/17/25 22:30 01/22/25 22:29 DC 01/18/25 20:49 0.25 MG Lactated Ringer's 1,000 ml @ 50 mls/hr Q20H IV 01/25/25 11:00 02/24/25 10:59 01/27/25 09:21 50 MLS/HR Lactated Ringer's 1,000 ml @ 125 mls/hr Q8H IV 01/17/25 22:30 01/19/25 05:53 DC 01/18/25 23:40 125 MLS/HR Lactulose (Constulose 20gm/ 30ml Udcup) 20 gm BID PRN PO CONSTIPATION 01/17/25 22:30 02/16/25 22:29 01/21/25 22:06 20 GM Magnesium Sulfate 50 ml @ 0 mls/hr PROTOCOL PRN IV As needed 01/18/25 09:30 02/17/25 09:29 01/24/25 06:25 25 MLS/HR Melatonin (Melatonin) 5 mg HS PO 01/20/25 21:00 02/19/25 20:59 01/27/25 20:50 5 MG Meropenem (Merrem 1gm) 1 gm Q12H IVPB 01/18/25 19:30 01/19/25 05:56 DC 01/18/25 20:38 1 GM Meropenem (Merrem 1gm) 1 gm Q12H IVPB 01/19/25 09:00 01/19/25 19:30 DC 01/19/25 08:13 1 GM Meropenem (Merrem 1gm) 1 gm Q12H IVPB 01/19/25 23:30 01/19/25 23:28 DC Meropenem (Merrem 1gm) 1 gm Q12H IVPB 01/20/25 02:30 01/30/25 02:29 01/28/25 03:14 1 GM Methylprednisolone Sodium Succinate (Solu-medROL 40MG) 40 mg BID IVP 01/20/25 17:30 01/22/25 16:53 DC 01/22/25 09:47 40 MG Methylprednisolone Sodium Succinate (Solu-medROL 40MG) 40 mg Q8H IVP 01/23/25 14:00 01/25/25 10:29 DC 01/25/25 07:17 40 MG Norepinephrine 250 ml @ 0 mls/hr PROTOCOL IV 01/18/25 18:00 01/19/25 23:15 DC Ondansetron HCl (zoFRAN 4MG INJ) 4 mg Q6H PRN IV NAUSEA/VOMITING 01/17/25 22:30 02/16/25 22:29 Pantoprazole Sodium (PROTonix 40MG INJ) 40 mg DAILY IV 01/18/25 09:00 01/23/25 10:47 DC 01/23/25 08:47 40 MG Pantoprazole Sodium (PROTonix 40MG TAB) 40 mg DAILY PO 01/24/25 09:00 02/23/25 08:59 01/28/25 10:04 40 MG Pharmacy Profile Note (Pharmacy Communication) 1 each ONCE MISC 01/18/25 19:30 01/18/25 19:22 DC Pharmacy Profile Note (Pharmacy Communication) 1 each ONCE MISC 01/19/25 23:30 01/19/25 23:18 DC Piperacillin Sod/ Tazobactam Sod (Zosyn 3.375gm+NS 50ml) 3.375 gm Q8H IV 01/18/25 13:30 01/18/25 22:40 DC 01/18/25 20:41 3.375 GM Prednisone (deltaSONE/ oraSONE 20MG TAB) 20 mg BID PO 01/22/25 21:00 01/23/25 13:56 DC 01/23/25 08:48 20 MG Prednisone (deltaSONE/ oraSONE 20MG TAB) 40 mg DAILY PO 01/26/25 09:00 01/31/25 08:59 01/28/25 10:04 40 MG Sodium Chloride 1,000 ml @ 75 mls/hr [id number] IV 01/17/25 22:00 01/18/25 12:28 DC 01/17/25 22:32 75 MLS/HR Tamsulosin HCl (FloMAX) 0.4 mg DAILY PO 01/18/25 09:00 02/17/25 08:59 01/28/25 10:03 0.4 MG Vancomycin HCl (Vancomycin 750mg) 750 mg Q24H IVPB 01/19/25 23:00 01/21/25 01:22 DC 01/21/25 00:37 750 MG Vancomycin HCl (Vancomycin Protocol) 1 each AD IV 01/18/25 23:00 01/21/25 01:22 DC DIAGNOSTICS / RADIOLOGY: [ ] ASSESSMENT: Sepsis due to acute complicated cystitis Obstructing Right hydroureter with right hydronephrosis,S/P placement of rt ureteral stent on 01/19/25 POA Acute hypoxemic respiratory failure Acute on chronic kidney disease Leukocytosis, POA Hypokalemia, resolved Diverticulosis, POA Elevated BNP, indeterminate diastolic dysfunction as per echo, pulmonary va scular congestion as per chest x-ray Morbid obesity PLAN: Sepsis due to acute complicated cystitis * Patient had elevated white cell count 12.6 on admission, which increased to 29.3. They reduced to 5K on 01/23. * Procalcitonin was 2.28 on admission, patient was tachycardic 108, tachypneic 24. meeting SIRS criteria for sepsis * Urine culture and blood culture showed growth of Proteus mirabilis * JERALD showed aortic valve is trileaflet, displaying nodular calcification on all three cusps, with adequate excursion and trivial aortic regurgitation. No valvular vegetation. * Repeat urine and blood cultures have been ordered. They are negative after 48 hours. * Continue meropenem 1g q.12 * We will obtain further recommendations from ID. * We will follow up with Control Panel Assembler for SNF placement evaluation Obstructing Right hydroureter with right hydronephrosis,S/P placement of rt ureteral stent on 01/19/25 POA * Patient underwent cystourethroscopy with stent placement, without removal of right ureteral calculus * As per the family present at the bedside, urologist recommended to remove the renal calculi with lithotripsy. Patient will require follow up after discharge * Munguia's catheter discontinued as per Urology recommendation * Continue IV meropenem1 g q.12 * Continue p.r.n. Dilaudid 0.5 mg for pain Acute hypoxic respiratory failure, sepsis * Patient is saturating well at 3L of oxygen via nasal cannula, her baseline is 2 L oxygen at home. We will wean down as tolerated. * Chest x-ray showed patchy airspace disease more pronounced in the left mid and left lower lung * IV Lasix 40 mg q.12 was switched to PO lasix due to elevated bicarb on consecutive days' labs * Critical care team restarted IV Solu-Medrol due to presence of wheezing in upper lobes. * Solu-Medrol was discontinued on 01/25 and patient was started on prednisone 40 mg p.o.. It will be weaned off slowly as per critical Care recommendations. * Maintain aspiration precautions * Maintain saturation over 92 % Acute on chronic kidney disease, due to obstructive uropathy, resolved * IV fluids LR at 75 mL/hour decrease Lasix to 20 mg b.i.d. * Patient had obstructive uropathy for which a ureteral stent has been placed without removing the renal stone * Continue meropenem * Monitor electrolytes and BUN creatinine tomorrow * Avoid nephrotoxic agents and renally dose medications * We will follow Nephrology recommendations GI prophylaxis with pantoprazole and DVT prophylaxis with SCDs We will obtain recommendations from ID regarding antibiotics and possible discharge tomorrow and follow up with the urologist on outpatient basis. ATTESTATION BY PHYSICIAN I have seen and examined the patient. I reviewed the documentation, medical decision making, and treatment plan as noted by the resident physician above. I agree with the findings and plan of care. EAGLE PENDLETON IV, MD, MUHAMMAD H MD Jan 28, 2025 11:03
--- NOTE | 2025-01-28 22:41 | PN ---
SUBJECTIVE: An 89-year-old female. She presented with bacteremia. The patient with obstructive uropathy, status post stent placement. The patient has had acute renal failure in the hospital. Creatinine has been elevated. The patient is being seen by case management in regards to outpatient IV antibiotics and the patient is being seen for all of the above. REVIEW OF SYSTEMS: GENERAL: She is feeling improved since admission. HEENT: No change in vision. No change in hearing. CARDIOVASCULAR: There are no current chest pains or palpitations. PULMONARY: No shortness of breath. GASTROINTESTINAL: She is tolerating diet. MUSCULOSKELETAL: Complains of weakness. PHYSICAL EXAMINATION: VITAL SIGNS: Blood pressure 137/62 and pulse in the 80s. GENERAL: She is a chronically-ill female, elderly, lying in bed on the medical floor. HEENT: Head is atraumatic. Pupils equal, round and reactive to light. Oropharynx without exudate. Nares clear. NECK: There is no JVP. There is no thyromegaly and no mass. CARDIOVASCULAR: Regular. There is no S3 or S4 gallop. LUNGS: Coarse with equal thoracic movement. ABDOMEN: Soft, nondistended and nontender. EXTREMITIES: Reveal no clubbing or cyanosis. NEUROLOGICAL: She is awake. She is alert. LABORATORY DATA: BUN 46, creatinine 1.2, sodium is 137, hemoglobin 11 and hematocrit 34. IMPRESSION: 1. [id number] renal failure. 2. Sepsis bacteremia. 3. Obstructive uropathy. 4. Hypertension. PLAN: The patient continues with the IV antibiotics. The patient does have a stent placed and will need followup with Urology as an outpatient. The patient is encouraged with her therapy. She is being seen by case management for final disposition. The patient with evidence of renal dysfunction. Once the patient is discharged, the patient could follow up in the renal clinic. TID: [id number] RECEIPT: [id number]
[2025-01-29] VITALS (17 sets, daily range): BP systolic 101–157; BP diastolic 56–93; PULSE 78–105; RESP 18–23; TEMP 97.6–98.1; O2SAT 97–99
--- NOTE | 2025-01-29 05:00 | HMCIMG ---
EXAM: CR Chest, 1 view CLINICAL HISTORY: Decreased breath sound. Wheezing. COMPARISON: 01/23/2025. FINDINGS: The right side PICC line tip overlies the distal right brachiocephalic vein. The lungs show no infiltrates or other acute findings. No pleural effusion or pneumothorax. Stable borderline cardiomegaly and mild pulmonary vascular congestion. No acute osseous abnormality. IMPRESSION: Stable borderline cardiomegaly and mild pulmonary vascular congestion. Compared to the prior study, there is no significant interval change. /[place]
[2025-01-29 05:10] LABS: NUCLEATED RED BLOOD CELLS 0.0 % (0.0-0.19); PLATELET COUNT (AUTO) 257.0 K/uL (130-400); RED BLOOD CELL COUNT(AUTO) 3.69 MIL/uL (4.00-5.50); RED CELL DISTRIBUTION WIDTH 13.2 % (11.0-15.5); WHITE BLOOD COUNT (AUTO) 10.7 K/uL (4.8-10.8)
--- NOTE | 2025-01-29 05:38 | PN ---
INFECTIOUS DISEASE FOLLOWUP NOTE DATE OF SERVICE: 01/27/2025. HISTORY OF PRESENT ILLNESS: The patient is seen and examined at bedside. The patient has no fevers, no chills. No bleeding tendency. No sore throat or rhinorrhea. No depression or suicidal ideation. Bedbound debility. . PHYSICAL EXAMINATION: VITAL SIGNS: Temperature today 97.5. EYES: No icterus. Pupils are equal and reactive. HENT: No oral thrush seen. Moist oral mucosa. NECK: Supple. No JVD or thyromegaly. LUNGS: Good air entry. No rales. No rhonchi. CARDIOVASCULAR: S1 and S2, regular. No murmurs heard. ABDOMEN: Full, soft, nontender. Bowel sounds present. CENTRAL NERVOUS SYSTEM: Awake, alert, oriented x 3. No focal deficits. Bedbound debility. SKIN: No rashes. No itchiness. HEMATOLOGIC: No bleeding or petechial lesions seen. VASCULAR: No ischemia or gangrene of the extremities. ASSESSMENT: An 89-year-old female with multiple medical problems, which include: * Gram-negative sepsis. * Urinary tract infection. * Morbid obesity. * Hydronephrosis. * Renal failure. * Diabetes. PLAN: * Continue meropenem. * Continue nutritional support. * Continue GI prophylaxis. * Continue pain management. * Continue antiemetic. * Continue DVT prophylaxis. * The patient will be followed closely. TID: [id number] RECEIPT: [id number]
[2025-01-29 05:41] LABS: ASPARTATE AMINOTRANSFERASE 29.0 U/L (10-37); CREATININE 1.3 mg/dL (0.5-1.0); GLOMERULAR FILTR. RATE CALC 40.0 mL/min (>90); GLUCOSE,RANDOM 108.0 mg/dL (70-105); SODIUM SERUM 140.0 mmol/L (136-145); TOTAL PROTEIN, SERUM 6.6 g/dL (6.0-8.3); UREA NITROGEN, BLOOD 45.0 mg/dL (7-18)
--- NOTE | 2025-01-29 06:56 | PN ---
INFECTIOUS DISEASE FOLLOWUP NOTE SUBJECTIVE: The patient is seen and examined at bedside. No fever or chills. No nausea or vomiting. No abdominal pain. Bedbound debility. No bleeding tendency. No rashes or itchiness. ____. PHYSICAL EXAMINATION: VITAL SIGNS: Temperature 97.8. EYES: No icterus. Pupils equal, round, and reactive. HENT: No oral thrush. Moist oral mucosa. NECK: Supple. No JVD or thyromegaly. LUNGS: Good air entry. No rales, no rhonchi. CARDIOVASCULAR: S1 and S2, regular. No murmur heard. ABDOMEN: Soft, nontender. Bowel sounds are present. ____ CENTRAL NERVOUS SYSTEM: Awake, alert, oriented x3. No focal deficits. SKIN: No rashes, no itchiness. LYMPHATIC: No peripheral lymphadenopathy. BACK: No deformity. No pressure ulcers. ASSESSMENT: An 89-year-old female. Multiple problems, * Gram negative sepsis. * Urinary tract infection. * Morbid obesity. * Nephrolithiasis. * Hydronephrosis. * Renal failure. * Debility. PLAN: * Continue meropenem. * Continue physical therapy. * Continue nutritional support. * Continue gastrointestinal prophylaxis. * ____ * Continue ____. TID: [id number] RECEIPT: [id number]
--- NOTE | 2025-01-29 11:14 | NUR ---
Auth Escalation Per conversation on 01/26, [facility] auth can take up to 7 days. Called Stacy at [phone]. No caller available and automated system transferred this CM to leave a voicemail. Provided patient's name, CORIE, ref#: [id number], and call back #. Also notified patient is ready for discharge and need authorization. Addendum: 01/29/25 at 1117 by DEBORAH ADAME CM Amended: Links added.
--- NOTE | 2025-01-29 14:26 | PN ---
[facility] PROGRESS NOTE Date of Service: Jan 29, 2025 Time of Service: 14:26 History of Present Illness Ms. Blackburn is an 89-year-old female that was seen and examined today on 01/17/2025 patient is currently alert and oriented x1. Patient states that it is December 2010. Patient states she does not know what city she is currently N but states that she is currently living with the daughter. Patient states that she has from [facility]. Discussed with primary nurse, Tona who states patient was previously alert and oriented x3 however after a dose of Dilaudid patient became less able to answer questions appropriately. The following was obtained from emergency room physician report. There was no previous medical records available for me to review. According to emergency room physician: 89-year-old female was brought to the ER due to abdominal pain, stated that the pain started earlier this morning and has been getting worse, patient was unable to tolerate a diet today due to abdominal pain. He denies nausea or vomiting. Patient reports history of constipation, stated that she had a bowel movement this ED but was very little stool came out. Today in the emergency department WBCs 12.6, left shift neutrophils 94%, potassium 3.4, no urinalysis has been collected or sent to lab, CT of abdomen and pelvis shows obstructive uropathy, right hydronephrosis, right hydro ureteral, 6 mm calculus. Emergency room physician recommended that patient be admitted so she could be evaluated by urology service. Urology service is being paste from the emergency department. Also creatinine was elevated at 1.7. There was no known baseline creatinine level. Nephrology service was also consulted from the emergency department. SUBJECTIVE: [ ] 01/18/2025: Patient was seen this morning in 420. Alert oriented to time place and person, denied fevers, chills hemodynamically stable. The patient reported discomfort in her abdomen and right flank. Culture showed 10-50 K colony-forming units and her WBCs on presentation were [id number] while in the ED that spiked to 23.4 K this morning. He lactic acid was 2.1 and Procal was 2.8. We added Zosyn on top of ceftriaxone for extended coverage. We spoke to Dr. Jimenez for management of hydronephrosis with 6 mm stone in the right ureter and he recommended placing a nephrostomy tube and obtaining cardiac clearance before doing so. Dr. Ribeiro was consulted and patient is considered to be at high risk for a low risk non cardiac surgery. He cleared her to proceed with intervention as the current benefits outweigh the risk from the cardiovascular standpoint. Pending transfer to any facility for placing nephrostomy tube as IR not available today. Patient remains NPO since this morning. 17:30: In the interim patient became more septic and decompensated. Her blood pressure dropped to 89/44, MAP 59 and IV bolus Ringer's lactate was started. Critical care team was consulted and a transfer to ICU order was placed. Critical Care team placed the order for Levophed however was waiting for the patient to be transferred to the ICU. 7:00 p.m.: After IV bolus patient's map is at 61. Patient is being transferred to ICU and will be started on Levophed. We agree with the plan from [facility] and we will continue their recommendations. 01/19/2025: Patient was seen in ICU in room 214. After being transferred to ICU patient was seen by Dr. Jimenez, performed a cystourethroscopy without removal of right ureteral calculus with stent placement and a retrograde pyelogram. Patient was noted to have purulent drainage after placing the ureteral stent and a Munguia's catheter was recommended to be placed for next 24-48 hours for anterograde drainage. Patient was started on meropenem and vancomycin and an ID consult has been obtained. Preliminary blood culture showed growth of Gram- negative rods, final identification pending. We will follow recommendations from urology, nephrology, ID, and critical care team. 01/20/2025 The patient was seen and examined in room 306. The patient was downgraded yesterday from ICU to the floor. The patient was lying comfortably on the bed with no complaints of shortness of breath, abdominal pain or chest pain. The patient had JERALD done today that showed no vegetations. Patient's blood culture came back positive for Proteus mirabilis and she is continued on antibiotic meropenem and vancomycin. The patient is maintaining 100% oxygen at 3 L. the patient was complaining of constipation therefore she was given 1 dose of lactulose. 01/21/2025: Patient was seen and examined in room 306. Patient was lying comfortably in her bed with her daughter at the bedside. Patient had Munguia catheter connected which showed blood tinged urine. Patient denied any flank pain or abdominal pain. Urologist advised to discontinue the Munguia's this morning and will follow up with the patient in clinic for definitive treatment of right ureteral calculi. Patient white count have come to 5000 and remains afebrile. Patient's urine and blood culture showed growth of Proteus mirabilis which is sensitive to meropenem and ID recommended to continue. We will get recommendations from ID and assess for possible discharge tomorrow. Critical care team we will discontinue IV Solu-Medrol and initiate p.o. prednisone 40 mg to be tapered in next 5 days. We also sent a referral for outpatient sleep study and case management evaluation for help finding a PCP. 01/22/2025: Patient was seen and examined at bedside. Munguia catheter has been discontinued. Patient is currently on Merrem as per blood culture and urine culture results. We have ordered a repeat blood culture and urine culture and we will follow up with the Infectious Disease recommendations for discharge. Patient is currently on 40 mg q.12h Lasix. Her urine output has been 3900 as compared to 200 input. Her WBCs have trended down to 5 K. 01/23/2025: Patient was seen and examined at bedside. She is currently on oxygen nasal cannula 3 L and states that she uses oxygen at home as well. She is receiving Merrem for bacteremia and UTI and her Lasix IV has been switched to oral. We are following with Infectious Disease recommendations for management of her antibiotic. As per critical Care consult, patient will benefit from several more doses Solu-Medrol. She will also require case management evaluation for discharge to SNF. 01/24/2025: Patient was seen and examined at bedside. She is pending keycase assembler evaluation for possible discharge to SNF. She continues on oxygen nasal cannula. Her repeat urine and blood cultures have been negative after48 hours. She is currently on IV Solu-Medrol which may be changed to oral tomorrow. We will follow up with critical care consult recommendations. 01/25/25: Examination patient is lying in bed. Primary nurse reports no events overnight. Patient is awaiting for SNF placement for long-term IV antibiotics. Trend up to 1.7 decreased dosage of Lasix. LR at 75 mL for 24 hours. Patient denied chest pain or shortness for breath. 01/26/25: Patient was seen and examined at bedside. She continues on3 L nasal cannula and is doing pretty good and reports no shortness of breath or chest pain. platform material handler manager is working on her SNF placement. Solu-Medrol has been discontinued and prednisone 40 mg daily has been started which will be weaned off slowly as per critical Care recommendations. 01/27/2025: Patient was seen and evaluated bedside in room 306. She continues on3 L nasal cannula and doing pretty good and reports no shortness of breath or chest pain. Blood and urine culture showed growth of Proteus mirabilis and case management working on placement to SNF for IV antibiotics. Continue Merrem, furosemide, prednisone. 01/28/2025: Patient was seen and evaluated at bedside in room 306. She continues on 3 L nasal cannula and reports no shortness of breath or chest pain. We have advised nurse to wean down oxygen as tolerated as patient's baseline at home is 2 L. Case management is still working on placement to SNF for IV antibiotics. We will follow up with Physical Therapy today. 01/29/2025: Patient was evaluated at the bedside in room 306. Patient had no acute events overnight and is saturating well at 2.5 L of oxygen via nasal sravanthi diya. She had a drop of close to 40 mm hg of SBP from sitting to standing for 5 minutes. We will hold the Lasix for 24 hours and repeat orthostatic vitals tomorrow. Patient is still pending approval for [facility] and there has been escalation of authorization request by keycase assembler. We will continue meropenem for the 10th day and continue physical therapy while in the hospital. REVIEW OF SYSTEMS CONSTITUTIONAL: Denies fevers, chills, or night sweats. No unintentional weight loss reported. NEUROLOGICAL: Denies headache, amaurosis fugax, motor weakness, sensory deficit, vertigo/spinning sensation, gait abnormalities, or tremors. ENT: No hearing loss, otalgia, otorrhea, rhinitis, rhinorrhea, hoarseness, or sore throat. CARDIOVASCULAR: Denies any exertional angina, dyspnea on exertion, orthopnea, paroxysmal nocturnal dyspnea, palpitations, life-threatening arrhythmias, claudication. PULMONARY: Denies any shortness of breath, cough, phlegm/sputum, hemoptysis, pleuritic chest pain. SLEEP: Denies morning headaches, daytime somnolence or napping. Denies difficulty falling asleep, staying asleep, waking from sleep. Denies knowledge of snoring. GASTROINTESTINAL: Denies any type of dysphagia to either liquids or solids. Denies nausea, vomiting, pyrosis, early satiety, abdominal pain, diarrhea, constipation, or changes in stool consistency or caliber. Denies coffee-ground emesis, hematemesis, hematochezia, or melanotic stools. GENITOURINARY: Right sided flank pain, improved. Denies frequency, urgency, nocturia, hematuria or incontinence PHYSICAL EXAM GENERAL APPEARANCE: The patient is awake, alert, and oriented, in no acute cardiopulmonary distress. NEUROLOGICAL: Cranial nerves II-XII grossly intact. Motor is 5/5 in bilateral upper and lower extremities proximal to distal. No sensory deficits. HEENT: Face is symmetric. Pupils are equal and reactive. Extraocular movements are intact. NECK: Supple. No JVD. No thyromegaly. No submental, submandibular, pre- /postauricular, occipital or supraclavicular lymphadenopathy. CHEST: Normal chest expansion. No Telemetry. LUNGS: Absence of any rales, rhonchi or any wheezing. CARDIOVASCULAR: Regular. S1 and S2 normal. No appreciable rubs, murmurs or gallops. ABDOMEN: Soft, nontender, and nondistended. There is no rebound, voluntary guarding, or rigidity. : Deferred. Vital Signs (last 8hr) Date Time Temp Pulse Resp B/P (MAP) Pulse Ox O2 Delivery O2 Flow Rate FiO2 01/29/25 11:48 98.1 90 20 122/65 100 Nasal Cannula 2.5 01/29/25 11:08 85 18 01/29/25 08:11 99 Nasal Cannula* 3 32 01/29/25 07:26 85 20 N/Cannula Low lpm 3.0 32 01/29/25 07:15 78 19 101/76 99 Nasal Cannula 3.0 01/29/25 07:13 105 19 142/93 99 Nasal Cannula 3.0 01/29/25 07:11 89 19 133/69 99 Nasal Cannula 3.0 01/29/25 06:38 83 18 LABS: Laboratory: Test 01/29/25 04:48 Range/Units White Blood Count 10.7 4.8-10.8 K/uL Red Blood Count 3.69 L 4.00-5.50 MIL/uL Hemoglobin 10.9 L 12.0-16.0 g/dL Hematocrit 34.4 L 36-48 % Mean Corpuscular Volume 93.2 79-99 fL Mean Corpuscular Hemoglobin 29.5 27.0-33.0 pg Mean Corpuscular Hemoglobin Concent 31.7 L 32.0-36.0 g/dL Red Cell Distribution Width 13.2 11.0-15.5 % Platelet Count 257 130-400 K/uL Mean Platelet Volume 9.9 7.5-10.5 fL Nucleated Red Blood Cells 0.0 0.0-0.19 % Sodium Level 140 136-145 mmol/L Potassium Level 3.7 3.5-5.1 mmol/L Chloride Level 99 L 101-111 mmol/L Carbon Dioxide Level 32 21-32 mmol/L Blood Urea Nitrogen 45 H 7-18 mg/dL Creatinine 1.3 H 0.5-1.0 mg/dL Glomerular Filtration Rate Calc 40 >90 mL/min Random Glucose 108 H 70-105 mg/dL Total Calcium 8.0 L 8.5-10.1 mg/dL Magnesium Level 2.00 1.80-2.40 mg/dL Total Bilirubin 0.3 0.2-1.0 mg/dL Direct Bilirubin 0.1 0.0-0.3 mg/dL Aspartate Amino Transf (AST/SGOT) 29 10-37 U/L Alanine Aminotransferase (ALT/SGPT) 70 12-78 U/L Alkaline Phosphatase 126 50-136 U/L Total Protein 6.6 6.0-8.3 g/dL Albumin 2.6 L 3.5-5.0 g/dL Current Medications Medications (Trade) Dose Ordered Sig/Nirmlaa Route PRN Reason Start Time Stop Time Status Last Admin Dose Admin Acetaminophen (TYLenol 325MG TAB) 650 mg Q4HPRN PRN PO TEMP ABOVE 101.5/MILD PAIN 1-3 01/18/25 13:30 02/16/25 22:29 01/19/25 17:31 650 MG Acetaminophen (TYLenol 325MG TAB) 650 mg Q6H PRN PO TEMPERATURE GREATER THAN 101.5 01/17/25 22:30 01/18/25 13:29 DC 01/18/25 08:35 650 MG Acetaminophen (TYLenol 325MG TAB) 650 mg Q6H PRN PO MILD PAIN (1-3) 01/20/25 17:00 02/19/25 16:59 01/28/25 20:16 650 MG Albuterol (DUOneb) 1 UDVIAL Q6H IH 01/20/25 17:30 02/19/25 17:29 01/29/25 11:08 1 UDVIAL Ceftriaxone Sodium (ROCEphine 1G INJ) 1 gm Q24H IVPB 01/18/25 02:00 01/18/25 13:18 DC 01/18/25 02:53 1 GM Furosemide (LASix 20MG TAB) 20 mg Q12H PO 01/26/25 08:00 01/29/25 12:49 DC 01/29/25 08:12 20 MG Furosemide (LASix 20MG VIAL) 20 mg DAILY IV 01/20/25 09:00 01/20/25 09:01 DC 01/20/25 09:17 20 MG Furosemide (LASix 40MG TAB) 40 mg Q12H PO 01/23/25 07:30 01/25/25 10:35 DC 01/25/25 07:17 40 MG Furosemide (LASix 40MG VIAL) 40 mg Q12H IV 01/21/25 10:00 01/23/25 07:27 DC 01/22/25 20:40 40 MG Hydralazine HCl (APRESOLine 20MG INJ) 5 mg Q6H PRN IV For:SBP above 160;DBP above 90 01/25/25 16:00 02/24/25 15:59 Hydralazine HCl (APRESOLine 20MG INJ) 10 mg Q6H PRN IV For:SBP above 160;DBP above 90 01/21/25 10:00 01/25/25 10:35 DC Hydromorphone HCl (DiLAUDid 0.5MG INJ) 0.25 mg Q4H PRN IVP SEVERE PAIN (7-10) 01/17/25 22:30 01/22/25 22:29 DC 01/18/25 20:49 0.25 MG Lactated Ringer's 1,000 ml @ 50 mls/hr Q20H IV 01/25/25 11:00 02/24/25 10:59 01/28/25 20:46 50 MLS/HR Lactated Ringer's 1,000 ml @ 125 mls/hr Q8H IV 01/17/25 22:30 01/19/25 05:53 DC 01/18/25 23:40 125 MLS/HR Lactulose (Constulose 20gm/ 30ml Udcup) 20 gm BID PRN PO CONSTIPATION 01/17/25 22:30 02/16/25 22:29 01/21/25 22:06 20 GM Magnesium Sulfate 50 ml @ 0 mls/hr PROTOCOL PRN IV As needed 01/18/25 09:30 02/17/25 09:29 01/24/25 06:25 25 MLS/HR Melatonin (Melatonin) 5 mg HS PO 01/20/25 21:00 02/19/25 20:59 01/28/25 20:16 5 MG Meropenem (Merrem 1gm) 1 gm Q12H IVPB 01/18/25 19:30 01/19/25 05:56 DC 01/18/25 20:38 1 GM Meropenem (Merrem 1gm) 1 gm Q12H IVPB 01/19/25 09:00 01/19/25 19:30 DC 01/19/25 08:13 1 GM Meropenem (Merrem 1gm) 1 gm Q12H IVPB 01/19/25 23:30 01/19/25 23:28 DC Meropenem (Merrem 1gm) 1 gm Q12H IVPB 01/20/25 02:30 01/30/25 02:29 01/29/25 02:29 1 GM Methylprednisolone Sodium Succinate (Solu-medROL 40MG) 40 mg BID IVP 01/20/25 17:30 01/22/25 16:53 DC 01/22/25 09:47 40 MG Methylprednisolone Sodium Succinate (Solu-medROL 40MG) 40 mg Q8H IVP 01/23/25 14:00 01/25/25 10:29 DC 01/25/25 07:17 40 MG Norepinephrine 250 ml @ 0 mls/hr PROTOCOL IV 01/18/25 18:00 01/19/25 23:15 DC Ondansetron HCl (zoFRAN 4MG INJ) 4 mg Q6H PRN IV NAUSEA/VOMITING 01/17/25 22:30 02/16/25 22:29 Pantoprazole Sodium (PROTonix 40MG INJ) 40 mg DAILY IV 01/18/25 09:00 01/23/25 10:47 DC 01/23/25 08:47 40 MG Pantoprazole Sodium (PROTonix 40MG TAB) 40 mg DAILY PO 01/24/25 09:00 02/23/25 08:59 01/29/25 08:12 40 MG Pharmacy Profile Note (Pharmacy Communication) 1 each ONCE MISC 01/18/25 19:30 01/18/25 19:22 DC Pharmacy Profile Note (Pharmacy Communication) 1 each ONCE MISC 01/19/25 23:30 01/19/25 23:18 DC Piperacillin Sod/ Tazobactam Sod (Zosyn 3.375gm+NS 50ml) 3.375 gm Q8H IV 01/18/25 13:30 01/18/25 22:40 DC 01/18/25 20:41 3.375 GM Prednisone (deltaSONE/ oraSONE 20MG TAB) 20 mg BID PO 01/22/25 21:00 01/23/25 13:56 DC 01/23/25 08:48 20 MG Prednisone (deltaSONE/ oraSONE 20MG TAB) 40 mg DAILY PO 01/26/25 09:00 01/31/25 08:59 01/29/25 08:12 40 MG Sodium Chloride 1,000 ml @ 75 mls/hr [id number] IV 01/17/25 22:00 01/18/25 12:28 DC 01/17/25 22:32 75 MLS/HR Tamsulosin HCl (FloMAX) 0.4 mg DAILY PO 01/18/25 09:00 02/17/25 08:59 01/29/25 08:11 0.4 MG Vancomycin HCl (Vancomycin 750mg) 750 mg Q24H IVPB 01/19/25 23:00 01/21/25 01:22 DC 01/21/25 00:37 750 MG Vancomycin HCl (Vancomycin Protocol) 1 each AD IV 01/18/25 23:00 01/21/25 01:22 DC DIAGNOSTICS / RADIOLOGY: [ ] PATIENT: EUGENE BLACKBURN MR#: [id number] : 1935 SEX: F AGE: 89 LOCATION: 3BH ORDER 37 STATUS: ADM IN REPORT#: [id number] SERVICE [id number] REASON: Decreased breath sounds with wheezing ORDERING PHYSICIAN: VIRGIL ALCARAZ MD PROCEDURE: CXR1VW - CHEST 1VW EXAM: CR Chest, 1 view CLINICAL HISTORY: Decreased breath sound. Wheezing. COMPARISON: 01/23/2025. FINDINGS: The right side PICC line tip overlies the distal right brachiocephalic vein. The lungs show no infiltrates or other acute findings. No pleural effusion or pneumothorax. Stable borderline cardiomegaly and mild pulmonary vascular congestion. No acute osseous abnormality. IMPRESSION: Stable borderline cardiomegaly and mild pulmonary vascular congestion. Compared to the prior study, there is no significant interval change. /[place] DICTATED BY: DEA COLLINS Jr., MD DATE: 01/29/25558 ELECTRONICALLY SIGNED BY: DEA COLLINS Jr., MD DATE: 01/29/25558 ASSESSMENT: Sepsis due to acute complicated cystitis Obstructing Right hydroureter with right hydronephrosis,S/P placement of rt ureteral stent on 01/19/25 POA Acute hypoxemic respiratory failure Acute on chronic kidney disease Leukocytosis, POA Hypokalemia, resolved Diverticulosis, POA Elevated BNP, indeterminate diastolic dysfunction as per echo, pulmonary vascular congestion as per chest x-ray Morbid obesity PLAN: Sepsis due to acute complicated cystitis * Patient had elevated white cell count 12.6 on admission, which increased to 29.3. They reduced to 5K on 01/23. * Procalcitonin was 2.28 on admission, patient was tachycardic 108, tachypneic 24. meeting SIRS criteria for sepsis * Urine culture and blood culture showed growth of Proteus mirabilis * JERALD showed aortic valve is trileaflet, displaying nodular calcification on all three cusps, with adequate excursion and trivial aortic regurgitation. No valvular vegetation. * Repeat urine and blood cultures have been ordered. They are negative after 5 days. * Continue meropenem 1g q.12 (Day 10) * Pending SNF placement by case management Obstructing Right hydroureter with right hydronephrosis,S/P placement of rt ureteral stent on 01/19/25 POA * Patient underwent cystourethroscopy with stent placement, without removal of right ureteral calculus * As per the family present at the bedside, urologist recommended to remove the renal calculi with lithotripsy. Patient will require follow up after discharge * Munguia's catheter discontinued as per Urology recommendation * Continue IV meropenem1 g q.12 (Day 10) * Continue p.r.n. Dilaudid 0.5 mg for pain Acute hypoxic respiratory failure, COPD exacerbation * Patient is saturating well at 2.5L of oxygen via nasal cannula, her baseline is 2 L oxygen at home. We will wean down as tolerated. * Chest x-ray on 01/28 showed mild pulmonary vascular congestion and stable borderline cardiomegaly. * LASIX being held for 24 hours due to concerning contraction alkalosis and orthostasis. * Critical care team restarted IV Solu-Medrol due to presence of wheezing in upper lobes. * Solu-Medrol was discontinued on 01/25 and patient was started on prednisone 40 mg p.o.. * P.o. prednisone 40 mg for 5 days, followed by 20 mg for 5 days and will be discontinued * Maintain aspiration precautions * Maintain saturation over 92 % Acute on chronic kidney disease, due to obstructive uropathy, resolved * IV fluids LR at 75 mL/hour * Patient had obstructive uropathy for which a ureteral stent has been placed without removing the renal stone * Continue meropenem * Monitor electrolytes and BUN creatinine tomorrow * Avoid nephrotoxic agents and renally dose medications * We will follow Nephrology recommendations GI prophylaxis with pantoprazole and DVT prophylaxis with SCDs We will obtain recommendations from ID regarding antibiotics and possible discharge tomorrow and follow up with the urologist on outpatient basis. ATTESTATION BY PHYSICIAN I have seen and examined the patient. I reviewed the documentation, medical decision making, and treatment plan as noted by the resident physician above. I agree with the findings and plan of care. JULIA ALEJANDRA MD, HARSHAVARDHA MD Jan 29, 2025 14:26
--- NOTE | 2025-01-29 21:36 | PN ---
FOLLOWUP PROGRESS NOTE SUBJECTIVE: An 89-year-old female who has had a prolonged hospital course. The patient was initially admitted with sepsis and bacteremia. The patient was found to have obstructive uropathy status post stent placement. The patient had acute renal failure in the hospital. Creatinine had been elevated. The patient continues with the IV antibiotics and she is being seen as a followup visit for all the above. REVIEW OF SYSTEMS: GENERAL: She is feeling improved. HEENT: No change in vision. No change in hearing. CARDIOVASCULAR: There are no current chest pains or palpitations. PULMONARY: She has chronic shortness of breath. GASTROINTESTINAL: The patient is tolerating a diet. MUSCULOSKELETAL: Complains of weakness. PHYSICAL EXAMINATION: VITAL SIGNS: Blood pressure is 142/90, pulse 70. GENERAL: She is a chronically ill elderly female lying in bed on the medical floor. HEENT: Atraumatic. Pupils are equal, round, and reactive to light. Oropharynx is without exudate. Nares clear. NECK: There is no JVP. There is no thyromegaly. No masses. CARDIOVASCULAR: Regular. There is no S3 or S4 gallop. LUNGS: Coarse with equal thoracic movement. ABDOMEN: Soft, nondistended, and nontender. EXTREMITIES: Reveal no clubbing or cyanosis. NEUROLOGICAL: She is awake. She is alert. LABORATORY DATA: Hemoglobin 10, hematocrit 34. Sodium 140, potassium 3.7, BUN 44, creatinine is 1.3. IMPRESSION: * Acute renal failure. * Obstructive uropathy status post stent. * Bacteremia. * Hypertension. PLAN: The patient continues with the IV antibiotics. The patient is being seen by case management for final disposition. Blood pressure is under adequate control. Electrolytes have all been aggressively repleted. The patient will need followup in the [facility]al [facility] upon discharge to home. TID: [id number] RECEIPT: [id number]
--- NOTE | 2025-01-29 23:14 | PN ---
INFECTIOUS DISEASE PROGRESS NOTE Date of Service: Jan 29, 2025 SUBJECTIVE: This is an 89-year-old female patient who was seen and examined at bedside in room 306. Patient is awake and oriented. Patient was up ambulating in hallways using the walker and with physical therapy standby assistance. Continues on Meropenem. Patient is pending insurance authorization to [facility]. We will continue to follow patient's care. PHYSICAL EXAM EYES: Anicteric. Pupils equal and reactive. HENT: No oral thrush seen, moist Oral mucosa NECK: Supple, no JVD or thyromegaly. LUNGS: Diminished. Continue on oxygen support via nasal cannula. CARDIOVASCULAR: S1, S2 regular. No murmur heard. ABDOMEN: Soft, non tender, bowel sounds present, no organomegaly CENTRAL NERVOUS SYSTEM: Awake, alert, oriented x 3. SKIN: No rashes, no swelling. LYMPHATICS: No peripheral lymphadenopathy MUSCULOSKELETAL: No joint swelling, erythema or tenderness. EXTREMITIES: No cyanosis or clubbing. Weakness. BACK: No deformity, no pressure ulcer. GENITOURINARY: No dysuria or hematuria. Vital Sign (Last 12 Hours) 01/29/25 01/29/25 01/29/25 01/29/25 11:48 16:00 18:38 18:38 Temp 98.1 98.1 Pulse 90 91 82 82 Resp 20 18 19 18 B/P (MAP) 122/65 130/58 Pulse Ox 100 93 O2 Delivery Nasal Cannula Room Air N/Cannula Low lpm O2 Flow Rate 2.5 3.0 FiO2 32 01/29/25 01/29/25 20:00 20:00 Temp 97.7 Pulse 89 Resp 18 B/P (MAP) 128/61 Pulse Ox 97 O2 Delivery Nasal Cannula Room Air* O2 Flow Rate 3.0 0 FiO2 21 Intake & Output (last 24hrs) 01/28/25 01/28/25 01/29/25 15:00 23:00 07:00 Intake Total 1900 ml 300.0 ml Balance 1900 ml 300.0 ml LABS: Laboratory: Test 01/29/25 04:48 Range/Units White Blood Count 10.7 4.8-10.8 K/uL Red Blood Count 3.69 L 4.00-5.50 MIL/uL Hemoglobin 10.9 L 12.0-16.0 g/dL Hematocrit 34.4 L 36-48 % Mean Corpuscular Volume 93.2 79-99 fL Mean Corpuscular Hemoglobin 29.5 27.0-33.0 pg Mean Corpuscular Hemoglobin Concent 31.7 L 32.0-36.0 g/dL Red Cell Distribution Width 13.2 11.0-15.5 % Platelet Count 257 130-400 K/uL Mean Platelet Volume 9.9 7.5-10.5 fL Nucleated Red Blood Cells 0.0 0.0-0.19 % Sodium Level 140 136-145 mmol/L Potassium Level 3.7 3.5-5.1 mmol/L Chloride Level 99 L 101-111 mmol/L Carbon Dioxide Level 32 21-32 mmol/L Blood Urea Nitrogen 45 H 7-18 mg/dL Creatinine 1.3 H 0.5-1.0 mg/dL Glomerular Filtration Rate Calc 40 >90 mL/min Random Glucose 108 H 70-105 mg/dL Total Calcium 8.0 L 8.5-10.1 mg/dL Magnesium Level 2.00 1.80-2.40 mg/dL Total Bilirubin 0.3 0.2-1.0 mg/dL Direct Bilirubin 0.1 0.0-0.3 mg/dL Aspartate Amino Transf (AST/SGOT) 29 10-37 U/L Alanine Aminotransferase (ALT/SGPT) 70 12-78 U/L Alkaline Phosphatase 126 50-136 U/L Total Protein 6.6 6.0-8.3 g/dL Albumin 2.6 L 3.5-5.0 g/dL ASSESSMENT: Gram-negative bacteremia. Urinary tract infection with Proteus mirabilis. Leukocytosis, resolving. Endocarditis ruled out, status post JERALD. Obstructing calculus in the right distal ureter, s/p successful manipulation and right ureteral stent placement on 01/18/2025. Bilateral nephrolithiasis. Acute renal failure. PLAN: Continue Meropenem. Continue GI prophylaxis. Oxygen support as needed. Continue physical therapy. Pending insurance approval to [facility]. This case was reviewed and discussed with my supervising physician Dr. Waldron and the above assessment and plan was formulated and agreed upon. ATTESTATION BY PHYSICIAN I have seen and examined the patient. I reviewed the documentation, medical decision making, and treatment plan as noted by the mid-level provider above. I agree with the findings and plan of care. MILAD WALDRON MD, [facility] Jan 29, 2025 23:14
[2025-01-30] VITALS (14 sets, daily range): BP systolic 130–156; BP diastolic 50–82; PULSE 80–107; RESP 16–24; TEMP 97.4–98.8; O2SAT 95–99
[2025-01-30 08:12] LABS: NUCLEATED RED BLOOD CELLS 0.0 % (0.0-0.19); PLATELET COUNT (AUTO) 272.0 K/uL (130-400); RED BLOOD CELL COUNT(AUTO) 3.65 MIL/uL (4.00-5.50); RED CELL DISTRIBUTION WIDTH 13.4 % (11.0-15.5); WHITE BLOOD COUNT (AUTO) 10.3 K/uL (4.8-10.8)
[2025-01-30 08:17] LABS: CREATININE 1.3 mg/dL (0.5-1.0); GLOMERULAR FILTR. RATE CALC 40.0 mL/min (>90); GLUCOSE,RANDOM 123.0 mg/dL (70-105); SODIUM SERUM 137.0 mmol/L (136-145); UREA NITROGEN, BLOOD 43.0 mg/dL (7-18)
--- NOTE | 2025-01-30 13:48 | PN ---
[facility] PROGRESS NOTE Date of Service: Jan 30, 2025 Time of Service: 13:48 History of Present Illness Ms. Chatman is an 89-year-old female that was seen and examined today on 01/17/2025 patient is currently alert and oriented x1. Patient states that it is December 2010. Patient states she does not know what city she is currently N but states that she is currently living with the daughter. Patient states that she has from [facility]. Discussed with primary nurse, Tona who states patient was previously alert and oriented x3 however after a dose of Dilaudid patient became less able to answer questions appropriately. The following was obtained from emergency room physician report. There was no previous medical records available for me to review. According to emergency room physician: 89-year-old female was brought to the ER due to abdominal pain, stated that the pain started earlier this morning and has been getting worse, patient was unable to tolerate a diet today due to abdominal pain. He denies nausea or vomiting. Patient reports history of constipation, stated that she had a bowel movement this ED but was very little stool came out. Today in the emergency department WBCs 12.6, left shift neutrophils 94%, potassium 3.4, no urinalysis has been collected or sent to lab, CT of abdomen and pelvis shows obstructive uropathy, right hydronephrosis, right hydro ureteral, 6 mm calculus. Emergency room physician recommended that patient be admitted so she could be evaluated by urology service. Urology service is being paste from the emergency department. Also creatinine was elevated at 1.7. There was no known baseline creatinine level. Nephrology service was also consulted from the emergency department. SUBJECTIVE: [ ] 01/18/2025: Patient was seen this morning in 420. Alert oriented to time place and person, denied fevers, chills hemodynamically stable. The patient reported discomfort in her abdomen and right flank. Culture showed 10-50 K colony-forming units and her WBCs on presentation were [id number] while in the ED that spiked to 23.4 K this morning. He lactic acid was 2.1 and Procal was 2.8. We added Zosyn on top of ceftriaxone for extended coverage. We spoke to Dr. Jimenez for management of hydronephrosis with 6 mm stone in the right ureter and he recommended placing a nephrostomy tube and obtaining cardiac clearance before doing so. Dr. Ribeiro was consulted and patient is considered to be at high risk for a low risk non cardiac surgery. He cleared her to proceed with intervention as the current benefits outweigh the risk from the cardiovascular standpoint. Pending transfer to any facility for placing nephrostomy tube as IR not available today. Patient remains NPO since this morning. 17:30: In the interim patient became more septic and decompensated. Her blood pressure dropped to 89/44, MAP 59 and IV bolus Ringer's lactate was started. Critical care team was consulted and a transfer to ICU order was placed. Critical Care team placed the order for Levophed however was waiting for the patient to be transferred to the ICU. 7:00 p.m.: After IV bolus patient's map is at 61. Patient is being transferred to ICU and will be started on Levophed. We agree with the plan from [facility] and we will continue their recommendations. 01/19/2025: Patient was seen in ICU in room 214. After being transferred to ICU patient was seen by Dr. Jimenez, performed a cystourethroscopy without removal of right ureteral calculus with stent placement and a retrograde pyelogram. Patient was noted to have purulent drainage after placing the ureteral stent and a Munguia's catheter was recommended to be placed for next 24-48 hours for anterograde drainage. Patient was started on meropenem and vancomycin and an ID consult has been obtained. Preliminary blood culture showed growth of Gram- negative rods, final identification pending. We will follow recommendations from urology, nephrology, ID, and critical care team. 01/20/2025 The patient was seen and examined in room 306. The patient was downgraded yesterday from ICU to the floor. The patient was lying comfortably on the bed with no complaints of shortness of breath, abdominal pain or chest pain. The patient had JERALD done today that showed no vegetations. Patient's blood culture came back positive for Proteus mirabilis and she is continued on antibiotic meropenem and vancomycin. The patient is maintaining 100% oxygen at 3 L. the patient was complaining of constipation therefore she was given 1 dose of lactulose. 01/21/2025: Patient was seen and examined in room 306. Patient was lying comfortably in her bed with her daughter at the bedside. Patient had Munguia catheter connected which showed blood tinged urine. Patient denied any flank pain or abdominal pain. Urologist advised to discontinue the Munguia's this morning and will follow up with the patient in clinic for definitive treatment of right ureteral calculi. Patient white count have come to 5000 and remains afebrile. Patient's urine and blood culture showed growth of Proteus mirabilis which is sensitive to meropenem and ID recommended to continue. We will get recommendations from ID and assess for possible discharge tomorrow. Critical care team we will discontinue IV Solu-Medrol and initiate p.o. prednisone 40 mg to be tapered in next 5 days. We also sent a referral for outpatient sleep study and case management evaluation for help finding a PCP. 01/22/2025: Patient was seen and examined at bedside. Munguia catheter has been discontinued. Patient is currently on Merrem as per blood culture and urine culture results. We have ordered a repeat blood culture and urine culture and we will follow up with the Infectious Disease recommendations for discharge. Patient is currently on 40 mg q.12h Lasix. Her urine output has been 3900 as compared to 200 input. Her WBCs have trended down to 5 K. 01/23/2025: Patient was seen and examined at bedside. She is currently on oxygen nasal cannula 3 L and states that she uses oxygen at home as well. She is receiving Merrem for bacteremia and UTI and her Lasix IV has been switched to oral. We are following with Infectious Disease recommendations for management of her antibiotic. As per critical Care consult, patient will benefit from several more doses Solu-Medrol. She will also require case management evaluation for discharge to SNF. 01/24/2025: Patient was seen and examined at bedside. She is pending sample case porter evaluation for possible discharge to SNF. She continues on oxygen nasal cannula. Her repeat urine and blood cultures have been negative after48 hours. She is currently on IV Solu-Medrol which may be changed to oral tomorrow. We will follow up with critical care consult recommendations. 01/25/25: Examination patient is lying in bed. Primary nurse reports no events overnight. Patient is awaiting for SNF placement for long-term IV antibiotics. Trend up to 1.7 decreased dosage of Lasix. LR at 75 mL for 24 hours. Patient denied chest pain or shortness for breath. 01/26/25: Patient was seen and examined at bedside. She continues on3 L nasal cannula and is doing pretty good and reports no shortness of breath or chest pain. support manager is working on her SNF placement. Solu-Medrol has been discontinued and prednisone 40 mg daily has been started which will be weaned off slowly as per critical Care recommendations. 01/27/2025: Patient was seen and evaluated bedside in room 306. She continues on3 L nasal cannula and doing pretty good and reports no shortness of breath or chest pain. Blood and urine culture showed growth of Proteus mirabilis and case management working on placement to SNF for IV antibiotics. Continue Merrem, furosemide, prednisone. 01/28/2025: Patient was seen and evaluated at bedside in room 306. She continues on 3 L nasal cannula and reports no shortness of breath or chest pain. We have advised nurse to wean down oxygen as tolerated as patient's baseline at home is 2 L. Case management is still working on placement to SNF for IV antibiotics. We will follow up with Physical Therapy today. 01/29/2025: Patient was evaluated at the bedside in room 306. Patient had no acute events overnight and is saturating well at 2.5 L of oxygen via nasal sravanthi diya. She had a drop of close to 40 mm hg of SBP from sitting to standing for 5 minutes. We will hold the Lasix for 24 hours and repeat orthostatic vitals tomorrow. Patient is still pending approval for [facility] and there has been escalation of authorization request by sample case porter. We will continue meropenem for the 10th day and continue physical therapy while in the hospital. 01/30/2025: Patient was evaluated bedside in room 306. Patient had no acute events overnight saturating well at 2 L of oxygen which is her baseline at home. Her orthostatic vitals have been repeated today and she maintained her blood pressure after standing up to 1 minute. Supine blood pressure was 140/70 and standing blood pressure was 145/82. Patient was breathing comfortably and completed her 10 days of meropenem yesterday. Patient was accepted for [facility], however patient remains weak and would highly benefit from physical therapy at home. Patient's daughter did not want to take her to [facility] and instead have home PT. Therefore a home health with PT was requested to the case management. REVIEW OF SYSTEMS CONSTITUTIONAL: Denies fevers, chills, or night sweats. No unintentional weight loss reported. NEUROLOGICAL: Denies headache, amaurosis fugax, motor weakness, sensory de ficit, vertigo/spinning sensation, gait abnormalities, or tremors. ENT: No hearing loss, otalgia, otorrhea, rhinitis, rhinorrhea, hoarseness, or sore throat. CARDIOVASCULAR: Denies any exertional angina, dyspnea on exertion, orthopnea, paroxysmal nocturnal dyspnea, palpitations, life-threatening arrhythmias, claudication. PULMONARY: Denies any shortness of breath, cough, phlegm/sputum, hemoptysis, pleuritic chest pain. SLEEP: Denies morning headaches, daytime somnolence or napping. Denies difficulty falling asleep, staying asleep, waking from sleep. Denies knowledge of snoring. GASTROINTESTINAL: Denies any type of dysphagia to either liquids or solids. Denies nausea, vomiting, pyrosis, early satiety, abdominal pain, diarrhea, constipation, or changes in stool consistency or caliber. Denies coffee-ground emesis, hematemesis, hematochezia, or melanotic stools. GENITOURINARY: Right sided flank pain, improved. Denies frequency, urgency, nocturia, hematuria or incontinence PHYSICAL EXAM GENERAL APPEARANCE: The patient is awake, alert, and oriented, in no acute cardiopulmonary distress. NEUROLOGICAL: Cranial nerves II-XII grossly intact. Motor is 5/5 in bilateral upper and lower extremities proximal to distal. No sensory deficits. HEENT: Face is symmetric. Pupils are equal and reactive. Extraocular movements are intact. NECK: Supple. No JVD. No thyromegaly. No submental, submandibular, pre- /postauricular, occipital or supraclavicular lymphadenopathy. CHEST: Normal chest expansion. No Telemetry. LUNGS: Absence of any rales, rhonchi or any wheezing. CARDIOVASCULAR: Regular. S1 and S2 normal. No appreciable rubs, murmurs or gallops. ABDOMEN: Soft, nontender, and nondistended. There is no rebound, voluntary guarding, or rigidity. : Deferred. Vital Signs (last 8hr) Date Time Temp Pulse Resp B/P (MAP) Pulse Ox O2 Delivery O2 Flow Rate FiO2 01/30/25 12:00 98.8 102 17 156/75 98 Nasal Cannula 3.0 01/30/25 11:15 92 19 N/Cannula Low lpm 3.0 32 01/30/25 11:11 92 20 01/30/25 08:53 99 Nasal Cannula* 2 28 01/30/25 08:09 87 19 N/Cannula Low lpm 3.0 32 01/30/25 08:01 145/82 01/30/25 08:00 97.5 86 16 140/70 99 Nasal Cannula 3.0 01/30/25 06:25 87 19 LABS: Laboratory: Test 01/30/25 05:21 01/29/25 04:48 Range/Units White Blood Count 10.3 4.8-10.8 K/uL Red Blood Count 3.65 L 4.00-5.50 MIL/uL Hemoglobin 11.0 L 12.0-16.0 g/dL Hematocrit 34.1 L 36-48 % Mean Corpuscular Volume 93.4 79-99 fL Mean Corpuscular Hemoglobin 30.1 27.0-33.0 pg Mean Corpuscular Hemoglobin Concent 32.3 32.0-36.0 g/dL Red Cell Distribution Width 13.4 11.0-15.5 % Platelet Count 272 130-400 K/uL Mean Platelet Volume 10.1 7.5-10.5 fL Nucleated Red Blood Cells 0.0 0.0-0.19 % Sodium Level 137 136-145 mmol/L Potassium Level 3.9 3.5-5.1 mmol/L Chloride Level 99 L 101-111 mmol/L Carbon Dioxide Level 34 H 21-32 mmol/L Blood Urea Nitrogen 43 H 7-18 mg/dL Creatinine 1.3 H 0.5-1.0 mg/dL Glomerular Filtration Rate Calc 40 >90 mL/min Random Glucose 123 H 70-105 mg/dL Total Calcium 8.5 8.5-10.1 mg/dL Magnesium Level 2.00 1.80-2.40 mg/dL Total Bilirubin 0.3 0.2-1.0 mg/dL Direct Bilirubin 0.1 0.0-0.3 mg/dL Aspartate Amino Transf (AST/SGOT) 29 10-37 U/L Alanine Aminotransferase (ALT/SGPT) 70 12-78 U/L Alkaline Phosphatase 126 50-136 U/L Total Protein 6.6 6.0-8.3 g/dL Albumin 2.6 L 3.5-5.0 g/dL Current Medications Medications (Trade) Dose Ordered Sig/Nirmala Route PRN Reason Start Time Stop Time Status Last Admin Dose Admin Acetaminophen (TYLenol 325MG TAB) 650 mg Q4HPRN PRN PO TEMP ABOVE 101.5/MILD PAIN 1-3 01/18/25 13:30 02/16/25 22:29 01/29/25 18:15 650 MG Acetaminophen (TYLenol 325MG TAB) 650 mg Q6H PRN PO TEMPERATURE GREATER THAN 101.5 01/17/25 22:30 01/18/25 13:29 DC 01/18/25 08:35 650 MG Acetaminophen (TYLenol 325MG TAB) 650 mg Q6H PRN PO MILD PAIN (1-3) 01/20/25 17:00 02/19/25 16:59 01/28/25 20:16 650 MG Albuterol (DUOneb) 1 UDVIAL Q6H IH 01/20/25 17:30 02/19/25 17:29 01/30/25 11:32 1 UDVIAL Ceftriaxone Sodium (ROCEphine 1G INJ) 1 gm Q24H IVPB 01/18/25 02:00 01/18/25 13:18 DC 01/18/25 02:53 1 GM Furosemide (LASix 20MG TAB) 20 mg Q12H PO 01/26/25 08:00 01/29/25 12:49 DC 01/29/25 08:12 20 MG Furosemide (LASix 20MG VIAL) 20 mg DAILY IV 01/20/25 09:00 01/20/25 09:01 DC 01/20/25 09:17 20 MG Furosemide (LASix 40MG TAB) 40 mg Q12H PO 01/23/25 07:30 01/25/25 10:35 DC 01/25/25 07:17 40 MG Furosemide (LASix 40MG VIAL) 40 mg Q12H IV 01/21/25 10:00 01/23/25 07:27 DC 01/22/25 20:40 40 MG Hydralazine HCl (APRESOLine 20MG INJ) 5 mg Q6H PRN IV For:SBP above 160;DBP above 90 01/25/25 16:00 02/24/25 15:59 Hydralazine HCl (APRESOLine 20MG INJ) 10 mg Q6H PRN IV For:SBP above 160;DBP above 90 01/21/25 10:00 01/25/25 10:35 DC Hydromorphone HCl (DiLAUDid 0.5MG INJ) 0.25 mg Q4H PRN IVP SEVERE PAIN (7-10) 01/17/25 22:30 01/22/25 22:29 DC 01/18/25 20:49 0.25 MG Lactated Ringer's 1,000 ml @ 50 mls/hr Q20H IV 01/25/25 11:00 02/24/25 10:59 01/29/25 17:18 50 MLS/HR Lactated Ringer's 1,000 ml @ 125 mls/hr Q8H IV 01/17/25 22:30 01/19/25 05:53 DC 01/18/25 23:40 125 MLS/HR Lactulose (Constulose 20gm/ 30ml Udcup) 20 gm BID PRN PO CONSTIPATION 01/17/25 22:30 02/16/25 22:29 01/21/25 22:06 20 GM Magnesium Sulfate 50 ml @ 0 mls/hr PROTOCOL PRN IV As needed 01/18/25 09:30 02/17/25 09:29 01/24/25 06:25 25 MLS/HR Melatonin (Melatonin) 5 mg HS PO 01/20/25 21:00 02/19/25 20:59 01/29/25 20:49 5 MG Meropenem (Merrem 1gm) 1 gm Q12H IVPB 01/18/25 19:30 01/19/25 05:56 DC 01/18/25 20:38 1 GM Meropenem (Merrem 1gm) 1 gm Q12H IVPB 01/19/25 09:00 01/19/25 19:30 DC 01/19/25 08:13 1 GM Meropenem (Merrem 1gm) 1 gm Q12H IVPB 01/19/25 23:30 01/19/25 23:28 DC Meropenem (Merrem 1gm) 1 gm Q12H IVPB 01/20/25 02:30 01/30/25 02:29 DC 01/29/25 17:18 1 GM Methylprednisolone Sodium Succinate (Solu-medROL 40MG) 40 mg BID IVP 01/20/25 17:30 01/22/25 16:53 DC 01/22/25 09:47 40 MG Methylprednisolone Sodium Succinate (Solu-medROL 40MG) 40 mg Q8H IVP 01/23/25 14:00 01/25/25 10:29 DC 01/25/25 07:17 40 MG Norepinephrine 250 ml @ 0 mls/hr PROTOCOL IV 01/18/25 18:00 01/19/25 23:15 DC Ondansetron HCl (zoFRAN 4MG INJ) 4 mg Q6H PRN IV NAUSEA/VOMITING 01/17/25 22:30 02/16/25 22:29 Pantoprazole Sodium (PROTonix 40MG INJ) 40 mg DAILY IV 01/18/25 09:00 01/23/25 10:47 DC 01/23/25 08:47 40 MG Pantoprazole Sodium (PROTonix 40MG TAB) 40 mg DAILY PO 01/24/25 09:00 02/23/25 08:59 01/30/25 08:53 40 MG Pharmacy Profile Note (Pharmacy Communication) 1 each ONCE MISC 01/18/25 19:30 01/18/25 19:22 DC Pharmacy Profile Note (Pharmacy Communication) 1 each ONCE MISC 01/19/25 23:30 01/19/25 23:18 DC Piperacillin Sod/ Tazobactam Sod (Zosyn 3.375gm+NS 50ml) 3.375 gm Q8H IV 01/18/25 13:30 01/18/25 22:40 DC 01/18/25 20:41 3.375 GM Prednisone (deltaSONE/ oraSONE 20MG TAB) 20 mg BID PO 01/22/25 21:00 01/23/25 13:56 DC 01/23/25 08:48 20 MG Prednisone (deltaSONE/ oraSONE 20MG TAB) 40 mg DAILY PO 01/26/25 09:00 01/31/25 08:59 01/30/25 08:53 40 MG Sodium Chloride 1,000 ml @ 75 mls/hr [id number] IV 01/17/25 22:00 01/18/25 12:28 DC 01/17/25 22:32 75 MLS/HR Tamsulosin HCl (FloMAX) 0.4 mg DAILY PO 01/18/25 09:00 02/17/25 08:59 01/30/25 08:53 0.4 MG Vancomycin HCl (Vancomycin 750mg) 750 mg Q24H IVPB 01/19/25 23:00 01/21/25 01:22 DC 01/21/25 00:37 750 MG Vancomycin HCl (Vancomycin Protocol) 1 each AD IV 01/18/25 23:00 01/21/25 01:22 DC DIAGNOSTICS / RADIOLOGY: [ ] ASSESSMENT: Sepsis due to acute complicated cystitis Obstructing Right hydroureter with right hydronephrosis,S/P placement of rt ureteral stent on 01/19/25 POA Acute hypoxemic respiratory failure Acute on chronic kidney disease Leukocytosis, POA Hypokalemia, resolved Diverticulosis, POA Elevated BNP, indeterminate diastolic dysfunction as per echo, pulmonary vascular congestion as per chest x-ray Morbid obesity PLAN: Sepsis due to acute complicated cystitis, resolved * Patient had elevated white cell count 12.6 on admission, which increased to 29.3. They reduced to 5K on 01/23. * Procalcitonin was 2.28 on admission, patient was tachycardic 108, tachypneic 24. meeting SIRS criteria for sepsis * Urine culture and blood culture showed growth of Proteus mirabilis * JERALD showed aortic valve is trileaflet, displaying nodular calcification on all three cusps, with adequate excursion and trivial aortic regurgitation. No valvular vegetation. * Repeat urine and blood cultures have been ordered. They are negative after 5 days. * Patient finished 10 day course of meropenem 1 g yesterday * Pending SNF placement by case management Obstructing Right hydroureter with right hydronephrosis,S/P placement of rt ureteral stent on 01/19/25 POA * Patient underwent cystourethroscopy with stent placement, without removal of right ureteral calculus * As per the family present at the bedside, urologist recommended to remove the renal calculi with lithotripsy. * Munguia's catheter discontinued as per Urology recommendation * Patient finished 10 days of meropenem1 g yesterday * Patient will require follow up after discharge Acute hypoxic respiratory failure, COPD exacerbation * Patient is saturating well at 2L of oxygen via nasal cannula, her baseline is 2 L oxygen at home. * Chest x-ray on 01/28 showed mild pulmonary vascular congestion and stable borderline cardiomegaly. * Discontinue Lasix * Critical care team restarted IV Solu-Medrol due to presence of wheezing in upper lobes. * Solu-Medrol was discontinued on 01/25 and patient was started on prednisone 40 mg p.o.. * P.o. prednisone 40 mg for 5 days, followed by 20 mg for 5 days and will be discontinued * Maintain aspiration precautions * Maintain saturation over 92 % Acute on chronic kidney disease, due to obstructive uropathy, resolved * IV fluids LR at 75 mL/hour * Patient had obstructive uropathy for which a ureteral stent has been placed without removing the renal stone * Continue meropenem * Monitor electrolytes and BUN creatinine tomorrow * Avoid nephrotoxic agents and renally dose medications * We will follow Nephrology recommendations GI prophylaxis with pantoprazole and DVT prophylaxis with SCDs Patient pending discharge contingent upon approval for home health with physical therapy and follow up with the urologist on outpatient basis. ATTESTATION BY PHYSICIAN I have seen and examined the patient. I reviewed the documentation, medical decision making, and treatment plan as noted by the resident physician above. I agree with the findings and plan of care. JULIA ALEJANDRA MD, HARSHAVARDHA MD Jan 30, 2025 13:48
--- NOTE | 2025-01-30 14:27 | NUR ---
PLAN FOR D/C PER DAUGHTER PATIENT WANTS TO GO HOME AFTER ANTIBIOTIC THERAPY IS COMPLETED. [facility] CASE MANAGEMENT CALLED DAUGHTER AND DAUGHTER STATED SHE WANTS PATIENT TO GO HOME WITH PHYSICAL THERAPY.
--- NOTE | 2025-01-30 15:27 | NUR ---
DISCUSSED DC PLAN WITH DAUGHTER DAUGHTER STATES THAT PATIENT HAS NOT RECIEVED THE KIND OF CARE SHE CAN GIVE PATIENT AT HOME. STAETS THAT SHE HAS ALL EQUIPMENT. STATES SHE DOES NOT NEED AN AMBULANCE FOR HOME TRANSPORT. EXPRESSES STRONG DISPLEASURE WITH PLAN OF CARE UP TO THIS POINT AND STATES SHE CAN DO BETTER. N WHEN ASKED ABOUT MOBILITY STTES THAT SHE HAS BEEN GETTING HER MOTHER UP AND DOWN TO BATHROOM, SHOWER AND CAHRI AND REMAINS CAPABLE OF DOING SO. EXPECTING DISCHARGE TO HOME TOMORROW. ADVISED HER TO CALL THE PCP TO ARRANGE A TELE VISIT IF PATIENT NOT ABLE TO GO TO MD DIRECTLY ADVISED HER THAT WE ([facility] [place]) CANNT ARRANGE HOME HEALTH, IT IS THE RESPONSIBLITY OF THE PCPC TO DO SO. VERBALIZED UNDERSTANDING OF SAME AND STATES SHE WOULD LOOK AFTER IT AFTER SHE GOT PATIENT HOME
--- NOTE | 2025-01-30 21:54 | PN ---
INFECTIOUS DISEASE PROGRESS NOTE Date of Service: Jan 30, 2025 SUBJECTIVE: This is an 89-year-old female patient who was seen and examined at bedside in room 306. Patient is awake and oriented. Patient has completed 10 days of IV Meropenem. Ambulated 40 ft with physical therapy yesterday. Patient now prefers to be discharged to home if possible. We will have case management evaluate for referral to home with home health services for rehab. PHYSICAL EXAM EYES: Anicteric. Pupils equal and reactive. HENT: No oral thrush seen, moist Oral mucosa NECK: Supple, no JVD or thyromegaly. LUNGS: Diminished. Continue on oxygen support via nasal cannula. CARDIOVASCULAR: S1, S2 regular. No murmur heard. ABDOMEN: Soft, non tender, bowel sounds present, no organomegaly CENTRAL NERVOUS SYSTEM: Awake, alert, oriented x 3. SKIN: No rashes, no swelling. LYMPHATICS: No peripheral lymphadenopathy MUSCULOSKELETAL: No joint swelling, erythema or tenderness. EXTREMITIES: No cyanosis or clubbing. Weakness. BACK: No deformity, no pressure ulcer. GENITOURINARY: No dysuria or hematuria. Vital Sign (Last 12 Hours) 01/30/25 01/30/25 01/30/25 01/30/25 11:11 11:15 12:00 16:00 Temp 98.8 97.7 Pulse 92 92 102 107 Resp 20 19 17 19 B/P (MAP) 156/75 146/50 Pulse Ox 98 97 O2 Delivery N/Cannula Low lpm Nasal Cannula Nasal Cannula O2 Flow Rate 3.0 3.0 2.0 FiO2 32 01/30/25 01/30/25 01/30/25 01/30/25 18:58 18:58 20:00 20:00 Pulse 80 80 106 106 Resp 18 19 B/P (MAP) 142/62 130/77 O2 Delivery N/Cannula Low lpm O2 Flow Rate 2.0 FiO2 28 01/30/25 20:00 Temp 97.7 Pulse 88 Resp 24 B/P (MAP) 144/72 Pulse Ox 95 O2 Delivery Nasal Cannula O2 Flow Rate 2.0 Intake & Output (last 24hrs) 01/29/25 01/29/25 01/30/25 15:00 23:00 07:00 Intake Total 2792.0 ml 500.0 ml Balance 2792.0 ml 500.0 ml LABS: Laboratory: Test 01/30/25 05:21 01/29/25 04:48 Range/Units White Blood Count 10.3 4.8-10.8 K/uL Red Blood Count 3.65 L 4.00-5.50 MIL/uL Hemoglobin 11.0 L 12.0-16.0 g/dL Hematocrit 34.1 L 36-48 % Mean Corpuscular Volume 93.4 79-99 fL Mean Corpuscular Hemoglobin 30.1 27.0-33.0 pg Mean Corpuscular Hemoglobin Concent 32.3 32.0-36.0 g/dL Red Cell Distribution Width 13.4 11.0-15.5 % Platelet Count 272 130-400 K/uL Mean Platelet Volume 10.1 7.5-10.5 fL Nucleated Red Blood Cells 0.0 0.0-0.19 % Sodium Level 137 136-145 mmol/L Potassium Level 3.9 3.5-5.1 mmol/L Chloride Level 99 L 101-111 mmol/L Carbon Dioxide Level 34 H 21-32 mmol/L Blood Urea Nitrogen 43 H 7-18 mg/dL Creatinine 1.3 H 0.5-1.0 mg/dL Glomerular Filtration Rate Calc 40 >90 mL/min Random Glucose 123 H 70-105 mg/dL Total Calcium 8.5 8.5-10.1 mg/dL Magnesium Level 2.00 1.80-2.40 mg/dL Total Bilirubin 0.3 0.2-1.0 mg/dL Direct Bilirubin 0.1 0.0-0.3 mg/dL Aspartate Amino Transf (AST/SGOT) 29 10-37 U/L Alanine Aminotransferase (ALT/SGPT) 70 12-78 U/L Alkaline Phosphatase 126 50-136 U/L Total Protein 6.6 6.0-8.3 g/dL Albumin 2.6 L 3.5-5.0 g/dL ASSESSMENT: Gram-negative bacteremia. Urinary tract infection with Proteus mirabilis. Leukocytosis, resolving. Endocarditis ruled out, status post JERALD. Obstructing calculus in the right distal ureter, s/p successful manipulation and right ureteral stent placement on 01/18/2025. Bilateral nephrolithiasis. Acute renal failure. PLAN: Completed 10 days of Meropenem. Oxygen support as needed. Continue physical therapy and participating much better. We will have case management evaluate for referral to home with home health services for rehab. This case was reviewed and discussed with my supervising physician Dr. Waldron and the above assessment and plan was formulated and agreed upon. ATTESTATION BY PHYSICIAN I have seen and examined the patient. I reviewed the documentation, medical decision making, and treatment plan as noted by the mid-level provider above. I agree with the findings and plan of care. MILAD WALDRON MD, [facility] Jan 30, 2025 21:54
--- NOTE | 2025-01-30 23:31 | PN ---
FOLLOWUP PROGRESS NOTE SUBJECTIVE: An 89-year-old female with a history of sepsis. She initially presented with bacteremia, source genitourinary. The patient was seen by Urology and had a stent placed. She has had acute renal failure in the hospital. Creatinine has been elevated and the patient is being seen as a followup visit for all of the above. REVIEW OF SYSTEMS: GENERAL: The patient is feeling weak and tired. HEENT: No change in vision. No change in hearing. CARDIOVASCULAR: There is no current chest pain or palpitations. PULMONARY: No shortness of breath. GASTROINTESTINAL: The patient is tolerating a diet. MUSCULOSKELETAL: Complaints of weakness. PHYSICAL EXAMINATION: VITAL SIGNS: Blood pressure is 145/82, pulse in the 80s. GENERAL: Chronically ill female lying in bed on the medical floor. HEENT: Head is atraumatic. Pupils are equal, round and reactive to light. Oropharynx is without exudate. Nares clear. NECK: There is no JVP. There is no thyromegaly, no mass. CARDIOVASCULAR: Regular. There is no S3 or S4 gallop. LUNGS: Coarse with equal thoracic movement. ABDOMEN: Soft, nontender, nondistended. EXTREMITIES: Reveal no clubbing or cyanosis. NEUROLOGICAL: She is awake. She is alert. LABORATORY DATA: Sodium 137, potassium 3.9, BUN 43, creatinine is 1.3. IMPRESSION: * Acute on chronic renal failure. * Sepsis, bacteremia. * Obstructive uropathy. * Hypertension. PLAN: The patient's creatinine continues to remain fairly stable. The patient's electrolytes have all been aggressively repleted. The patient continues with the antibiotics. The patient is being seen by Case Management for final disposition. Once the patient is discharged, the patient can follow up in the Renal Clinic. I have discussed with the patient and family the patient will need followup with Urology for the stent removal. TID: [id number] RECEIPT: [id number]
[2025-01-31] VITALS (8 sets, daily range): BP systolic 112–145; BP diastolic 58–76; PULSE 84–104; RESP 18–24; TEMP 97.4–97.9; O2SAT 96–98
[2025-01-31 05:08] LABS: NUCLEATED RED BLOOD CELLS 0.0 % (0.0-0.19); PLATELET COUNT (AUTO) 241.0 K/uL (130-400); RED BLOOD CELL COUNT(AUTO) 3.49 MIL/uL (4.00-5.50); RED CELL DISTRIBUTION WIDTH 13.5 % (11.0-15.5); WHITE BLOOD COUNT (AUTO) 10.7 K/uL (4.8-10.8)
[2025-01-31 05:25] LABS: CREATININE 1.2 mg/dL (0.5-1.0); GLOMERULAR FILTR. RATE CALC 44.0 mL/min (>90); GLUCOSE,RANDOM 111.0 mg/dL (70-105); SODIUM SERUM 139.0 mmol/L (136-145); UREA NITROGEN, BLOOD 46.0 mg/dL (7-18)
[2025-01-31] MEDS ORDERED: PRED20TA3 PO (11:33)
[2025-01-31] MEDS ORDERED: PRED10TA3 PO (11:33)
[2025-01-31] MEDS ORDERED: FURO40TA7 PO (11:34)
--- NOTE | 2025-01-31 11:37 | DS ---
Discharge Summary Hospital Course Summary: Ms. Chatman, an 89-year-old female, was admitted with acute abdominal pain and right hydronephrosis secondary to a 6 mm right ureteral stone with Urosepsis. On arrival, she was initially alert and oriented, but after receiving hydromorphone for pain control, she developed significant confusion and disorientation, consistent with increased opioid sensitivity and risk of central nervous system depression in elderly patients, especially those with possible renal impairment. Her evaluation revealed leukocytosis, rising from 12,600 to 23,400, and obstructive uropathy on imaging. She subsequently developed sepsis with hypotension, requiring ICU admission, intravenous fluids, vasopressor support, and broad-spectrum antibiotics. Urology was consulted and performed cystourethroscopy with stent placement for source control. Blood and urine cultures grew Proteus mirabilis, and she completed a 10-day course of meropenem with clinical improvement and normalization of her white count. Throughout her hospitalization, she required supplemental oxygen, which was gradually weaned to her home baseline, and experienced orthostatic hypotension managed by holding diuretics and monitoring. Case management coordinated discharge planning, initially for intermediate facility placement for ongoing IV antibiotics, but ultimately transitioned to home health with physical therapy for physical rehabilitation. However patient's daughter insisted on providing care by herself and said she can set up home health through her primary care physician. Patient's daughter insisted on providing better care at home than at a rehab facility and patient will be discharged home. Case management offered for EMS transport however her daughter declined that service and insisted on using her own transportation. Patient admitted to having an appointment set up with PCP on 02/02/2025 and will set up home health. Patient will be discharged home in stable condition and was instruc mike to taper her steroids initially by using 20 mg of prednisone for 4 days and 10 mg of prednisone for the subsequent 5 days and finally stopping them. Patient was also instructed to take 40 mg Furosemide daily and discuss further continuation with the PCP. Patient was instructed to follow up with urologist for definitive management of ureteral stone and removal of stent. Patient was educated to watch for red flag signs like worsening shortness of breath, abdominal or flank pain, burning micturition, blood in the urine, fevers and return to ED if needed. Risk Management Director(s): , Urologist, Dr. Sheehan, ID, Dr. Godoy, cardiology, Dr. Mars, Nephrology, Date of Service: Jan 17, 2025 Reason for Consultation: 6 mm right distal ureteral calculus causing obstruction Requesting Physician: George Lira MD HISTORY OF PRESENT ILLNESS: 89-year-old female with a history of nephrolithiasis presents to the emergency department complaining of diffuse abdominal pain. She was managed earlier by her daughter with suppositories thinking she needed to have a bowel movement. Pain was unrelenting. It is a stabbing ache diffuse in the abdomen but mostly lateralizing to the right lower quadrant occasionally will radiate into the groin area. Severity at the time of presentation was eight on a scale of 1-10. No other associated symptoms. Today in the emergency department WBCs 12.6, left shift neutrophils 94%, potassium 3.4, no urinalysis has been collected or sent to lab, CT of abdomen and pelvis shows obstructive uropathy, right hydronephrosis, right hydro ureteral, 6 mm calculus. Emergency room physician recommended that patient be admitted so she could be evaluated by urology service. Urology service is being paste from the emergency department. Also creatinine was elevated at 1.7. There was no known baseline creatinine level. REVIEW OF SYSTEMS CONSTITUTIONAL: Denies fever, chills, or fatigue. HEAD/FACE: No signs of trauma. EENT: Denies eye pain, blurred vision, double vision, or light sensitivity. RESPIRATORY: Denies shortness of breath, cough, wheezing CARDIOVASCULAR: Denies chest pain, palpitation, syncope GASTROINTESTINAL/ABDOMINAL: Denies abdominal pain, constipation, diarrhea, nausea or vomiting GENITOURINARY: Denies dysuria or hematuria. MUSCULOSKELETAL: Denies joint pain, tenderness, or trauma. INTEGUMENTARY: Denies rash or itchiness NEUROLOGICAL/PSYCH: Denies anxiety, depression, heat or cold intolerance. PAST MEDICAL HISTORY: Nephrolithiasis, on home oxygen PAST SURGICAL HISTORY: No previous surgeries endorsed PAST SOCIAL HISTORY: Denies ethanol, smoking and recreational drug FAMILY HISTORY: Family history noncontributory to presenting complaint Coded Allergies: No Known Allergies (Unverified Allergy, Unknown, 01/17/25) PHYSICAL EXAM EYES: Anicteric. Pupils equal and reactive. HENT: No oral thrush seen, moist Oral mucosa NECK: Supple, no JVD or thyromegaly. LUNGS: Good air entry. No rales, no rhonchi. CARDIOVASCULAR: S1, S2 regular. No murmur heard. ABDOMEN: Soft, non tender, bowel sounds present, no organomegaly CENTRAL NERVOUS SYSTEM: Awake, alert, oriented x 3. No focal deficits. SKIN: No rashes, no swelling. LYMPHATICS: No peripheral lymphadenopathy MUSCULOSKELETAL: No joint swelling, erythema or tenderness. EXTREMITIES: No cyanosis or clubbing BACK: No deformity, no pressure ulcer. GENITOURINARY: Genitalia is normal Vital Sign (Last 24 Hours) 01/17/25 22:58 Temp 97.5 Pulse 113 Resp 28 B/P (MAP) 166/91 Pulse Ox 96 O2 Delivery Nasal Cannula* O2 Flow Rate 2 FiO2 28 LABS: Laboratory: Test 01/17/25 22:28 01/17/25 22:09 01/17/25 20:22 Range/Units Lactic Acid Level 2.4 0.8-2.5 mmol/L Urine Color LIGHT-YELLOW YELLOW Urine Appearance CLOUDY H CLEAR Urine pH 7.5 5.0-8.0 Urine Specific [place] 1.008 1.001-1.031 Urine Protein 30 H NEGATIVE mg/dL Urine Glucose (UA) NEGATIVE NEGATIVE mg/dL Urine Ketones NEGATIVE NEGATIVE mg/dL Urine Occult Blood LARGE H NEGATIVE Urine Nitrate NEGATIVE NEGATIVE Urine Bilirubin NEGATIVE NEGATIVE mg/dL Urine Urobilinogen 0.2 0.2-1.0 mg/dL Urine Leukocyte Esterase 500 H NEGATIVE Tim/uL Urine RBC 51-100 H 0-1 /HPF Urine WBC TNTC H 0-1 /HPF Urine WBC Clumps (Auto) FEW 0-1 /HPF Urine Other Crystals (Auto) 10 None Seen /HPF Urine Bacteria RARE None Seen /HPF Urine Random Creatinine 22.87 L 30-135 mg/dL Urine Random Sodium 101 40-220 mmol/l White Blood Count 12.6 H 4.8-10.8 K/uL Red Blood Count 4.32 4.00-5.50 MIL/uL Hemoglobin 13.2 12.0-16.0 g/dL Hematocrit 40.3 36-48 % Mean Corpuscular Volume 93.3 79-99 fL Mean Corpuscular Hemoglobin 30.6 27.0-33.0 pg Mean Corpuscular Hemoglobin Concent 32.8 32.0-36.0 g/dL Red Cell Distribution Width 12.4 11.0-15.5 % Platelet Count 383 130-400 K/uL Mean Platelet Volume 8.6 7.5-10.5 fL Immature Granulocyte % (Auto) 0.2 0-1 % Neutrophils (%) (Auto) 94.6 H 40.0-77.0 % Lymphocytes (%) (Auto) 4.5 L 21.0-51.0 % Monocytes (%) (Auto) 0.4 L 3.0-13.0 % Eosinophils (%) (Auto) 0.1 0.0-8.0 % Basophils (%) (Auto) 0.2 0.0-5.0 % Neutrophils # (Auto) 11.9 H 1.8-7.7 K/uL Lymphocytes # (Auto) 0.6 L 1.0-4.8 K/uL Monocytes # (Auto) 0.1 0.1-1.0 K/uL Eosinophils # (Auto) 0.01 0.00-0.70 K/uL Basophils # (Auto) 0.03 0.00-0.20 K/uL Absolute Immature Granulocyte (auto 0.03 0-1 K/uL Nucleated Red Blood Cells 0.0 0.0-0.19 % White Cell Morphology Comment See comments Sodium Level 142 136-145 mmol/L Potassium Level 3.4 L 3.5-5.1 mmol/L Chloride Level 100 L 101-111 mmol/L Carbon Dioxide Level 29 21-32 mmol/L Blood Urea Nitrogen 23 H 7-18 mg/dL Creatinine 1.7 H 0.5-1.0 mg/dL Glomerular Filtration Rate Calc 29 >90 mL/min Random Glucose 147 H 70-105 mg/dL Total Calcium 9.2 8.5-10.1 mg/dL Lipase 8 L 16-77 U/L DIAGNOSTICS / RADIOLOGY: CT stone protocol obtained in the emergency department tonight did show multiple nonobstructing stones bilaterally. Stone burden is actually impressive. There is a 6 mm stone that is making his way down the right ureter with hydroureteronephrosis. ASSESSMENT: 89-year-old female presents to the hospital with a an obstructing right ureteral calculus. PLAN: 1. We are mindful of patient's comorbidities. I am going to strongly recommend the admitting team to obtain a cardiac evaluation. 2. Patient's daughter was expressing interest in shockwave lithotripsy however that service or surgical intervention is not available in this facility 3. We talked about the possibility of extracting the right distal ureteral calculus via ureteroscopy with laser lithotripsy and then addressing the rest of the nonobstructing stones through shockwave lithotripsy electively. 4. We will continue to modify our plan in consultation with the family. We spent 60 minutes complete this consult, more than half of the time was spent in counseling and coordination of care and addressing questions posed by patient and her daughter present at bedside. We spent some time discussing with members of her care team. We spent a great deal of time reviewing her chart including past admissions, the current admission reviewing laboratory data and imaging studies even prior to meeting with patient. FLORIDALMA JIMENEZ MD Jan 17, 2025 23:08 Electronically Signed by: FLORIDALMA JIMENEZ MD01/17/25 7982 Electronically Co-Signed by: [facility] CARDIOLOGY CONSULTATION NOTE Date Patient Seen: Jan 18, 2025 Time of Visit: 16:30 Requesting Physician: [ ] Reason for Consultation: [ ] History of Present Illness: [89-year-old female with a history of nephrolithiasis presents to the emergency department complaining of diffuse abdominal pain.CT of abdomen and pelvis shows obstructive uropathy, right hydronephrosis, right hydro ureteral, 6 mm calculus. The patient was admitted for ureteroscopy with laser lithotripsy, on interrogation the patient denies any prior history of Myocardial infarction/CAD/stroke, presenting ECG sinus rhythm with no ST-T wave abnormalities, nonischemic , currently denying any chest pain, palpitations, dyspnea or any other anginal equivalents, the patient underwent 2D echocardiogram 01/18/2025, LVEF 55%, mild LVH, aortic valve trileaflet, thickened with a possible vegetation, but upon further review it appears to be a nodule, no hemodynamically significant valvular abnormalities. Cardiology was consulted for preop evaluation ] Past Medical History: [ Refer to chart] Past Surgical History: [Refer to HPI ] Family History: [Refer to HPI ] Social History: [ Refer to HPI] Habits: [Never] smoker. [Denies] alcohol consumption. [Denies] illicit drug use Review of Systems: A review of12 point system was negative set per HPI Physical Examination: GENERAL: [No acute distress.] HEAD: [Normal with no signs of head trauma.] EYES: [PERRLA, EOMI, conjunctiva and sclera normal.] ENT: [Hearing grossly intact, normal oropharynx.] NECK: [Supple without JVD. There is no tenderness, lymphadenopathy, or masses. No thyromegaly. Normal carotid upstrokes without bruits.] LUNGS: [Clear breath sounds bilaterally. No wheezes, or rhonchi.] HEART: [Normal rate and rhythm. Normal S1 and S2 without mumurs, gallop or rub.] VASC: [Peripheral pulses +2 bilaterally.] ABD: [Bowel sounds normal, soft, nontender, no masses, no organomegaly. No audible bruits.] : [Not examined] LYMPH: [No lymphadenopathy noted.] EXT: [No clubbing, cyanosis or edema.] SKIN: [No rashes or lesions noted.] NEURO: [Awake, alert, and oriented x3. No focal sensory or strength deficits noted.] Vital Signs (last 8hr) Date Time Temp Pulse Resp B/P (MAP) Pulse Ox O2 Delivery O2 Flow Rate FiO2 01/18/25 13:34 99.5 01/18/25 12:50 99.5 130 24 119/42 92 Nasal Cannula 2.0 01/18/25 12:17 Nasal Cannula* 2 28 01/18/25 08:46 98.2 122 24 121/60 91 Nasal Cannula 2.0 01/18/25 08:40 98.2 80 140/90 94 Nasal Cannula 2.0 Laboratory: [ ] Hematology Labs: Test 01/18/25 05:45 01/17/25 20:22 Range/Units White Blood Count 23.4 #H 4.8-10.8 K/uL Red Blood Count 4.04 4.00-5.50 MIL/uL Hemoglobin 12.3 12.0-16.0 g/dL Hematocrit 37.7 36-48 % Mean Corpuscular Volume 93.3 79-99 fL Mean Corpuscular Hemoglobin 30.4 27.0-33.0 pg Mean Corpuscular Hemoglobin Concent 32.6 32.0-36.0 g/dL Red Cell Distribution Width 12.5 11.0-15.5 % Platelet Count 325 130-400 K/uL Mean Platelet Volume 8.7 7.5-10.5 fL Immature Granulocyte % (Auto) 0.6 0-1 % Neutrophils (%) (Auto) 94.6 H 40.0-77.0 % Lymphocytes (%) (Auto) 1.8 L 21.0-51.0 % Monocytes (%) (Auto) 2.7 L 3.0-13.0 % Eosinophils (%) (Auto) 0.0 0.0-8.0 % Basophils (%) (Auto) 0.3 0.0-5.0 % Neutrophils # (Auto) 22.1 H 1.8-7.7 K/uL Lymphocytes # (Auto) 0.4 L 1.0-4.8 K/uL Monocytes # (Auto) 0.6 0.1-1.0 K/uL Eosinophils # (Auto) 0.00 0.00-0.70 K/uL Basophils # (Auto) 0.06 0.00-0.20 K/uL Absolute Immature Granulocyte (auto 0.14 0-1 K/uL Nucleated Red Blood Cells 0.0 0.0-0.19 % White Cell Morphology Comment See comments Chemistry Labs: Test 01/18/25 05:45 01/17/25 22:28 01/17/25 20:22 Range/Units Sodium Level 139 136-145 mmol/L Potassium Level 3.5 3.5-5.1 mmol/L Chloride Level 103 101-111 mmol/L Carbon Dioxide Level 27 21-32 mmol/L Blood Urea Nitrogen 24 H 7-18 mg/dL Creatinine 2.0 H 0.5-1.0 mg/dL Glomerular Filtration Rate Calc 24 >90 mL/min Random Glucose 134 H 70-105 mg/dL Lactic Acid Level 2.1 0.8-2.5 mmol/L Total Calcium 8.5 8.5-10.1 mg/dL Phosphorus Level 3.1 2.5-4.9 mg/dL Magnesium Level 1.40 L 1.80-2.40 mg/dL Procalcitonin 2.28 H 0.05-0.5 ng/mL Lipase 8 L 16-77 U/L Coagulation Labs: Test 01/18/25 05:45 Range/Units Prothrombin Time 11.2 9.6-11.6 SEC Prothromb Time International Ratio 1.06 0.85-1.15 Activated Partial Thromboplast Time 31.7 26.3-35.5 SEC Diagnostics / Radiology: [Copy/Paste Echos/Imaging Report here] Assessment: [Nephrolithiasis ] Plan: [#Pre - operative cardiovascular assessment The patient is considered to be at high risk for a low risk non cardiac surgery. Denies history of CAD/ UT/ stroke or family history of premature CAD The patient denies chest pain , palpitations , dyspnea on exertion or any other anginal equivalents. ECG : Sinus rhythm , non ischemic with no ST-T wave abnormalities. Given the above mentioned findings, patient is to proceed with intervention as the current benefits outweigh the risk from the cardiovascular standpoint. ] Thank you for this consult cardiology will sign off at this time Whitney godoy MD ATTESTATION BY PHYSICIAN I have seen and examined the patient, reviewed the above documentation, participated in medical decision making, made necessary modifications, and agree with the treatment plan as documented by my mid-level provider above. MD MICHELLE Irwin,WHITNEY Carrera MD Jan 18, 2025 16:38 Electronically Signed by: WHITNEY GODOY MD01/18/25 1638 Electronically Co-Signed by: [facility] CONSULTATION NOTE Date Patient Seen: Jan 18, 2025 Time of Visit: 19:59 Supervising Physician: DR. CAMRYN LEGER Reason for Consultation: [ ] Primary Care Physician: [ ] Outpatient Specialists: [ ] Inpatient Consults: DR. JIMENEZ PROBLEM LIST: 1. OBSTRUCTING RIGHT URETEROLITHIASIS , POA 2. ACUTE COMPLICATED CYSTITIS, POA 3. SEPSIS SECONDARY TO ACUTE COMPLICATED CYSTITIS, POA 4. Acute on chronic kidney injury, POA 5. MORBID OBESITY, POA CHIEF COMPLAINT: abdominal pain HPI: Patient is a 89-year-old female with no known past medical history, no surgical history of cholecystectomy, admitted at this facility yesterday on the medical floor after being diagnosed with obstructing right ureterolithiasis. Patient reports that for the past two days, she has been having diffuse abdominal pain associated with nausea. Today, patient was seen in the emergency department and admitted in the medical floor. The review of the patient's chart shows WBC of 12.6, BUN of , creatinine of 2, GFR of 24, procalcitonin level of 2.28. Urologist has been consulted and kitman has been consulted for cardiac clearance. [facility] team has been consulted for critical care management. After talking to the urologist, patient will be taken to the OR for stent placement tonight. In addition, patient will be started on Merrem1 g IV every 12 hours. PAST MEDICAL HX: see above PAST SURGICAL HX: noncontributory SOCIAL HISTORY: No tobacco, ETOH, or illicit drug use Coded Allergies: No Known Allergies (Unverified Allergy, Unknown, 01/17/25) REVIEW OF SYSTEMS: 12 point ROS reviewed with patient. Pertinent positives mentioned above. Otherwise negative. PHYSICAL EXAM: GENERAL: alert, weak, awake oriented x 3 HEENT: EOMI, Sclera non icteric, moist mucosa NECK: Supple, no JVD, trachea midline LUNGS: Clear breath sounds bilaterally. No wheezes HEART: Regular rate and rhythm. Normal S1 and S2, without murmurs ABD: Abdomen soft, nontender. Bowel sounds present EXT: No clubbing cyanosis or edema NEURO: Alert and oriented to person, follows commands Vital Signs (last 8hr) Date Time Temp Pulse Resp B/P (MAP) Pulse Ox O2 Delivery O2 Flow Rate FiO2 01/18/25 13:34 99.5 01/18/25 12:50 99.5 130 24 119/42 92 Nasal Cannula 2.0 01/18/25 12:17 Nasal Cannula* 2 28 LABS: Hematology Labs: Test 01/18/25 05:45 01/17/25 20:22 Range/Units White Blood Count 23.4 #H 4.8-10.8 K/uL Red Blood Count 4.04 4.00-5.50 MIL/uL Hemoglobin 12.3 12.0-16.0 g/dL Hematocrit 37.7 36-48 % Mean Corpuscular Volume 93.3 79-99 fL Mean Corpuscular Hemoglobin 30.4 27.0-33.0 pg Mean Corpuscular Hemoglobin Concent 32.6 32.0-36.0 g/dL Red Cell Distribution Width 12.5 11.0-15.5 % Platelet Count 325 130-400 K/uL Mean Platelet Volume 8.7 7.5-10.5 fL Immature Granulocyte % (Auto) 0.6 0-1 % Neutrophils (%) (Auto) 94.6 H 40.0-77.0 % Lymphocytes (%) (Auto) 1.8 L 21.0-51.0 % Monocytes (%) (Auto) 2.7 L 3.0-13.0 % Eosinophils (%) (Auto) 0.0 0.0-8.0 % Basophils (%) (Auto) 0.3 0.0-5.0 % Neutrophils # (Auto) 22.1 H 1.8-7.7 K/uL Lymphocytes # (Auto) 0.4 L 1.0-4.8 K/uL Monocytes # (Auto) 0.6 0.1-1.0 K/uL Eosinophils # (Auto) 0.00 0.00-0.70 K/uL Basophils # (Auto) 0.06 0.00-0.20 K/uL Absolute Immature Granulocyte (auto 0.14 0-1 K/uL Nucleated Red Blood Cells 0.0 0.0-0.19 % White Cell Morphology Comment See comments Chemistry Labs: Test 01/18/25 05:45 01/17/25 22:28 01/17/25 20:22 Range/Units Sodium Level 139 136-145 mmol/L Potassium Level 3.5 3.5-5.1 mmol/L Chloride Level 103 101-111 mmol/L Carbon Dioxide Level 27 21-32 mmol/L Blood Urea Nitrogen 24 H 7-18 mg/dL Creatinine 2.0 H 0.5-1.0 mg/dL Glomerular Filtration Rate Calc 24 >90 mL/min Random Glucose 134 H 70-105 mg/dL Lactic Acid Level 2.1 0.8-2.5 mmol/L Total Calcium 8.5 8.5-10.1 mg/dL Phosphorus Level 3.1 2.5-4.9 mg/dL Magnesium Level 1.40 L 1.80-2.40 mg/dL Procalcitonin 2.28 H 0.05-0.5 ng/mL Lipase 8 L 16-77 U/L Coagulation Labs: Test 01/18/25 05:45 Range/Units Prothrombin Time 11.2 9.6-11.6 SEC Prothromb Time International Ratio 1.06 0.85-1.15 Activated Partial Thromboplast Time 31.7 26.3-35.5 SEC DIAGNOSTICS / RADIOLOGY RESULTS: [ ] PLAN: Keep patient in ICU Patient NPO Start LR at 125 mL/hour Hydromorphone 0.25 mg IV q.4 hours p.r.n. for severe abdominal pain Merrem1 g IV every 12 hours All nephrotoxic drugs Monitor creatinine level very closely Follow urology recommendations Dietary consult Obtain urine culture Obtain PT, PTT, type and screen Tamsulosin 0.4 mg p.o. daily NEURO: Minimize central acting medications as possible. Fall Precautions. Well lighted room through the day and minimize interruptions through the night to prevent acute delirium. PULMONARY: Supplemental 02 as needed Titrate Fio2 to keep Spo2 > or = 90% DuoNebs and CPT as needed IS hourly while awake for pulmonary hygiene Out of bed to chair as tolerated VAP Bundle Vent/BIPAP Settings: [ ] Driving pressure: [ ] P Plat: [ ] Static C: [ ] Static R: [ ] P/F Ratio: [ ] CARDIOVASCULAR: Follow hemodynamics. Titrate vasopressor to keep MAP >65 or systolic blood pressure >95mmHg DIPS: [ ] LINES: [ ] GI & NUTRITION: Continue nutritional support Aspirations precautions Prokinetic agents and laxatives as needed KIDNEYS & ELECTROLYTES: Strict monitoring of intake and output Daily weights Avoid nephrotoxic agents Monitor electrolytes and replace as needed Goal urine output of 30mL/hr or 0.5mL/kg/hr Urine output: [ ] Fluid Balance: [ ] ENDOCRINE: Maintain blood glucose between 100-180 at all times. Insulin sliding scale for blood glucose management INFECTIOUS DISEASE: Trend temperature. Rust-culture if febrile. Micro: [ ] Antibiotics: Merrem1 g IV every 12 hours HEMATOLOGY & COAGULATION: Monitor H&H. Keep Hgb > 7 Transfuse 1 unit of PRBC for Hgb < 7 Transfuse 1 pack of platelets of platelets < 20, 000 Watch for any signs and symptoms of bleeding SKIN: Pressure ulcer prevention per facility protocol Rehab: PT/OT Prophylaxis: GI: Pantoprazole DVT: SCDs Code Status: Full Resuscitation Disposition: Keep in ICU Other: Total patient care time exceeds 35 minutes excluding all procedures. Case was discussed and seen with my supervising physician leeann Taylor . The above plan was formulated and agreed upon. ROSA MARIA RUIZ [facility] Jan 18, 2025 20:10 Electronically Signed by: ROSA MARIA [id number] Electronically Co-Signed by: LEEANN COWAN MD01/23/251952 INFECTIOUS DISEASE CONSULTATION DATE OF SERVICE: 01/20/2024 REQUESTING PHYSICIAN: Dr Box REASON FOR CONSULTATION: Gram-negative sepsis. HISTORY OF PRESENT ILLNESS: This is an 89-year-old female with shock on UTI and nephrolithiasis and morbid obesity. Presented to the hospital with altered mental status, weakness and flank pain. was under 0.4. The patient was with sepsis, admitted to ICU. CT of the abdomen shows hydronephrosis. The right stent was placed. The patient has no cough, no hemoptysis or pleuritic pain. The patient's procalcitonin was positive. She has been started on antibiotics. Blood culture positive for gram-negative felix. PAST MEDICAL HISTORY: * Obesity. * Nephrolithiasis. * UTI. PAST SURGICAL HISTORY: Cholecystectomy. ALLERGIES: No known drug allergies. CURRENT MEDICATIONS: * ____. * Vancomycin. * ____. * Flomax. * ____. * DuoNeb. SOCIAL HISTORY: Lives with daughter. No alcohol, tobacco or illicit drug use. FAMILY HISTORY: Noncontributory. REVIEW OF SYSTEMS: Greater than 10 systems were reviewed from medical record, negative other than documented above. PHYSICAL EXAMINATION: GENERAL: An elderly female, awake. VITAL SIGNS: Temperature 98.2, pulse 90, respirations 20, BP 131/85. EYES: No icterus. Pupils equal and reactive. HENT: No oral thrush seen. Moist oral mucosa. NECK: Supple. No JVD or thyromegaly. LUNGS: Good air entry. No rales, no rhonchi. CARDIOVASCULAR: S1 and S2. Regular. No murmur heard. ABDOMEN: Obese, soft, nontender. Bowel sound is present. CENTRAL NERVOUS SYSTEM: Awake, alert, oriented x 3. No focal deficits. SKIN: No rashes, no itchiness. LYMPHATIC: No peripheral lymphadenopathy. BACK: No deformity. No pressure ulcer. MUSCULOSKELETAL: No joint swelling. No erythema. No tenderness. LABORATORY DATA: Last procalcitonin 2.28, sodium 140, potassium 4.2, BUN 31, creatinine 2.4, WBC count 9.7, hemoglobin 10.4, platelets 145, blood culture growing gram negative rods. Urine culture pending. RADIOLOGY: CT of the abdomen shows right sided hydronephrosis. 2D echocardiogram reveals possible small ____ versus calcified nodules. ASSESSMENT: An 89-year-old female. * Gram-negative bacteremia,sepsis. * Urinary tract infection. * Right-sided hydronephrosis. * Renal failure. * Possible agitation. PLAN: * Continue critical care support. * Continue pain management. * Continue antibiotics. * Monitor electrolytes. * Continue DVT prophylaxis.. * Continue physical therapy. * Continue Flomax. * Continue oxygen. * The patient will be followed up closely. Thank you for allowing me to participate in the care of this patient. TID: [id number] RECEIPT: [id number] Electronically Signed by: MILAD SHEEHAN MD01/28/25 1709 Electronically Co-Signed by: Procedure(s): [facility] [address] [place] [address] Operative Note: DATE OF PROCEDURE: 01/18/25 SURGEON: FLORIDALMA JIMENEZ MD COORDINATE MEASURING MACHINE TECHNICIAN: Operating room staff ANESTHESIA: General anesthesia ANESTHESIOLOGIST/WATER PUMP SERVICER: Anesthesia staff PREOPERATIVE DIAGNOSIS: 1. Systemic inflammatory response syndrome/sepsis 2. Acute obstruction by 6 mm calculus in the right distal ureter 3. Nonobstructing stones bilaterally. POSTOPERATIVE DIAGNOSIS: 1. Systemic inflammatory response syndrome/sepsis 2. Acute obstruction by 6 mm calculus in the right distal ureter 3. Nonobstructing stones bilaterally. 4. Right Pyonephrosis SYNOPSIS: Successful manipulation of the stone the right ureter with stent placement. PROCEDURE: 1. 91617 Cystourethroscopy with manipulation without removal of a right ureteral calculus 2. 17338 Cystourethroscopy with insertion of a right ureteral stent 3. 66792 Right retrograde pyelogram with interpretation 4. Munguia catheterizations, simple ESTIMATED BLOOD LOSS: Minimal INDICATIONS: 89-year-old female presented to this facility yesterday with right flank pain. CT imaging confirmed a 6 mm stone obstructing in the right mid to distal ureter with hydroureteronephrosis. Patient has nonobstructing stones bilaterally. Patient was admitted in-house for supportive care. Today she was upgraded to intensive care unit because of worsening leukocytosis and hemodynamic instability. Cardiology saw patient and cleared her. The initial plan was to place a nephrostomy tube however there was no Interventional Radiology coverage in this facility today. We made a decision this evening to bring patient to the operating room for stent placement. DESCRIPTION OF PROCEDURE: She was identified, consent verified. She was already prophylactic was scheduled antibiotics. She was brought into the operating suite and placed in the supine position. After induction she underwent general anesthesia. Next she was placed in low lithotomy, her genitalia was prepped she was draped in a time-out was performed. We introduced a rigid22 Taiwanese cystoscope through meatus which was patent. Rust cystourethr oscopy was performed. A lot of clots urine identified in the bladder. It was flushed out multiple times to improve visualization. The right ureteral orifice was identified and cannulated with the open-ended ureteral catheter. We obtain a retrograde pyelogram on the low pressure. This was followed by advancing a wire into the right renal pelvis. With the wire in place we pushed the open- ended ureteral catheter to manipulate and push the stone backwards to a more dilated part of the ureter. Once this was performed the open-ended ureteral catheter was removed and there was effluxing of purulent drainage from the right collecting system. At this time a seven Taiwanese by 22 cm double-J stent was deployed with appropriate proximal and distal coils. Her bladder was empty. We made a decision to place a Munguia catheter for the next 24-48 hours to promote antegrade drainage. There were no complications. FLORIDALMA JIMENEZ MD Jan 18, 2025 22:20 Electronically Signed by: FLORIDALMA JIMENEZ MD01/18/252219 Electronically Co-Signed by: PATIENT: EUGENE CHATMAN MR#: [id number] : 1935 SEX: F AGE: 89 LOCATION: [facility] ORDER 57 STATUS: [facility] REPORT#: [id number] SERVICE 56 REASON: abdomina; pain diffuse ORDERING PHYSICIAN: JULIO CÉSAR JEONG MD PROCEDURE: ABD PEL WO - CT ABDOMEN/PELVIS W/O CONTRAST EXAM: CT Abdomen and Pelvis Without IV contrast CLINICAL HISTORY: abdomina; pain diffuse TECHNIQUE: Axial computed tomography images of the abdomen and pelvis without intravenous contrast. CONTRAST: No IV contrast. COMPARISON: None provided. FINDINGS: LUNG BASES: The lung bases appear clear. No pleural effusions are seen. LIVER: Unremarkable. GALLBLADDER AND BILE DUCTS: Absent. PANCREAS: Unremarkable. SPLEEN: Unremarkable. ADRENAL GLANDS: Unremarkable. KIDNEYS, URETERS, AND BLADDER: Moderate right sided hydronephrosis and hydroureter. There is a stone 6 mm in the distal right ureter. Extensive bilateral calculi are seen. STOMACH AND BOWEL: Sigmoid diverticulosis is noted. No bowel obstruction. No evidence of bowel obstruction. No evidence suggesting enteritis or colitis. Not visualized PERITONEUM: No free fluid. No free air. LYMPH NODES: No lymphadenopathy is evident. REPRODUCTIVE: Unremarkable as visualized. VASCULATURE: No evidence of abdominal aortic aneurysm. BONES: No aggressive appearing osseous lesion. No acute osseous pathology evident. IMPRESSION: 1. Obstructing calculus within the right ureter distally associated with moderate proximal obstructive uropathy. 2. Extensive sigmoid diverticulosis. /[place] DICTATED BY: SHANTA MCKINNEY MD DATE: 01/17/252221 ELECTRONICALLY SIGNED BY: SHANTA MCKINNEY MD DATE: 01/17/252221 PATIENT: EUGENE CHATMAN MR#: [id number] : 1935 SEX: F AGE: 89 LOCATION: [facility] ORDER 07 STATUS: ADM IN REPORT#: [id number] SERVICE 01 REASON: preprocedural ORDERING PHYSICIAN: ZAKIYA MOCTEZUMA ATHLETIC EQUIPMENT CUSTODIAN PROCEDURE: CXR1VW - CHEST 1VW CHEST 1VW REASON: preprocedural COMPARISON: None. FINDINGS: Single view of the chest was obtained. Lungs are clear with mild prominence of interstitium suggesting of underlying interstitial lung disease.. Heart size is normal. There is no pulmonary vascular congestion. Mediastinum and bony thorax appear unremarkable. 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 IMPRESSION: 1. No evidence of airspace consolidation or pulmonary venous congestion 2. Prominence of interstitium suggesting of interstitial lung disease. DICTATED BY: ELLIOTT PEREZ MD DATE: 01/18/251606 ELECTRONICALLY SIGNED BY: ELLIOTT PEREZ MD DATE: 01/18/251608 PATIENT: EUGENE CHATMAN MR#: [id number] : 1935 SEX: F AGE: 89 LOCATION: [facility] ORDER 6 STATUS: ADM IN REPORT#: [id number] SERVICE 0901 REASON: No past imaging, octogenarian, assess LV function ORDERING PHYSICIAN: AREN SIERRA MD PROCEDURE: ECHO [facility] - ECHO 2-D COMPLETE APPROVED REPORT EXAM: Two-dimensional and M-mode echocardiogram with Doppler and color Doppler. Study Details: No past imaging INDICATION ICD: Octogenarian, assess LV function 2D Dimensions RVDd 3.7 cm LVEF(%) 73.3 (>50%) LVED Vol(simp.) 51.0 mL IVSd 1.2 (0.7-1.1cm) FS(%) 42 % LVES Vol(simp.) 22.0 mL LVDd 3.7 (3.8-5.6cm) LA (2D) 4.6 (1.6-4.0cm) LVEF(%, simp.) 57 % PWd 1.1 (0.7-1.1cm) Ao Root(2D) 2.9 (2.0-3.7cm) LA ESV INDEX (BP) 25.58 mL/m2 IVSs 1.3 cm LVOT diam 2.0 (1.8-2.4cm) LVDs 2.4 (2.5-4.0cm) PWs 1.5 cm Deformation Strain Apical 4 -17.8 % Apical 2 -15.7 % Apical 3 -17.8 % Global Strain -17.1 % M-Mode Dimensions EPSS 0.5 cm LA (MM) 4.3 (1.6-4.0cm) Ao Root(MM) 2.7 (2.0-3.7cm) Aortic Valve AoV Vmax 1.5 m/s Ao Peak GR 8.8 mmHg LVOT Vmax 1.2 m/s AoV VTI 0.2 m Ao Mean GR 5.6 mmHg LVOT VTI 0.21 m HOWIE (VMAX) 2.55 cm2 HOWIE (VTI) 2.9 cm2 Mitral Valve MV E Vmax 92.8 cm/s DECEL Time 105 ms MV A Vmax 180.8 cm/s P 1/2 T 28 ms E/A ratio 0.5 MVA (PHT) 7.9 cm2 TDI E/E' Medial 8.9 E/E' Lateral 18.2 Medial E' Peak V 10.39 cm/s Lateral E' Peak V 5.09 cm/s Pulmonary Valve PV Vmax 2.0 m/s PV VTI 0.30 m PV Mean GR 9.8 mmHg PV Peak GR 16.0 mmHg Tricuspid Valve TR Vmax 2.5 m/s RAP (EST) 3 mmHg RVSP 27.2 mmHg TR Peak GR 24.2 mmHg Left Ventricle The left ventricle is normal size. GLS -17.0% There is normal LV segmental wall motion. Mild concentric left ventricular hypertrophy. The LVEF is > 55%. Indeterminate diastolic dysfunction. Right Ventricle The right ventricle is normal size. The right ventricular systolic function is normal. Atria The left atrium size is normal. The right atrium size is normal. Aortic Valve The aortic valve is normal in structure. Trace aortic regurgitation is present. Possible Non coronary cusp leaflet vegetation vs calcified nodule noted on aortic valve. There is no aortic valvular stenosis. Mitral Valve Posterior annular calcification noted. The mitral valve is mildly thickened. There is mild mitral valve regurgitation noted. There is no mitral valve stenosis. Tricuspid Valve The tricuspid valve is normal in structure. There is trace of tricuspid valve regurgitation noted. Pulmonic Valve Pulmonic valve is not well visualized. There is no pulmonic valvular regurgitation. Great Vessels The aortic root is normal in size. The IVC is normal in size and collapses >50% with inspiration. Pericardium There is no pericardial effusion. Other Information Quality : Adequate Conclusion The left ventricle is normal size.The LVEF is > 55% with normal LV segmental wall motion. Mild concentric left ventricular hypertrophy. Indeterminate diastolic dysfunction. The right ventricular systolic function is normal. Both atria are normal in size. Aortic valve is trileaflet, thickend with a possible vegetation vs calcified nodule on the noncoronary cusp. No hemodynamically significant valvular abnormalities. There is no pericardial effusion. Consider JERALD if clinically indicated to further assess AV DICTATED BY: WHITNEY GODOY MD DATE: 01/18/25 1011 ELECTRONICALLY SIGNED BY: WHITNEY GODOY MD DATE: 01/18/25 9017 IMAGING REPORT Signed PATIENT: EUGENE CHATMAN MR#: [id number] : 1935 SEX: F AGE: 89 LOCATION: [facility] ORDER 20 STATUS: ADM IN REPORT#: [id number] SERVICE 19 REASON: RIGHT STENT PLACEMENT ORDERING PHYSICIAN: FLORIDALMA JIMENEZ MD PROCEDURE: URORETRO - UROGRAPHY RETROGRADE OR RETROGRADE PYELOGRAM INDICATION: Right ureteral stent placement COMPARISON: None. FINDINGS: A total of 7 fluoroscopic spot images were obtained for placement of a right ureteral stent. No hydronephrosis or hydroureter is detected. The internal right ureteral catheter with the proximal loop in the right renal pelvis and distal loop in the urinary bladder. There is a right-sided hydronephrosis. Fluoroscopy time 0.7 minutes IMPRESSION: Details of the finding in the procedural normal. DICTATED BY: ELLIOTT PEREZ MD DATE: 01/20/2555 ELECTRONICALLY SIGNED BY: ELLIOTT PEREZ MD DATE: 01/20/2559 PATIENT: EUGENE CHATMAN MR#: [id number] : 1935 SEX: F AGE: 89 LOCATION: [facility] ORDER 2330 STATUS: ADM IN REPORT#: [id number] SERVICE 2329 REASON: picc line ORDERING PHYSICIAN: MARIEL GOLD PROCEDURE: CXR1VW - CHEST 1VW CHEST 1VW REASON: picc line COMPARISON: Prior chest radiograph from 01/17/2025 is available. FINDINGS: Single view of the chest was obtained. There is mild cardiomegaly. There is patchy airspace disease seen throughout both lungs most pronounced in the left lower lung. There is a right-sided PIC catheter with tip in severe vena cava.. Mediastinum and bony thorax appear unremarkable. IMPRESSION: 1. Mild cardiomegaly 2. Patchy airspace disease most pronounced in the left mid and left lower lung which appears to be worsening as compared to prior radiograph 3. Right-sided PICC catheter with tip in superior vena cava. DICTATED BY: ELLIOTT PEREZ MD DATE: 01/19/25 1118 ELECTRONICALLY SIGNED BY: ELLIOTT PEREZ MD DATE: 01/19/25 112 PATIENT: EUGENE CHATMAN MR#: [id number] : 1935 SEX: F AGE: 89 LOCATION: [facility] ORDER 53 STATUS: ADM IN REPORT#: [id number] SERVICE 53 REASON: POSSIBLE ASPIRATION ORDERING PHYSICIAN: ALFREDO ROWELL PROCEDURE: CXR1VW - CHEST 1VW CHEST 1VW REASON: POSSIBLE ASPIRATION COMPARISON: None. FINDINGS: Single view of the chest was obtained. Lungs are clear. Heart size is normal. There is no pulmonary vascular congestion. There is prominent azygous lobe with a prominent azygous vein.. Mediastinum and bony thorax appear unremarkable. There is a right-sided PIC catheter with tip in superior vena cava. IMPRESSION: 1. Mild prominence upper jejunum suggesting of interstitial lung disease. There may be underlying pulmonary edema.. DICTATED BY: ELLIOTT PEREZ MD DATE: 01/19/251401 ELECTRONICALLY SIGNED BY: ELLIOTT PEREZ MD DATE: 01/19/251405 PATIENT: EUGENE CHATMAN MR#: [id number] : 1935 SEX: F AGE: 89 LOCATION: [facility] ORDER STATUS: ADM IN REPORT#: [id number] SERVICE 3 REASON: rule out endocarditis. ORDERING PHYSICIAN: ALFREDO ROWELL PROCEDURE: ECHO JERALD - ECHO JERALD--TRANSESOPHAGEAL APPROVED REPORT EXAM: Transesophageal echocardiogram with color flow Doppler. INDICATION ICD: Rule out endocarditis PROCEDURE After obtaining informed consent, patient underwent transesophageal echo in the 306 15 mL 2% Viscous Lidocaine was given as a topical anesthetic prior to the administration of the conscious sedation. Type of Sedation: General Anesthesia Sedation was administered by Please refer to medication administration record. . Sedation was achieved with Please refer to medication administration record. intravenously. Transesophageal probe was inserted and advanced into esophagus without difficulty by Mae Lamas MD . JERALD was performed and images were obtained, probe was removed without complications. Throughout the procedure, the blood pressure, pulse oximetry, cardiac rhythm, and rate were monitored. Left Ventricle Left ventricular cavity size is normal. No regional wall motion abnormalities noted. Mild concentric left ventricular hypertrophy. Sigmoid septum is present. LVEF is >55%. No left ventricle thrombus noted on this study. The left ventricular diastolic function is Indeterminate Right Ventricle The right ventricle is normal size. The right ventricular systolic function is normal. Atria The left atrium size is dilated. Spontaneous contrast noted in left atrium The right atrium size is normal. Aortic Valve Aortic valve is trileaflet, thickened with nodular calcification. Aortic valve opens well. Nodular calcification most prominent on the non coronary cusp leaflet Trivial aortic regurgitation is present. There is no aortic valvular vegetation. There is no aortic valvular stenosis. Mitral Valve The mitral valve displays mild posterior mitral annular calcification. Mitral valve leaflets open well. There is at least mild mitral valve regurgitation noted by color Doppler. No mitral valve vegetation. There is no mitral valve stenosis. Tricuspid Valve The tricuspid valve is normal in structure and function. There is mild tricuspid valve regurgitation noted. No tricuspid valve vegetation. Pulmonic Valve The pulmonary valve is not well visualized. There is no pulmonic valvular regurgitation. Great Vessels The aortic root appears normal in size. Pericardium No pericardial effusion. Conclusion This was an abbreviated and focused transesophageal echocardiogram due to the patient's tenuous respiratory status and transient apnea. The area of concern from transthoracic echocardiogram was the aortic valve and this was interrogated fully. The aortic valve is trileaflet, displaying nodular calcification on all three cusps, with adequate excursion and trivial aortic regurgitation. No valvular vegetation. DICTATED BY: KEV LAMAS DO DATE: 01/20/25 0748 ELECTRONICALLY SIGNED BY: KEV LAMAS DO DATE: 01/20/25 1246 PATIENT: EUGENE CHATMAN MR#: [id number] : 1935 SEX: F AGE: 89 LOCATION: [facility] ORDER 7 STATUS: ADM IN REPORT#: [id number] SERVICE 6 REASON: PICC LINE PLACEMENT VERIFICATION ORDERING PHYSICIAN: ELAINE URIBE MD PROCEDURE: CXR1VW - CHEST 1VW EXAM: CR Chest, single view. CLINICAL HISTORY: PICC line placement. COMPARISON: None. FINDINGS: Right-sided PICC catheter is identified with the tip in the superior vena cava. Mild cardiomegaly with bilateral pulmonary congestion and probable subsegmental atelectasis in the left lower lobe. No evidence of pleural effusion or pneumothorax. No acute osseous abnormality. IMPRESSION: Right-sided PICC catheter is identified with the tip in the superior vena cava. Mild cardiomegaly with bilateral pulmonary congestion and probable subsegmental atelectasis in the left lower lobe. No evidence of pleural effusion or pneumothorax. Compared to the prior study, there is an interval progression of the pulmonary congestion. /[place] DICTATED BY: DEA COLLINS Jr., MD DATE: 01/21/25632 ELECTRONICALLY SIGNED BY: DEA COLLINS Jr., MD DATE: 01/21/25632 PATIENT: EUGENE CHATMAN MR#: [id number] : 1935 SEX: F AGE: 89 LOCATION: [facility] ORDER 56 STATUS: ADM IN REPORT#: [id number] SERVICE 56 REASON: coughing, congestion ORDERING PHYSICIAN: LEANN ADAMS ATHLETIC EQUIPMENT CUSTODIAN PROCEDURE: CXR1VW - CHEST 1VW EXAM: CHEST RADIOGRAPH, 1 VIEW Technique: Single frontal view of the chest was obtained. Clinical Information: Coughing and congestion. Comparison: Chest radiograph dated January 21, 2025 at 04:13 [place] Daylight Time. Findings: Lungs and large airways: Interval resolution of the previously noted probable subsegmental atelectasis in the left lower lobe. No new focal airspace consolidation is identified. Pleura: No pleural effusion is visualized on this projection. No pneumothorax is detected. Cardiomediastinal contours: Mild cardiomegaly is present. Pulmonary vascular congestion is again noted and appears unchanged. Lines and devices: Right-sided peripherally inserted central catheter with the tip projecting over the superior vena cava, stable in position. Bones/joints: No acute osseous abnormality is identified. Upper abdomen (limited): Unremarkable within the field of view. Impression: * Mild cardiomegaly with bilateral pulmonary vascular congestion, unchanged compared with January 21, 2025 at 04:13 [place] Daylight Time. * Interval resolution of the prior left lower lobe subsegmental atelectasis. * Right PICC with tip in the superior vena cava, stable in position. * No pleural effusion or pneumothorax identified on this single frontal view. /[place] DICTATED BY: KWAN VILLEGAS MD DATE: 01/23/252349 ELECTRONICALLY SIGNED BY: KWAN VILLEGAS MD DATE: 01/23/252349 PATIENT: EUGENE CHATMAN MR#: [id number] : 1935 SEX: F AGE: 89 LOCATION: [facility] ORDER 37 STATUS: ADM IN REPORT#: [id number] SERVICE 36 REASON: Decreased breath sounds with wheezing ORDERING PHYSICIAN: VIRGIL ALCARAZ MD PROCEDURE: CXR1VW - CHEST 1VW EXAM: CR Chest, 1 view CLINICAL HISTORY: Decreased breath sound. Wheezing. COMPARISON: 01/23/2025. FINDINGS: The right side PICC line tip overlies the distal right brachiocephalic vein. The lungs show no infiltrates or other acute findings. No pleural effusion or pneumothorax. Stable borderline cardiomegaly and mild pulmonary vascular congestion. No acute osseous abnormality. IMPRESSION: Stable borderline cardiomegaly and mild pulmonary vascular congestion. Compared to the prior study, there is no significant interval change. 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 Sheehan, ID, Dr. Godoy, cardiology, Dr. Mars, Nephrology, FOLLOW UP APPOINTMENT(S) : f/u with PCP in one Wednesday as scheduled and set up an appointment for home health. Follow up with Dr. Jimenez for definitive management of kidney stone PROCEDURES: Cystourethroscopy with manipulation without removal of right ureteral calculus with insertion of right ureteral stent IMAGING (S) : report attached to summary MICROBIOLOGY : report attached to summary ACTIVITY : ad carey HOME MEDICATIONS : Continued Home Medications: Active Scripts Furosemide (Lasix 40Mg Tab) 40 Mg Tablet, 1 TAB PO DAILY for 30 Days, #30 TAB 0 Refills Prov:AREN SIERRA MD 01/31/25 Prednisone (Prednisone) 20 Mg Tablet, 1 TAB PO DAILY for 4 Days, #4 TAB 0 Ref ills Prov:AREN SIERRA MD 01/31/25 Prednisone (Prednisone) 10 Mg Tablet, 1 TAB PO DAILY for 5 Days, #5 TAB 0 Refills Prov:AREN SIERRA MD 01/31/25 New Medications: Furosemide (Lasix 40Mg Tab) 40 Mg Tablet 1 TAB PO DAILY for 30 Days, #30 TAB 0 Refills Prednisone (Prednisone) 10 Mg Tablet 1 TAB PO DAILY for 5 Days, #5 TAB 0 Refills Prednisone (Prednisone) 20 Mg Tablet 1 TAB PO DAILY for 4 Days, #4 TAB 0 Refills Time spent arranging discharge: 1-30 minutes ATTESTATION BY PHYSICIAN I have seen and examined the patient. I reviewed the documentation, medical decision making, and treatment plan as noted by the resident physician above. I agree with the findings and plan of care. JULIA BOX MD, HARSHAVARDHA MD Jan 31, 2025 11:37
--- NOTE | 2025-01-31 12:15 | NUR ---
DISCHARGE PICC LINE DISCONTINUED BY JAMEE BELL. DRESSING DRY AND INTACT. TOLERATED WELL. DAUGHTER AT BEDSIDE. PT AND DAUGHTER AWARE OF NEW PRESCRIPTIONS SENT TO PHARMACY OF CHOICE. AWARE TO FOLLOW UP WITH PCP. APPOINTMENT IS FOR THIS WEDNESDAY. AWARE TO FOLLOW UP WITH DR. CANALES. ATTEMPTED TO MAKE APPOINTMENT AND NO ANSWER. PHONE NUMBER GIVEN TO DAUGHTER AND PT. INFORMATION ACKNOWLEDGED. NO QUESTIONS AT THIS TIME.
--- NOTE | 2025-01-31 19:32 | PN ---
FOLLOWUP PROGRESS NOTE SUBJECTIVE: The patient is an 89-year-old female who has had a prolonged hospital course. She initially presented with bacteremia and sepsis. The patient continues with the antibiotics. She has a history of obstructive uropathy, status post stent placement. She has had [id number] renal failure in the hospital. Creatinine had been elevated and the patient is being seen as a followup visit for all of the above. REVIEW OF SYSTEMS: CONSTITUTIONAL: She is feeling weak and tired. HEENT: No change in vision. No change in hearing. CARDIOVASCULAR: There is no current chest pains or palpitations. PULMONARY: She denies any shortness of breath. GASTROINTESTINAL: She is tolerating a diet. MUSCULOSKELETAL: Complains of weakness. PHYSICAL EXAMINATION: VITAL SIGNS: Blood pressure is 133/65, pulse 90. GENERAL: She is a chronically ill, elderly female, lying in bed on the medical floor. HEENT: Head is atraumatic. Pupils are equal, round and reactive to light. Oropharynx is without exudate. Nares clear. NECK: There is no JVP. There is no thyromegaly, no mass. CARDIOVASCULAR: Regular. There is no S3 or S4 gallop. LUNGS: Coarse with equal thoracic movement. ABDOMEN: Soft, nondistended, and nontender. EXTREMITIES: Reveal no clubbing, no cyanosis. NEUROLOGICAL: She is awake. She is alert. LABORATORY DATA: Hemoglobin 10, hematocrit 32, sodium 139, BUN 46, creatinine 1.2. IMPRESSION: Acute renal failure. Obstructive uropathy, status post stent. Sepsis/bacteremia. Debilitation. PLAN: The patient's creatinine is much improved while in the hospital. The patient is completing her IV antibiotics. The patient is being seen by medical case worker for final disposition. Blood pressure is under adequate control. Once the patient is discharged, she can follow up in the [facility]al [facility]. TID: [id number] RECEIPT: [id number]
--- NOTE | 2025-01-31 21:58 | PN ---
INFECTIOUS DISEASE PROGRESS NOTE Date of Service: Jan 31, 2025 SUBJECTIVE: This is an 89-year-old female patient who is being discharged to home today. Per report case management was unable to set up home health for physical therapy and instructed daughter to go to see the PCP for home health services referral. No other issues reported by nursing. PHYSICAL EXAM EYES: Anicteric. Pupils equal and reactive. HENT: No oral thrush seen, moist Oral mucosa NECK: Supple, no JVD or thyromegaly. LUNGS: Diminished. Continue on oxygen support via nasal cannula. CARDIOVASCULAR: S1, S2 regular. No murmur heard. ABDOMEN: Soft, non tender, bowel sounds present, no organomegaly CENTRAL NERVOUS SYSTEM: Awake, alert, oriented x 3. SKIN: No rashes, no swelling. LYMPHATICS: No peripheral lymphadenopathy MUSCULOSKELETAL: No joint swelling, erythema or tenderness. EXTREMITIES: No cyanosis or clubbing. Weakness. BACK: No deformity, no pressure ulcer. GENITOURINARY: No dysuria or hematuria. Vital Sign (Last 12 Hours) 01/31/25 01/31/25 11:27 11:30 Pulse 84 104 Resp 20 20 O2 Delivery N/Cannula Low lpm O2 Flow Rate 2.0 FiO2 28 Intake & Output (last 24hrs) 01/30/25 01/30/25 01/31/25 15:00 23:00 07:00 Intake Total 200 ml 600.0 ml Balance 200 ml 600.0 ml LABS: Laboratory: Test 01/31/25 04:59 Range/Units White Blood Count 10.7 4.8-10.8 K/uL Red Blood Count 3.49 L 4.00-5.50 MIL/uL Hemoglobin 10.7 L 12.0-16.0 g/dL Hematocrit 32.8 L 36-48 % Mean Corpuscular Volume 94.0 79-99 fL Mean Corpuscular Hemoglobin 30.7 27.0-33.0 pg Mean Corpuscular Hemoglobin Concent 32.6 32.0-36.0 g/dL Red Cell Distribution Width 13.5 11.0-15.5 % Platelet Count 241 130-400 K/uL Mean Platelet Volume 10.1 7.5-10.5 fL Nucleated Red Blood Cells 0.0 0.0-0.19 % Sodium Level 139 136-145 mmol/L Potassium Level 3.8 3.5-5.1 mmol/L Chloride Level 102 101-111 mmol/L Carbon Dioxide Level 32 21-32 mmol/L Blood Urea Nitrogen 46 H 7-18 mg/dL Creatinine 1.2 H 0.5-1.0 mg/dL Glomerular Filtration Rate Calc 44 >90 mL/min Random Glucose 111 H 70-105 mg/dL Total Calcium 8.4 L 8.5-10.1 mg/dL ASSESSMENT: Gram-negative bacteremia. Urinary tract infection with Proteus mirabilis. Leukocytosis, resolving. Endocarditis ruled out, status post JERALD. Obstructing calculus in the right distal ureter, s/p successful manipulation and right ureteral stent placement on 01/18/2025. Bilateral nephrolithiasis. Acute renal failure. PLAN: Completed 10 days of Meropenem. Case management unable to set up home health services for rehab and patient is being discharged today. This case was reviewed and discussed with my supervising physician Dr. Waldron and the above assessment and plan was formulated and agreed upon. ATTESTATION BY PHYSICIAN I have seen and examined the patient. I reviewed the documentation, medical decision making, and treatment plan as noted by the mid-level provider above. I agree with the findings and plan of care. MILAD WALDRON MD, [facility] Jan 31, 2025 21:58
== END 2025-01-31 12:50 | disposition home or self-care (01) | DRG 853 ==
LOC: EDH 19:38 → EDHIP 22:01 → 4CH 01-18 02:00 → 2CV 01-18 19:34 → 3BH 01-19 14:00
PROVIDERS: ADMIT Internal Medicine; ATTEND Internal Medicine
PROC: BT1D1ZZ Fluoroscopy of Right Kidney, Ureter and Bladder using Low Osmolar Contrast (ICD-10-PCS; 2025-01-18)
PROC: 0T768DZ Dilation of Right Ureter with Intraluminal Device, Via Natural or Artificial Opening Endoscopic (ICD-10-PCS; principal; 2025-01-18 21:30)
PROC: 02HV33Z Insertion of Infusion Device into Superior Vena Cava, Percutaneous Approach (ICD-10-PCS; 2025-01-19)
PROC: B24BZZ4 Ultrasonography of Heart with Aorta, Transesophageal (ICD-10-PCS; 2025-01-20)
DX: A41.50 Gram-negative sepsis, unspecified (principal); J96.21 Acute and chronic respiratory failure with hypoxia; R65.21 Severe sepsis with septic shock; J44.1 Chronic obstructive pulmonary disease with (acute) exacerbation; E27.40 Unspecified adrenocortical insufficiency; D64.9 Anemia, unspecified; E11.22 Type 2 diabetes mellitus with diabetic chronic kidney disease; N13.6 Pyonephrosis; N17.9 Acute kidney failure, unspecified; B96.4 Proteus (mirabilis) (morganii) as the cause of diseases classified elsewhere; Z68.41 Body mass index [BMI] 40.0-44.9, adult; I13.0 Hypertensive heart and chronic kidney disease with heart failure and stage 1 through stage 4 chronic kidney disease, or unspecified chronic kidney disease; N18.9 Chronic kidney disease, unspecified; I34.81 Nonrheumatic mitral (valve) annulus calcification; I50.30 Unspecified diastolic (congestive) heart failure; N13.9 Obstructive and reflux uropathy, unspecified; Z20.822 Contact with and (suspected) exposure to COVID-19; E87.6 Hypokalemia; K57.30 Diverticulosis of large intestine without perforation or abscess without bleeding; E66.01 Morbid (severe) obesity due to excess calories; F17.290 Nicotine dependence, other tobacco product, uncomplicated; K59.00 Constipation, unspecified; R31.0 Gross hematuria; Z74.01 Bed confinement status; Z87.442 Personal history of urinary calculi; Z99.81 Dependence on supplemental oxygen; Z68.25 Body mass index [BMI] 25.0-25.9, adult
CPT/HCPCS: 36415; 36569; 36600; 71045; 74176; 74420; 80048; 80053; 80076; 80202; 81001; 82570; 82803; 83605; 83690; 83735; 83880; 83935; 84100; 84145; 84300; 85025; 85027; 85610; 85730; 86850; 86900; 86901; 87040; 87086; 87186; 87426; 87804; 87880; 92610; 93005; 93306; 93312; 93325; 93356; 94640; 94664; 96372; 96374; 99285; C1758; C1769; C1894; C2617; G0378; J0330; J0500; J0696; J1100; J1171; J1938; J2185; J2250; J2371; J2405; J2470; J2543; J2704; J2710; J2919; J2997; J3010; J3475; J3480; J3490; J7030; J7120; P9045; P9046; Q9967; A4358; A4930; C1751; J1644; J3370; J3375